=== PATIENT | male | born 1945 | race Caucasian/White ===

== ENCOUNTER 2016-12-31 04:21 | Emergency (ER) | payer MEDICARE, BC ==
[2016-12-31 06:09] LABS: Hematocrit 30 % (42-52); Hemoglobin 9.5 g/dl (14.0-18.0); Mean Corpuscular HGB Conc 32 g/dl (31-36); Mean Corpuscular Hemoglobin 28 pg (27-31); Mean Corpuscular Volume 89 fL (80-94); Mean Platelet Volume 9 um3 (7.4-10.4); Red Blood Count 3.37 10^6/ul (4.0-5.4); Red Cell Distribution Width 19 % (10.5-15); White Blood Count 4.1 10^3/ul (3.5-10.8)
[2016-12-31 06:27] LABS: Albumin 3.3 g/dL (3.2-5.2); BUN/Creatinine Ratio 10.4 (8-20); Calcium 8.7 mg/dL (8.6-10.3); EGFR African American 73.7 (>60); EGFR Non-African American 57.3 (>60); Globulin 2.9 g/dL (2-4); Potassium 3.8 mmol/L (3.5-5.0); Total Bilirubin 0.3 mg/dL (0.2-1.0); Total Protein 6.2 g/dL (6.4-8.9)
[2016-12-31 06:31] VITALS: BP 98/59
[2016-12-31] MEDS ORDERED: Acetaminophen TAB* 325 MG PO ONE (06:44)
--- NOTE | 2016-12-31 06:44 | ED ---
Sussy Maldonado Matthew, scribed for Ishmael Valverde on 12/31/16 at 0434 . Head Injury - HPI Summary HPI Summary: A 71 y/o male presents to the ED for a head injury since 03:45 this morning. The patient states that he fell out of bed and hit his head against his Bipap machine on the floor. Associated symptoms include headache. The patient denies LOC, neck pain, weakness, and numbness. The patient is on Coumadin. PMHx includes CHF and anemia. He has a pacemaker. - History Of Current Complaint Stated Complaint: HEAD INJURY Time Seen by Provider: 12/31/16 04:25 Hx Obtained From: Patient Onset/Duration: Started Hours Ago, Atraumatic, Still Present Severity Currently: Moderate Severity Initially: Moderate Pain Intensity: 7 Pain Scale Used: 0-10 Numeric Associated Signs And Symptoms: Headache Anticoagulant Therapy: Coumadin - Allergies/Home Medications Allergies/Adverse Reactions: Allergies Allergy/AdvReac Type Severity Reaction Status Date / Time Dofetilide [From Tikosyn] Allergy Unknown Verified 12/31/16 04:34 Reaction Details Erythromycin Allergy GI Upset Verified 12/31/16 04:29 Ramipril [From Altace] Allergy Coughing Verified 12/31/16 04:29 Home Medications: Home Medications Allopurinol [Zyloprim 300 MG TAB] 400 mg PO DAILY 12/31/16 [History Confirmed ] Amiodarone TAB* [Cordarone Tab*] 200 mg PO DAILY 12/31/16 [History Confirmed ] Beclomethasone 80 MCG MDI(NF) [Qvar 80 MCG MDI(NF)] 2 puff INH BID 12/31/16 [ History Confirmed 12/31/16] Beclomethasone Dipropionate (N [Qnasl] 80 mcg NASAL DAILY 12/31/16 [History Confirmed 12/31/16] BuPROPion XL* [Bupropion XL*] 300 mg PO DAILY 12/31/16 [History Confirmed ] Diclofenac 1% GEL (NF) [Voltaren 1% GEL (NF)] 1 applic TOPICAL BID 12/31/16 [ History Confirmed 12/31/16] Levalbuterol HFA INHALER* [Xopenex Hfa Inhaler*] 2 puff INH QID PRN 12/31/16 [ History Confirmed 12/31/16] LevoCETirizine TAB (NF) [Xyzal TAB (NF)] 5 mg PO DAILY 12/31/16 [History Confirmed 12/31/16] Triazolam TAB* [Halcion TAB*] 0.5 mg PO BEDTIME 12/31/16 [History Confirmed ] PMH/Surg Hx/FS Hx/Imm Hx Endocrine/Hematology History: Denies: Hx Diabetes, Hx Systemic Lupus Erythematosus Cardiovascular History: Reports: Hx Auto Implanted Cardiovert Defib, Hx Congestive Heart Failure, Hx Hypertension, Hx Pacemaker/ICD - 2008 Denies: Hx Peripheral Vascular Disease Respiratory History: Reports: Hx Sleep Apnea History: Denies: Hx Dialysis, Hx Renal Disease Musculoskeletal History: Reports: Hx Rheumatoid Arthritis - ON ARTHRITIS MEDICATION SINCE 2011 Denies: Hx Arthritis, Hx Osteoporosis Sensory History: Reports: Hx Contacts or Glasses, Hx Hearing Aid - hearing aides are home, Hx Hearing Problem Denies: Other Sensory Impairments Opthamlomology History: Reports: Hx Contacts or Glasses Denies: Other Sensory Impairments Neurological History: Reports: Hx Headaches Denies: Hx Seizures, Hx Transient Ischemic Attacks (TIA) Psychiatric History: Reports: Hx Depression - Cancer History Hx Chemotherapy: No - Surgical History Surgery Procedure, Year, and Place: cardiac ablation x2-RPH. cardiac cath- 2005. pacemaker and AICD placement. gastric bypass-2005. shoulder--2006 - Immunization History Date of Tetanus Vaccine: Unk Date of Influenza Vaccine: Fall 2014 Infectious Disease History: Reports: Hx Tuberculosis - pt states "latent" - Family History Known Family History: Positive: Cardiac Disease, Diabetes - Social History Alcohol Use: None Substance Use Type: Reports: None Hx Tobacco Use: No Smoking Status (MU): Never Smoked Tobacco Review of Systems Constitutional: Negative Eyes: Negative ENT: Negative Cardiovascular: Negative Respiratory: Negative Gastrointestinal: Negative Genitourinary: Negative Positive: Myalgia - Head injury Skin: Negative Positive: Headache Psychological: Normal All Other Systems Reviewed And Are Negative: Yes Physical Exam Triage Information Reviewed: Yes Vital Signs Reviewed: Yes Appearance: Positive: Well-Appearing, No Pain Distress Skin: Positive: Warm, Skin Color Reflects Adequate Perfusion, Dry Head/Face: Positive: Normal Head/Face Inspection Eyes: Positive: EOMI, SOTO ENT: Positive: Normal ENT inspection Neck: Positive: Supple, Nontender Respiratory/Lung Sounds: Positive: Clear to Auscultation, Breath Sounds Present Cardiovascular: Positive: RRR, Pulses are Symmetrical in both Upper and Lower Extremities Abdomen Description: Positive: Nontender, Soft Bowel Sounds: Positive: Present Musculoskeletal: Positive: Normal, Strength/ROM Intact Neurological: Positive: Normal, Sensory/Motor Intact, Alert, Oriented to Person Place, Time Psychiatric: Positive: Affect/Mood Appropriate Diagnostics - Laboratory Result Diagrams: 12/31/16 06:00 12/31/16 06:00 Lab Statement: Any lab studies that have been ordered have been reviewed, and results considered in the medical decision making process. - CT Brain CT CT Interpretation: No Acute Changes - Age-appropriate involutional changes. Mild chronic microvascular changes in the cerebral white matter. No hemorrhage. No mass No visible acute infarct Musocal thickening in the sphenoid sinus Osseous structures are intact CT Interpretation Completed By: Radiologist Head Injury Course/Dx Assessment/Plan: A 71 y/o male presents to the ED for a head injury since 03:45 this morning. The patient states that he fell out of bed and hit his head against his Bipap machine on the floor. Associated symptoms include headache. The patient denies LOC, neck pain, weakness, and numbness. The patient is on Coumadin. PMHx includes CHF and anemia. He has a pacemaker. Brain CT was negative for hemorrhage. Labs were reviewed. The patient will be discharged home with follow-up from his PCP. - Diagnoses Provider Diagnoses: Fall, Head injury Discharge - Discharge Plan Condition: Stable Disposition: HOME Patient Education Materials: Head Injury (ED) Referrals: [facility] [Outside] - 3 Days Additional Instructions: Please follow-up with your primary care physician. The documentation as recorded by the Sussy ryan Matthew accurately reflects the service I personally performed and the decisions made by , Ishmael Valverde.
--- NOTE | 2016-12-31 08:24 | RAD ---
INDICATION: Intracranial injury COMPARISON: August 22, 2015 TECHNIQUE: Noncontrast axial source images were acquired from the skull base to the vertex. FINDINGS: Ventricles/sulci: There is mild cortical atrophy with compensatory dilatation of the CSF spaces. Brain parenchyma: There is mild periventricular and subcortical white matter change compatible with chronic ischemia. Intracranial hemorrhage:None. Extra-axial spaces: There are no abnormal extra axial fluid collections or evidence of extra-axial mass. Calvarium: There is no calvarial fracture or other calvarial abnormality. Scalp: There is no evidence of scalp or extracalvarial soft tissue abnormality. Paranasal sinuses/mastoid: The paranasal sinuses and mastoid air cells are clear. Other: None. IMPRESSION: Mild involutional changes and mild chronic microvascular ischemic change. No acute findings.
== END 2016-12-31 06:52 | disposition home or self-care (01) ==
LOC: ED 04:21
DX: S09.90XA Unspecified injury of head, initial encounter (principal); R51 Headache; W19.XXXA Unspecified fall, initial encounter; Y93.9 Activity, unspecified; Y92.9 Unspecified place or not applicable
CPT/HCPCS: 36415; 70450; 80053; 85025; 85610; 85730; 99284; A9270-GY

== ENCOUNTER 2017-02-10 10:58 | Inpatient (IN) | payer MEDICARE, BC ==
[2017-02-10 12:30] LABS: Comments Flag Yes; Hematocrit 37 % (42-52); Hemoglobin 11.9 g/dl (14.0-18.0); Mean Corpuscular HGB Conc 33 g/dl (31-36); Mean Corpuscular Hemoglobin 32 pg (27-31); Mean Corpuscular Volume 97 fL (80-94); Mean Platelet Volume 9 um3 (7.4-10.4); Red Blood Count 3.78 10^6/ul (4.0-5.4); Red Cell Distribution Width 25 % (10.5-15); White Blood Count 4.7 10^3/ul (3.5-10.8)
[2017-02-10 12:31] LABS: Add Diff/Slide Review? Slide Review Added
[2017-02-10 12:41] LABS: ALT 12 U/L (7-52); AST 25 U/L (13-39); Albumin 3.6 g/dL (3.2-5.2); Alkaline Phosphatase 102 U/L (34-104); Anion Gap 5 mmol/L (2-11); Blood Urea Nitrogen 10 mg/dL (6-24); C Reactive Protein 3.56 mg/L (< 5.00); CO2 Carbon Dioxide 30 mmol/L (22-32); Calcium 8.9 mg/dL (8.6-10.3); Chloride 102 mmol/L (101-111); Creatine Kinase 64 U/L (10-223); EGFR African American 84.5 (>60); EGFR Non-African American 65.7 (>60); Globulin 2.9 g/dL (2-4); Glucose 99 mg/dL (70-100); Lipase 29 U/L (11.0-82.0); Magnesium 1.9 mg/dL (1.9-2.7); Potassium 3.7 mmol/L (3.5-5.0); Sodium 137 mmol/L (133-145); Total Protein 6.5 g/dL (6.4-8.9)
[2017-02-10 12:46] LABS: B Type Natriuretic Peptide 136 pg/mL
[2017-02-10 12:59] LABS: Ammonia 38 mol/L (16-53)
--- NOTE | 2017-02-10 13:07 | RAD ---
Indication: Headache, confusion. CT of the brain was performed without IV contrast. Comparison is made with previous exam dated December 31, 2016. Ventricular structures are midline. No midline shift is noted. The extra-axial spaces are unremarkable. There is no evidence of intracranial mass or hemorrhage. Periventricular lucency consistent with chronic ischemic White matter change is noted. There is opacification of the sphenoid sinus which appears to be chronic. Mastoid air cells are otherwise unremarkable. IMPRESSION: No intracranial mass or hemorrhage is noted. Chronic ischemic White matter change. Chronic sinusitis sphenoid sinus.
--- NOTE | 2017-02-10 13:17 | RAD ---
Indication: Confusion. Single frontal view of the chest performed at 1245 hours was reviewed. Comparison is made with previous exam dated February 18, 2016. Pacemaker leads are in place. Heart is at the upper limits of normal in size. Lung sierra are clear. No pleural fluid, pneumonia or pneumothorax is noted. No changes noted since previous exam February 18, 2016. IMPRESSION: NO ACTIVE CARDIOPULMONARY DISEASE IS NOTED.
[2017-02-10 13:35] LABS: Acetaminophen < 15 mcg/mL; Alcohol < 10 mg/dL (<10); Salicylate < 2.50 mg/dL (<30)
[2017-02-10 13:49] LABS: Urine Bilirubin Negative (Negative); Urine Glucose Negative (Negative); Urine Nitrite Negative (Negative)
[2017-02-10 15:09] LABS: TSH (Thyroid Stimulating Horm) 1.31 mcIU/mL (0.34-5.60)
[2017-02-10] MEDS ORDERED: HYDROcodone/ACETAMIN 5-325 MG* 1 TAB PO ONE (15:11)
[2017-02-10] MEDS ORDERED: Acetaminophen TAB* 325 MG PO PRN (15:40)
[2017-02-10] MEDS ORDERED: Ondansetron INJ* 2 MG/ML VIAL IV PRN (15:40)
[2017-02-10] MEDS ORDERED: Levalbuterol HFA INHALER* 1 PUFF MDI INH PRN (15:41)
[2017-02-10] MEDS ORDERED: HYDROcodone/ACETAMIN 5-325 MG* 1 TAB PO PRN (15:50)
[2017-02-10] MEDS ORDERED: LORazepam INJ* 2 MG/ML 1 ML VIAL IV PUSH PRN (19:18)
--- NOTE | 2017-02-10 19:50 | ED ---
Eddie Maldonado Billy, scribed for Rafael Ferguson MD on 02/10/17 at 1223 . Psychiatric Complaint - HPI Summary HPI Summary: Patient is a 71 year-old male coming to [facility] for evaluation of auditory hallucinations and nightmares for the last 3-4 months. He states that he has nightmares about little stupid things, and he comes to the ED today because he has continued to fell nightmarish since waking up this morning. The voices do not tell him to hurt himself or others; he reports hearing music playing and voices that are just talking to themselves. Patient has had sleep disturbance , and his states that he has been restless for the last several days. He had mild chest pressure this morning, which he believes was secondary to his feelings of anxiety. He also has chronic headaches, and he complains of a frontal headache, severity 5/10, at this time. He had similar episodes of voices and nightmares two years ago which resolved until 3-4 months ago. - History Of Current Complaint Chief Complaint: EDMentalHealth Time Seen by Provider: 02/10/17 12:08 Accompanied By: Hx Obtained From: Patient, Family/Finish Inspector Onset/Duration: Gradual Onset, Lasting Weeks, Still Present Timing: Constant Severity Initially: Moderate Severity Currently: Moderate Aggravating Factor(s): Nothing Alleviating Factor(s): Nothing Associated Signs And Symptoms: Positive: Hallucinating, Sleep Disturbance Related History: Positive For: Prior Psychiatric Issues Has Suicidal: Denies: Thoughts, With A Plan Has Homicidal: Denies: Thoughts, With A Plan - Allergies/Home Medications Allergies/Adverse Reactions: Allergies Allergy/AdvReac Type Severity Reaction Status Date / Time Dofetilide [From Tikosyn] Allergy Unknown Verified 02/10/17 11:04 Reaction Details Erythromycin Allergy GI Upset Verified 02/10/17 11:04 Ramipril [From Altace] Allergy Coughing Verified 02/10/17 11:04 PMH/Surg Hx/FS Hx/Imm Hx Endocrine/Hematology History: Denies: Hx Diabetes, Hx Systemic Lupus Erythematosus Cardiovascular History: Reports: Hx Auto Implanted Cardiovert Defib, Hx Congestive Heart Failure, Hx Hypertension, Hx Pacemaker/ICD - 2009 Denies: Hx Peripheral Vascular Disease Respiratory History: Reports: Hx Sleep Apnea History: Denies: Hx Dialysis, Hx Renal Disease Musculoskeletal History: Reports: Hx Rheumatoid Arthritis - ON ARTHRITIS MEDICATION SINCE 2011 Denies: Hx Arthritis, Hx Osteoporosis Sensory History: Reports: Hx Contacts or Glasses, Hx Hearing Aid - hearing aides are home, Hx Hearing Problem Denies: Other Sensory Impairments Opthamlomology History: Reports: Hx Contacts or Glasses Denies: Other Sensory Impairments Neurological History: Reports: Hx Headaches Denies: Hx Seizures, Hx Transient Ischemic Attacks (TIA) Psychiatric History: Reports: Hx Depression - Cancer History Hx Chemotherapy: No - Surgical History Surgery Procedure, Year, and Place: cardiac ablation x2-RPH. cardiac cath- 2005. pacemaker and AICD placement. gastric bypass-2005. 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 "latent" Denies: Traveled Outside the [place] in Last 30 Days - Family History Known Family History: Positive: Cardiac Disease, Diabetes - Social History Alcohol Use: None Substance Use Type: Reports: None Hx Tobacco Use: No Smoking Status (MU): Never Smoked Tobacco Review of Systems Negative: Fever, Chills Positive: Chest Pain - pressure Negative: Shortness Of Breath Negative: Abdominal Pain, Vomiting, Nausea Negative: Myalgia Positive: Headache Positive: Anxious, Other - see HPI All Other Systems Reviewed And Are Negative: Yes Physical Exam Triage Information Reviewed: Yes Vital Signs On Initial Exam: Initial Vitals Temp Pulse Resp BP Pulse Ox 97.1 F 60 16 122/79 100 02/10/17 11:04 02/10/17 11:04 02/10/17 11:04 02/10/17 11:04 02/10/17 11:04 Vital Signs Reviewed: Yes Appearance: Positive: Well-Appearing, No Pain Distress Skin: Positive: Warm, Skin Color Reflects Adequate Perfusion, Dry Eyes: Positive: EOMI, SOTO ENT: Positive: Normal ENT inspection Neck: Positive: Supple, Nontender Respiratory/Lung Sounds: Positive: Clear to Auscultation, Breath Sounds Present Cardiovascular: Positive: RRR Abdomen Description: Positive: Nontender, Soft Bowel Sounds: Positive: Present Musculoskeletal: Positive: Normal, Strength/ROM Intact Neurological: Positive: Normal, Sensory/Motor Intact, Alert, Oriented to Person Place, Time Psychiatric: Positive: Affect/Mood Appropriate - [place] Coma Scale Coma Scale Total: 15 Diagnostics - Vital Signs Vital Signs Temp Pulse Resp BP Pulse Ox 02/10/17 12:00 60 14 105/70 97 02/10/17 11:34 59 113/66 98 02/10/17 11:09 97.1 F 60 16 122/79 98 02/10/17 11:04 97.1 F 60 16 122/79 100 - Laboratory Lab Results: Lab Results 02/10/17 02/10/17 02/10/17 Range/Units 12:05 12:05 12:05 WBC 4.7 (3.5-10.8) 10^3/ul RBC 3.78 L (4.0-5.4) 10^6/ul Hgb 11.9 L (14.0-18.0) g/dl Hct 37 L (42-52) % MCV 97 H (80-94) fL MCH 32 H (27-31) pg MCHC 33 (31-36) g/dl RDW 25 H (10.5-15) % Plt Count 141 L (150-450) 10^3/ul MPV 9 (7.4-10.4) um3 Neut % (Auto) 59.8 (38-83) % Lymph % (Auto) 22.6 L (25-47) % [place] % (Auto) 13.7 H (1-9) % Eos % (Auto) 3.4 (0-6) % Baso % (Auto) 0.5 (0-2) % Absolute Neuts (auto) 2.8 (1.5-7.7) 10^3/ul Absolute Lymphs (auto) 1.1 (1.0-4.8) 10^3/ul Absolute Monos (auto) 0.6 (0-0.8) 10^3/ul Absolute Eos (auto) 0.2 (0-0.6) 10^3/ul Absolute Basos (auto) 0 (0-0.2) 10^3/ul Absolute Nucleated RBC 0 10^3/ul Nucleated RBC % 0.1 INR (Anticoag Therapy) 3.35 H (0.89-1.11) APTT 71.5 H (26.0-36.3) seconds Carbon Monoxide Screen (<3.5) % Sodium 137 (133-145) mmol/L Potassium 3.7 (3.5-5.0) mmol/L Chloride 102 (101-111) mmol/L Carbon Dioxide 30 (22-32) mmol/L Anion Gap 5 (2-11) mmol/L BUN 10 (6-24) mg/dL Creatinine 1.11 (0.67-1.17) mg/dL Est GFR ( Amer) 84.5 (>60) Est GFR (Non-Af Amer) 65.7 (>60) BUN/Creatinine Ratio 9.0 (8-20) Glucose 99 (70-100) mg/dL Lactic Acid (0.5-2.0) mmol/L Calcium 8.9 (8.6-10.3) mg/dL Magnesium 1.9 (1.9-2.7) mg/dL Total Bilirubin 0.40 (0.2-1.0) mg/dL AST 25 (13-39) U/L ALT 12 (7-52) U/L Alkaline Phosphatase 102 (34-104) U/L Ammonia (16-53) mol/L Total Creatine Kinase 64 (10-223) U/L CK-MB (CK-2) 1.4 (0.6-6.3) ng/mL Troponin I 0.00 (<0.04) ng/mL C-Reactive Protein 3.56 (< 5.00) mg/L B-Natriuretic Peptide ( - 100) pg/mL Total Protein 6.5 (6.4-8.9) g/dL Albumin 3.6 (3.2-5.2) g/dL Globulin 2.9 (2-4) g/dL Albumin/Globulin Ratio 1.2 (1-3) Lipase 29 (11.0-82.0) U/L TSH 1.31 (0.34-5.60) mcIU/mL Urine Color Urine Appearance Urine pH (5-9) Ur Specific [place] (1.010-1.030) Urine Protein (Negative) Urine Ketones (Negative) Urine Blood (Negative) Urine Nitrate (Negative) Urine Bilirubin (Negative) Urine Urobilinogen (Negative) Ur Leukocyte Esterase (Negative) Urine Glucose (Negative) Salicylates < 2.50 (<30) mg/dL Acetaminophen < 15 mcg/mL Serum Alcohol < 10 (<10) mg/dL 02/10/17 02/10/17 02/10/17 Range/Units 12:05 12:05 12:50 WBC (3.5-10.8) 10^3/ul RBC (4.0-5.4) 10^6/ul Hgb (14.0-18.0) g/dl Hct (42-52) % MCV (80-94) fL MCH (27-31) pg MCHC (31-36) g/dl RDW (10.5-15) % Plt Count (150-450) 10^3/ul MPV (7.4-10.4) um3 Neut % (Auto) (38-83) % Lymph % (Auto) (25-47) % [place] % (Auto) (1-9) % Eos % (Auto) (0-6) % Baso % (Auto) (0-2) % Absolute Neuts (auto) (1.5-7.7) 10^3/ul Absolute Lymphs (auto) (1.0-4.8) 10^3/ul Absolute Monos (auto) (0-0.8) 10^3/ul Absolute Eos (auto) (0-0.6) 10^3/ul Absolute Basos (auto) (0-0.2) 10^3/ul Absolute Nucleated RBC 10^3/ul Nucleated RBC % INR (Anticoag Therapy) (0.89-1.11) APTT (26.0-36.3) seconds Carbon Monoxide Screen <3.5 (<3.5) % Sodium (133-145) mmol/L Potassium (3.5-5.0) mmol/L Chloride (101-111) mmol/L Carbon Dioxide (22-32) mmol/L Anion Gap (2-11) mmol/L BUN (6-24) mg/dL Creatinine (0.67-1.17) mg/dL Est GFR ( Amer) (>60) Est GFR (Non-Af Amer) (>60) BUN/Creatinine Ratio (8-20) Glucose (70-100) mg/dL Lactic Acid 1.0 (0.5-2.0) mmol/L Calcium (8.6-10.3) mg/dL Magnesium (1.9-2.7) mg/dL Total Bilirubin (0.2-1.0) mg/dL AST (13-39) U/L ALT (7-52) U/L Alkaline Phosphatase (34-104) U/L Ammonia 38 (16-53) mol/L Total Creatine Kinase (10-223) U/L CK-MB (CK-2) (0.6-6.3) ng/mL Troponin I (<0.04) ng/mL C-Reactive Protein (< 5.00) mg/L B-Natriuretic Peptide 136 H ( - 100) pg/mL Total Protein (6.4-8.9) g/dL Albumin (3.2-5.2) g/dL Globulin (2-4) g/dL Albumin/Globulin Ratio (1-3) Lipase (11.0-82.0) U/L TSH (0.34-5.60) mcIU/mL Urine Color Urine Appearance Urine pH (5-9) Ur Specific [place] (1.010-1.030) Urine Protein (Negative) Urine Ketones (Negative) Urine Blood (Negative) Urine Nitrate (Negative) Urine Bilirubin (Negative) Urine Urobilinogen (Negative) Ur Leukocyte Esterase (Negative) Urine Glucose (Negative) Salicylates (<30) mg/dL Acetaminophen mcg/mL Serum Alcohol (<10) mg/dL 02/10/17 Range/Units 13:30 WBC (3.5-10.8) 10^3/ul RBC (4.0-5.4) 10^6/ul Hgb (14.0-18.0) g/dl Hct (42-52) % MCV (80-94) fL MCH (27-31) pg MCHC (31-36) g/dl RDW (10.5-15) % Plt Count (150-450) 10^3/ul MPV (7.4-10.4) um3 Neut % (Auto) (38-83) % Lymph % (Auto) (25-47) % [place] % (Auto) (1-9) % Eos % (Auto) (0-6) % Baso % (Auto) (0-2) % Absolute Neuts (auto) (1.5-7.7) 10^3/ul Absolute Lymphs (auto) (1.0-4.8) 10^3/ul Absolute Monos (auto) (0-0.8) 10^3/ul Absolute Eos (auto) (0-0.6) 10^3/ul Absolute Basos (auto) (0-0.2) 10^3/ul Absolute Nucleated RBC 10^3/ul Nucleated RBC % INR (Anticoag Therapy) (0.89-1.11) APTT (26.0-36.3) seconds Carbon Monoxide Screen (<3.5) % Sodium (133-145) mmol/L Potassium (3.5-5.0) mmol/L Chloride (101-111) mmol/L Carbon Dioxide (22-32) mmol/L Anion Gap (2-11) mmol/L BUN (6-24) mg/dL Creatinine (0.67-1.17) mg/dL Est GFR ( Amer) (>60) Est GFR (Non-Af Amer) (>60) BUN/Creatinine Ratio (8-20) Glucose (70-100) mg/dL Lactic Acid (0.5-2.0) mmol/L Calcium (8.6-10.3) mg/dL Magnesium (1.9-2.7) mg/dL Total Bilirubin (0.2-1.0) mg/dL AST (13-39) U/L ALT (7-52) U/L Alkaline Phosphatase (34-104) U/L Ammonia (16-53) mol/L Total Creatine Kinase (10-223) U/L CK-MB (CK-2) (0.6-6.3) ng/mL Troponin I (<0.04) ng/mL C-Reactive Protein (< 5.00) mg/L B-Natriuretic Peptide ( - 100) pg/mL Total Protein (6.4-8.9) g/dL Albumin (3.2-5.2) g/dL Globulin (2-4) g/dL Albumin/Globulin Ratio (1-3) Lipase (11.0-82.0) U/L TSH (0.34-5.60) mcIU/mL Urine Color Straw Urine Appearance Clear Urine pH 5.0 (5-9) Ur Specific [place] 1.005 L (1.010-1.030) Urine Protein Negative (Negative) Urine Ketones Negative (Negative) Urine Blood Negative (Negative) Urine Nitrate Negative (Negative) Urine Bilirubin Negative (Negative) Urine Urobilinogen Negative (Negative) Ur Leukocyte Esterase Negative (Negative) Urine Glucose Negative (Negative) Salicylates (<30) mg/dL Acetaminophen mcg/mL Serum Alcohol (<10) mg/dL Result Diagrams: 02/10/17 12:05 02/10/17 12:05 Lab Statement: Any lab studies that have been ordered have been reviewed, and results considered in the medical decision making process. - Radiology CXR Xray Interpretation: No Acute Changes Radiology Interpretation Completed By: Radiologist - CT Brain CT Interpretation: No Acute Changes CT Interpretation Completed By: Radiologist - EKG 1125 EKG Interpretation: paced rhythm at 60 bpm Re-Evaluation - Re-Evaluation First Eval Re-Evaluation Time: 14:43 Comment: Labs and imaging reviewed with the patient and family. Course/Dx - Course Course Of Treatment: NO CRITICAL CARE TIME Assessment/Plan: DISCUSSED PATIENT WITH BOTH MEDICINE AND PSYCHIATRY. ADMIT HOSPITALIST WITH PSYCHIATRY CONSULT STABLE. - Differential Dx/Clinical Impression Provider Diagnosis: Altered mental state - Physician Notifications Discussed Care Of Patient With: Dr. Arndt (hospitalist) @ [phone]. Dr. Arndt ( hospitalist) @ [id number]: accepts admission. Discharge - Discharge Plan Condition: Stable Disposition: ADMITTED TO [facility] documentation as recorded by the Eddie ryan Billy accurately reflects the service I personally performed and the decisions made by me, Rafael Ferguson MD.
[2017-02-10] MEDS ORDERED: LORazepam TAB(*) 1 MG PO SCH (21:00)
[2017-02-10] MEDS ORDERED: Triazolam TAB* 0.25 MG PO SCH (21:00)
[2017-02-10] MEDS ORDERED: Mometasone 220 MCG MDI INH SCH (21:00)
[2017-02-10] MEDS: Nadolol TAB* 40 MG PO SCH (21:20)
[2017-02-10] MEDS: Potassium Chlor TAB* 20 MEQ TAB.ER PO SCH (21:22)
[2017-02-10] MEDS: BECLOMETHASONE DIPROPIONATE BOTH NARES SCH (21:25)
--- NOTE | 2017-02-10 23:10 | HP ---
AMENDED REPORT NOW INCLUDES COSIGNER HISTORY AND PHYSICAL: DATE OF ADMISSION: 02/10/17 PRIMARY CARE PROVIDER: Arcadio Aquino MD ATTENDING PHYSICIAN WHILE IN THE HOSPITAL: Juancho Arndt MD* (report dictated by Ernesto Valdez NP) CHIEF COMPLAINT: Auditory and visual hallucinations, worsening over the last 48 hours. HISTORY OF PRESENT ILLNESS: Mr. Unger is a 71-year-old male patient who was here about a year and a half ago or two years ago with similar complaints and was felt to have polypharmacy causing hallucinations; however, he has noticed over the last 3 months, he has been having auditory hallucinations, hearing music and sounds and unfortunately, over the last 2 days, he has noticed that he has had more visual hallucinations, seeing people in the room and hearing things as well. He says that he is not suicidal. He says that they are not telling him to hurt himself or others, but he is having a significant increase in the hallucinations that are making him very anxious. His was concerned as he was not getting any better. She remembered what happened 2 years ago and how he needed to be admitted previously, so she brought him in to the hospital. He says he has not had any changes to the medications. He is seeing a psychiatrist in [place] and his medications have been stable for sometime. He says that he has not had any change in his narcotics. He does state that he has been taking these for chronic headaches, particularly his [place], but the says that he has been on his baseline amount and he has not taken any more or less than what he normally does. He denies having any chills or fevers. He does state today he had 1 episode of chest pain this morning, lasted approximately 10 minutes, described as a pressure. He says that this occurred when he was seeing people. He denied having any vomiting or diarrhea. No dysuria. No frequency and again, no fevers or chills. He does carry a history of AFib, asthma, GERD, depression, arthritis, left bundle- branch block, CAD, cardiomyopathy, [place], [place], and a history of rheumatoid arthritis. There was concern because of these hallucinations and the chest discomfort, particularly the hallucinations. The patient was evaluated in the ER and we were asked to evaluate for admission. PAST MEDICAL HISTORY: Significant for: 1. Atrial fibrillation. 2. Asthma. 3. GERD. 4. Depression. 5. Arthritis. 6. Left bundle-branch block. 7. CAD. 8. Cardiomyopathy. 9. MOSES. 10. [place]. 11. Rheumatoid arthritis. PAST SURGICAL HISTORY: 1. He has had an ablation x2. 2. Cataract extraction. 3. AICD. 4. Gastric bypass. 5. Right shoulder surgery. HOME MEDICATIONS: According to his list include: 1. Warfarin 2.5 mg p.o. Saturday, Saturday, , and Saturday. 2. Warfarin 1.25 mg Saturday, Saturday, and Saturday. 3. Halcion 0.5 mg at bedtime. 4. Spironolactone 25 mg daily. 5. Potassium chloride 20 mEq p.o. b.i.d. 6. Protonix 40 mg daily. 7. Nadolol 20 mg p.o. b.i.d. 8. Levocetirizine 5 mg daily. 9. Xopenex 2 puffs inhaled q.i.d. as needed. 10. Ativan 2 mg at bedtime. 11. [place] 1 tablet every 6 hours as needed. 12. Ultravate 0.05% topically daily p.r.n. to affected area. 13. Lasix 40 mg daily. 14. Voltaren gel 1 application topically b.i.d. 15. Cymbalta 60 mg daily. 16. Wellbutrin 300 mg daily. 17. QVAR 2 puffs inhaled b.i.d. 18. Amiodarone 200 mg daily. 19. Allopurinol 400 mg daily. 20. Beclomethasone 80 mcg nasally daily. ALLERGIES TO MEDICATIONS: Include TIKOSYN, ERYTHROMYCIN, REMERON, and RAMIPRIL. FAMILY HISTORY: His mother had a history of rheumatoid arthritis. Father had a history of CHF and diabetes. SOCIAL HISTORY: He does not smoke. He does not drink. Surrogate decision maker is his . REVIEW OF SYSTEMS: There is no documented fever. He denied having any significant weight change. There was no double vision. He denies having any ear discharge. No rhinorrhea. No sore throat. No thyroid enlargement. There was 1 episode of chest discomfort earlier today in the setting of hallucinations described as a pressure with no association with shortness of breath and nonexertional or any association with diaphoresis or nausea. He denied having any shortness of breath. No orthopnea. No nocturnal dyspnea. There is no abdominal pain. No nausea. No vomiting. No dysuria. No frequency. No loss of consciousness. No pruritus. No skin ulcerations. Review of 14 systems completed, all others negative. PHYSICAL EXAMINATION GENERAL: At this time, Mr. Unger is a 71-year-old male patient coming in to the ER, appears to be well nourished and well developed. He does not appear to be in any acute distress. VITAL SIGNS: Blood pressure 116/60 with a pulse of 60, respirations 16, O2 sat 96%, and temperature 97.1. HEENT: Head is atraumatic and normocephalic. Eyes: EOMs are intact. Sclerae are anicteric and not pale. Throat: Oral mucosa appears to be moist. No oropharyngeal erythema. NECK: Supple. LUNGS: Clear to auscultation bilaterally. No wheezes, rales, or rhonchi. HEART: Sounds S1, S2. Regular rate and rhythm. No murmurs, rubs, or gallops. ABDOMEN: Soft. It was flat and nontender. Bowel sounds present. EXTREMITIES: Pulses were 2+ throughout. He is able to move all 4 extremities with 5/5 strength. NEUROLOGIC: The patient is awake, he is alert, and he is oriented x3. No gross focal deficits. SKIN: Grossly intact. DIAGNOSTIC STUDIES/LAB DATA: Today revealed a WBC of 4.7, RBC of 3.78, hemoglobin 11.9, hematocrit of 37, and platelet count of 141. The INR was 3.35 and PTT of 71.5. Carbon monoxide less than 3.5. Sodium 137, potassium 3.7, chloride of 102, bicarb 30, BUN 10, creatinine 1.10, glucose 99, lactic 1.0, calcium 8.9, and magnesium 1.9. Total bili 0.4, AST 25, ALT 12, and alk phos 102. Ammonia 38. CK 64 and CK-MB 1.4. Troponin 0. Albumin of 3.6. Lipase 29. TSH 1.31. Urine was obtained, it was negative. Toxicology thus far is negative. Brain CT showed no intracranial mass or hemorrhage noted. Chronic ischemic white matter change. Chronic sinusitis noted. Chest x-ray showed no active cardiopulmonary disease. EKG shows a paced rhythm with a rate of 60, no ST elevations or T-wave inversions were noted. Old medical records were reviewed. ASSESSMENT AND PLAN: Mr. Unger is a 71-year-old male patient coming into the ER today with complaints of hallucinations, worsening over the last 24 to 38 hours with no obvious cause. He will be admitted under observation status for: 1. Hallucinations, both auditory and visual: At this point, I will place a psychiatric consult. He does not appear to be overtly anxious at this point. I am going to try to avoid adding on any new medications to his regimen and Psychiatry evaluate the patient and we will continue to follow. 2. Chest pain: Again, this could be anxiety related; however, he does have cardiac disease. I think minimally we should go ahead and trend his troponins, place him on telemetry overnight. If these are negative, consider a stress test in the outpatient setting at some point, but we will continue to follow him. If they go up, obviously we will get a Cardiology consult. 3. Atrial fibrillation: His INR is 3.35. We will hold his Coumadin for the time being until his INR trends between 2 and 3 and I will restart his Coumadin when appropriate and continue with his nadolol. 4. Cardiomyopathy and coronary artery disease: Again, continue his beta marie. He is on spironolactone. We will continue this. He is also on amiodarone, which is also for the atrial fibrillation and we will continue Lasix for the time being. 5. Anxiety: Continue with supportive care and his current medical regimen. 6. Depression: Continue with current medications. 7. Asthma: Continue his inhalers as prescribed. 8. Gastroesophageal reflux disease: Continue PPI therapy. 9. Obstructive sleep apnea: I did order his CPAP. 10. Rheumatoid arthritis: Continue with supportive care and current medical regimen. 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 11. DVT prophylaxis: His INR is therapeutic. We will follow. 12. Fluids, electrolytes, and nutrition: He can have a heart healthy diet. 13. Code status: Full code. TIME SPENT: Time spent on the admission was 60 minutes; greater than half the time was spent [id number] with the patient obtaining my history and physical, the other half time is spent going over the plan of care with the patient and implementing plan of care. I discussed the plan of care with my attending, Dr. Arndt. He is in agreement. ERNESTO VALDEZ NP CC: Dr. Aquino; Dr. Heck* [id number]/CPS #: [id number] [facility]
[2017-02-11 05:57] LABS: Hematocrit 37 % (42-52); Hemoglobin 11.9 g/dl (14.0-18.0); Mean Corpuscular HGB Conc 33 g/dl (31-36); Mean Corpuscular Hemoglobin 32 pg (27-31); Mean Corpuscular Volume 97 fL (80-94); Mean Platelet Volume 9 um3 (7.4-10.4); Red Blood Count 3.78 10^6/ul (4.0-5.4); White Blood Count 4.8 10^3/ul (3.5-10.8)
[2017-02-11 06:00] LABS: Add Diff/Slide Review? Slide Review Added; Comments Flag Yes; Red Cell Distribution Width 25 % (10.5-15)
[2017-02-11 06:11] LABS: BUN/Creatinine Ratio 11.8 (8-20); Calcium 9.1 mg/dL (8.6-10.3); EGFR Non-African American 60.6 (>60); Potassium 3.9 mmol/L (3.5-5.0)
[2017-02-11] MEDS: BECLOMETHASONE DIPROPIONATE BOTH NARES SCH (08:45)
[2017-02-11] MEDS ORDERED: BuPROPion XL* 300 MG TAB.XL PO SCH (09:00)
[2017-02-11] MEDS ORDERED: Furosemide TAB* 40 MG PO SCH (09:00)
[2017-02-11] MEDS ORDERED: Allopurinol TAB* 100 MG PO SCH (09:00)
[2017-02-11] MEDS ORDERED: Allopurinol TAB* 300 MG PO SCH (09:00)
[2017-02-11] MEDS ORDERED: DULoxetine DR CAP* 60 MG CAP.DR PO SCH (09:00)
[2017-02-11] MEDS ORDERED: Amiodarone TAB* 200 MG PO SCH (09:00)
[2017-02-11] MEDS ORDERED: Cetirizine* 10 MG TAB PO SCH (09:00)
[2017-02-11] MEDS ORDERED: Omeprazole CAP* 20 MG PO SCH (09:00)
[2017-02-11] MEDS ORDERED: Spironolactone TAB* 25 MG PO SCH (09:00)
[2017-02-11] MEDS: Nadolol TAB* 40 MG PO SCH (09:31)
[2017-02-11] MEDS: Potassium Chlor TAB* 20 MEQ TAB.ER PO SCH (09:32)
[2017-02-11 12:32] VITALS: BP 101/60
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
--- NOTE | 2017-02-12 15:01 | DS ---
DISCHARGE SUMMARY: DATE OF ADMISSION: 02/10/17 DATE OF DISCHARGE: 02/11/17 PRIMARY CARE PROVIDER: Dr. Aquino PRINCIPAL DIAGNOSIS: Visual and auditory hallucinations. SECONDARY DIAGNOSES: 1. Atrial fibrillation. 2. Asthma. 3. Gastroesophageal reflux disease. 4. Depression. 5. Coronary artery disease. 6. Obstructive sleep apnea. 7. Rheumatoid arthritis. DISCHARGE MEDICATIONS: 1. Coumadin 2.5 mg p.o. Saturday, Saturday, , Saturday and 1.25 mg p.o. all other days of the week. 2. Spironolactone 25 mg p.o. daily. 3. Potassium chloride 20 mEq p.o. b.i.d. 4. Protonix 40 mg p.o. daily. 5. Nadolol 20 mg p.o. b.i.d. 6. Xyzal 5 mg p.o. daily. 7. Xopenex 2 puffs inhaled q.i.d. p.r.n. shortness of breath. 8. Ativan 2 mg p.o. q.h.s. 9. [place] 10/325 one tab p.o. q.6 hours p.r.n. pain, I discussed tapering slowly with the patient and his . 10. Halobetasol 0.05% topically daily p.r.n. rash. 11. Lasix 40 mg p.o. daily. 12. Diclofenac gel apply topically twice daily. 13. Duloxetine DR 60 mg p.o. daily. 14. QVAR 2 puffs inhaled twice daily, q. nasal 80 mcg nasally daily. 15. Amiodarone 200 mg p.o. daily. 16. Allopurinol 400 mg p.o. daily. Discontinued Medications: 1. Halcion. 2. Wellbutrin. HOSPITAL COURSE: Mr. Unger is a 71-year-old male, who approximately 2 years ago had an episode with severe agitation, delirium, and hallucinations and per his , he has not been his usual self since then. The patient presented to the emergency room on 02/10/17 with complaints of visual and auditory hallucinations. These are not threatening in any nature. The plan was to admit the patient for a psychiatry evaluation and monitoring. Dr. Heck saw the patient on the afternoon of 02/11/17 and recommended discontinuing his Halcion and Wellbutrin. The patient already established with psychiatrist and a counselor and will continue to follow up with these individuals. It was felt the patient's visual and auditory hallucinations are not a risk for suicide as they are non-threatening. The patient was adamant about going home today and was felt to be stable for this. The patient has been maintained on his usual home medication regimen, though at the recommendation of Dr. Heck, Halcion and Wellbutrin have been discontinued on discharge. The patient's INR was however noted to be supra-therapeutic on the day of admission; however, on the day of discharge, it is back down to therapeutic range. He will be maintained on his usual dose of Coumadin and will need to follow up for his usually scheduled INR check. FOLLOWUP CONCERNS: The patient is being discharged to home today, 02/11/17. ACTIVITY LEVEL: As tolerated. DIET: Regular. CONDITION ON DISCHARGE: Stable. The patient is to follow up with Dr. Aquino in the next 4 to 7 days. TIME SPENT: 35 minutes was spent discharging this patient. CC: Dr. Aquino* [id number]/CPS #: [id number] [facility]
== END 2017-02-11 15:35 | disposition home or self-care (01) | DRG 880 ==
LOC: ED 10:58 → MED 14:53 → MEDTELE 16:38
PROVIDERS: ADMIT Hospitalist; ATTEND Hospitalist
DX: R44.0 Auditory hallucinations (principal); I42.9 Cardiomyopathy, unspecified; I48.91 Unspecified atrial fibrillation; R44.1 Visual hallucinations; T43.295A Adverse effect of other antidepressants, initial encounter; T42.4X5A Adverse effect of benzodiazepines, initial encounter; J45.909 Unspecified asthma, uncomplicated; K21.9 Gastro-esophageal reflux disease without esophagitis; F32.9 Major depressive disorder, single episode, unspecified; I25.10 Atherosclerotic heart disease of native coronary artery without angina pectoris; G47.33 Obstructive sleep apnea (adult) (pediatric); M06.9 Rheumatoid arthritis, unspecified; I44.7 Left bundle-branch block, unspecified; X58.XXXA Exposure to other specified factors, initial encounter; I25.2 Old myocardial infarction; Z95.810 Presence of automatic (implantable) cardiac defibrillator; Z98.84 Bariatric surgery status; Z79.899 Other long term (current) drug therapy; Z79.01 Long term (current) use of anticoagulants; Z88.1 Allergy status to other antibiotic agents; Z88.8 Allergy status to other drugs, medicaments and biological substances; Z83.3 Family history of diabetes mellitus; Z82.61 Family history of arthritis; Z82.49 Family history of ischemic heart disease and other diseases of the circulatory system; Y92.009 Unspecified place in unspecified non-institutional (private) residence as the place of occurrence of the external cause
CPT/HCPCS: 36415; 70450; 71010; 80048; 80053; 80320; 80329; 81003; 82140; 82375; 82550; 82553; 83605; 83690; 83735; 83880; 84443; 84484; 85025; 85610; 85730; 86140; 93005; A9270-GY; G0480; J2060

== ENCOUNTER 2017-06-16 18:03 | Emergency (ER) | payer MEDICARE, BC ==
[2017-06-16] MEDS ORDERED: NS 0.9% 1000 ML* 1,000 ML IV ONE (20:03)
[2017-06-16 21:13] LABS: Hematocrit 36 % (42-52); Hemoglobin 12.1 g/dl (14.0-18.0); Mean Corpuscular HGB Conc 34 g/dl (31-36); Mean Corpuscular Hemoglobin 37 pg (27-31); Mean Platelet Volume 9 um3 (7.4-10.4); Red Blood Count 3.29 10^6/ul (4.0-5.4); Red Cell Distribution Width 15 % (10.5-15); White Blood Count 5.4 10^3/ul (3.5-10.8)
[2017-06-16 21:14] LABS: Comments Flag Yes; Mean Corpuscular Volume 109 fL (80-94)
[2017-06-16 21:29] LABS: Albumin 3.3 g/dL (3.2-5.2); BUN/Creatinine Ratio 11.5 (8-20); Calcium 9.1 mg/dL (8.6-10.3); EGFR African American 90.8 (>60); EGFR Non-African American 70.6 (>60); Globulin 3.1 g/dL (2-4); Potassium 4.2 mmol/L (3.5-5.0); Total Bilirubin 0.6 mg/dL (0.2-1.0); Total Protein 6.4 g/dL (6.4-8.9)
[2017-06-16] MEDS ORDERED: Iodixanol* (CONTRAST) 320 MG/ML 100 ML SDV IV ONE (21:35)
--- NOTE | 2017-06-16 21:59 | RAD ---
CLINICAL HISTORY: Diverticulitis, lower abdominal pain COMPARISON: June 07, 2003 TECHNIQUE: Multiple contiguous axial CT scans were obtained of the abdomen and pelvis after the administration of intravenous contrast. Coronal and sagittal multiplanar reformations are submitted for review. Oral contrast was not administered. Delayed images were obtained through the abdomen and pelvis. FINDINGS: LUNG BASES: The lung bases are clear. LIVER: The liver is normal in shape, size, contour, and attenuation. BILE DUCTS: There is no intrahepatic or extrahepatic biliary dilatation. GALLBLADDER: The gallbladder is normal, without pericholecystic inflammatory change. PANCREAS: The pancreas is normal, without mass or ductal dilatation. SPLEEN: Normal in size and appearance. UPPER GI TRACT: Evaluation of the gastrointestinal tract is limited by incomplete gastric distention. There is a 1.3 cm diverticulum of the second stage of the duodenum. There is postsurgical change to the upper GI tract. SMALL BOWEL AND MESENTERY: The small bowel is normal in contour, course, and caliber. There is no obstruction or dilatation. COLON: There are multiple diverticula of the descending and sigmoid colon. There is no appreciable pericolonic inflammatory change. There is a tubular, vermiform, hollow viscus that is blind ending, and originates from the cecum, consistent with a normal appendix. There is no periappendiceal inflammatory change. This is best seen on axial images 52 through 66. ADRENALS: Normal bilaterally. KIDNEYS: The kidneys are normal in shape, size, contour, and axis. There is no hydronephrosis or nephrolithiasis. BLADDER: The bladder is smooth in contour. PELVIC ORGANS: The prostate gland is normal. The seminal vesicles are symmetric. AORTA: The aorta is normal. IVC: Unremarkable LYMPH NODES: There is no lymphadenopathy by size criteria. ABDOMINAL WALL: There is no evidence for abdominal wall hernia. BONES AND SOFT TISSUES: Mild degenerative changes are noted OTHER: None IMPRESSION: COLONIC DIVERTICULOSIS, WITHOUT PERICOLONIC INFLAMMATORY CHANGE TO SUGGEST DIVERTICULITIS. POSTSURGICAL CHANGE TO THE UPPER GI TRACT. DUODENAL DIVERTICULUM.
[2017-06-17] LABS: Urine Bacteria Absent (Absent); Urine Bilirubin Negative (Negative); Urine Glucose Negative (Negative); Urine Nitrite Negative (Negative)
[2017-06-17 00:29] VITALS: BP 122/79
--- NOTE | 2017-06-17 04:50 | ED ---
Migdalia Maldonado Rebecca, scribed for Ishmael Valverde on 06/16/17 at 2004 . Abdominal Pain/Male - HPI Summary HPI Summary: Pt is a 72 y/o M who presents to ED c/o LLQ abdominal pain. Sx began yesterday and are currently moderate, ranked 5/10. Sx aggravated and alleviated by nothing. Denies nay other symptoms including N/V/D, fever, blood in stool, hematuria, CP and SOB. Pt reports recent illness of shingles on the L flank which was treated with Abx for 1 week. - History of Current Complaint Chief Complaint: EDAbdPain Stated Complaint: LT SIDE PAIN Time Seen by Provider: 06/16/17 19:59 Hx Obtained From: Patient Onset/Duration: Lasting Days - Started yesterday, Still Present Severity Currently: Moderate Pain Intensity: 5 Pain Scale Used: 0-10 Numeric Location: Discrete At: LLQ Aggravating Factor(s): Nothing Alleviating Factor(s): Nothing Associated Signs And Symptoms: Positive: Negative - Allergies/Home Medications Allergies/Adverse Reactions: Allergies Allergy/AdvReac Type Severity Reaction Status Date / Time Dofetilide [From Tikosyn] Allergy Unknown Verified 06/16/17 18:07 Reaction Details Erythromycin Allergy GI Upset Verified 06/16/17 18:07 Ramipril [From Altace] Allergy Coughing Verified 06/16/17 18:07 PMH/Surg Hx/FS Hx/Imm Hx Endocrine/Hematology History: Denies: Hx Anticoagulant Therapy, Hx Blood Disorders, Hx Diabetes, Hx Systemic Lupus Erythematosus Cardiovascular History: Reports: Hx Auto Implanted Cardiovert Defib, Hx Congestive Heart Failure, Hx Hypertension, Hx Pacemaker/ICD - 2009 Denies: Hx Peripheral Vascular Disease Respiratory History: Reports: Hx Asthma, Hx Sleep Apnea History: Denies: Hx Dialysis, Hx Renal Disease Musculoskeletal History: Reports: Hx Rheumatoid Arthritis - ON ARTHRITIS MEDICATION SINCE 2011, Hx Gout Denies: Hx Arthritis, Hx Osteoporosis Sensory History: Reports: Hx Contacts or Glasses, Hx Hearing Aid - hearing aides are home, Hx Hearing Problem Denies: Other Sensory Impairments Opthamlomology History: Reports: Hx Contacts or Glasses Denies: Other Sensory Impairments Neurological History: Reports: Hx Headaches Denies: Hx Seizures, Hx Transient Ischemic Attacks (TIA) Psychiatric History: Reports: Hx Anxiety, Hx Depression - Cancer History Hx Chemotherapy: No - Surgical History Surgery Procedure, Year, and Place: cardiac ablation x2-[facility]. cardiac cath- 2005. pacemaker and AICD placement. gastric bypass-2005. shoulder--2005 - Immunization History Date of Tetanus Vaccine: Unk Date of Influenza Vaccine: Fall 2014 Infectious Disease History: Reports: Hx Tuberculosis - pt states "latent" Denies: Traveled Outside the [place] in Last 30 Days - Family History Known Family History: Positive: Cardiac Disease, Diabetes - Social History Alcohol Use: None Hx Substance Use: No Substance Use Type: Reports: None Hx Tobacco Use: No Smoking Status (MU): Never Smoked Tobacco Review of Systems Negative: Fever Negative: Chest Pain Negative: Shortness Of Breath Positive: Abdominal Pain - LLQ. Negative: Vomiting, Diarrhea, Nausea Negative: hematuria All Other Systems Reviewed And Are Negative: Yes Physical Exam - Summary Physical Exam Summary: Appearance: Well appearing, no pain distress Skin: warm, dry, rash over the L flank Head/face: normal Eyes: EOMI, SOTO ENT: normal Neck: supple, nontender Respiratory: CTA, breath sounds present Cardiovascular: RRR, pulses symmetrical Abdomen: LLQ tenderness, soft Bowel: present Musculoskeletal: normal, strength/ROM intact Neuro: normal, sensory motor intact, A&Ox3 Triage Information Reviewed: Yes Vital Signs On Initial Exam: Initial Vitals Temp Pulse Resp BP Pulse Ox 96.9 F 58 20 119/80 99 06/16/17 18:07 06/16/17 18:07 06/16/17 18:07 06/16/17 18:07 06/16/17 18:07 Vital Signs Reviewed: Yes Diagnostics - Vital Signs Vital Signs Temp Pulse Resp BP Pulse Ox 06/16/17 18:07 96.9 F 58 20 119/80 99 - Laboratory Result Diagrams: 06/16/17 21:00 06/16/17 21:00 Lab Statement: Any lab studies that have been ordered have been reviewed, and results considered in the medical decision making process. - CT Abd/Pel CT CT Interpretation: No Acute Changes - COLONIC DIVERTICULOSIS, WITHOUT PERICOLONIC INFLAMMATORY CHANGE TO SUGGEST DIVERTICULITIS. POSTSURGICAL CHANGE TO THE UPPER GI TRACT. DUODENAL DIVERTICULUM. ED physician reviewed this radiology report and agrees. CT Interpretation Completed By: Radiologist Re-Evaluation - Re-Evaluation First Eval Re-Evaluation Time: 00:16 Change: Improved Comment: Discussed D/C plan with the pt. Abdominal Pain Fem Course/Dx - Course Assessment/Plan: Pt is a 72 y/o M who presents to ED c/o LLQ abdominal pain. Sx began yesterday and are currently moderate, ranked 5/10. Sx aggravated and alleviated by nothing. Denies nay other symptoms including N/V/D, fever, blood in stool, hematuria, CP and SOB. Pt reports recent illness of shingles on the L flank which was treated with Abx for [address] Abd/Pel reveals "COLONIC DIVERTICULOSIS, WITHOUT PERICOLONIC INFLAMMATORY CHANGE TO SUGGEST DIVERTICULITIS. POSTSURGICAL CHANGE TO THE UPPER GI TRACT. DUODENAL DIVERTICULUM." Pt will be D/C to home with Dx of flank pain and Hx of shingles and a follow up with his PCP. He understands and agrees. - Diagnoses Provider Diagnoses: Flank pain, History of shingles Discharge - Discharge Plan Condition: Stable Disposition: HOME Patient Education Materials: Flank Pain (ED) Referrals: [facility] [Outside] - 3 Days The documentation as recorded by the Migdalia ryan Rebecca accurately reflects the service I personally performed and the decisions made by me, Ishmael Valverde.
== END 2017-06-17 00:28 | disposition home or self-care (01) ==
LOC: ED 18:03
DX: R10.32 Left lower quadrant pain (principal); Z86.19 Personal history of other infectious and parasitic diseases
CPT/HCPCS: 36415; 74177; 80053; 81003; 81015; 83690; 84484; 85025; 85610; 85730; 96360; 99284; Q9967

== ENCOUNTER 2018-10-18 11:00 | Inpatient (IN) | payer MEDICARE, BC ==
--- NOTE | 2018-10-18 11:49 | ED ---
Complex/Multi-Sys Presentation - HPI Summary HPI Summary: A 73 y/o M presents to ED with c/o diarrhea onset yesterday evening. Per , patient had several bought of diarrhea throughout the night. She thinks he is mildly confused. Associated sx: nausea, dry heaving. He denies pain at bedside. Pt has had a recent head cold and sore throat. - History Of Current Complaint Chief Complaint: EDGeneral Time Seen by Provider: 10/18/18 11:41 Hx Obtained From: Patient, Family/Benzene Washer - Onset/Duration: Lasting Hours, Still Present Timing: Constant Severity Currently: Moderate Severity Initially: Moderate Associated Signs And Symptoms: Positive: Confusion, Nausea, Other - pos: dry heaves - Allergies/Home Medications Allergies/Adverse Reactions: Allergies Allergy/AdvReac Type Severity Reaction Status Date / Time dofetilide Allergy Unknown Verified 09/03/18 12:29 Reaction Details erythromycin base Allergy GI Upset Verified 09/03/18 12:29 ramipril Allergy Coughing Verified 09/03/18 12:29 Home Medications: Home Medications Gabapentin CAP(*) [Neurontin 300 CAP(*)] 300 mg PO BID 10/18/18 [History Confirmed 10/18/18] PMH/Surg Hx/FS Hx/Imm Hx Previously Healthy: No Endocrine/Hematology History: Reports: Hx Anticoagulant Therapy Denies: Hx Blood Disorders, Hx Diabetes, Hx Systemic Lupus Erythematosus Cardiovascular History: Reports: Hx Auto Implanted Cardiovert Defib, Hx Congestive Heart Failure, Hx Hypertension, Hx Pacemaker/ICD - 2008 Denies: Hx Peripheral Vascular Disease Respiratory History: Reports: Hx Asthma, Hx Sleep Apnea History: Denies: Hx Dialysis, Hx Renal Disease Musculoskeletal History: Reports: Hx Rheumatoid Arthritis - ON ARTHRITIS MEDICATION SINCE 2011, Hx Gout, Other Musculoskeletal History - Psoriatic arthritis Denies: Hx Arthritis, Hx Osteoporosis Sensory History: Reports: Hx Contacts or Glasses, Hx Hearing Aid - hearing aides are home, Hx Hearing Problem Denies: Other Sensory Impairments Opthamlomology History: Reports: Hx Contacts or Glasses Denies: Other Sensory Impairments Neurological History: Reports: Hx Headaches Denies: Hx Seizures, Hx Transient Ischemic Attacks (TIA) Psychiatric History: Reports: Hx Anxiety, Hx Depression - Cancer History Hx Chemotherapy: No - Surgical History Surgery Procedure, Year, and Place: cardiac ablation x2-[facility]. cardiac cath- 2005. pacemaker and AICD placement. gastric bypass-2005. 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" Denies: Hx of Known/Suspected MRSA, Traveled Outside the [place] in Last 30 Days - Family History Known Family History: Positive: Cardiac Disease, Diabetes - Social History Occupation: Retired Lives: With Family Alcohol Use: None Hx Substance Use: No Substance Use Type: Reports: None Hx Tobacco Use: No Smoking Status (MU): Never Smoked Tobacco Review of Systems Positive: Diarrhea, Nausea, Other - pos: dry heaves Psychological: Other - pos: confused All Other Systems Reviewed And Are Negative: Yes Physical Exam - Summary Physical Exam Summary: Appearance: The patient is well-nourished in no acute distress and in no acute pain. Skin: The skin is warm and dry and skin color reflects adequate perfusion. HEENT: The head is normocephalic and atraumatic. The pupils are equal and reactive. The conjunctivae are clear and without drainage. Nares are patent and without drainage. Mouth reveals dry mucous membranes and the throat is without erythema and exudate. The external ears are intact. The ear canals are patent and without drainage. The tympanic membranes are intact. Neck: the neck is supple with full range of motion and non-tender. There are no carotid bruits. There is no neck vein distension. Respiratory: Chest is non-tender. Lungs are clear to auscultation and breath sounds are symmetrical and equal. Cardiovascular: Heart is tachycardic. There is no murmur or rub auscultated. There is no peripheral edema and pulses are symmetrical and equal. Abdomen: The abdomen is soft and non-tender. There are normal bowel sounds heard in all four quadrants and there is no organomegaly palpated. Musculoskeletal: There is no back tenderness noted. Extremities are non-tender with full range of motion. There is good capillary refill. There is no peripheral edema or calf tenderness elicited. Neurological: Patient is alert and oriented to person, place and time. The patient has symmetrical motor strength in all four extremities. Cranial nerves are grossly intact. Deep tendon reflexes are symmetrical and equal in all four extremities. Psychiatric: The patient has an appropriate affect and does not exhibit any anxiety or depression. Triage Information Reviewed: Yes Vital Signs On Initial Exam: Initial Vitals Temp Pulse Resp BP Pulse Ox 99.0 F 108 16 96/71 96 10/18/18 11:11 10/18/18 11:11 10/18/18 11:11 10/18/18 11:11 10/18/18 11:11 Vital Signs Reviewed: Yes Diagnostics - Vital Signs Vital Signs Temp Pulse Resp BP Pulse Ox 10/18/18 11:11 99.0 F 108 16 96/71 96 - Laboratory Result Diagrams: 10/18/18 11:58 10/18/18 11:58 Lab Statement: Any lab studies that have been ordered have been reviewed, and results considered in the medical decision making process. - Radiology CXR Radiology Interpretation Completed By: Radiologist Summary of Radiographic Findings: IMPRESSION: #. Low lung volumes with subsegmental atelectasis. ED provider has reviewed this report. - EKG 1153 Cardiac Rate: Tachycardia - 108 bpm Summary of EKG Findings: Paced. Quadrigeminy. Complex Multi-Symp Course/Dx Course Of Treatment: Mr. Unger was sent into the emergency department because of confusion. He's been having diarrhea since last evening and does admit to nausea but no vomiting. He received some IV hydration here in the department while labs were obtained. We had a little trouble getting his urine. On arrival he was confused and it's unclear what his baseline is. The hospitalists were asked to evaluate him for admission and I'm unclear that he needs antibiotics at this point I do not think so. - Diagnoses Provider Diagnoses: Weakness - Physician Notifications Discussed Care Of Patient With: Sulma Cowan - hospitalist Time Discussed With Above Provider: 15:22 Instructed by Provider To: Admit As Inpatient Discharge - Sign-Out/Discharge Documenting (check all that apply): Patient Departure - ADMIT - Discharge Plan Condition: Stable Disposition: ADMITTED TO [facility] - Billing Disposition and Condition Condition: STABLE Disposition: Admitted to [facility] - Attestation Statements Document Initiated by Scribe: Yes Documenting Scribe: Dk King Provider For Whom Scribe is Documenting (Include Credential): Dr. Fredis Pino MD Scribe Attestation: I, Dk King, scribed for Dr. Fredis Pino MD on 10/18/18 at 1805. Scribe Documentation Reviewed: Yes Provider Attestation: The documentation as recorded by the scribe, Dk King accurately reflects the service I personally performed and the decisions made by me, Dr. Fredis Pino MD Status of Scribe Document: Viewed
[2018-10-18] MEDS ORDERED: Metoprolol Tartrate IV* 1 MG/ML 5 ML VIAL IV ONE (11:55)
[2018-10-18 12:13] LABS: ABS Basophils 0 10^3/ul (0-0.2); ABS Eosinophils 0.1 10^3/ul (0-0.6); ABS Lymphocytes 0.6 10^3/ul (1.0-4.8); ABS Monocytes 0.9 10^3/ul (0-0.8); ABS Nucleated RBC 0 10^3/ul; Eosinophil % 1.3 %; Hematocrit 42 % (42-52); Hemoglobin 13.7 g/dl (14.0-18.0); Lymphocyte % 8.8 %; Mean Corpuscular HGB Conc 33 g/dl (31-36); Mean Corpuscular Hemoglobin 36 pg (27-31); Mean Corpuscular Volume 111 fL (80-94); Mean Platelet Volume 9.7 fL (7.4-10.4); Nucleated Red Blood Cells % 0; Platelet Count 168 10^3/ul (150-450); Red Blood Count 3.76 10^6/ul (4.00-5.40); Red Cell Distribution Width 16 % (10.5-15); White Blood Count 6.6 10^3/ul (3.5-10.8)
[2018-10-18 12:18] LABS: INR 1.15 (0.77-1.02)
[2018-10-18 12:29] LABS: Albumin 3.9 g/dL (3.2-5.2); Albumin/Globulin Ratio 1.2 (1-3); BUN/Creatinine Ratio 12.3 (8-20); C Reactive Protein 72.07 mg/L (<8.01); Calcium 9.3 mg/dL (8.6-10.3); EGFR Non-African American 47.6 (>60); Globulin 3.3 g/dL (2-4); Magnesium 2.1 mg/dL (1.9-2.7); Potassium 3.8 mmol/L (3.5-5.0); Total Bilirubin 0.6 mg/dL (0.2-1.0); Total Protein 7.2 g/dL (6.4-8.9)
[2018-10-18 12:50] LABS: TSH (Thyroid Stimulating Horm) 1.23 mcIU/mL (0.34-5.60)
[2018-10-18] MEDS ORDERED: NS 0.9% 1000 ML* 1,000 ML IV ONE (13:28)
[2018-10-18 15:24] LABS: Urine Appearance Cloudy; Urine Bilirubin Negative (Negative); Urine Blood Negative (Negative); Urine Color Yellow; Urine Glucose Negative (Negative); Urine Ketones Negative (Negative); Urine Nitrite Negative (Negative); Urine Protein Negative (Negative); Urine Specific Gravity 1.024 (1.010-1.030); Urine Urobilinogen Negative (Negative)
[2018-10-18] MEDS ORDERED: Cetirizine* 10 MG TAB PO PRN (16:24)
[2018-10-18] MEDS ORDERED: Levalbuterol 1.25MG/0.5ML NEB INH PRN (16:36)
[2018-10-18] MEDS ORDERED: Lactated Ringers 1000 ML Bag* 1,000 ML IV SCH ×2 (17:00)
[2018-10-18] MEDS: Cholecalciferol TAB* 1000 UNITS PO SCH (20:19)
[2018-10-18] MEDS: Potassium Chlor TAB* 20 MEQ TAB.ER PO SCH (20:19)
[2018-10-18] MEDS ORDERED: Gabapentin CAP(*) 300 MG PO SCH (21:00)
[2018-10-18] MEDS ORDERED: QUEtiapine TAB* 100 MG PO SCH (21:00)
[2018-10-18] MEDS: OLANzapine TAB* 10 MG PO SCH (21:22)
[2018-10-18] MEDS: Topiramate TAB(*) 100 MG PO SCH (21:22)
--- NOTE | 2018-10-18 21:25 | HP ---
CC: Dr. Arcadio Aquino; Dr. Sulma Cowan* ADMISSION HISTORY AND PHYSICAL: DATE OF ADMISSION: 10/18/18 PRIMARY CARE PROVIDER: Dr. Arcadio Aquino. MY ATTENDING WHILE IN THE HOSPITAL: Dr. Sulma Cowan* (dictated by TOSHIA Meza). CHIEF COMPLAINT: Diarrhea x16 hours. HISTORY OF PRESENT ILLNESS: Mr. Unger is a 73-year-old male with a past medical history significant for coronary artery disease with ischemic cardiomyopathy, most recent known EF of 60% to 65% with biventricular pacemaker ; paroxysmal atrial fibrillation; left bundle branch block; psoriatic arthritis ; polymyalgia rheumatica, who presents to the emergency department after being in his normal state of health up until yesterday evening, on 10/17/18 at approximately 6 p.m., when he began having sudden profuse diarrhea, having greater than a dozen bowel movements overnight. The patient had no blood in his diarrhea. It was mainly brown liquid. The patient denies abdominal pain with this. However, as the patient progressed with his diarrhea, he became progressively more confused. The patient has a history of being confused in the setting of acute illness when previously admitted to this institution. The patient had no recent changes in his medications, except for the addition of gabapentin. The patient has not eaten any spoiled food recently. The patient, however, was recently at a [employer] gathering with his sister who had a diarrheal illness, which, at that point, had lasted for approximately 5 days. The patient had an episode of indigestion and had been having dry heaves for the last day, in association with his diarrhea. The patient has never had anything like this before. The patient has not had any recent antibiotic therapy. The patient and his recently had a cold which consisted of a sore throat and cough that has mostly resolved with no symptomatic treatment. The patient, during the examination, is generally able to answer questions, but sometimes gives inappropriate responses and does not know the year, the president, the month or the day of the month. The patient does, however, know where he is. Much of the history is obtained from the patient's . The patient's most recent Remicade infusion was on 10/15/18. The patient, in the emergency department, had tachycardia with heart rates up to 113. The patient also had low blood pressures with the lowest being 90/71; however, these have begun to increase after fluid infusion by the time the patient was examined. Due to concern for diarrheal illness with dehydration, we were asked to evaluate the patient for admission. PAST MEDICAL HISTORY: Coronary artery disease; history of ischemic cardiomyopathy, status post biventricular pacemaker with recovery of ejection fraction; left bundle branch block; paroxysmal atrial fibrillation; asthma; psoriatic arthritis; possible polymyalgia rheumatica; GERD; obstructive sleep apnea; chronic macrocytic anemia; depression; chronic pain; gout. PAST SURGICAL HISTORY: AFib ablation x2, ICD placement, gastric bypass, cataract extraction, and right shoulder surgery. MEDICATIONS: 1. Allopurinol 400 mg p.o. daily. 2. Eliquis 5 mg p.o. daily. 3. Flovent 2 puffs daily x2. 4. Folic acid 1 mg p.o. daily. 5. Furosemide 40 mg p.o. daily. 6. Halobetasol 0.05% as needed. 7. Hydrocodone/acetaminophen 5/325 q.6 hours as needed. 8. Hydroxychloroquine 200 mg p.o. b.i.d. 9. Xopenex 45 mcg 2 puffs every 4 to 6 hours as needed. 10. Xyzal 5 mg p.o. daily as needed. 11. Nadolol 20 mg b.i.d. with meals. 12. Olanzapine 20 mg p.o. at bedtime. 13. Pantoprazole 40 mg p.o. daily. 14. Potassium chloride 20 mEq p.o. daily. 15. Prednisone 10 mg p.o. daily. 16. Qnasl 80 mcg 2 puffs to each nostril daily. 17. Quetiapine 150 mg at bedtime. 18. Remicade infusion every 6 weeks. 19. Spironolactone 25 mg p.o. daily. 20. Sertraline 150 mg p.o. daily. 21. Topiramate 150 mg p.o. at bedtime. 22. Gabapentin 300 mg p.o. b.i.d. 23. Calcium citrate and vitamin D 1000 mcg p.o. daily. 24. Multivitamin 1 tab p.o. daily. 25. Magnesium chloride 64 mg p.o. daily. 26. Vitamin D3 2000 units b.i.d. ALLERGIES: DOFETILIDE, ERYTHROMYCIN BASE, RAMIPRIL. FAMILY HISTORY: The patient's father of complications of heart disease and renal disease. The patient's mother had renal disease and arthritis. The patient has 5 siblings all of whom have heart disease. SOCIAL HISTORY: The patient never smoked, has not drank in over 50 years. The patient denies ever using illicit drugs. The patient used to work for the [employer]. He is . The patient's surrogate decision maker will be his , Ramonita Unger. REVIEW OF SYSTEMS: A 14-point review of systems was reviewed and is negative, except as above in the HPI. PHYSICAL EXAMINATION GENERAL: The patient is a 73-year-old male, who appears stated age, is obese and sitting on the bed, in no acute distress. VITAL SIGNS: At the time of evaluation, temperature 99.0, pulse rate 120, respiratory rate 24, oxygen saturation 96% on room air, blood pressure 120/60. HEENT: Head: Normocephalic, atraumatic. Sclerae anicteric. No conjunctival injection. Nasal mucosa moist. Oral mucosa moist. No pharyngeal erythema, discharge or exudate. NECK: Supple, nontender. No lymphadenopathy. No carotid bruits auscultated. No JVD. RESPIRATORY: Clear to auscultation bilaterally. No wheezes, rales or rhonchi. Good air exchange bilaterally. CARDIAC: Tachycardic. No clicks, murmurs, gallops or rubs. Pulses are 2+ in the bilateral dorsalis pedis, posterior tibialis, and radial areas. ABDOMEN: Soft, nontender, nondistended. Bowel sounds present and hyperactive in all 4 quadrants. No hepatosplenomegaly. No abdominal bruits auscultated. No hepatojugular reflux. GENITOURINARY: No suprapubic or CVA tenderness. NEUROLOGIC: Cranial nerves II through XII intact. Alert and oriented to person and place, but not to time. No focal deficits. PSYCHIATRIC: Pleasant and cooperative. SKIN: Clean, dry, and intact. No rash. No bilateral lower extremity edema noted. DIAGNOSTIC STUDIES/LAB DATA: White blood cell count of 6.6, hemoglobin 13.7, hematocrit 42, MCV 111, RDW 16, platelet count 168. INR 1.15. Sodium 137, potassium 3.8, chloride 104, carbon dioxide 24, anion gap 9, BUN 18, creatinine 1.46, glucose 139, lactic acid 1.1, calcium 9.3, magnesium 2.1. Bilirubin 0.6, AST 27, ALT 15, alkaline phosphatase 105. Troponin I of 0.00. CRP 72.07. Total protein 7.2, albumin 3.9, globulin 3.3. Procalcitonin 0.2. TSH 1.23. Urine is benign. Studies: Chest x-ray shows low lung volumes with subsegmental atelectasis. Electrocardiogram shows tachycardia, atrial paced rhythm with PVCs. No obvious ST segment abnormalities. Difficult to interpret due to paced rhythm. Left axis deviation. ASSESSMENT AND PLAN/IMPRESSION: Mr. Unger is a 73-year-old male with past medical history significant for coronary artery disease, history of congestive heart failure, paroxysmal atrial fibrillation, psoriatic arthritis and polymyalgia rheumatica, on chronic immunosuppression, who presents to the emergency department with 16 hours of profuse diarrhea with tachycardia and hypotension, likely representing dehydration as well as altered mental status, likely toxic metabolic encephalopathy from his acute illness. The patient will be admitted to the hospital for rehydration and supportive care. The etiology of the patient's diarrhea is likely viral gastroenteritis and the patient will be not treated with antibiotics at this time. 1. Diarrhea: The patient's diarrhea occurred after exposure to a close relative who had had a recent diarrheal illness. This points strongly towards a viral gastroenteritis. The patient will be given fluids. The patient has not had any recent exposure to antibiotics, but will have a C. diff test. If negative, the patient will be able to be treated with antidiarrheal agents to help keep up with his GI losses. The patient currently has no significant electrolyte abnormalities; however, these will be monitored and replaced as needed. The patient has a normal urinalysis, low procalcitonin and an elevated CRP. This points towards to a viral infection. The patient does meet SIRS criteria, but it is unlikely he has a viral infection. The patient will be given a bolus of fluid due to hypotension and then lactated Ringer at 75 mL an hour. The patient has an elevated creatinine, likely related to his dehydration. The patient will also have a flu test, though the patient has minimal upper and lower respiratory symptoms. The patient will have an abdominal x-ray, which is pending at this time to assess for any sort of bowel dilatation that would point towards inflammation or colitis. 2. Altered mental status: This likely represents toxic metabolic encephalopathy in the setting of acute infection. The patient has a known history of this and previously, when admitted, with very similar presentation, resolved with improvement in his infection. The patient has no acute neurologic deficits. No further workup for cerebrovascular accident is indicated. 3. Hypotension: The patient will have his antihypertensives and furosemide held while in the hospital. His fluid status will be monitored closely. 4. Congestive heart failure: The patient has a preserved ejection fraction. At this point we will still, however, use fluids judiciously and monitor closely for fluid overload with daily weights. We will resume the patient's nadolol, spironolactone, and furosemide when able, depending on the patient's blood pressure. 5. Polymyalgia rheumatica: Due to concerns for worsening of hypotension, we will continue the patient's prednisone. The patient is still on Remicade as well, predisposing him to infections. 6. Chronic pain: Continue the patient's gabapentin and topiramate. 7. Depression: Continue sertraline, quetiapine, and olanzapine. 8. Psoriatic arthritis: Remicade and prednisone as above. Hold hydroxychloroquine in the setting of acute infection. 9. Gout: Continue allopurinol. 10. Paroxysmal atrial fibrillation: The patient is currently in a paced rhythm. Continue Eliquis for anticoagulation. 11. DVT prophylaxis: Eliquis as above. 12. FEN: The patient will have a full liquid diet and advance as tolerated and fluids as above. 13. Code status: The patient would like to be a full code. The patient's surrogate decision maker is his , as above. 14. Disposition: The patient is admitted to observation. TIME SPENT: Approximately 60 minutes were spent on the admission of this patient, 30 of which was spent [id number] with the patient obtaining history and physical and discussing treatment plan. This plan was discussed with my attending, Dr. Sulma Cowan, and she is in agreement. TOSHIA MEZA [id number]/CPS #: [id number] MTDD
[2018-10-18 21:59] LABS: ABS Basophils 0 10^3/ul (0-0.2); ABS Eosinophils 0 10^3/ul (0-0.6); ABS Lymphocytes 0.8 10^3/ul (1.0-4.8); ABS Nucleated RBC 0 10^3/ul; Eosinophil % 0.3 %; Hematocrit 39 % (42-52); Hemoglobin 12.8 g/dl (14.0-18.0); Lymphocyte % 8.6 %; Mean Corpuscular HGB Conc 33 g/dl (31-36); Mean Corpuscular Hemoglobin 37 pg (27-31); Mean Corpuscular Volume 110 fL (80-94); Mean Platelet Volume 9.6 fL (7.4-10.4); Nucleated Red Blood Cells % 0; Platelet Count 131 10^3/ul (150-450); Red Blood Count 3.51 10^6/ul (4.00-5.40); Red Cell Distribution Width 16 % (10.5-15); White Blood Count 8.8 10^3/ul (3.5-10.8)
[2018-10-18] MEDS ORDERED: Calcium Gluconate INJ* 1 GM in NS 0.9% 100 ML* 100 ML IV ONE (22:02)
[2018-10-18] MEDS ORDERED: Magnesium Sulfate 2 GM IV* 2 GM/50 ML BAG IVPB ONE (22:04)
[2018-10-18 22:11] LABS: Albumin 3.5 g/dL (3.2-5.2); Albumin/Globulin Ratio 1.1 (1-3); BUN/Creatinine Ratio 13.8 (8-20); Calcium 8.8 mg/dL (8.6-10.3); EGFR Non-African American 50.8 (>60); Globulin 3.1 g/dL (2-4); Magnesium 1.8 mg/dL (1.9-2.7); Phosphorus 2.7 mg/dL (2.5-5.0); Potassium 3.3 mmol/L (3.5-5.0); Total Bilirubin 0.6 mg/dL (0.2-1.0); Total Protein 6.6 g/dL (6.4-8.9)
[2018-10-18] MEDS ORDERED: Succinylcholine* 20 MG/ML 10 ML VIAL ONE (22:29)
[2018-10-18] MEDS ORDERED: Morphine VIAL* 4 MG/ML VIAL (1 ml vial) IV ONE ×2 (22:30)
[2018-10-18] MEDS ORDERED: Iodixanol* (CONTRAST) 320 MG/ML 100 ML SDV IV ONE (22:47)
[2018-10-18] MEDS ORDERED: NS 0.9% w/ 40 Meq KCL 1000 ML* 1,000 ML IV SCH ×2 (23:00→23:51)
[2018-10-18] MEDS ORDERED: Ketorolac INJ* 30 MG/ML 1 ML VIAL IV ONE (23:00)
[2018-10-18] MEDS ORDERED: Morphine VIAL* 4 MG/ML VIAL (1 ml vial) ONE (23:16)
[2018-10-19] MEDS ORDERED: Metoprolol Tartrate IV* 1 MG/ML 5 ML VIAL ONE (00:10)
[2018-10-19] MEDS ORDERED: NS 0.9% 1000 ML* 1,000 ML IV ONE ×2 (01:25→03:31)
--- NOTE | 2018-10-19 02:51 | PN ---
Progress Note - Progress Note Date of Service: 10/19/18 - [facility] note Note: Pt seen and examined at bedside. Pt was admitted 10/18/18 for evaluation of diarrhea and fever. Pt had similar hospitalization recently when he presented with AMS, fever, diarrhea. Her was presumptively treated for Pt was transferred to ICU for concern with AMS, hypotension. Pt received 1L IV fluids, was placed on BiPAP. BP was 80 systolic, another litre of IVF was ordered. BiPAP was removed as he didnot have evidence of resp acidosis. BP improved after that. Pt opened eyes, didnot follow commands however tried to sit up and was answering simple questions. He didnot seem to have any focal neurological findings. His temp remained elevated with tmax of 105 and cooling blankets were placed. He also received Tylenol per rectal. Pt denied SOB, chest pain, abd pain, headache. He had rectal tube placed with watery stool. UO has been acceptable. O/E: Pt doesnot obey commands, withdraws to pain, answered simple questions with Y/N HEENT: PERRLA, No JVD Lungs: Clear to auscultation b/l CVS: S1, S2+, regular Abd: Obese, absent bowel sounds, no rebound Ext: Varicose veins+, no edema Neuro: Pt opened eyes after BiPAP mask was removed, tried to sit up, looked confused, thought he was in [facility] Active Medications Generic Name Dose Route Start Last Admin Trade Name Freq PRN Reason Stop Dose Admin Acetaminophen 650 mg 10/18/18 16:20 Tylenol Tab* PO Q6H PRN FEVER/PAIN Hydrocodone Bitart/Acetaminophen 1 tab 10/18/18 16:24 Innis 10/325 (Nf) PO Q6H PRN PAIN Allopurinol 300 mg 10/19/18 09:00 Zyloprim Tab* PO DAILY DERRICK Allopurinol 100 mg 10/19/18 09:00 Zyloprim Tab* PO DAILY DERRICK Apixaban 5 mg 10/19/18 09:00 Eliquis* PO DAILY DERRICK Ceftriaxone Sodium 1,000 mg 10/19/18 03:00 Rocephin Vial(*) IM Q24H DERRICK Cetirizine HCl 10 mg 10/18/18 16:24 Zyrtec* PO DAILY PRN Allergy Symptoms Cholecalciferol 2,000 units 10/18/18 21:00 10/18/18 20:19 Vitamin D Tab* PO 2,000 units BID DERRICK Administration Folic Acid 1 mg 10/19/18 09:00 Folvite Tab* PO DAILY DERRICK Hydrocortisone Sodium Succinate 50 mg 10/19/18 02:00 Solu-Cortef* IV Q8H DERRICK Lactated Ringer's 1,000 mls @ 1,000 mls/hr 10/18/18 17:00 10/18/18 18:12 Lactated Ringers 1000 Ml Bag* IV 1,000 mls/hr .BOLUS DERRICK Administration Potassium Chloride/Sodium Chloride 1,000 mls @ 125 mls/hr 10/18/18 23:51 Ns 0.9% W/ 40 Meq Kcl 1000 Ml* IV PER RATE DERRICK Metronidazole/Sodium Chloride 500 mg in 100 mls @ 100 mls/hr 10/19/18 02:00 Flagyl 500 Mg Ivpb* IVPB Q8H DERRICK Lactobacillus Rhamnosus 1 tab 10/19/18 09:00 Lactobacillus Acidophilus* PO DAILY DERRICK Levalbuterol HCl 1.25 mg 10/18/18 16:36 Xopenex 1.25 Mg/0.5 Ml Neb.Joy* INH Q6H PRN SOB/WHEEZING Loperamide HCl 2 mg 10/18/18 18:47 Imodium Cap* PO .SEE DIRECTIONS PRN DIARRHEA Multivitamins/Minerals 1 tab 10/19/18 09:00 Theragran/Minerals Tab* PO DAILY COUNTS INCLUDE 234 BEDS AT THE [facility] Olanzapine 20 mg 10/18/18 21:00 10/18/18 21:22 Zyprexa Tab* PO 20 mg BEDTIME DERRICK Administration Omeprazole 20 mg 10/19/18 07:30 Prilosec Cap* PO DAILY@0730 COUNTS INCLUDE 234 BEDS AT THE [facility] Ondansetron HCl 4 mg 10/18/18 16:20 Zofran Inj* IV Q6H PRN NAUSEA Potassium Chloride 20 meq 10/18/18 21:00 10/18/18 20:19 Klor Con Er Tab* PO 20 meq BID DERRICK Administration Prednisone 10 mg 10/19/18 09:00 Deltasone Tab* PO DAILY DERRICK Topiramate 100 mg 10/18/18 21:00 10/18/18 21:22 Topamax(*) PO 100 mg BEDTIME DERRICK Administration Topiramate 50 mg 10/19/18 09:00 Topamax(*) PO QAM DERRICK Vital Signs Temp Pulse Resp BP Pulse Ox 103.5 F 126 26 79/60 98 10/19/18 01:00 10/19/18 01:07 10/19/18 01:55 10/19/18 01:03 10/19/18 01:07 A/P: 73 y o m with h/o CAD, Psoriatric arthritis, Polymyalgia on prednisone, Biventricular failure s/p AICD, paroxysmal A.fib, with recent hospitalization for fever, AMS that eventually resolved. Pt presents with diarrhea after recent sick contact and was transferred to ICU for hypotension and worsening mental status 1. Diarrhea- Likely viral gastroenteritis- loose stools, no blood, c.diff negative, rest of stool studies are pending. Will cover with Flagyl and Rocephin emperically. CT abdomen pending. PPI ordered 2. Hypotension: Likely sec to dehydration from diarrhea. Received 2L IVF, BP improved. Will monitor resp status and bolus as needed 3. Fever: Pt with high grade fever-infectious versus inflammatory(Polymyalgia, Psoriasis versus drug induced, pt is on SSRI however doesnot have any other signs of serotonin syndrome at this time. Will need LP if continues to have fever and AMS continues. His mental status improved after BiPAP was removed and BP improved. 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 Flagyl was also ordered for possible GE. He is on immunosupressivve meds and might not present signs of sepsis. Full septic w/u sent. 4. AMS: Pt has h/o AMS on presentation through prior admissions. ? Metabolic versus polypharmacy. Aspiration precautions. DVT px: Pt on Eliquis GI px: PPI Total time 45 min
[2018-10-19] MEDS ORDERED: cefTRIAXone VIAL(*) 1,000 MG VIAL IM SCH (03:00)
[2018-10-19] MEDS: metroNIDAZOLE IV 500 MG/100ML* 500 MG/100 ML BAG IVPB SCH ×3 (03:08→16:54)
[2018-10-19] MEDS: Hydrocortisone INJ* 100 MG VIAL IV SCH ×3 (03:12→16:54)
[2018-10-19 03:32] LABS: Folate > 20.00 ng/mL (>3.99)
[2018-10-19] MEDS: cefTRIAXone* 1 GM in NS 0.9% 50 ML BAG IVPB SCH (04:14)
[2018-10-19] MEDS: Thiamine IV* 100 MG in NS 0.9% 50 ML* 50 ML IV SCH (04:36)
[2018-10-19 05:59] LABS: Hematocrit 32 % (42-52); Hemoglobin 10.5 g/dl (14.0-18.0); Mean Corpuscular HGB Conc 33 g/dl (31-36); Mean Corpuscular Hemoglobin 37 pg (27-31); Mean Corpuscular Volume 111 fL (80-94); Red Blood Count 2.87 10^6/ul (4.00-5.40); Red Cell Distribution Width 16 % (10.5-15); White Blood Count 9.3 10^3/ul (3.5-10.8)
[2018-10-19 06:00] LABS: Albumin 2.7 g/dL (3.2-5.2); Albumin/Globulin Ratio 1.2 (1-3); BUN/Creatinine Ratio 14.3 (8-20); Calcium 7.2 mg/dL (8.6-10.3); EGFR Non-African American 56.4 (>60); Globulin 2.3 g/dL (2-4); Magnesium 1.9 mg/dL (1.9-2.7); Potassium 4.8 mmol/L (3.5-5.0); Total Bilirubin 0.4 mg/dL (0.2-1.0)
[2018-10-19 06:37] LABS: Immature Granulocytes 15 % (0-9); Lymphocytes % 6 %; Monocytes % 3 %; Neutrophil % 76 %
[2018-10-19 06:40] LABS: Mean Platelet Volume 9.7 fL (7.4-10.4); Platelet Count 96 10^3/ul (150-450)
[2018-10-19 06:41] LABS: ABS Neutrophils 8.5 10^3/ul (1.5-7.7)
[2018-10-19] MEDS: Allopurinol TAB* 100 MG PO SCH (07:45)
[2018-10-19] MEDS: Lactobacillus Acidophilus* 1 TAB PO SCH (07:46)
[2018-10-19] MEDS: Hydrocodone/Acetamin 10/325 1 TAB PO PRN ×2 (07:46→23:07)
[2018-10-19] MEDS: predniSONE TAB* 10 MG PO SCH (07:46)
[2018-10-19] MEDS: Acetaminophen TAB* 325 MG PO PRN (07:50)
[2018-10-19] MEDS: Cholecalciferol TAB* 1000 UNITS PO SCH ×2 (07:50→20:42)
[2018-10-19] MEDS: Folic Acid TAB* 1 MG PO SCH (07:51)
[2018-10-19] MEDS: Potassium Chlor TAB* 20 MEQ TAB.ER PO SCH ×2 (07:51→20:42)
[2018-10-19] MEDS: Omeprazole CAP (NF) 20 MG CAP.DR PO SCH (07:51)
[2018-10-19] MEDS: Multivitamins/Minerals TAB PO SCH (07:51)
--- NOTE | 2018-10-19 08:54 | PN ---
Hospitalist Progress Note Date of Service: 10/18/18 this news writer was first called 10/18 due to worsening mental status and respiratory effort and tachycardic. he is min responsive ( later he responded if talking to his r ear instead ) resp rr was ni the 30s depsite of stable sat and vital and f/s. pt was admitted for diarrehas with no fever and no wbc/ lactic acid and procalcitonin. intiial head ct neg along with cta neg of clots. stat abg 7.43///20 which is more consistant of the result of hyperventilating. he responded to morphine 2 mg times one reg his resp but sbp went down to 90 ---> unable to give lopressor iv for his tachycardiac but this news writer at that time thought he was tachycardiac due to concurrent temp and iv toradol was given to see whether this could reduce his heart rate . he was transferred to icu afterwards and was found to spike temp to 102.4.. his repeat cbc/lactic wnl. prolcalcitonin ordered but still pending due to the fact he is a very hard stick. his ammonia level came back 64. pt was gaming cultured. repeat ua requsted but pending . pt had munoz placed to moniter his urine outpt besides rectal tube. pt's mental status later improved. spoke with python java developer overnight Dr Stokes is greatly appreciated who late came in. called n/a left a message. ? hx of dementia was here back in jul for similar change of mental status dx was toxic metabolic encephalopathy back in jul 2018. his creatinine has been improving but his bicarb has been drifting down from 24 to 17-18 throughout the night. pt had no abd bs ct of abd did not reveal any obstruciton with normal lft and no abd pain upon pressure pt was given iv 1 gram calcium gluconate and 2 gram of mag and later kcl was added to his ivf vital 111/81 22 hr 120s tmx 102.4 general in mild to mod distress heart s1 s2 rrr tachy lung decreased b/s at base with labor breathing at time abd + obese abd non tender when examed min bs on the lower abd neuro intially min responded to verbal commands but later would wake up with verbal stimuli when speaking to his r ear but does not follow command ---> later will wake up with his eyes open for 1 second at times ekg ns tachy a/p 1 altered mental status etiology unclear but he was found to have temp to 102.4 with a similar episode back in jul 2018/ acute toxic metabolic encephalopathy head ct neg ammonia is 64 despite of massive diarrehas - tele with carmen as per protocol - neuro status seemed to improve on its own > frequent neuro check while still working him up for other possible causes 2 diarrehas no fever no wbc and lactic wnl ---> ct of abd did not reveal acute etiology and obstruction but this was not done with iv contrast - rectal tube ---> consider gi eval - pt was gaming cx and rocephin and flagyl as per pul 3 demand ishcemia with trop went from 0.07 to 0.11 - hx of bi ventral aicd hx ---> iv calcium gluconate/ mag given along with kcl added to ivf - tele montiering - one dose of lopressor originally ordered but was not given due to drop of sbp to 90s total critical care time overngight from 10/18-10/19 about 70 min
[2018-10-19] MEDS ORDERED: Sertraline* 50 MG TAB PO SCH (09:00)
[2018-10-19] MEDS: Topiramate TAB(*) 25 MG PO SCH (09:19)
[2018-10-19] MEDS: Apixaban* 5 MG TAB PO SCH (09:19)
[2018-10-19] MEDS: Allopurinol TAB* 300 MG PO SCH (09:20)
[2018-10-19] MEDS ORDERED: Lactated Ringers 1000 ML Bag* 1,000 ML IV SCH (11:00)
--- NOTE | 2018-10-19 11:14 | PN ---
Date of Service: 10/19/18 Critical Care Services: 73M with cad, ischemic chf s/p biv pacer, ef now improved, afib, asthma, psoriatic arthritis on remicade, polymyalgia rheumatica, gerd, caroline, depression, gout presented with profuse diarrhea and fever of 105. 08/19: mental status improved with fever dissipation Vital Signs: Temp Pulse Resp BP SpO2 FiO2 98.1 F 72 15 86/55 100 35 10/19/18 10:48 10/19/18 10:45 10/19/18 10:45 10/19/18 10:45 10/19/18 10:45 10/19 01:12 Physical Exam: Gen - chronically ill heent - ncat, eomi, perrl neck - no jvd cv - s1/s2, no murmur pulm - cta, no wheeze abd - soft, nt ext - no cce neuro - lethargic but arrousable Fluid Balance (Past 24 Hours): I= O= Net Intake & Output 10/17/18 10/18/18 10/19/18 10/20/18 06:59 06:59 06:59 06:59 Intake Total 5613 Output Total 618 105 Balance 4995 -105 Weight 139.8 kg Intake: IV Fluids 4820 NS (0.9%) 3869 IVPB 443 ABX - CEFTRIAXONE 55 ABX - FLAGYL 100 Calcium Gluconate 120 Magnesium 57 Thiamine 54 Oral 350 Output: Urine 0 Jung 618 105 Other: Estimated Void Small # Bowel Movements 1 Estimated Stool Amount Medium # Voids 1 Labs: Laboratory Results - last 24 hr 10/18/18 10/18/18 10/18/18 11:58 11:58 11:58 WBC 6.6 RBC 3.76 L Hgb 13.7 L Hct 42 MCV 111 H MCH 36 H MCHC 33 RDW 16 H Plt Count 168 MPV 9.7 Neut % (Auto) 75.6 Lymph % (Auto) 8.8 Kern % (Auto) 14.1 Eos % (Auto) 1.3 Baso % (Auto) 0.2 Absolute Neuts (auto) 5.0 Absolute Lymphs (auto) 0.6 L Absolute Monos (auto) 0.9 H Absolute Eos (auto) 0.1 Absolute Basos (auto) 0 Absolute Nucleated RBC 0 Immature Gran % Neutrophils % Band Neutrophils % Lymphocytes % Monocytes % Nucleated RBC % 0 Abs Neuts (Manual) Abs Lymphs (Manual) Abs Monocytes (Manual) Toxic Granulation Normal RBC Morphology Basophilic Stippling Macrocytosis INR (Anticoag Therapy) 1.15 H ABG pH ABG pCO2 ABG pO2 ABG HCO3 ABG O2 Saturation ABG Base Excess Sodium 137 Potassium 3.8 Chloride 104 Carbon Dioxide 24 Anion Gap 9 BUN 18 Creatinine 1.46 H Est GFR ( Amer) 57.6 Est GFR (Non-Af Amer) 47.6 BUN/Creatinine Ratio 12.3 Glucose 139 H POC Glucose (mg/dL) Lactic Acid Calcium 9.3 Ionized Calcium Phosphorus Magnesium 2.1 Total Bilirubin 0.60 AST 27 ALT 15 Alkaline Phosphatase 105 H Ammonia Troponin I 0.00 C-Reactive Protein 72.07 H B-Natriuretic Peptide Total Protein 7.2 Albumin 3.9 Globulin 3.3 Albumin/Globulin Ratio 1.2 Vitamin B12 Folate Procalcitonin TSH 1.23 Urine Color Urine Appearance Urine pH Ur Specific [place] Urine Protein Urine Ketones Urine Blood Urine Nitrate Urine Bilirubin Urine Urobilinogen Ur Leukocyte Esterase Urine Glucose Influenza A (Rapid) Influenza B (Rapid) 10/18/18 10/18/18 10/18/18 11:58 11:58 15:12 WBC RBC Hgb Hct MCV MCH MCHC RDW Plt Count MPV Neut % (Auto) Lymph % (Auto) Kern % (Auto) Eos % (Auto) Baso % (Auto) Absolute Neuts (auto) Absolute Lymphs (auto) Absolute Monos (auto) Absolute Eos (auto) Absolute Basos (auto) Absolute Nucleated RBC Immature Gran % Neutrophils % Band Neutrophils % Lymphocytes % Monocytes % Nucleated RBC % Abs Neuts (Manual) Abs Lymphs (Manual) Abs Monocytes (Manual) Toxic Granulation Normal RBC Morphology Basophilic Stippling Macrocytosis INR (Anticoag Therapy) ABG pH ABG pCO2 ABG pO2 ABG HCO3 ABG O2 Saturation ABG Base Excess Sodium Potassium Chloride Carbon Dioxide Anion Gap BUN Creatinine Est GFR ( Amer) Est GFR (Non-Af Amer) BUN/Creatinine Ratio Glucose POC Glucose (mg/dL) Lactic Acid 1.1 Calcium Ionized Calcium Phosphorus Magnesium Total Bilirubin AST ALT Alkaline Phosphatase Ammonia Troponin I C-Reactive Protein B-Natriuretic Peptide Total Protein Albumin Globulin Albumin/Globulin Ratio Vitamin B12 Folate Procalcitonin 0.2 TSH Urine Color Yellow Urine Appearance Cloudy Urine pH 5.0 Ur Specific [place] 1.024 Urine Protein Negative Urine Ketones Negative Urine Blood Negative Urine Nitrate Negative Urine Bilirubin Negative Urine Urobilinogen Negative Ur Leukocyte Esterase Negative Urine Glucose Negative Influenza A (Rapid) Influenza B (Rapid) 10/18/18 10/18/18 10/18/18 20:42 21:32 21:45 WBC 8.8 RBC 3.51 L Hgb 12.8 L Hct 39 L MCV 110 H MCH 37 H MCHC 33 RDW 16 H Plt Count 131 L MPV 9.6 Neut % (Auto) 79.6 Lymph % (Auto) 8.6 Kern % (Auto) 11.2 Eos % (Auto) 0.3 Baso % (Auto) 0.3 Absolute Neuts (auto) 7.0 Absolute Lymphs (auto) 0.8 L Absolute Monos (auto) 1.0 H Absolute Eos (auto) 0 Absolute Basos (auto) 0 Absolute Nucleated RBC 0 Immature Gran % Neutrophils % Band Neutrophils % Lymphocytes % Monocytes % Nucleated RBC % 0 Abs Neuts (Manual) Abs Lymphs (Manual) Abs Monocytes (Manual) Toxic Granulation Normal RBC Morphology Basophilic Stippling Macrocytosis INR (Anticoag Therapy) ABG pH ABG pCO2 ABG pO2 ABG HCO3 ABG O2 Saturation ABG Base Excess Sodium Potassium Chloride Carbon Dioxide Anion Gap BUN Creatinine Est GFR ( Amer) Est GFR (Non-Af Amer) BUN/Creatinine Ratio Glucose POC Glucose (mg/dL) 199 H Lactic Acid Calcium Ionized Calcium Phosphorus Magnesium Total Bilirubin AST ALT Alkaline Phosphatase Ammonia Troponin I C-Reactive Protein B-Natriuretic Peptide Total Protein Albumin Globulin Albumin/Globulin Ratio Vitamin B12 Folate Procalcitonin TSH Urine Color Urine Appearance Urine pH Ur Specific [place] Urine Protein Urine Ketones Urine Blood Urine Nitrate Urine Bilirubin Urine Urobilinogen Ur Leukocyte Esterase Urine Glucose Influenza A (Rapid) Negative Influenza B (Rapid) Negative 10/18/18 10/18/18 10/18/18 21:45 21:45 21:45 WBC RBC Hgb Hct MCV MCH MCHC RDW Plt Count MPV Neut % (Auto) Lymph % (Auto) Kern % (Auto) Eos % (Auto) Baso % (Auto) Absolute Neuts (auto) Absolute Lymphs (auto) Absolute Monos (auto) Absolute Eos (auto) Absolute Basos (auto) Absolute Nucleated RBC Immature Gran % Neutrophils % Band Neutrophils % Lymphocytes % Monocytes % Nucleated RBC % Abs Neuts (Manual) Abs Lymphs (Manual) Abs Monocytes (Manual) Toxic Granulation Normal RBC Morphology Basophilic Stippling Macrocytosis INR (Anticoag Therapy) ABG pH ABG pCO2 ABG pO2 ABG HCO3 ABG O2 Saturation ABG Base Excess Sodium 136 Potassium 3.3 L Chloride 107 Carbon Dioxide 18 L Anion Gap 11 BUN 19 Creatinine 1.38 H Est GFR ( Amer) 61.5 Est GFR (Non-Af Amer) 50.8 BUN/Creatinine Ratio 13.8 Glucose 193 H POC Glucose (mg/dL) Lactic Acid Calcium 8.8 Ionized Calcium 1.10 L Phosphorus 2.7 Magnesium 1.8 L Total Bilirubin 0.60 AST 29 ALT 15 Alkaline Phosphatase 93 Ammonia Troponin I 0.04 H* C-Reactive Protein B-Natriuretic Peptide 306 H Total Protein 6.6 Albumin 3.5 Globulin 3.1 Albumin/Globulin Ratio 1.1 Vitamin B12 Folate Procalcitonin TSH Urine Color Urine Appearance Urine pH Ur Specific [place] Urine Protein Urine Ketones Urine Blood Urine Nitrate Urine Bilirubin Urine Urobilinogen Ur Leukocyte Esterase Urine Glucose Influenza A (Rapid) Influenza B (Rapid) 10/18/18 10/18/18 10/19/18 21:45 21:50 00:06 WBC RBC Hgb Hct MCV MCH MCHC RDW Plt Count MPV Neut % (Auto) Lymph % (Auto) Kern % (Auto) Eos % (Auto) Baso % (Auto) Absolute Neuts (auto) Absolute Lymphs (auto) Absolute Monos (auto) Absolute Eos (auto) Absolute Basos (auto) Absolute Nucleated RBC Immature Gran % Neutrophils % Band Neutrophils % Lymphocytes % Monocytes % Nucleated RBC % Abs Neuts (Manual) Abs Lymphs (Manual) Abs Monocytes (Manual) Toxic Granulation Normal RBC Morphology Basophilic Stippling Macrocytosis INR (Anticoag Therapy) ABG pH 7.43 ABG pCO2 25 L ABG pO2 77 L ABG HCO3 20.2 ABG O2 Saturation 96.6 ABG Base Excess -6.0 L Sodium Potassium Chloride Carbon Dioxide Anion Gap BUN Creatinine Est GFR ( Amer) Est GFR (Non-Af Amer) BUN/Creatinine Ratio Glucose POC Glucose (mg/dL) Lactic Acid 1.4 Calcium Ionized Calcium Phosphorus Magnesium Total Bilirubin AST ALT Alkaline Phosphatase Ammonia 64 H Troponin I C-Reactive Protein B-Natriuretic Peptide Total Protein Albumin Globulin Albumin/Globulin Ratio Vitamin B12 Folate Procalcitonin TSH Urine Color Urine Appearance Urine pH Ur Specific [place] Urine Protein Urine Ketones Urine Blood Urine Nitrate Urine Bilirubin Urine Urobilinogen Ur Leukocyte Esterase Urine Glucose Influenza A (Rapid) Influenza B (Rapid) 10/19/18 10/19/18 10/19/18 02:02 04:53 04:53 WBC 9.3 RBC 2.87 L Hgb 10.5 L Hct 32 L MCV 111 H MCH 37 H MCHC 33 RDW 16 H Plt Count 96 L MPV 9.7 Neut % (Auto) Not Reportable Lymph % (Auto) Not Reportable Kern % (Auto) Not Reportable Eos % (Auto) Not Reportable Baso % (Auto) Not Reportable Absolute Neuts (auto) Not Reportable Absolute Lymphs (auto) Not Reportable Absolute Monos (auto) Not Reportable Absolute Eos (auto) Not Reportable Absolute Basos (auto) Not Reportable Absolute Nucleated RBC Not Reportable Immature Gran % 15 H Neutrophils % 76 Band Neutrophils % 15 H Lymphocytes % 6 Monocytes % 3 Nucleated RBC % Not Reportable Abs Neuts (Manual) 8.5 H Abs Lymphs (Manual) 0.6 L Abs Monocytes (Manual) 0.2 Toxic Granulation 1+ Normal RBC Morphology Not Reportable Basophilic Stippling 1+ Macrocytosis 1+ INR (Anticoag Therapy) ABG pH ABG pCO2 ABG pO2 ABG HCO3 ABG O2 Saturation ABG Base Excess Sodium 140 Potassium 4.8 D Chloride 117 H Carbon Dioxide 17 L Anion Gap 6 BUN 18 Creatinine 1.26 H Est GFR ( Amer) 68.3 Est GFR (Non-Af Amer) 56.4 BUN/Creatinine Ratio 14.3 Glucose 125 H POC Glucose (mg/dL) Lactic Acid Calcium 7.2 L Ionized Calcium Phosphorus Magnesium 1.9 Total Bilirubin 0.40 AST 25 ALT 11 Alkaline Phosphatase 69 Ammonia Troponin I 0.07 H* 0.11 H* C-Reactive Protein B-Natriuretic Peptide Total Protein 5.0 L Albumin 2.7 L Globulin 2.3 Albumin/Globulin Ratio 1.2 Vitamin B12 929 H Folate > 20.00 Procalcitonin TSH Urine Color Urine Appearance Urine pH Ur Specific [place] Urine Protein Urine Ketones Urine Blood Urine Nitrate Urine Bilirubin Urine Urobilinogen Ur Leukocyte Esterase Urine Glucose Influenza A (Rapid) Influenza B (Rapid) 10/19/18 10:36 WBC RBC Hgb Hct MCV MCH MCHC RDW Plt Count MPV Neut % (Auto) Lymph % (Auto) Kern % (Auto) Eos % (Auto) Baso % (Auto) Absolute Neuts (auto) Absolute Lymphs (auto) Absolute Monos (auto) Absolute Eos (auto) Absolute Basos (auto) Absolute Nucleated RBC Immature Gran % Neutrophils % Band Neutrophils % Lymphocytes % Monocytes % Nucleated RBC % Abs Neuts (Manual) Abs Lymphs (Manual) Abs Monocytes (Manual) Toxic Granulation Normal RBC Morphology Basophilic Stippling Macrocytosis INR (Anticoag Therapy) ABG pH ABG pCO2 ABG pO2 ABG HCO3 ABG O2 Saturation ABG Base Excess Sodium Potassium Chloride Carbon Dioxide Anion Gap BUN Creatinine Est GFR ( Amer) Est GFR (Non-Af Amer) BUN/Creatinine Ratio Glucose POC Glucose (mg/dL) Lactic Acid Calcium Ionized Calcium Phosphorus Magnesium Total Bilirubin AST ALT Alkaline Phosphatase Ammonia Troponin I C-Reactive Protein B-Natriuretic Peptide Total Protein Albumin Globulin Albumin/Globulin Ratio Vitamin B12 Folate Procalcitonin TSH Urine Color Urine Appearance Urine pH Ur Specific [place] Urine Protein Urine Ketones Urine Blood Urine Nitrate Urine Bilirubin Urine Urobilinogen Ur Leukocyte Esterase Urine Glucose Influenza A (Rapid) Negative Influenza B (Rapid) Negative Studies: CXR 10/18 IMPRESSION: #. Low lung volumes with subsegmental atelectasis. Brain CT 10/18 IMPRESSION: 1. No acute intracranial pathology. 2. Moderate mucosal thickening of the right sphenoid sinus. 3. Other chronic findings, as above. CTA Chest 10/18 IMPRESSION: 1. No CTA evidence of pulmonary embolism. 2. 0.3 cm nodule in the right upper lobe. For low risk patients, no routine follow-up is needed. For high risk patients, optional CT at 12 months is recommended. 3. Other chronic findings, as above. Abd/Pel CT 10/19 IMPRESSION: 1. Mild bibasilar fibro-atelectatic change and question of minimal infiltrates. 2. Status post gastric bypass. 3. Jung catheter the bladder and rectal balloon in position. 4. Colonic diverticulosis without diverticulitis. 5. Otherwise negative CT abdomen/pelvis. CXR 10/19 IMPRESSION: Chest x-ray findings are most consistent with cardiogenic pulmonary edema similar in appearance to the previous chest x-ray Impression: 73M with cad, ischemic chf s/p biv pacer, ef now improved, afib, asthma, psoriatic arthritis on remicade, polymyalgia rheumatica, gerd, caroline, depression, gout presented with profuse diarrhea and fever of 105. Plan: Neuro - AMS - 2/2 fever - improving CV - hypotension, afib, chf - 2/2 volume depletion - hold anti-hypertensives for now - c/w eliquis for ac pulm - copd - nebs prn ID - likely viral gastroenteritis - started on ceftriaxone/flagyl by admitting team - c diff neg - flu neg - blood cultures neg to date - supportive care gi - advance diet as tolerated renal - iv hydration heme - monitor cbc endo - on stress dose staroids rheum - psoriatic arthritis - remicade q6w lines - piv ppx - gi/dvt full code Critical Care Time: 45 mins
[2018-10-19] MEDS: Topiramate TAB(*) 100 MG PO SCH (20:42)
[2018-10-19] MEDS: OLANzapine TAB* 10 MG PO SCH (20:42)
[2018-10-19] MEDS: Loperamide CAP* 2 MG PO PRN ×2 (20:42→23:08)
[2018-10-19] MEDS ORDERED: Magnesium Sulfate 1 GM IV* 1 GM/100 ML BAG IV ONE (23:35)
[2018-10-20] MEDS: Hydrocortisone INJ* 100 MG VIAL IV SCH ×3 (01:59→21:28)
[2018-10-20] MEDS: metroNIDAZOLE IV 500 MG/100ML* 500 MG/100 ML BAG IVPB SCH ×3 (02:00→17:24)
[2018-10-20] MEDS: cefTRIAXone* 1 GM in NS 0.9% 50 ML BAG IVPB SCH (04:51)
[2018-10-20] MEDS: Thiamine IV* 100 MG in NS 0.9% 50 ML* 50 ML IV SCH ×2 (04:57→09:15)
[2018-10-20 07:14] LABS: ABS Basophils 0 10^3/ul (0-0.2); ABS Eosinophils 0 10^3/ul (0-0.6); ABS Lymphocytes 0.9 10^3/ul (1.0-4.8); ABS Monocytes 0.5 10^3/ul (0-0.8); ABS Neutrophils 8.1 10^3/ul (1.5-7.7); ABS Nucleated RBC 0 10^3/ul; Eosinophil % 0 %; Hematocrit 32 % (42-52); Hemoglobin 10.8 g/dl (14.0-18.0); Lymphocyte % 9.3 %; Mean Corpuscular HGB Conc 33 g/dl (31-36); Mean Corpuscular Hemoglobin 37 pg (27-31); Mean Corpuscular Volume 111 fL (80-94); Mean Platelet Volume 9.4 fL (7.4-10.4); Nucleated Red Blood Cells % 0; Platelet Count 102 10^3/ul (150-450); Red Blood Count 2.92 10^6/ul (4.00-5.40); Red Cell Distribution Width 16 % (10.5-15); White Blood Count 9.4 10^3/ul (3.5-10.8)
[2018-10-20 07:25] LABS: BUN/Creatinine Ratio 20.2 (8-20); Calcium 8.6 mg/dL (8.6-10.3); EGFR Non-African American 70.4 (>60); Magnesium 2.4 mg/dL (1.9-2.7); Potassium 3.5 mmol/L (3.5-5.0)
[2018-10-20] MEDS: Allopurinol TAB* 100 MG PO SCH (08:05)
[2018-10-20] MEDS: Allopurinol TAB* 300 MG PO SCH (08:05)
[2018-10-20] MEDS: Folic Acid TAB* 1 MG PO SCH (08:05)
[2018-10-20] MEDS: Potassium Chlor TAB* 20 MEQ TAB.ER PO SCH ×2 (08:05→21:28)
[2018-10-20] MEDS: predniSONE TAB* 10 MG PO SCH (08:05)
[2018-10-20] MEDS: Topiramate TAB(*) 25 MG PO SCH (08:06)
[2018-10-20] MEDS: Lactobacillus Acidophilus* 1 TAB PO SCH (08:06)
[2018-10-20] MEDS: Cholecalciferol TAB* 1000 UNITS PO SCH ×2 (08:06→21:28)
[2018-10-20] MEDS: Omeprazole CAP (NF) 20 MG CAP.DR PO SCH (08:06)
[2018-10-20] MEDS: Apixaban* 5 MG TAB PO SCH ×2 (08:06→21:28)
[2018-10-20] MEDS: Multivitamins/Minerals TAB PO SCH (08:07)
--- NOTE | 2018-10-20 12:08 | PN ---
Subjective Date of Service: 10/20/18 Interval History: No pain, no complaints Rectal tube in place so he cannot comment on stool frequency Objective Active Medications: Acetaminophen (Tylenol Tab*) 650 mg PO Q6H PRN PRN Reason: FEVER/PAIN Last Admin: 10/19/18 07:50 Dose: 650 mg Hydrocodone Bitart/Acetaminophen ([place] 10/325 (Nf)) 1 tab PO Q6H PRN PRN Reason: PAIN Last Admin: 10/19/18 23:07 Dose: 1 tab Allopurinol (Zyloprim Tab*) 300 mg PO DAILY [facility] Last Admin: 10/20/18 08:05 Dose: 300 mg Allopurinol (Zyloprim Tab*) 100 mg PO DAILY [facility] Last Admin: 10/20/18 08:05 Dose: 100 mg Apixaban (Eliquis*) 5 mg PO DAILY [facility] Last Admin: 10/20/18 08:06 Dose: 5 mg Cetirizine HCl (Zyrtec*) 10 mg PO DAILY PRN PRN Reason: Allergy Symptoms Cholecalciferol (Vitamin D Tab*) 2,000 units PO BID [facility] Last Admin: 10/20/18 08:06 Dose: 2,000 units Folic Acid (Folvite Tab*) 1 mg PO DAILY [facility] Last Admin: 10/20/18 08:05 Dose: 1 mg Hydrocortisone Sodium Succinate (Solu-Cortef*) 50 mg IV Q8H [facility] Last Admin: 10/20/18 08:07 Dose: 50 mg Metronidazole/Sodium Chloride (Flagyl 500 Mg Ivpb*) 500 mg in 100 mls @ 100 mls /hr IVPB Q8H [facility] Last Admin: 10/20/18 10:29 Dose: 100 mls/hr Ceftriaxone Sodium 1 gm/ (Sodium Chloride) 50 mls @ 200 mls/hr IVPB Q24H [facility] Last Admin: 10/20/18 04:51 Dose: 200 mls/hr Thiamine HCl 100 mg/ Sodium (Chloride) 51 mls @ 102 mls/hr IV 0900 [facility] Last Admin: 10/20/18 09:15 Dose: 102 mls/hr Lactobacillus Rhamnosus (Lactobacillus Acidophilus*) 1 tab PO DAILY [facility] Last Admin: 10/20/18 08:06 Dose: 1 tab Levalbuterol HCl (Xopenex 1.25 Mg/0.5 Ml Neb.Joy*) 1.25 mg INH Q6H PRN PRN Reason: SOB/WHEEZING Loperamide HCl (Imodium Cap*) 2 mg PO .SEE DIRECTIONS PRN PRN Reason: DIARRHEA Last Admin: 10/19/18 23:08 Dose: 2 mg Multivitamins/Minerals (Theragran/Minerals Tab*) 1 tab PO DAILY [facility] Last Admin: 10/20/18 08:07 Dose: 1 tab Olanzapine (Zyprexa Tab*) 20 mg PO BEDTIME [facility] Last Admin: 10/19/18 20:42 Dose: 20 mg Omeprazole (Prilosec Cap*) 20 mg PO DAILY@0730 [facility] Last Admin: 10/20/18 08:06 Dose: 20 mg Ondansetron HCl (Zofran Inj*) 4 mg IV Q6H PRN PRN Reason: NAUSEA Potassium Chloride (Klor Con Er Tab*) 20 meq PO BID [facility] Last Admin: 10/20/18 08:05 Dose: 20 meq Prednisone (Deltasone Tab*) 10 mg PO DAILY [facility] Last Admin: 10/20/18 08:05 Dose: 10 mg Topiramate (Topamax(*)) 100 mg PO BEDTIME [facility] Last Admin: 10/19/18 20:42 Dose: 100 mg Topiramate (Topamax(*)) 50 mg PO QAM [facility] Last Admin: 10/20/18 08:06 Dose: 50 mg Vital Signs - 8 hr 10/20/18 10/20/18 07:26 08:00 Temperature 97.8 F Pulse Rate 73 79 Respiratory 16 18 Rate Blood Pressure 127/70 (mmHg) O2 Sat by Pulse 98 96 Oximetry Oxygen Devices in Use Now: Nasal Cannula Appearance: obese, lying flat in bed, NAD Eyes: No Scleral Icterus, PERRLA Ears/Nose/Mouth/Throat: NL Teeth, Lips, Gums, Clear Oropharnyx Neck: NL Appearance and Movements; NL JVP, Trachea Midline Respiratory: Symmetrical Chest Expansion and Respiratory Effort, Clear to Auscultation Cardiovascular: RRR Abdominal: NL Sounds; No Tenderness; No Distention, No Hepatosplenomegaly Lymphatic: No Cervical Adenopathy Extremities: No Edema Skin: No Rash or Ulcers Neurological: - - AOx2 to self and location but thinks its 2000 Result Diagrams: 10/20/18 06:26 10/20/18 06:26 Microbiology and Other Data: Microbiology 10/19/18 01:52 Shiga Toxin I & II - Final Stool Negative Shiga Toxin 1 & 2 Stool Gross Appearance - Final C. difficile DNA Amplification - Final 027 Presumptive NEGATIVE Toxigenic C.diff NEGATIVE 10/18/18 12:56 Stool Gross Appearance - Final Stool Shiga Toxin I & II - Final C. difficile DNA Amplification - Final 027 Presumptive NEGATIVE Toxigenic C.diff NEGATIVE Cryptosporidium/Giardia - Final Neg Cryptosporidium/Giardia 10/19/18 00:06 Aerobic Blood Culture - Preliminary Blood Venous No Growth Day 1 Anaerobic Blood Culture - Preliminary No Growth Day 1 10/18/18 23:34 Aerobic Blood Culture - Preliminary Blood Venous No Growth Day 1 Anaerobic Blood Culture - Preliminary No Growth Day 1 10/18/18 17:12 Aerobic Blood Culture - Preliminary Blood Venous No Growth Day 1 Anaerobic Blood Culture - Preliminary No Growth Day 1 10/19/18 10:18 Influenza Types A,B Antigen - Final Nasal Specimen received for Influenza A/B Molecular testing 10/18/18 23:30 Nasal Screen MRSA (PCR) - Final Nasal Mrsa Not Detected 10/18/18 20:00 Influenza Types A,B Antigen - Final Nasopharyngeal Specimen received for Influenza A/B Molecular testing Assess/Plan/Problems-Billing Assessment: 73M h/o CAD, ICM w/PPM, afib, psoriatic arthritis on remicade, PMR, MOSES, gout p/ w profuse diarrhea, fevers, hypotension - Patient Problems (1) Toxic encephalopathy Comment: confused on presentation thought in setting of hypotension, fever Improved but only AOx 2 currently monitor no additional fevers, no plan for LP at this point (2) Hypotension Comment: hypovolemic in setting of diarrhea resolved (3) COPD (chronic obstructive pulmonary disease) Comment: not in exacerbation not on inhalers but on stress dose steroids (4) Gastroenteritis Comment: rectal tube in place associated with fever but no WBC suspected viral at this point cultures remain negative started on empiric abx which I will continue for another day Had abx associated diarrhea in July after being treated at [facility] for pneumonia (5) TERESA (acute kidney injury) Comment: pre renal resolved (6) Psoriatic arthritis Comment: c/w remicade taper stress dose steroids - decrease from TID to BID on 10/20 (7) DVT prophylaxis Comment: eliquis (also for afib)
[2018-10-20] MEDS ORDERED: Perflutren Lipid Microsphere* 3 ML VIAL ONE (13:08)
[2018-10-20] MEDS: Hydrocodone/Acetamin 10/325 1 TAB PO PRN (15:26)
[2018-10-20] MEDS: Ondansetron INJ* 2 MG/ML VIAL IV PRN (15:26)
--- NOTE | 2018-10-20 16:57 | ECHO ---
Patient: PASQUALE BRUNER [facility] Rec#: [id number] : 1945 Date: 10/20/2018 Age: 73y Height: 178 cm / 70.1 in Weight: 131.5 kg / 289.8 lbs Sex: M BSA: 2.5 Room#: [facility] Admit Date#: 10/18/2018 Type: Inpatient Referring: MORGAN CONDE Reading: Dae Domingo MD Director Of Preclinical Research: Winnie Ballesteros RN RDCS CC: Arcadio Aquino MD Transthoracic Echocardiogram Indication: Hypotension, elevated troponin BP: 118/67 HR: 70 Rhythm: Paced Findings History: CAD, A. fib, ICD/pacemaker, cardiomyopathy, LBBB, asthma, MOSES, gastric bypass, obesity, anemia Left Ventricle: The left ventricular chamber size is normal. Mild concentric left ventricular hypertrophy is observed. Global left ventricular wall motion and contractility are within normal limits. There is normal left ventricular systolic function. The estimated ejection fraction is 55-60%. The assessment of diastolic function is non-diagnostic. Left Atrium: The left atrium is mild to moderately dilated. Right Ventricle: The right ventricular cavity size is normal. The right ventricular global systolic function is normal. A pacemaker wire is visualized in the right ventricle. Right Atrium: The right atrium is mildly dilated. A pacemaker wire is visualized in the right atrium. Aortic Valve: The aortic valve structure is not well visualized. The aortic valve leaflets are mildly thickened. There is no evidence of aortic regurgitation. There is no evidence of aortic stenosis. Mitral Valve: The mitral valve leaflets are mildly thickened. There is trace to mild mitral regurgitation. Tricuspid Valve: The tricuspid valve leaflets are normal. There is trace to mild tricuspid regurgitation. Unable to estimate the right ventricular systolic pressure. Pulmonic Valve: The pulmonic valve structure is not well visualized. There is no evidence of pulmonic regurgitation. There is no pulmonic stenosis. Pericardium: There is no significant pericardial effusion. A pericardial fat pad is visualized. Aorta: There is mild dilatation of the ascending aorta. The aortic arch is not well visualized. There is no dilation of the aortic root. Pulmonary Artery: The main pulmonary artery is not well visualized. Venous: The venous system is not well visualized. The inferior vena cava is not visualized. Contrast: Definity was used to optimize study. A total of 3 ml of diluted Definity was given IV. Conclusions There is normal left ventricular systolic function. The estimated ejection fraction is 55-60%. Global left ventricular wall motion and contractility are within normal limits. The left ventricular chamber size is normal. Mild concentric left ventricular hypertrophy is observed. The left atrium is mild to moderately dilated. The right atrium is mildly dilated. Functionally benign heart valves. There is mild dilatation of the ascending aorta. Since the prior echocardiogram completed 08/07/18, there is no significant change. Measurements Name Value Normal Range RVIDd (AP) 2D 3.4 cm (0.9 - 2.6) RAd ISD 4CH 5.6 cm (3.4 - 4.9) RA (A4C)W 4.2 cm (2.9 - 4.6) IVSd (2D) 1.3 cm (0.6 - 1) LVPWd (2D) 1.3 cm (0.6 - 1) LVIDd (2D) 5.3 cm (3.6 - 5.4) LVIDs (2D) 3.6 cm - LV FS (2D) 32 % (25 - 45) Aortic Annulus 2.4 cm (1.4 - 2.6) Ao root diameter (2D) 3.4 cm (2.1 - 3.5) Ascending Ao 3.9 cm (2.1 - 3.4) LA dimension (AP) 2D 4.5 cm (2.3 - 3.8) LAd ISD 4CH 5.2 cm (2.9 - 5.3) LA ISD 4CH W 4.1 cm (2.5 - 4.5) Name Value Normal Range MV E-wave Vmax 1.1 m/sec - MV deceleration time 331 msec - MV A-wave Vmax 0.46 m/sec - MV E:A ratio 2.4 ratio - LV lateral e' Vmax 0.09 m/sec - LV E:e' lateral ratio 12.2 ratio - Name Value Normal Range AV Vmax 1.3 m/sec - AV VTI 24.3 cm - AV peak gradient 7 mmHg - AV mean gradient 3 mmHg - LVOT Vmax 0.84 m/sec - LVOT VTI 17.2 cm - LVOT peak gradient 3 mmHg - LVOT mean gradient 2 mmHg - Name Value Normal Range PV Vmax 1.1 m/sec -
[2018-10-20] MEDS: OLANzapine TAB* 10 MG PO SCH (21:28)
[2018-10-20] MEDS: Topiramate TAB(*) 100 MG PO SCH (21:28)
[2018-10-21] MEDS: metroNIDAZOLE IV 500 MG/100ML* 500 MG/100 ML BAG IVPB SCH ×3 (01:01→17:42)
[2018-10-21] MEDS: cefTRIAXone* 1 GM in NS 0.9% 50 ML BAG IVPB SCH (03:13)
[2018-10-21] MEDS: Acetaminophen TAB* 325 MG PO PRN ×2 (05:01→20:12)
[2018-10-21 07:03] LABS: ABS Basophils 0 10^3/ul (0-0.2); ABS Eosinophils 0 10^3/ul (0-0.6); ABS Lymphocytes 1.1 10^3/ul (1.0-4.8); ABS Monocytes 0.4 10^3/ul (0-0.8); ABS Neutrophils 6.1 10^3/ul (1.5-7.7); ABS Nucleated RBC 0 10^3/ul; Eosinophil % 0 %; Hematocrit 31 % (42-52); Hemoglobin 10.4 g/dl (14.0-18.0); Lymphocyte % 14.9 %; Mean Corpuscular HGB Conc 33 g/dl (31-36); Mean Corpuscular Hemoglobin 37 pg (27-31); Mean Corpuscular Volume 111 fL (80-94); Mean Platelet Volume 9.8 fL (7.4-10.4); Nucleated Red Blood Cells % 0.2; Platelet Count 102 10^3/ul (150-450); Red Blood Count 2.81 10^6/ul (4.00-5.40); Red Cell Distribution Width 16 % (10.5-15); White Blood Count 7.7 10^3/ul (3.5-10.8)
[2018-10-21 07:08] LABS: BUN/Creatinine Ratio 19.4 (8-20); Calcium 8.4 mg/dL (8.6-10.3); EGFR Non-African American 75.4 (>60); Potassium 3.3 mmol/L (3.5-5.0)
[2018-10-21] MEDS: Apixaban* 5 MG TAB PO SCH ×2 (08:07→20:12)
[2018-10-21] MEDS: Cholecalciferol TAB* 1000 UNITS PO SCH ×2 (08:07→20:12)
[2018-10-21] MEDS: Topiramate TAB(*) 25 MG PO SCH (08:08)
[2018-10-21] MEDS: Allopurinol TAB* 100 MG PO SCH (08:08)
[2018-10-21] MEDS: Allopurinol TAB* 300 MG PO SCH (08:08)
[2018-10-21] MEDS: predniSONE TAB* 10 MG PO SCH (08:09)
[2018-10-21] MEDS: Folic Acid TAB* 1 MG PO SCH (08:09)
[2018-10-21] MEDS: Potassium Chlor TAB* 20 MEQ TAB.ER PO SCH ×2 (08:09→20:13)
[2018-10-21] MEDS: Lactobacillus Acidophilus* 1 TAB PO SCH (08:09)
[2018-10-21] MEDS: Multivitamins/Minerals TAB PO SCH (08:09)
[2018-10-21] MEDS: Omeprazole CAP (NF) 20 MG CAP.DR PO SCH (08:09)
[2018-10-21] MEDS: Hydrocortisone INJ* 100 MG VIAL IV SCH ×2 (08:10→20:11)
[2018-10-21] MEDS: Thiamine IV* 100 MG in NS 0.9% 50 ML* 50 ML IV SCH (09:42)
[2018-10-21] MEDS ORDERED: Potassium Chlor TAB* 20 MEQ TAB.ER PO ONE (14:36)
--- NOTE | 2018-10-21 14:37 | PN ---
Subjective Date of Service: 10/21/18 Interval History: Pt is feeling ok but continues to have liquid stool into the flexiseal. He denies any abdominal pain. No nausea. He is not eating much, he is drinking water. His states he has been hallucinating objects outside the window. It is not too uncommon for him to hallucinate when he is ill. His mental status otherwise is at baseline. Objective Active Medications: Acetaminophen (Tylenol Tab*) 650 mg PO Q6H PRN PRN Reason: FEVER/PAIN Last Admin: 10/21/18 05:01 Dose: 650 mg Hydrocodone Bitart/Acetaminophen ([place] 10/325 (Nf)) 1 tab PO Q6H PRN PRN Reason: PAIN Last Admin: 10/20/18 15:26 Dose: 1 tab Allopurinol (Zyloprim Tab*) 300 mg PO DAILY [facility] Last Admin: 10/21/18 08:08 Dose: 300 mg Allopurinol (Zyloprim Tab*) 100 mg PO DAILY [facility] Last Admin: 10/21/18 08:08 Dose: 100 mg Apixaban (Eliquis*) 5 mg PO BID [facility] Last Admin: 10/21/18 08:07 Dose: 5 mg Cetirizine HCl (Zyrtec*) 10 mg PO DAILY PRN PRN Reason: Allergy Symptoms Cholecalciferol (Vitamin D Tab*) 2,000 units PO BID [facility] Last Admin: 10/21/18 08:07 Dose: 2,000 units Folic Acid (Folvite Tab*) 1 mg PO DAILY [facility] Last Admin: 10/21/18 08:09 Dose: 1 mg Hydrocortisone Sodium Succinate (Solu-Cortef*) 50 mg IV Q12HR [facility] Last Admin: 10/21/18 08:10 Dose: 50 mg Metronidazole/Sodium Chloride (Flagyl 500 Mg Ivpb*) 500 mg in 100 mls @ 100 mls /hr IVPB Q8H [facility] Last Admin: 10/21/18 10:31 Dose: 100 mls/hr Ceftriaxone Sodium 1 gm/ (Sodium Chloride) 50 mls @ 200 mls/hr IVPB Q24H [facility] Last Admin: 10/21/18 03:13 Dose: 200 mls/hr Thiamine HCl 100 mg/ Sodium (Chloride) 51 mls @ 102 mls/hr IV 0900 [facility] Last Admin: 01/01/19 09:42 Dose: 102 mls/hr Lactobacillus Rhamnosus (Lactobacillus Acidophilus*) 1 tab PO DAILY [facility] Last Admin: 10/21/18 08:09 Dose: 1 tab Levalbuterol HCl (Xopenex 1.25 Mg/0.5 Ml Neb.Joy*) 1.25 mg INH Q6H PRN PRN Reason: SOB/WHEEZING Loperamide HCl (Imodium Cap*) 2 mg PO .SEE DIRECTIONS PRN PRN Reason: DIARRHEA Last Admin: 10/19/18 23:08 Dose: 2 mg Multivitamins/Minerals (Theragran/Minerals Tab*) 1 tab PO DAILY [facility] Last Admin: 10/21/18 08:09 Dose: 1 tab Olanzapine (Zyprexa Tab*) 20 mg PO BEDTIME [facility] Last Admin: 10/20/18 21:28 Dose: 20 mg Omeprazole (Prilosec Cap*) 20 mg PO DAILY@0730 [facility] Last Admin: 10/21/18 08:09 Dose: 20 mg Ondansetron HCl (Zofran Inj*) 4 mg IV Q6H PRN PRN Reason: NAUSEA Last Admin: 10/20/18 15:26 Dose: 4 mg Potassium Chloride (Klor Con Er Tab*) 20 meq PO BID [facility] Last Admin: 10/21/18 08:09 Dose: 20 meq Prednisone (Deltasone Tab*) 10 mg PO DAILY [facility] Last Admin: 10/21/18 08:09 Dose: 10 mg Topiramate (Topamax(*)) 100 mg PO BEDTIME [facility] Last Admin: 10/20/18 21:28 Dose: 100 mg Topiramate (Topamax(*)) 50 mg PO QAM [facility] Last Admin: 10/21/18 08:08 Dose: 50 mg Vital Signs - 8 hr 10/21/18 10/21/18 10/21/18 07:33 08:00 11:18 Temperature 98.0 F 97.6 F Pulse Rate 66 73 Respiratory 20 20 20 Rate Blood Pressure 116/67 118/67 (mmHg) O2 Sat by Pulse 99 98 Oximetry Oxygen Devices in Use Now: Nasal Cannula Appearance: Elderly morbidly obese male lying in bed, NAD Eyes: No Scleral Icterus Ears/Nose/Mouth/Throat: Mucous Membranes Moist Respiratory: Symmetrical Chest Expansion and Respiratory Effort, Clear to Auscultation - anteriorly Cardiovascular: NL Sounds; No Murmurs; No JVD, RRR, - - trace-1+ LE edema Abdominal: - - BS hyperactive, soft, NT, ND Extremities: No Clubbing, Cyanosis Skin: No Nodules or Sclerosis Neurological: Alert and Oriented x 3 Result Diagrams: 10/21/18 06:16 10/21/18 06:16 Microbiology and Other Data: Microbiology 10/19/18 01:52 Shiga Toxin I & II - Final Stool Negative Shiga Toxin 1 & 2 Stool Gross Appearance - Final C. difficile DNA Amplification - Final 027 Presumptive NEGATIVE Toxigenic C.diff NEGATIVE 10/18/18 12:56 Stool Gross Appearance - Final Stool Shiga Toxin I & II - Final C. difficile DNA Amplification - Final 027 Presumptive NEGATIVE Toxigenic C.diff NEGATIVE Cryptosporidium/Giardia - Final Neg Cryptosporidium/Giardia 10/19/18 00:06 Aerobic Blood Culture - Preliminary Blood Venous No Growth Day 1 Anaerobic Blood Culture - Preliminary No Growth Day 1 10/18/18 23:34 Aerobic Blood Culture - Preliminary Blood Venous No Growth Day 1 Anaerobic Blood Culture - Preliminary No Growth Day 1 10/18/18 17:12 Aerobic Blood Culture - Preliminary Blood Venous No Growth Day 1 Anaerobic Blood Culture - Preliminary No Growth Day 1 10/19/18 10:18 Influenza Types A,B Antigen - Final Nasal Specimen received for Influenza A/B Molecular testing 10/18/18 23:30 Nasal Screen MRSA (PCR) - Final Nasal Mrsa Not Detected 10/18/18 20:00 Influenza Types A,B Antigen - Final Nasopharyngeal Specimen received for Influenza A/B Molecular testing Assess/Plan/Problems-Billing Mr Unger is a 73yo M who has a h/o CAD, ischemic cardiomyopathy s/p PPM, afib , psoriatic arthritis on remicade, PMR, MOSES and gout who presented to the ER with c/o profuse diarrhea and fevers and was admitted for sepsis secondary to viral gastroenteritis. - Patient Problems (1) Gastroenteritis Current Visit: Yes Status: Acute Code(s): K52.9 - NONINFECTIVE GASTROENTERITIS AND COLITIS, UNSPECIFIED SNOMED Code(s): 47203014 Comment: Pt was septic on admission and now resolved. He continues with profuse liquid stool. Fever has now resolved. No elevated WBC count. Cultures negative. Stop Abx as there has been no improvement with them and they only put him at risk for antibiotic associated diarrhea. Continue rectal tube drainage. This likely is viral gastroenteritis-his family member that had similar symptoms reportedly had symptoms for 5-6 days. (2) Toxic encephalopathy Current Visit: Yes Status: Acute Code(s): G92 - TOXIC ENCEPHALOPATHY SNOMED Code(s): 68834723 Comment: Likely encephalopathic secondary to sepsis and fevers. Now back to baseline mental status. (3) Hypotension Current Visit: Yes Status: Acute Comment: Secondary to hypovolemia from profuse diarrhea. No resolved. He was also started on stress dose steroids. Continue just usual home dose of prednisone 10mg daily tomorrow AM. (4) COPD (chronic obstructive pulmonary disease) Current Visit: Yes Status: Acute Code(s): J44.9 - CHRONIC OBSTRUCTIVE PULMONARY DISEASE, UNSPECIFIED SNOMED Code(s): 81878748 Comment: No evidence of exacerbation. (5) Ischemic cardiomyopathy Current Visit: Yes Status: Acute Code(s): I25.5 - ISCHEMIC CARDIOMYOPATHY SNOMED Code(s): 449379969 Comment: Lasix, nadolol and spironolactone are all on hold. Likely resume in next 24-48hr. (6) Paroxysmal a-fib Current Visit: Yes Status: Acute Code(s): I48.0 - PAROXYSMAL ATRIAL FIBRILLATION SNOMED Code(s): 159371859 Comment: Pt currently in NSR. Continue eliquis. Nadolol on hold. (7) DVT prophylaxis Current Visit: Yes Status: Acute Code(s): PRU7748 - SNOMED Code(s): 337427961 Comment: Nicki (8) Full code status Current Visit: Yes Status: Acute Code(s): Z78.9 - OTHER SPECIFIED HEALTH STATUS SNOMED Code(s): 523413656
[2018-10-21] MEDS: Topiramate TAB(*) 100 MG PO SCH (20:12)
[2018-10-21] MEDS: OLANzapine TAB* 10 MG PO SCH (20:12)
[2018-10-21] MEDS: Melatonin 3 MG TAB PO PRN (22:53)
[2018-10-22] MEDS: metroNIDAZOLE IV 500 MG/100ML* 500 MG/100 ML BAG IVPB SCH ×4 (01:42→17:44)
[2018-10-22] MEDS: Acetaminophen TAB* 325 MG PO PRN (02:31)
[2018-10-22] MEDS: cefTRIAXone* 1 GM in NS 0.9% 50 ML BAG IVPB SCH (04:09)
[2018-10-22] MEDS: Folic Acid TAB* 1 MG PO SCH (08:09)
[2018-10-22] MEDS: Omeprazole CAP (NF) 20 MG CAP.DR PO SCH (08:09)
[2018-10-22] MEDS: Topiramate TAB(*) 25 MG PO SCH (08:10)
[2018-10-22] MEDS: Multivitamins/Minerals TAB PO SCH (08:10)
[2018-10-22] MEDS: Cholecalciferol TAB* 1000 UNITS PO SCH ×2 (08:10→20:46)
[2018-10-22] MEDS: Potassium Chlor TAB* 20 MEQ TAB.ER PO SCH ×2 (08:10→20:46)
[2018-10-22] MEDS: Apixaban* 5 MG TAB PO SCH ×2 (08:10→20:46)
[2018-10-22] MEDS: Lactobacillus Acidophilus* 1 TAB PO SCH (08:10)
[2018-10-22] MEDS: Allopurinol TAB* 100 MG PO SCH (08:10)
[2018-10-22] MEDS: predniSONE TAB* 10 MG PO SCH (08:10)
[2018-10-22] MEDS: Allopurinol TAB* 300 MG PO SCH (08:10)
--- NOTE | 2018-10-22 09:47 | PN ---
Subjective Date of Service: 10/22/18 Interval History: Pt is feeling ok. He states he has no pain. He does not remember pulling out his flexiseal this AM. I notice the flexiseal is still in the bed, he wants to know if it is still in place because he needs to go. Objective Active Medications: Acetaminophen (Tylenol Tab*) 650 mg PO Q6H PRN PRN Reason: FEVER/PAIN Last Admin: 10/22/18 02:31 Dose: 650 mg Hydrocodone Bitart/Acetaminophen ([place] 10/325 (Nf)) 1 tab PO Q6H PRN PRN Reason: PAIN Last Admin: 10/20/18 15:26 Dose: 1 tab Allopurinol (Zyloprim Tab*) 300 mg PO DAILY [facility] Last Admin: 10/22/18 08:10 Dose: 300 mg Allopurinol (Zyloprim Tab*) 100 mg PO DAILY [facility] Last Admin: 10/22/18 08:10 Dose: 100 mg Apixaban (Eliquis*) 5 mg PO BID [facility] Last Admin: 10/22/18 08:10 Dose: 5 mg Cetirizine HCl (Zyrtec*) 10 mg PO DAILY PRN PRN Reason: Allergy Symptoms Cholecalciferol (Vitamin D Tab*) 2,000 units PO BID [facility] Last Admin: 10/22/18 08:10 Dose: 2,000 units Folic Acid (Folvite Tab*) 1 mg PO DAILY [facility] Last Admin: 10/22/18 08:09 Dose: 1 mg Metronidazole/Sodium Chloride (Flagyl 500 Mg Ivpb*) 500 mg in 100 mls @ 100 mls /hr IVPB Q8H [facility] Last Admin: 10/22/18 02:59 Dose: 100 mls/hr Ceftriaxone Sodium 1 gm/ (Sodium Chloride) 50 mls @ 200 mls/hr IVPB Q24H [facility] Last Admin: 10/22/18 04:09 Dose: 200 mls/hr Thiamine HCl 100 mg/ Sodium (Chloride) 51 mls @ 102 mls/hr IV 0900 [facility] Last Admin: 10/21/18 09:42 Dose: 102 mls/hr Lactobacillus Rhamnosus (Lactobacillus Acidophilus*) 1 tab PO DAILY [facility] Last Admin: 10/22/18 08:10 Dose: 1 tab Levalbuterol HCl (Xopenex 1.25 Mg/0.5 Ml Neb.Joy*) 1.25 mg INH Q6H PRN PRN Reason: SOB/WHEEZING Loperamide HCl (Imodium Cap*) 2 mg PO .SEE DIRECTIONS PRN PRN Reason: DIARRHEA Last Admin: 10/19/18 23:08 Dose: 2 mg Melatonin (Melatonin) 3 mg PO BEDTIME PRN; Protocol PRN Reason: SLEEP Last Admin: 10/21/18 22:53 Dose: 3 mg Multivitamins/Minerals (Theragran/Minerals Tab*) 1 tab PO DAILY [facility] Last Admin: 10/22/18 08:10 Dose: 1 tab Olanzapine (Zyprexa Tab*) 20 mg PO BEDTIME [facility] Last Admin: 10/21/18 20:12 Dose: 20 mg Omeprazole (Prilosec Cap*) 20 mg PO DAILY@0730 [facility] Last Admin: 10/22/18 08:09 Dose: 20 mg Ondansetron HCl (Zofran Inj*) 4 mg IV Q6H PRN PRN Reason: NAUSEA Last Admin: 10/20/18 15:26 Dose: 4 mg Potassium Chloride (Klor Con Er Tab*) 20 meq PO BID [facility] Last Admin: 10/22/18 08:10 Dose: 20 meq Prednisone (Deltasone Tab*) 10 mg PO DAILY [facility] Last Admin: 10/22/18 08:10 Dose: 10 mg Topiramate (Topamax(*)) 100 mg PO BEDTIME [facility] Last Admin: 10/21/18 20:12 Dose: 100 mg Topiramate (Topamax(*)) 50 mg PO QAM [facility] Last Admin: 10/22/18 08:10 Dose: 50 mg Vital Signs - 8 hr 10/22/18 10/22/18 10/22/18 02:37 04:54 07:46 Temperature 98.2 F 97.6 F Pulse Rate 61 60 65 Respiratory 20 20 16 Rate Blood Pressure 138/88 106/43 (mmHg) O2 Sat by Pulse 95 95 96 Oximetry 10/22/18 08:09 Temperature Pulse Rate Respiratory Rate Blood Pressure 138/88 (mmHg) O2 Sat by Pulse Oximetry Oxygen Devices in Use Now: None Appearance: Elderly obese male lying in bed, NAD Eyes: No Scleral Icterus Ears/Nose/Mouth/Throat: Mucous Membranes Moist Respiratory: Symmetrical Chest Expansion and Respiratory Effort, Clear to Auscultation Cardiovascular: NL Sounds; No Murmurs; No JVD, RRR, No Edema Abdominal: - - BS hyperactive, soft, NT, ND Extremities: No Clubbing, Cyanosis Skin: No Nodules or Sclerosis Neurological: - - alert, oriented to being in the hospital due to diarrhea, matthias historian otherwise Result Diagrams: 10/21/18 06:16 10/21/18 06:16 Microbiology and Other Data: Microbiology 10/19/18 01:52 Shiga Toxin I & II - Final Stool Negative Shiga Toxin 1 & 2 Stool Gross Appearance - Final C. difficile DNA Amplification - Final 027 Presumptive NEGATIVE Toxigenic C.diff NEGATIVE 10/18/18 12:56 Stool Gross Appearance - Final Stool Shiga Toxin I & II - Final C. difficile DNA Amplification - Final 027 Presumptive NEGATIVE Toxigenic C.diff NEGATIVE Cryptosporidium/Giardia - Final Neg Cryptosporidium/Giardia 10/19/18 00:06 Aerobic Blood Culture - Preliminary Blood Venous No Growth Day 1 Anaerobic Blood Culture - Preliminary No Growth Day 1 10/18/18 23:34 Aerobic Blood Culture - Preliminary Blood Venous No Growth Day 1 Anaerobic Blood Culture - Preliminary No Growth Day 1 10/18/18 17:12 Aerobic Blood Culture - Preliminary Blood Venous No Growth Day 1 Anaerobic Blood Culture - Preliminary No Growth Day 1 10/19/18 10:18 Influenza Types A,B Antigen - Final Nasal Specimen received for Influenza A/B Molecular testing 10/18/18 23:30 Nasal Screen MRSA (PCR) - Final Nasal Mrsa Not Detected 10/18/18 20:00 Influenza Types A,B Antigen - Final Nasopharyngeal Specimen received for Influenza A/B Molecular testing Assess/Plan/Problems-Billing Mr Unger is a 73yo M who has a h/o CAD, ischemic cardiomyopathy s/p PPM, afib , psoriatic arthritis on remicade, PMR, MOSES and gout who presented to the ER with c/o profuse diarrhea and fevers and was admitted for sepsis secondary to viral gastroenteritis. - Patient Problems (1) Gastroenteritis Current Visit: Yes Status: Acute Code(s): K52.9 - NONINFECTIVE GASTROENTERITIS AND COLITIS, UNSPECIFIED SNOMED Code(s): 00244152 Comment: Pt was septic on admission and now resolved. He continues with profuse liquid stool though nursing notes there was only 100ml out overnight. Fever has now resolved. No elevated WBC count. Cultures negative. Rectal tube has been confirmed to be out. Will leave it out for now and if the stool volume increases will replace the tube. Hold off on imodium for now but if still with liquid stool tomorrow can consider trying. (2) Toxic encephalopathy Current Visit: Yes Status: Acute Code(s): G92 - TOXIC ENCEPHALOPATHY SNOMED Code(s): 56055096 Comment: Likely encephalopathic secondary to sepsis and fevers. This am he was reported to be confused again. At the time I saw him he was alert and oriented to place and situation. (3) Hypotension Current Visit: Yes Status: Acute Comment: Secondary to hypovolemia from profuse diarrhea. Now resolved. Continue usual home dose of prednisone 10mg daily. (4) COPD (chronic obstructive pulmonary disease) Current Visit: Yes Status: Acute Code(s): J44.9 - CHRONIC OBSTRUCTIVE PULMONARY DISEASE, UNSPECIFIED SNOMED Code(s): 98719464 Comment: No evidence of exacerbation. (5) Ischemic cardiomyopathy Current Visit: Yes Status: Acute Code(s): I25.5 - ISCHEMIC CARDIOMYOPATHY SNOMED Code(s): 532254024 Comment: Resume home medications. Monitor BP and fluid status with ongoing diarrhea. (6) Paroxysmal a-fib Current Visit: Yes Status: Acute Code(s): I48.0 - PAROXYSMAL ATRIAL FIBRILLATION SNOMED Code(s): 218916714 Comment: Pt currently in NSR. Continue eliquis. Resume nadolol. (7) DVT prophylaxis Current Visit: Yes Status: Acute Code(s): NJC6086 - SNOMED Code(s): 641716603 Comment: Nicki (8) Full code status Current Visit: Yes Status: Acute Code(s): Z78.9 - OTHER SPECIFIED HEALTH STATUS SNOMED Code(s): 900239658
[2018-10-22] MEDS: Thiamine IV* 100 MG in NS 0.9% 50 ML* 50 ML IV SCH (10:02)
[2018-10-22] MEDS: Nadolol TAB* 40 MG PO SCH (17:43)
[2018-10-22] MEDS ORDERED: Diltiazem IV* 5 MG/ML 5 ML VIAL (for loading dose/IV Push) (25 MG) IV SLOW PU ONE (18:40)
[2018-10-22] MEDS ORDERED: Diltiazem IV VIAL* 125 MG in NS 0.9% 100 ML* 100 ML IV SCH ×2 (19:30→21:00)
[2018-10-22] MEDS: Topiramate TAB(*) 100 MG PO SCH (20:46)
[2018-10-22] MEDS: OLANzapine TAB* 10 MG PO SCH (21:32)
[2018-10-22 22:29] LABS: BUN/Creatinine Ratio 14.9 (8-20); Blood Urea Nitrogen 13 mg/dL (6-24); CO2 Carbon Dioxide 20 mmol/L (22-32); Calcium 8.6 mg/dL (8.6-10.3); EGFR Non-African American 86.5 (>60); Glucose 106 mg/dL (70-100); Sodium 142 mmol/L (135-145)
[2018-10-22 22:46] LABS: Anion Gap 7 mmol/L (2-11); Chloride 115 mmol/L (101-111)
[2018-10-23] MEDS: metroNIDAZOLE IV 500 MG/100ML* 500 MG/100 ML BAG IVPB SCH ×2 (01:59→10:29)
[2018-10-23 08:53] LABS: BUN/Creatinine Ratio 15.4 (8-20); Calcium 8.4 mg/dL (8.6-10.3); EGFR Non-African American 98.1 (>60); Potassium 3.2 mmol/L (3.5-5.0)
[2018-10-23 09:06] LABS: Hematocrit 33 % (42-52); Hemoglobin 11.1 g/dl (14.0-18.0); Mean Corpuscular HGB Conc 34 g/dl (31-36); Mean Corpuscular Hemoglobin 37 pg (27-31); Mean Corpuscular Volume 109 fL (80-94); Mean Platelet Volume 10.1 fL (7.4-10.4); Platelet Count 112 10^3/ul (150-450); Red Blood Count 3.04 10^6/ul (4.00-5.40); Red Cell Distribution Width 16 % (10.5-15); White Blood Count 6.1 10^3/ul (3.5-10.8)
[2018-10-23] MEDS: Ondansetron INJ* 2 MG/ML VIAL IV PRN (09:19)
[2018-10-23] MEDS: Thiamine IV* 100 MG in NS 0.9% 50 ML* 50 ML IV SCH (09:32)
[2018-10-23] MEDS: Topiramate TAB(*) 25 MG PO SCH (10:21)
[2018-10-23] MEDS: Furosemide TAB* 40 MG PO SCH (10:21)
[2018-10-23] MEDS: Potassium Chlor TAB* 20 MEQ TAB.ER PO SCH ×2 (10:21→20:33)
[2018-10-23] MEDS: Omeprazole CAP (NF) 20 MG CAP.DR PO SCH (10:21)
[2018-10-23] MEDS: predniSONE TAB* 10 MG PO SCH (10:21)
[2018-10-23] MEDS: Multivitamins/Minerals TAB PO SCH (10:21)
[2018-10-23] MEDS: Lactobacillus Acidophilus* 1 TAB PO SCH (10:22)
[2018-10-23] MEDS: Apixaban* 5 MG TAB PO SCH ×2 (10:22→20:33)
[2018-10-23] MEDS: Folic Acid TAB* 1 MG PO SCH (10:22)
[2018-10-23] MEDS: Cholecalciferol TAB* 1000 UNITS PO SCH ×2 (10:22→20:31)
[2018-10-23] MEDS: Spironolactone TAB* 25 MG PO SCH (10:22)
[2018-10-23] MEDS: Allopurinol TAB* 100 MG PO SCH (10:22)
[2018-10-23] MEDS: Allopurinol TAB* 300 MG PO SCH (10:22)
[2018-10-23] MEDS: Nadolol TAB* 40 MG PO SCH ×2 (10:22→17:34)
[2018-10-23] MEDS ORDERED: Potassium Chlor TAB* 20 MEQ TAB.ER PO ONE (15:26)
[2018-10-23] MEDS ORDERED: Magnesium Sulfate 2 GM IV* 2 GM/50 ML BAG IVPB ONE (15:26)
--- NOTE | 2018-10-23 15:34 | PN ---
Subjective Date of Service: 10/23/18 Interval History: Last evening at about 1815 the patient went into rapid afib. He denied any pain with the rapid afib. The patient today states he is doing ok. He denies any pain. No SOB. He had only 1 BM today that was slightly thicker than what had been reported. Objective Active Medications: Acetaminophen (Tylenol Tab*) 650 mg PO Q6H PRN PRN Reason: FEVER/PAIN Last Admin: 10/22/18 02:31 Dose: 650 mg Hydrocodone Bitart/Acetaminophen ([place] 10/325 (Nf)) 1 tab PO Q6H PRN PRN Reason: PAIN Last Admin: 10/20/18 15:26 Dose: 1 tab Allopurinol (Zyloprim Tab*) 300 mg PO DAILY [facility] Last Admin: 10/23/18 10:22 Dose: 300 mg Allopurinol (Zyloprim Tab*) 100 mg PO DAILY [facility] Last Admin: 10/23/18 10:22 Dose: 100 mg Apixaban (Eliquis*) 5 mg PO BID [facility] Last Admin: 10/23/18 10:22 Dose: 5 mg Cetirizine HCl (Zyrtec*) 10 mg PO DAILY PRN PRN Reason: Allergy Symptoms Cholecalciferol (Vitamin D Tab*) 2,000 units PO BID [facility] Last Admin: 10/23/18 10:22 Dose: 2,000 units Diltiazem HCl (Cardizem Tab*) 30 mg PO Q6HR [facility] Folic Acid (Folvite Tab*) 1 mg PO DAILY [facility] Last Admin: 10/23/18 10:22 Dose: 1 mg Furosemide (Lasix Tab*) 40 mg PO DAILY [facility] Last Admin: 10/23/18 10:21 Dose: 40 mg Thiamine HCl 100 mg/ Sodium (Chloride) 51 mls @ 102 mls/hr IV 0900 [facility] Last Admin: 10/23/18 09:32 Dose: 102 mls/hr Lactobacillus Rhamnosus (Lactobacillus Acidophilus*) 1 tab PO DAILY [facility] Last Admin: 10/23/18 10:22 Dose: 1 tab Levalbuterol HCl (Xopenex 1.25 Mg/0.5 Ml Neb.Joy*) 1.25 mg INH Q6H PRN PRN Reason: SOB/WHEEZING Loperamide HCl (Imodium Cap*) 2 mg PO .SEE DIRECTIONS PRN PRN Reason: DIARRHEA Last Admin: 10/19/18 23:08 Dose: 2 mg Melatonin (Melatonin) 3 mg PO BEDTIME PRN; Protocol PRN Reason: SLEEP Last Admin: 10/21/18 22:53 Dose: 3 mg Multivitamins/Minerals (Theragran/Minerals Tab*) 1 tab PO DAILY [facility] Last Admin: 10/23/18 10:21 Dose: 1 tab Nadolol (Corgard Tab*) 20 mg PO BID WITH MEALS [facility] Last Admin: 10/23/18 10:22 Dose: 20 mg Olanzapine (Zyprexa Tab*) 20 mg PO BEDTIME [facility] Last Admin: 10/22/18 21:32 Dose: 20 mg Omeprazole (Prilosec Cap*) 20 mg PO DAILY@0730 [facility] Last Admin: 10/23/18 10:21 Dose: 20 mg Ondansetron HCl (Zofran Inj*) 4 mg IV Q6H PRN PRN Reason: NAUSEA Last Admin: 10/23/18 09:19 Dose: 4 mg Potassium Chloride (Klor Con Er Tab*) 20 meq PO BID [facility] Last Admin: 10/23/18 10:21 Dose: 20 meq Prednisone (Deltasone Tab*) 10 mg PO DAILY [facility] Last Admin: 10/23/18 10:21 Dose: 10 mg Spironolactone (Aldactone Tab*) 25 mg PO DAILY [facility] Last Admin: 10/23/18 10:22 Dose: 25 mg Topiramate (Topamax(*)) 100 mg PO BEDTIME [facility] Last Admin: 10/22/18 20:46 Dose: 100 mg Topiramate (Topamax(*)) 50 mg PO QAM [facility] Last Admin: 10/23/18 10:21 Dose: 50 mg Vital Signs - 8 hr 10/23/18 10/23/18 10/23/18 07:29 07:45 08:00 Temperature 97.8 F Pulse Rate 79 Respiratory 19 20 Rate Blood Pressure 142/78 107/79 (mmHg) O2 Sat by Pulse 95 Oximetry 10/23/18 10/23/18 09:29 12:03 Temperature 98.2 F 98.3 F Pulse Rate 80 80 Respiratory 21 20 Rate Blood Pressure 117/73 112/67 (mmHg) O2 Sat by Pulse 95 93 Oximetry Oxygen Devices in Use Now: None Appearance: Elderly male sitting up in bed, NAD Eyes: No Scleral Icterus Ears/Nose/Mouth/Throat: Mucous Membranes Moist Respiratory: Symmetrical Chest Expansion and Respiratory Effort, Clear to Auscultation Cardiovascular: NL Sounds; No Murmurs; No JVD, RRR, - - trace LE edema Abdominal: NL Sounds; No Tenderness; No Distention Extremities: No Clubbing, Cyanosis Skin: No Nodules or Sclerosis Neurological: - - slightly confused Result Diagrams: 10/23/18 08:47 10/23/18 08:26 Microbiology and Other Data: Microbiology 10/19/18 01:52 Shiga Toxin I & II - Final Stool Negative Shiga Toxin 1 & 2 Stool Gross Appearance - Final C. difficile DNA Amplification - Final 027 Presumptive NEGATIVE Toxigenic C.diff NEGATIVE 10/18/18 12:56 Stool Gross Appearance - Final Stool Shiga Toxin I & II - Final C. difficile DNA Amplification - Final 027 Presumptive NEGATIVE Toxigenic C.diff NEGATIVE Cryptosporidium/Giardia - Final Neg Cryptosporidium/Giardia 10/19/18 00:06 Aerobic Blood Culture - Preliminary Blood Venous No Growth Day 1 Anaerobic Blood Culture - Preliminary No Growth Day 1 10/18/18 23:34 Aerobic Blood Culture - Preliminary Blood Venous No Growth Day 1 Anaerobic Blood Culture - Preliminary No Growth Day 1 10/18/18 17:12 Aerobic Blood Culture - Preliminary Blood Venous No Growth Day 1 Anaerobic Blood Culture - Preliminary No Growth Day 1 10/19/18 10:18 Influenza Types A,B Antigen - Final Nasal Specimen received for Influenza A/B Molecular testing 10/18/18 23:30 Nasal Screen MRSA (PCR) - Final Nasal Mrsa Not Detected 10/18/18 20:00 Influenza Types A,B Antigen - Final Nasopharyngeal Specimen received for Influenza A/B Molecular testing Assess/Plan/Problems-Billing Mr Unger is a 73yo M who has a h/o CAD, ischemic cardiomyopathy s/p PPM, afib , psoriatic arthritis on remicade, PMR, MOSES and gout who presented to the ER with c/o profuse diarrhea and fevers and was admitted for sepsis secondary to viral gastroenteritis. - Patient Problems (1) Paroxysmal a-fib Current Visit: Yes Status: Acute Code(s): I48.0 - PAROXYSMAL ATRIAL FIBRILLATION SNOMED Code(s): 238652926 Comment: Pt now in a paced rhythm much of the time. Continue nadolol and eliquis, starting oral diltiazem and discontinuing the diltiazem drip started last evening. (2) Gastroenteritis Current Visit: Yes Status: Acute Code(s): K52.9 - NONINFECTIVE GASTROENTERITIS AND COLITIS, UNSPECIFIED SNOMED Code(s): 10052172 Comment: Diarrhea appears to be slowing down and thickening up. Continue to monitor. No imodium as he is improving without it. (3) Toxic encephalopathy Current Visit: Yes Status: Acute Code(s): G92 - TOXIC ENCEPHALOPATHY SNOMED Code(s): 87867487 Comment: Likely encephalopathic on admission secondary to sepsis and fevers. Continue to monitor mental status. (4) Hypotension Current Visit: Yes Status: Acute Comment: Secondary to hypovolemia from profuse diarrhea. Now resolved. (5) COPD (chronic obstructive pulmonary disease) Current Visit: Yes Status: Acute Code(s): J44.9 - CHRONIC OBSTRUCTIVE PULMONARY DISEASE, UNSPECIFIED SNOMED Code(s): 97455952 Comment: No evidence of exacerbation. (6) Ischemic cardiomyopathy Current Visit: Yes Status: Acute Code(s): I25.5 - ISCHEMIC CARDIOMYOPATHY SNOMED Code(s): 342101329 Comment: Continue home medicaton regimen. (7) DVT prophylaxis Current Visit: Yes Status: Acute Code(s): NPW4856 - SNOMED Code(s): 776495554 Comment: Nicki (8) Full code status Current Visit: Yes Status: Acute Code(s): Z78.9 - OTHER SPECIFIED HEALTH STATUS SNOMED Code(s): 005734943
[2018-10-23] MEDS: Diltiazem TAB* 30 MG PO SCH ×3 (15:50→23:09)
[2018-10-23] MEDS: Loperamide CAP* 2 MG PO PRN (17:35)
[2018-10-23] MEDS: OLANzapine TAB* 10 MG PO SCH (20:31)
[2018-10-23] MEDS: Topiramate TAB(*) 100 MG PO SCH (20:33)
[2018-10-23] MEDS: Melatonin 3 MG TAB PO PRN (23:09)
[2018-10-24] MEDS: Diltiazem TAB* 30 MG PO SCH ×4 (05:41→23:49)
[2018-10-24 07:10] LABS: BUN/Creatinine Ratio 15.9 (8-20); Calcium 8.6 mg/dL (8.6-10.3); EGFR Non-African American 85.4 (>60); Magnesium 2.2 mg/dL (1.9-2.7); Potassium 3.4 mmol/L (3.5-5.0)
[2018-10-24 07:12] LABS: Hematocrit 33 % (42-52); Mean Corpuscular HGB Conc 34 g/dl (31-36); Mean Corpuscular Hemoglobin 37 pg (27-31); Mean Corpuscular Volume 110 fL (80-94); Platelet Count 116 10^3/ul (150-450); Red Blood Count 2.97 10^6/ul (4.00-5.40); Red Cell Distribution Width 16 % (10.5-15); White Blood Count 7.4 10^3/ul (3.5-10.8)
[2018-10-24] MEDS: Omeprazole CAP (NF) 20 MG CAP.DR PO SCH (08:17)
[2018-10-24] MEDS: Spironolactone TAB* 25 MG PO SCH (08:18)
[2018-10-24] MEDS: Multivitamins/Minerals TAB PO SCH (08:18)
[2018-10-24] MEDS: Cholecalciferol TAB* 1000 UNITS PO SCH ×2 (08:18→20:17)
[2018-10-24] MEDS: Furosemide TAB* 40 MG PO SCH (08:18)
[2018-10-24] MEDS: Potassium Chlor TAB* 20 MEQ TAB.ER PO SCH ×2 (08:18→20:17)
[2018-10-24] MEDS: Folic Acid TAB* 1 MG PO SCH (08:18)
[2018-10-24] MEDS: Apixaban* 5 MG TAB PO SCH ×2 (08:18→20:16)
[2018-10-24] MEDS: Lactobacillus Acidophilus* 1 TAB PO SCH (08:18)
[2018-10-24] MEDS: Allopurinol TAB* 300 MG PO SCH (08:18)
[2018-10-24] MEDS: Allopurinol TAB* 100 MG PO SCH (08:18)
[2018-10-24] MEDS: Nadolol TAB* 40 MG PO SCH ×2 (08:18→16:51)
[2018-10-24] MEDS: Topiramate TAB(*) 25 MG PO SCH (08:18)
[2018-10-24] MEDS: predniSONE TAB* 10 MG PO SCH (08:18)
--- NOTE | 2018-10-24 08:45 | PN ---
Subjective Date of Service: 10/24/18 Interval History: A little confused this AM reports 1 BM overnight then less than 1 BM overnight Denies pain His only request is to "get home sooner" Objective Active Medications: Acetaminophen (Tylenol Tab*) 650 mg PO Q6H PRN PRN Reason: FEVER/PAIN Last Admin: 10/22/18 02:31 Dose: 650 mg Hydrocodone Bitart/Acetaminophen ([place] 10/325 (Nf)) 1 tab PO Q6H PRN PRN Reason: PAIN Last Admin: 10/20/18 15:26 Dose: 1 tab Allopurinol (Zyloprim Tab*) 300 mg PO DAILY [facility] Last Admin: 10/24/18 08:18 Dose: 300 mg Allopurinol (Zyloprim Tab*) 100 mg PO DAILY [facility] Last Admin: 10/24/18 08:18 Dose: 100 mg Apixaban (Eliquis*) 5 mg PO BID [facility] Last Admin: 10/24/18 08:18 Dose: 5 mg Cetirizine HCl (Zyrtec*) 10 mg PO DAILY PRN PRN Reason: Allergy Symptoms Cholecalciferol (Vitamin D Tab*) 2,000 units PO BID [facility] Last Admin: 10/24/18 08:18 Dose: 2,000 units Diltiazem HCl (Cardizem Tab*) 30 mg PO Q6HR [facility] Last Admin: 10/24/18 05:41 Dose: 30 mg Folic Acid (Folvite Tab*) 1 mg PO DAILY [facility] Last Admin: 10/24/18 08:18 Dose: 1 mg Furosemide (Lasix Tab*) 40 mg PO DAILY [facility] Last Admin: 10/24/18 08:18 Dose: 40 mg Thiamine HCl 100 mg/ Sodium (Chloride) 51 mls @ 102 mls/hr IV 0900 [facility] Last Admin: 10/23/18 09:32 Dose: 102 mls/hr Lactobacillus Rhamnosus (Lactobacillus Acidophilus*) 1 tab PO DAILY [facility] Last Admin: 10/24/18 08:18 Dose: 1 tab Levalbuterol HCl (Xopenex 1.25 Mg/0.5 Ml Neb.Joy*) 1.25 mg INH Q6H PRN PRN Reason: SOB/WHEEZING Loperamide HCl (Imodium Cap*) 2 mg PO .SEE DIRECTIONS PRN PRN Reason: DIARRHEA Last Admin: 10/23/18 17:35 Dose: 2 mg Melatonin (Melatonin) 3 mg PO BEDTIME PRN; Protocol PRN Reason: SLEEP Last Admin: 10/23/18 23:09 Dose: 3 mg Multivitamins/Minerals (Theragran/Minerals Tab*) 1 tab PO DAILY [facility] Last Admin: 10/24/18 08:18 Dose: 1 tab Nadolol (Corgard Tab*) 20 mg PO BID WITH MEALS [facility] Last Admin: 10/24/18 08:18 Dose: 20 mg Olanzapine (Zyprexa Tab*) 20 mg PO BEDTIME [facility] Last Admin: 10/23/18 20:31 Dose: 20 mg Omeprazole (Prilosec Cap*) 20 mg PO DAILY@0730 [facility] Last Admin: 10/24/18 08:17 Dose: 20 mg Ondansetron HCl (Zofran Inj*) 4 mg IV Q6H PRN PRN Reason: NAUSEA Last Admin: 10/23/18 09:19 Dose: 4 mg Potassium Chloride (Klor Con Er Tab*) 20 meq PO BID [facility] Last Admin: 10/24/18 08:18 Dose: 20 meq Prednisone (Deltasone Tab*) 10 mg PO DAILY [facility] Last Admin: 10/24/18 08:18 Dose: 10 mg Spironolactone (Aldactone Tab*) 25 mg PO DAILY [facility] Last Admin: 10/24/18 08:18 Dose: 25 mg Topiramate (Topamax(*)) 100 mg PO BEDTIME [facility] Last Admin: 10/23/18 20:33 Dose: 100 mg Topiramate (Topamax(*)) 50 mg PO QAM [facility] Last Admin: 10/24/18 08:18 Dose: 50 mg Vital Signs - 8 hr 10/24/18 10/24/18 03:24 08:04 Temperature 97.1 F 98.1 F Pulse Rate 59 62 Respiratory 24 18 Rate Blood Pressure 132/70 137/71 (mmHg) O2 Sat by Pulse 96 93 Oximetry Oxygen Devices in Use Now: None Appearance: lying fat, obese, NAD Eyes: No Scleral Icterus, PERRLA Neck: NL Appearance and Movements; NL JVP, Trachea Midline Respiratory: Symmetrical Chest Expansion and Respiratory Effort, Clear to Auscultation Cardiovascular: NL Sounds; No Murmurs; No JVD, RRR Abdominal: NL Sounds; No Tenderness; No Distention Extremities: - - trace LE edema Neurological: - - AOx 2 to self and location, reports its 1899 Result Diagrams: 10/24/18 06:36 10/24/18 06:36 Microbiology and Other Data: Microbiology 10/19/18 01:52 Shiga Toxin I & II - Final Stool Negative Shiga Toxin 1 & 2 Stool Gross Appearance - Final C. difficile DNA Amplification - Final 027 Presumptive NEGATIVE Toxigenic C.diff NEGATIVE 10/18/18 12:56 Stool Gross Appearance - Final Stool Shiga Toxin I & II - Final C. difficile DNA Amplification - Final 027 Presumptive NEGATIVE Toxigenic C.diff NEGATIVE Cryptosporidium/Giardia - Final Neg Cryptosporidium/Giardia 10/19/18 00:06 Aerobic Blood Culture - Preliminary Blood Venous No Growth Day 1 Anaerobic Blood Culture - Preliminary No Growth Day 1 10/18/18 23:34 Aerobic Blood Culture - Preliminary Blood Venous No Growth Day 1 Anaerobic Blood Culture - Preliminary No Growth Day 1 10/18/18 17:12 Aerobic Blood Culture - Preliminary Blood Venous No Growth Day 1 Anaerobic Blood Culture - Preliminary No Growth Day 1 10/19/18 10:18 Influenza Types A,B Antigen - Final Nasal Specimen received for Influenza A/B Molecular testing 10/18/18 23:30 Nasal Screen MRSA (PCR) - Final Nasal Mrsa Not Detected 10/18/18 20:00 Influenza Types A,B Antigen - Final Nasopharyngeal Specimen received for Influenza A/B Molecular testing Assess/Plan/Problems-Billing Mr Unger is a 73yo M who has a h/o afib, CAD, ischemic cardiomyopathy s/p PPM , afib, psoriatic arthritis on remicade, PMR, MOSES and gout who presented to the ER with c/o profuse diarrhea and fevers and was admitted for sepsis secondary to viral gastroenteritis. - Patient Problems (1) Toxic encephalopathy Comment: Likely encephalopathic on admission secondary to sepsis and fevers. reportedly confused when ill Windows open remove munoz mobilize (2) Hypotension Comment: Secondary to hypovolemia from profuse diarrhea. Now resolved. (3) COPD (chronic obstructive pulmonary disease) Comment: No evidence of exacerbation. (4) Gastroenteritis Comment: Diarrhea appears to be slowing down and thickening up. Continue to monitor. (5) TERESA (acute kidney injury) Comment: pre renal resolved (6) Psoriatic arthritis Comment: c/w remicade on home 10mg prednisone daily (7) Atrial fibrillation with RVR (8) DVT prophylaxis Comment: Nicki
[2018-10-24] MEDS: Thiamine IV* 100 MG in NS 0.9% 50 ML* 50 ML IV SCH (10:09)
[2018-10-24] MEDS: Acetaminophen TAB* 325 MG PO PRN (20:17)
[2018-10-24] MEDS: Topiramate TAB(*) 100 MG PO SCH (20:17)
[2018-10-24] MEDS: OLANzapine TAB* 10 MG PO SCH (20:18)
[2018-10-25] MEDS: Acetaminophen TAB* 325 MG PO PRN (03:49)
[2018-10-25] MEDS: Diltiazem TAB* 30 MG PO SCH ×4 (05:21→23:57)
[2018-10-25] MEDS: Multivitamins/Minerals TAB PO SCH (08:07)
[2018-10-25] MEDS: Omeprazole CAP (NF) 20 MG CAP.DR PO SCH (08:07)
[2018-10-25] MEDS: Allopurinol TAB* 300 MG PO SCH (08:07)
[2018-10-25] MEDS: Furosemide TAB* 40 MG PO SCH (08:07)
[2018-10-25] MEDS: Spironolactone TAB* 25 MG PO SCH (08:07)
[2018-10-25] MEDS: Potassium Chlor TAB* 20 MEQ TAB.ER PO SCH ×2 (08:07→20:23)
[2018-10-25] MEDS: Folic Acid TAB* 1 MG PO SCH (08:07)
[2018-10-25] MEDS: Allopurinol TAB* 100 MG PO SCH (08:07)
[2018-10-25] MEDS: Nadolol TAB* 40 MG PO SCH ×2 (08:07→17:05)
[2018-10-25] MEDS: predniSONE TAB* 10 MG PO SCH (08:07)
[2018-10-25] MEDS: Cholecalciferol TAB* 1000 UNITS PO SCH ×2 (08:07→20:23)
[2018-10-25] MEDS: Topiramate TAB(*) 25 MG PO SCH (08:08)
[2018-10-25] MEDS: Apixaban* 5 MG TAB PO SCH ×2 (08:08→20:23)
[2018-10-25] MEDS: Lactobacillus Acidophilus* 1 TAB PO SCH (08:08)
[2018-10-25] MEDS: Thiamine IV* 100 MG in NS 0.9% 50 ML* 50 ML IV SCH (09:38)
[2018-10-25] MEDS ORDERED: Potassium Chlor TAB* 20 MEQ TAB.ER PO ONE (09:45)
--- NOTE | 2018-10-25 18:11 | PN ---
Subjective Date of Service: 10/25/18 Interval History: diarrhea slowing but persistent still confused but anxious to leave thinks he wont need rehab Objective Active Medications: Acetaminophen (Tylenol Tab*) 650 mg PO Q6H PRN PRN Reason: FEVER/PAIN Last Admin: 10/25/18 03:49 Dose: 650 mg Allopurinol (Zyloprim Tab*) 300 mg PO DAILY [facility] Last Admin: 10/25/18 08:07 Dose: 300 mg Allopurinol (Zyloprim Tab*) 100 mg PO DAILY [facility] Last Admin: 10/25/18 08:07 Dose: 100 mg Apixaban (Eliquis*) 5 mg PO BID [facility] Last Admin: 10/25/18 08:08 Dose: 5 mg Cetirizine HCl (Zyrtec*) 10 mg PO DAILY PRN PRN Reason: Allergy Symptoms Last Admin: 10/25/18 08:07 Dose: 10 mg Cholecalciferol (Vitamin D Tab*) 2,000 units PO BID [facility] Last Admin: 10/25/18 08:07 Dose: 2,000 units Diltiazem HCl (Cardizem Tab*) 30 mg PO Q6HR [facility] Last Admin: 10/25/18 17:05 Dose: 30 mg Folic Acid (Folvite Tab*) 1 mg PO DAILY [facility] Last Admin: 10/25/18 08:07 Dose: 1 mg Furosemide (Lasix Tab*) 40 mg PO DAILY [facility] Last Admin: 10/25/18 08:07 Dose: 40 mg Thiamine HCl 100 mg/ Sodium (Chloride) 51 mls @ 102 mls/hr IV 0900 [facility] Last Admin: 10/25/18 09:38 Dose: 102 mls/hr Lactobacillus Rhamnosus (Lactobacillus Acidophilus*) 1 tab PO DAILY [facility] Last Admin: 10/25/18 08:08 Dose: 1 tab Levalbuterol HCl (Xopenex 1.25 Mg/0.5 Ml Neb.Joy*) 1.25 mg INH Q6H PRN PRN Reason: SOB/WHEEZING Melatonin (Melatonin) 3 mg PO BEDTIME PRN; Protocol PRN Reason: SLEEP Last Admin: 10/23/18 23:09 Dose: 3 mg Multivitamins/Minerals (Theragran/Minerals Tab*) 1 tab PO DAILY [facility] Last Admin: 10/25/18 08:07 Dose: 1 tab Nadolol (Corgard Tab*) 20 mg PO BID WITH MEALS [facility] Last Admin: 10/25/18 17:05 Dose: 20 mg Olanzapine (Zyprexa Tab*) 20 mg PO BEDTIME [facility] Last Admin: 10/24/18 20:18 Dose: 20 mg Omeprazole (Prilosec Cap*) 20 mg PO DAILY@0730 [facility] Last Admin: 10/25/18 08:07 Dose: 20 mg Ondansetron HCl (Zofran Inj*) 4 mg IV Q6H PRN PRN Reason: NAUSEA Last Admin: 10/23/18 09:19 Dose: 4 mg Potassium Chloride (Klor Con Er Tab*) 20 meq PO BID [facility] Last Admin: 10/25/18 08:07 Dose: 20 meq Prednisone (Deltasone Tab*) 10 mg PO DAILY [facility] Last Admin: 10/25/18 08:07 Dose: 10 mg Spironolactone (Aldactone Tab*) 25 mg PO DAILY [facility] Last Admin: 10/25/18 08:07 Dose: 25 mg Topiramate (Topamax(*)) 100 mg PO BEDTIME [facility] Last Admin: 10/24/18 20:17 Dose: 100 mg Topiramate (Topamax(*)) 50 mg PO QAM [facility] Last Admin: 10/25/18 08:08 Dose: 50 mg Vital Signs - 8 hr 10/25/18 10/25/18 11:25 15:37 Temperature 97.6 F 98.4 F Pulse Rate 69 66 Respiratory 20 18 Rate Blood Pressure 116/96 117/75 (mmHg) O2 Sat by Pulse 96 99 Oximetry Oxygen Devices in Use Now: None Appearance: NAD, lying flat Eyes: No Scleral Icterus Ears/Nose/Mouth/Throat: NL Teeth, Lips, Gums, Clear Oropharnyx Neck: NL Appearance and Movements; NL JVP, Trachea Midline Respiratory: Symmetrical Chest Expansion and Respiratory Effort, Clear to Auscultation Cardiovascular: NL Sounds; No Murmurs; No JVD, RRR Abdominal: NL Sounds; No Tenderness; No Distention, No Hepatosplenomegaly Skin: No Rash or Ulcers Neurological: - - AOx2 to self and hospital but thinks its 1900. Knows the current president Result Diagrams: 10/24/18 06:36 10/24/18 06:36 Microbiology and Other Data: Microbiology 10/19/18 01:52 Shiga Toxin I & II - Final Stool Negative Shiga Toxin 1 & 2 Stool Gross Appearance - Final C. difficile DNA Amplification - Final 027 Presumptive NEGATIVE Toxigenic C.diff NEGATIVE 10/18/18 12:56 Stool Gross Appearance - Final Stool Shiga Toxin I & II - Final C. difficile DNA Amplification - Final 027 Presumptive NEGATIVE Toxigenic C.diff NEGATIVE Cryptosporidium/Giardia - Final Neg Cryptosporidium/Giardia 10/19/18 00:06 Aerobic Blood Culture - Preliminary Blood Venous No Growth Day 1 Anaerobic Blood Culture - Preliminary No Growth Day 1 10/18/18 23:34 Aerobic Blood Culture - Preliminary Blood Venous No Growth Day 1 Anaerobic Blood Culture - Preliminary No Growth Day 1 10/18/18 17:12 Aerobic Blood Culture - Preliminary Blood Venous No Growth Day 1 Anaerobic Blood Culture - Preliminary No Growth Day 1 10/19/18 10:18 Influenza Types A,B Antigen - Final Nasal Specimen received for Influenza A/B Molecular testing 10/18/18 23:30 Nasal Screen MRSA (PCR) - Final Nasal Mrsa Not Detected 10/18/18 20:00 Influenza Types A,B Antigen - Final Nasopharyngeal Specimen received for Influenza A/B Molecular testing Assess/Plan/Problems-Billing Mr Unger is a 73yo M who has a h/o afib, CAD, ischemic cardiomyopathy s/p PPM , afib, psoriatic arthritis on remicade, PMR, MOSES and gout who presented to the ER with c/o profuse diarrhea and fevers and was admitted for sepsis secondary to viral gastroenteritis. - Patient Problems (1) Toxic encephalopathy Comment: Likely encephalopathic on admission secondary to sepsis and fevers. reportedly confused when ill Windows open munoz is out mobilize (2) Hypotension Comment: Secondary to hypovolemia from profuse diarrhea. Now resolved. (3) COPD (chronic obstructive pulmonary disease) Comment: No evidence of exacerbation. (4) Gastroenteritis Comment: Diarrhea appears to be slowing down and thickening up. Continue to monitor. (5) TERESA (acute kidney injury) Comment: pre renal resolved (6) Psoriatic arthritis Comment: c/w remicade on home 10mg prednisone daily (7) Atrial fibrillation with RVR Comment: dilt eliquis (8) DVT prophylaxis Comment: Eliquis Status and Disposition: d/c planning
[2018-10-25] MEDS: OLANzapine TAB* 10 MG PO SCH (20:23)
[2018-10-25] MEDS: Topiramate TAB(*) 100 MG PO SCH (20:23)
[2018-10-26] MEDS: Acetaminophen TAB* 325 MG PO PRN ×2 (00:54→22:14)
[2018-10-26] MEDS: Diltiazem TAB* 30 MG PO SCH ×3 (05:21→17:14)
[2018-10-26] MEDS: Apixaban* 5 MG TAB PO SCH ×2 (09:14→22:14)
[2018-10-26] MEDS: Topiramate TAB(*) 25 MG PO SCH (09:14)
[2018-10-26] MEDS: Lactobacillus Acidophilus* 1 TAB PO SCH (09:14)
[2018-10-26] MEDS: Multivitamins/Minerals TAB PO SCH (09:14)
[2018-10-26] MEDS: Allopurinol TAB* 300 MG PO SCH (09:14)
[2018-10-26] MEDS: Thiamine IV* 100 MG in NS 0.9% 50 ML* 50 ML IV SCH (09:14)
[2018-10-26] MEDS: Folic Acid TAB* 1 MG PO SCH (09:14)
[2018-10-26] MEDS: Cholecalciferol TAB* 1000 UNITS PO SCH ×2 (09:14→22:14)
[2018-10-26] MEDS: Omeprazole CAP (NF) 20 MG CAP.DR PO SCH (09:14)
[2018-10-26] MEDS: Furosemide TAB* 40 MG PO SCH (09:15)
[2018-10-26] MEDS: Potassium Chlor TAB* 20 MEQ TAB.ER PO SCH ×2 (09:15→22:14)
[2018-10-26] MEDS: Allopurinol TAB* 100 MG PO SCH (09:15)
[2018-10-26] MEDS: Nadolol TAB* 40 MG PO SCH ×2 (09:15→17:14)
[2018-10-26] MEDS: Spironolactone TAB* 25 MG PO SCH (09:15)
[2018-10-26] MEDS: predniSONE TAB* 10 MG PO SCH (09:15)
[2018-10-26] MEDS: Loperamide CAP* 2 MG PO PRN ×2 (10:52→11:52)
--- NOTE | 2018-10-26 18:20 | PN ---
Subjective Date of Service: 10/26/18 Interval History: diarrhea continues starting immodium back walking to bathroom with some help but infrequently able to make it in time anxious to return home Objective Active Medications: Acetaminophen (Tylenol Tab*) 650 mg PO Q6H PRN PRN Reason: FEVER/PAIN Last Admin: 10/26/18 00:54 Dose: 650 mg Allopurinol (Zyloprim Tab*) 300 mg PO DAILY [facility] Last Admin: 10/26/18 09:14 Dose: 300 mg Allopurinol (Zyloprim Tab*) 100 mg PO DAILY [facility] Last Admin: 10/26/18 09:15 Dose: 100 mg Apixaban (Eliquis*) 5 mg PO BID [facility] Last Admin: 10/26/18 09:14 Dose: 5 mg Cetirizine HCl (Zyrtec*) 10 mg PO DAILY PRN PRN Reason: Allergy Symptoms Last Admin: 10/25/18 08:07 Dose: 10 mg Cholecalciferol (Vitamin D Tab*) 2,000 units PO BID [facility] Last Admin: 10/26/18 09:14 Dose: 2,000 units Diltiazem HCl (Cardizem Tab*) 30 mg PO Q6HR [facility] Last Admin: 10/26/18 17:14 Dose: 30 mg Folic Acid (Folvite Tab*) 1 mg PO DAILY [facility] Last Admin: 10/26/18 09:14 Dose: 1 mg Furosemide (Lasix Tab*) 40 mg PO DAILY [facility] Last Admin: 10/26/18 09:15 Dose: 40 mg Thiamine HCl 100 mg/ Sodium (Chloride) 51 mls @ 102 mls/hr IV 0900 [facility] Last Admin: 10/26/18 09:14 Dose: 102 mls/hr Lactobacillus Rhamnosus (Lactobacillus Acidophilus*) 1 tab PO DAILY [facility] Last Admin: 10/26/18 09:14 Dose: 1 tab Levalbuterol HCl (Xopenex 1.25 Mg/0.5 Ml Neb.Joy*) 1.25 mg INH Q6H PRN PRN Reason: SOB/WHEEZING Loperamide HCl (Imodium Cap*) 2 mg PO .SEE DIRECTIONS PRN PRN Reason: DIARRHEA Last Admin: 10/26/18 11:52 Dose: 2 mg Melatonin (Melatonin) 3 mg PO BEDTIME PRN; Protocol PRN Reason: SLEEP Last Admin: 10/23/18 23:09 Dose: 3 mg Multivitamins/Minerals (Theragran/Minerals Tab*) 1 tab PO DAILY [facility] Last Admin: 10/26/18 09:14 Dose: 1 tab Nadolol (Corgard Tab*) 20 mg PO BID WITH MEALS [facility] Last Admin: 10/26/18 17:14 Dose: 20 mg Olanzapine (Zyprexa Tab*) 20 mg PO BEDTIME [facility] Last Admin: 10/25/18 20:23 Dose: 20 mg Omeprazole (Prilosec Cap*) 20 mg PO DAILY@0730 [facility] Last Admin: 10/26/18 09:14 Dose: 20 mg Ondansetron HCl (Zofran Inj*) 4 mg IV Q6H PRN PRN Reason: NAUSEA Last Admin: 10/23/18 09:19 Dose: 4 mg Potassium Chloride (Klor Con Er Tab*) 20 meq PO BID [facility] Last Admin: 10/26/18 09:15 Dose: 20 meq Prednisone (Deltasone Tab*) 10 mg PO DAILY [facility] Last Admin: 10/26/18 09:15 Dose: 10 mg Spironolactone (Aldactone Tab*) 25 mg PO DAILY [facility] Last Admin: 10/26/18 09:15 Dose: 25 mg Topiramate (Topamax(*)) 100 mg PO BEDTIME [facility] Last Admin: 10/25/18 20:23 Dose: 100 mg Topiramate (Topamax(*)) 50 mg PO QAM [facility] Last Admin: 10/26/18 09:14 Dose: 50 mg Vital Signs - 8 hr 10/26/18 10/26/18 10/26/18 10:52 11:52 11:59 Temperature 96.9 F Pulse Rate 65 Respiratory 18 20 16 Rate Blood Pressure 125/70 (mmHg) O2 Sat by Pulse 100 Oximetry 10/26/18 10/26/18 10/26/18 13:13 14:30 15:04 Temperature 97.5 F Pulse Rate 60 Respiratory 18 18 18 Rate Blood Pressure 108/72 (mmHg) O2 Sat by Pulse 99 Oximetry Oxygen Devices in Use Now: None Appearance: NAD Eyes: No Scleral Icterus, PERRLA Ears/Nose/Mouth/Throat: NL Teeth, Lips, Gums, Clear Oropharnyx Neck: NL Appearance and Movements; NL JVP, Trachea Midline Respiratory: Symmetrical Chest Expansion and Respiratory Effort, Clear to Auscultation Cardiovascular: NL Sounds; No Murmurs; No JVD, RRR Abdominal: NL Sounds; No Tenderness; No Distention Neurological: Alert and Oriented x 3 Result Diagrams: 10/24/18 06:36 10/24/18 06:36 Microbiology and Other Data: Microbiology 10/19/18 01:52 Shiga Toxin I & II - Final Stool Negative Shiga Toxin 1 & 2 Stool Gross Appearance - Final C. difficile DNA Amplification - Final 027 Presumptive NEGATIVE Toxigenic C.diff NEGATIVE 10/18/18 12:56 Stool Gross Appearance - Final Stool Shiga Toxin I & II - Final C. difficile DNA Amplification - Final 027 Presumptive NEGATIVE Toxigenic C.diff NEGATIVE Cryptosporidium/Giardia - Final Neg Cryptosporidium/Giardia 10/19/18 00:06 Aerobic Blood Culture - Preliminary Blood Venous No Growth Day 1 Anaerobic Blood Culture - Preliminary No Growth Day 1 10/18/18 23:34 Aerobic Blood Culture - Preliminary Blood Venous No Growth Day 1 Anaerobic Blood Culture - Preliminary No Growth Day 1 10/18/18 17:12 Aerobic Blood Culture - Preliminary Blood Venous No Growth Day 1 Anaerobic Blood Culture - Preliminary No Growth Day 1 10/19/18 10:18 Influenza Types A,B Antigen - Final Nasal Specimen received for Influenza A/B Molecular testing 10/18/18 23:30 Nasal Screen MRSA (PCR) - Final Nasal Mrsa Not Detected 10/18/18 20:00 Influenza Types A,B Antigen - Final Nasopharyngeal Specimen received for Influenza A/B Molecular testing Assess/Plan/Problems-Billing Mr Unger is a 73yo M who has a h/o afib, CAD, ischemic cardiomyopathy s/p PPM , afib, psoriatic arthritis on remicade, PMR, MOSES and gout who presented to the ER with c/o profuse diarrhea and fevers and was admitted for sepsis secondary to viral gastroenteritis. - Patient Problems (1) Toxic encephalopathy Comment: Likely encephalopathic on admission secondary to sepsis and fevers. Back to or near baseline today Windows open munoz is out mobilize (2) Hypotension Comment: Secondary to hypovolemia from profuse diarrhea. Now resolved. (3) COPD (chronic obstructive pulmonary disease) Comment: No evidence of exacerbation. (4) Gastroenteritis Comment: Diarrhea continues add immodium back (5) TERESA (acute kidney injury) Comment: pre renal resolved (6) Psoriatic arthritis Comment: c/w remicade on home 10mg prednisone daily (7) Atrial fibrillation with RVR Comment: calista alarcon (8) DVT prophylaxis Comment: Nicki Status and Disposition: plan dc home tomorrow if stable
[2018-10-26] MEDS: OLANzapine TAB* 10 MG PO SCH (22:14)
[2018-10-26] MEDS: Topiramate TAB(*) 100 MG PO SCH (22:14)
[2018-10-26] MEDS: Melatonin 3 MG TAB PO PRN (22:14)
[2018-10-27] MEDS: Diltiazem TAB* 30 MG PO SCH ×3 (00:09→12:47)
[2018-10-27 07:15] LABS: ABS Basophils 0 10^3/ul (0-0.2); ABS Eosinophils 0.2 10^3/ul (0-0.6); ABS Lymphocytes 1.6 10^3/ul (1.0-4.8); ABS Monocytes 0.6 10^3/ul (0-0.8); ABS Neutrophils 2.8 10^3/ul (1.5-7.7); ABS Nucleated RBC 0 10^3/ul; Eosinophil % 3.3 %; Hematocrit 35 % (42-52); Hemoglobin 11.8 g/dl (14.0-18.0); Lymphocyte % 30.3 %; Mean Corpuscular HGB Conc 34 g/dl (31-36); Mean Corpuscular Hemoglobin 37 pg (27-31); Mean Corpuscular Volume 110 fL (80-94); Mean Platelet Volume 10.4 fL (7.4-10.4); Nucleated Red Blood Cells % 0.1; Platelet Count 179 10^3/ul (150-450); Red Blood Count 3.19 10^6/ul (4.00-5.40); Red Cell Distribution Width 16 % (10.5-15); White Blood Count 5.2 10^3/ul (3.5-10.8)
[2018-10-27 07:23] LABS: BUN/Creatinine Ratio 16.5 (8-20); Calcium 8.6 mg/dL (8.6-10.3); EGFR Non-African American 88.9 (>60)
[2018-10-27] MEDS: Thiamine IV* 100 MG in NS 0.9% 50 ML* 50 ML IV SCH (08:47)
[2018-10-27] MEDS: Spironolactone TAB* 25 MG PO SCH (08:51)
[2018-10-27] MEDS: Multivitamins/Minerals TAB PO SCH (08:51)
[2018-10-27] MEDS: Nadolol TAB* 40 MG PO SCH (08:51)
[2018-10-27] MEDS: Furosemide TAB* 40 MG PO SCH (08:52)
[2018-10-27] MEDS: Omeprazole CAP (NF) 20 MG CAP.DR PO SCH (08:53)
[2018-10-27] MEDS: Cholecalciferol TAB* 1000 UNITS PO SCH (08:53)
[2018-10-27] MEDS: Topiramate TAB(*) 25 MG PO SCH (08:53)
[2018-10-27] MEDS: Lactobacillus Acidophilus* 1 TAB PO SCH (08:53)
[2018-10-27] MEDS: predniSONE TAB* 10 MG PO SCH (08:54)
[2018-10-27] MEDS: Allopurinol TAB* 100 MG PO SCH (08:54)
[2018-10-27] MEDS: Allopurinol TAB* 300 MG PO SCH (08:54)
[2018-10-27] MEDS: Potassium Chlor TAB* 20 MEQ TAB.ER PO SCH (08:55)
[2018-10-27] MEDS: Folic Acid TAB* 1 MG PO SCH (08:55)
[2018-10-27] MEDS: Apixaban* 5 MG TAB PO SCH (08:55)
[2018-10-27 12:06] VITALS: BP 108/68
[2018-10-27] MEDS: Loperamide CAP* 2 MG PO PRN (13:04)
--- NOTE | 2018-10-27 21:59 | DS ---
CC: Dr. Aquino * DISCHARGE SUMMARY: DATE OF ADMISSION: 10/18/18 DATE OF DISCHARGE: 10/27/18 PRIMARY CARE PROVIDER: Dr. Aquino. PRINCIPAL DIAGNOSIS: Septic shock secondary to gastroenteritis with associated hypotension, high fever and marked hypovolemia. SECONDARY DIAGNOSES: 1. Atrial fibrillation. 2. Coronary artery disease. 3. Ischemic cardiomyopathy. 4. Psoriatic arthritis. 5. Polymyalgia rheumatica. 6. Gastroesophageal reflux disease. 7. Obstructive sleep apnea. 8. Depression. 9. Chronic pain. 10. Gout. DISCHARGE MEDICATIONS: 1. Tylenol 650 mg p.o. q.4 hours p.r.n. pain. 2. Allopurinol 400 mg p.o. daily. 3. Eliquis 5 mg p.o. b.i.d. 4. Qnasl 80 mcg each nostril daily. 5. Calcium citrate plus D3 one tab p.o. daily. 6. Vitamin D3 2000 units p.o. daily. 7. Diltiazem CD 120 mg p.o. daily (new). 8. Flovent 2 puffs inhaled b.i.d. 9. Folic acid 1 mg p.o. daily. 10. Lasix 40 mg p.o. daily. 11. Gabapentin 300 mg p.o. b.i.d. 12. Ultravate 0.05% topical daily p.r.n. rash. 13. [place] 10/325 one tab p.o. q.6 hours p.r.n. pain. 14. Infliximab 100 mg IV q.6 weeks. 15. Lactobacillus 1 tablet p.o. daily. 16. Xopenex 2 puffs inhaled four times daily p.r.n. shortness of breath. 17. Xyzal 5 mg p.o. daily p.r.n. allergies. 18. Imodium 2 mg p.o. after each loose stool up to 8 tablets daily. 19. Magnesium chloride EC 64 mg p.o. daily. 20. Multivitamin 1 tab p.o. daily. 21. Nadolol 20 mg p.o. b.i.d. 22. Olanzapine 20 mg p.o. q.h.s. 23. Protonix 40 mg p.o. daily. 24. Potassium chloride 20 mEq p.o. b.i.d. 25. Prednisone 10 mg p.o. daily. 26. Seroquel 150 mg at bedtime. 27. Sertraline 150 mg p.o. daily. 28. Spironolactone 25 mg p.o. daily. 29. Flomax 0.4 mg p.o. q.h.s. 30. Topamax 50 mg p.o. q.a.m., 100 mg p.o. q.h.s. HOSPITAL COURSE: Mr. Unger is a 73-year-old male, who was admitted on after he developed profuse watery diarrhea. The patient was ruled out for C. diff. It was felt that his diarrhea was likely secondary to gastroenteritis as there was a family member who the patient had recently been around that also developed profuse diarrhea. By 10/19/18, the patient was noted to be markedly febrile with a fever up to 105.1. He was also profoundly hypotensive and felt to be in septic shock secondary to the gastroenteritis. The patient never required vasopressors. It was felt that the hypotension was likely secondary to profound hypovolemia from the profuse diarrhea. The patient received several liters of fluid. Ultimately , the sepsis resolved. He was treated briefly with ceftriaxone and Flagyl, which did not make any difference in his diarrhea. After several days of continued profuse diarrhea, the decision was made to initiate Imodium therapy. With this, the patient has had some improvement in his amount of diarrhea; however, he continued to have several loose stools per day. The patient is also incontinent of these and seems very indifferent to the fact that he is having bowel movements while lying in bed. The patient at this point has not felt to have any infectious cause to his diarrhea. It is recommended that he be evaluated by Gastroenterology for the source of his diarrhea. His states that chronically he has loose stools. It is recommended that the patient continue with Imodium p.r.n. A bedside commode is being ordered for the patient. I spoke with the patient's about scheduled toileting to try to prevent incontinent episodes at home. The patient carries a history of paroxysmal atrial fibrillation. On the evening of 10/22/18, the patient went into rapid atrial fibrillation. IV diltiazem push with subsequent drip was initiated. With this, the patient converted back to sinus rhythm. The patient has since been started on diltiazem 30 mg p.o. q.6 hours. For ease of administration, the patient will switch over to diltiazem CD 120 mg at 1800 daily. The patient will need monitoring of his heart rate and blood pressure with these additions, though in the hospital they have both been under good control. In terms of the patient's chronic medical conditions, he will be resumed on all his usual home medications. The patient was quite confused on admission and he was felt to be encephalopathic secondary to infection, then subsequently septic shock. The patient's mental status is now back to baseline. He adamantly refuses going to subacute rehab despite Physical Therapy stating that he would benefit from skilled PT. At this point, the patient's feels that she can try to manage at home. Visiting nurses, home health aide and home PT have all been ordered. PHYSICAL EXAMINATION: On the day of discharge, the patient is awake, he is alert and oriented, sitting in a chair in his room, in no acute distress. His cardiac exam reveals a normal S1, S2 with a regular rate and rhythm. His lungs are clear. His abdomen is soft. His bowel sounds are hyperactive. FOLLOWUP CONCERNS: The patient is being discharged home today, 10/27/18. ACTIVITY LEVEL: As tolerated. DIET: Low-fat, heart-healthy. CONDITION ON DISCHARGE: Stable. TIME SPENT: Thirty five minutes was spent discharging this patient. [id number]/CPS #: [id number] GIO
== END 2018-10-27 15:17 | disposition home health service (06) | DRG 871 ==
LOC: ED 11:00 → MED 16:20 → ICU 22:24 → OBSVTOIN 23:41 → MED 10-19 18:00 → MEDTELE 10-22 19:00
PROVIDERS: ADMIT Hospitalist; ATTEND Hospitalist
PROC: 5A09357 Assistance with Respiratory Ventilation, Less than 24 Consecutive Hours, Continuous Positive Airway Pressure (ICD-10-PCS; principal; 2018-10-19)
DX: A41.9 Sepsis, unspecified organism (principal); G92 Toxic encephalopathy; R65.21 Severe sepsis with septic shock; Z68.41 Body mass index [BMI] 40.0-44.9, adult; I24.8 Other forms of acute ischemic heart disease; N17.9 Acute kidney failure, unspecified; J44.9 Chronic obstructive pulmonary disease, unspecified; K52.9 Noninfective gastroenteritis and colitis, unspecified; F41.9 Anxiety disorder, unspecified; F32.9 Major depressive disorder, single episode, unspecified; H91.90 Unspecified hearing loss, unspecified ear; M10.9 Gout, unspecified; E66.9 Obesity, unspecified; M35.3 Polymyalgia rheumatica; L40.50 Arthropathic psoriasis, unspecified; I50.9 Heart failure, unspecified; I25.10 Atherosclerotic heart disease of native coronary artery without angina pectoris; I44.7 Left bundle-branch block, unspecified; K21.9 Gastro-esophageal reflux disease without esophagitis; I25.5 Ischemic cardiomyopathy; I48.0 Paroxysmal atrial fibrillation; G47.33 Obstructive sleep apnea (adult) (pediatric); G89.29 Other chronic pain; Z88.1 Allergy status to other antibiotic agents; Z88.8 Allergy status to other drugs, medicaments and biological substances; Z86.11 Personal history of tuberculosis; Z98.84 Bariatric surgery status; Z95.810 Presence of automatic (implantable) cardiac defibrillator; Z97.4 Presence of external hearing-aid; Z82.49 Family history of ischemic heart disease and other diseases of the circulatory system; Z83.3 Family history of diabetes mellitus; Z98.49 Cataract extraction status, unspecified eye; Z83.79 Family history of other diseases of the digestive system; Z82.61 Family history of arthritis; Z79.01 Long term (current) use of anticoagulants
CPT/HCPCS: 36415; 36600; 70450; 71045; 71275; 74176; 80048; 80053; 81003; 82140; 82330; 82607; 82746; 82803; 83605; 83735; 83880; 84100; 84145; 84443; 84484; 85025; 85027; 85060; 85610; 86140; 87040; 87045; 87046; 87077; 87328; 87329; 87493; 87641; 87899; 93005; 93306; 94660; 99284; A9270-GY; C8929; G8978-GP-CK; G8979-GP-CI; J0330; J0610; J0696; J1720; J1885; J2270; J2405; J3411; J3475; J3490; J7512; Q9967

== ENCOUNTER 2019-02-12 19:23 | Emergency (ER) | payer MEDICARE, BC ==
--- NOTE | 2019-02-12 21:20 | ED ---
Complex/Multi-Sys Presentation - HPI Summary HPI Summary: Pt is a 73 y/o male who presents to the ED c/o arthralgia. Pt states that he has diffuse joint pain, mainly in his feet, knees, elbows, and hands. Pain is rated a 7/10 in severity. Pt has been taking Hydrocodone without relief. He also c/o headache. also notes a subjective fever and confusion this morning. She believes that the confusion may be due to recent diarrhea. Pt denies any recent fall. As per , he is on 5 mg Prednisone QD, gets intermittent steroid injections, and gets Remicade infusions. Pt is on Eliquis. He has a hx of psoriatic arthritis, gout, CHF, AFib. - History Of Current Complaint Chief Complaint: EDHeadache Time Seen by Provider: 02/12/19 21:14 Hx Obtained From: Patient, Family/Button Breaker Operator - Onset/Duration: Gradual Onset, Lasting Hours - Today, Still Present Timing: Constant Severity Currently: Moderate - 7/10 Location: Pain At: - feet, knees, elbows, hands Aggravating Factor(s): Nothing Alleviating Factor(s): Nothing Associated Signs And Symptoms: Positive: Confusion, Headache, Diarrhea, Fever, Other - arthralgia Related History: Similar Episode/Diagnosed As: - hx gout, arthritis - Allergies/Home Medications Allergies/Adverse Reactions: Allergies Allergy/AdvReac Type Severity Reaction Status Date / Time dofetilide Allergy Unknown Verified 02/03/19 12:59 Reaction Details erythromycin base Allergy GI Upset Verified 02/03/19 12:59 ramipril Allergy Coughing Verified 02/03/19 12:59 PMH/Surg Hx/FS Hx/Imm Hx Endocrine/Hematology History: Reports: Hx Anticoagulant Therapy Denies: Hx Blood Disorders, Hx Diabetes, Hx Systemic Lupus Erythematosus Cardiovascular History: Reports: Hx Auto Implanted Cardiovert Defib, Hx Congestive Heart Failure, Hx Hypertension, Hx Pacemaker/ICD Denies: Hx Peripheral Vascular Disease Respiratory History: Reports: Hx Asthma, Hx Sleep Apnea History: Denies: Hx Dialysis, Hx Renal Disease Musculoskeletal History: Reports: Hx Rheumatoid Arthritis - ON ARTHRITIS MEDICATION SINCE 2011, Hx Gout, Other Musculoskeletal History - Psoriatic arthritis Denies: Hx Arthritis, Hx Osteoporosis Sensory History: Reports: Hx Contacts or Glasses, Hx Hearing Aid - hearing aides are home, Hx Hearing Problem Denies: Other Sensory Impairments Opthamlomology History: Reports: Hx Contacts or Glasses Denies: Other Sensory Impairments Neurological History: Reports: Hx Headaches Denies: Hx Seizures, Hx Transient Ischemic Attacks (TIA) Psychiatric History: Reports: Hx Anxiety, Hx Depression - Cancer History Hx Chemotherapy: No - Surgical History Surgery Procedure, Year, and Place: cardiac ablation x2-[facility]. cardiac cath- 2005. pacemaker and AICD placement. gastric bypass-2005. 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" Denies: Hx of Known/Suspected MRSA, Traveled Outside the [place] in Last 30 Days - Family History Known Family History: Positive: Cardiac Disease, Diabetes - Social History Alcohol Use: None Hx Substance Use: No Substance Use Type: Reports: None Hx Tobacco Use: No Smoking Status (MU): Never Smoked Tobacco Review of Systems Positive: Fever - subjective Positive: Diarrhea Positive: Arthralgia Neurological: Other - confusion Positive: Headache All Other Systems Reviewed And Are Negative: Yes Physical Exam - Summary Physical Exam Summary: Appearance: well appearing, no pain distress, limited by KLAMATH and poor historian Skin: warm, dry, reflects adequate perfusion, left shoulder scar Head/face: normal Eyes: EOMI, SOTO ENT: mucous membranes moist Neck: supple, non-tender Respiratory: CTA, breath sounds present, mildly tachypneic Cardiovascular: regular rate with occasional irregularities of rhythm, pulses symmetrical Abdomen: non-tender, soft Bowel Sounds: present Musculoskeletal: normal, strength/ROM intact, no joint erythema or swelling, ambulates slowly but without imbalance or ataxia Neuro: normal, sensory motor intact, A&Ox3 Triage Information Reviewed: Yes Vital Signs On Initial Exam: Initial Vitals Temp Pulse Resp BP Pulse Ox 98.5 F 91 18 115/88 97 02/12/19 19:31 02/12/19 19:31 02/12/19 19:31 02/12/19 19:31 02/12/19 19:31 Vital Signs Reviewed: Yes Diagnostics - Vital Signs Vital Signs Temp Pulse Resp BP Pulse Ox 02/12/19 19:31 98.5 F 91 18 115/88 97 - Laboratory Result Diagrams: 02/12/19 21:49 02/12/19 21:49 Lab Statement: Any lab studies that have been ordered have been reviewed, and results considered in the medical decision making process. Re-Evaluation - Re-Evaluation First Eval Re-Evaluation Time: 22:41 Change: Improved Comment: Pt feels much better. Complex Multi-Symp Course/Dx Course Of Treatment: Nurse's notes reviewed. Patient with chronic psoriatic arthritis who had increased activity today and had exacerbation of his discomfort in all joints. He was hydrated here as creatinine is slightly elevated and his pain was treated. He was feeling much better and is discharged in good condition at his baseline. - Diagnoses Differential Diagnoses/HQI/PQRI: Metabolic Abnormality, Other - Inflammatory arthritis Provider Diagnoses: Psoriatic arthritis, Mild dehydration Discharge - Sign-Out/Discharge Documenting (check all that apply): Patient Departure - Discharge Patient Received Moderate/Deep Sedation with Procedure: No - Discharge Plan Condition: Improved Disposition: HOME Patient Education Materials: Dehydration (ED), Arthritis (ED) Referrals: Arcadio Aquino MD [Primary Care Provider] - Additional Instructions: Stay well-hydrated. Avoid salt in the diet. Call your doctor first thing in the morning to schedule follow-up of your arthritis pain. Return if worse, fever, new symptoms or other concerns. - Billing Disposition and Condition Condition: IMPROVED Disposition: Home - Attestation Statements Document Initiated by Samibe: Yes Documenting Scribe: Monica Whelan Provider For Whom Rhiannon is Documenting (Include Credential): Ld Gonsalves MD Scribe Attestation: Monica Maldonado, scribed for Ld Gonsalves MD on 02/13/19 at 0235. Scribe Documentation Reviewed: Yes Provider Attestation: The documentation as recorded by the Monica ryan accurately reflects the service I personally performed and the decisions made by me, Ld Gonsalves MD Status of Scriberic Document: Viewed
[2019-02-12] MEDS ORDERED: Ketorolac INJ* 30 MG/ML 1 ML VIAL IV PUSH ONE (21:25)
[2019-02-12] MEDS ORDERED: NS 0.9% 1000 ML** 1,000 ML IV ONE (21:25)
[2019-02-12] MEDS ORDERED: Morphine 4 MG/ML VIAL (1 ml) 4 MG/ML VIAL IV ONE (21:25)
[2019-02-12 22:06] LABS: ABS Basophils 0 10^3/ul (0-0.2); ABS Eosinophils 0.2 10^3/ul (0-0.6); ABS Lymphocytes 1.7 10^3/ul (1.0-4.8); ABS Monocytes 1.5 10^3/ul (0-0.8); ABS Neutrophils 7.4 10^3/ul (1.5-7.7); ABS Nucleated RBC 0 10^3/ul; Eosinophil % 2.1 %; Hematocrit 38 % (36-46); Hemoglobin 12.7 g/dL (14.0-18.0); Mean Corpuscular HGB Conc 33 g/dL (31-36); Mean Corpuscular Hemoglobin 36 pg (27-31); Mean Corpuscular Volume 108 fL (80-94); Mean Platelet Volume 9.6 fL (7.4-10.4); Nucleated Red Blood Cells % 0.2; Platelet Count 157 10^3/uL (150-450); Red Blood Count 3.51 10^6 /uL (4.18-5.48); Red Cell Distribution Width 16 % (10.5-15); White Blood Count 10.9 10^3/uL (3.5-10.8)
[2019-02-12 22:16] LABS: BUN/Creatinine Ratio 15.8 (8-20); Calcium 8.8 mg/dL (8.6-10.3); EGFR African American 72.2 (>60); EGFR Non-African American 59.7 (>60); Potassium 3.9 mmol/L (3.5-5.0)
[2019-02-12] MEDS ORDERED: NS 0.9% 500 ML* 500 ML IV ONE (22:27)
[2019-02-12 23:26] VITALS: BP 111/74
== END 2019-02-12 23:25 | disposition home or self-care (01) ==
LOC: ED 19:23
DX: E86.0 Dehydration (principal); L40.50 Arthropathic psoriasis, unspecified; Z88.8 Allergy status to other drugs, medicaments and biological substances; Z88.3 Allergy status to other anti-infective agents; I11.0 Hypertensive heart disease with heart failure; I50.9 Heart failure, unspecified; I48.91 Unspecified atrial fibrillation; J45.909 Unspecified asthma, uncomplicated; M06.9 Rheumatoid arthritis, unspecified; F41.9 Anxiety disorder, unspecified; M10.9 Gout, unspecified; F32.9 Major depressive disorder, single episode, unspecified; Z79.01 Long term (current) use of anticoagulants; Z95.810 Presence of automatic (implantable) cardiac defibrillator
CPT/HCPCS: 36415; 80048; 83880; 85025; 96361; 96374; 96375; 99282; J1885; J2270

== ENCOUNTER 2019-06-24 16:09 | Emergency (ER) | payer MEDICARE, BC ==
[2019-06-24] MEDS ORDERED: HYDROcodone/ACETAMIN 5-325 MG* 1 TAB PO ONE (16:36)
--- NOTE | 2019-06-24 16:37 | ED ---
Adult Trauma - HPI Summary HPI Summary: The patient is a 74 y/o M presenting to [facility] accompanied by friend with a chief complaint of mechanical fall in the parking lot immediately [employer]. He reports that he and his friend came for an outpatient appointment, and they were walking to the car when he stubbed his toe and fell. He states that he hit his head but denies LOC. He currently takes Eliquis. He additionally c/o right shoulder pain and new low back pain. He denies any SOB. The dull pain is currently rated 7/10 in severity. PMHx: atrial fibrillation, pacemaker, CHF, HTN , asthma arthritis. Nonsmoker, no EtOH, no substance use. Medications reviewed. Allergies noted. - History of Current Complaint Chief Complaint: EDFall Stated Complaint: FALL PER NURSE Time Seen by Provider: 06/24/19 16:23 Hx Obtained From: Patient Mechanism of Injury: Fall - mechanical trip Loss of Consciousness: no loss of consciousness Onset/Duration: Started Minutes Ago, Still Present Onset of Pain: Immediate Onset Severity: Moderate Current Severity: Moderate Pain Intensity: 7 Pain Scale Used: 0-10 Numeric Location: Head, Back - low, Extremities - right shoulder Character: Aching Aggravating Factor(s): Nothing Alleviating Factor(s): Nothing Associated Signs & Symptoms: Positive: Other: - right shoulder pain, low back pain. Negative: SOB, Loss of Consciousness - Additional Pertinent History Primary Care Physician: [id number] - Allergy/Home Medications Allergies/Adverse Reactions: Allergies Allergy/AdvReac Type Severity Reaction Status Date / Time dofetilide Allergy Unknown Verified 06/24/19 16:38 Reaction Details erythromycin base Allergy GI Upset Verified 06/24/19 16:38 ramipril Allergy Coughing Verified 06/24/19 16:38 Home Medications: Home Medications HYDROcodone/ACETAMIN 5-325 MG* [Vida 5-325 TAB*] 1 tab PO Q6H PRN 06/24/19 [ History Confirmed 06/24/19] PMH/Surg Hx/FS Hx/Imm Hx Endocrine/Hematology History: Reports: Hx Anticoagulant Therapy Denies: Hx Blood Disorders, Hx Diabetes, Hx Systemic Lupus Erythematosus Cardiovascular History: Reports: Hx Auto Implanted Cardiovert Defib, Hx Congestive Heart Failure, Hx Hypertension, Hx Pacemaker/ICD Denies: Hx Peripheral Vascular Disease Respiratory History: Reports: Hx Asthma, Hx Sleep Apnea History: Denies: Hx Dialysis, Hx Renal Disease Musculoskeletal History: Reports: Hx Rheumatoid Arthritis - ON ARTHRITIS MEDICATION SINCE 2011, Hx Gout, Other Musculoskeletal History - Psoriatic arthritis Denies: Hx Arthritis, Hx Osteoporosis Sensory History: Reports: Hx Contacts or Glasses, Hx Hearing Aid - hearing aides are home, Hx Hearing Problem Denies: Other Sensory Impairments Opthamlomology History: Reports: Hx Contacts or Glasses Denies: Other Sensory Impairments Neurological History: Reports: Hx Headaches Denies: Hx Seizures, Hx Transient Ischemic Attacks (TIA) Psychiatric History: Reports: Hx Anxiety, Hx Depression - Cancer History Hx Chemotherapy: No - Surgical History Surgery Procedure, Year, and Place: cardiac ablation x2-[facility]. cardiac cath- 2005. pacemaker and AICD placement. gastric bypass-2005. 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" Denies: Hx of Known/Suspected MRSA, Traveled Outside the [place] in Last 30 Days - Family History Known Family History: Positive: Cardiac Disease, Diabetes - Social History Alcohol Use: None Hx Substance Use: No Substance Use Type: Reports: None Hx Tobacco Use: No Smoking Status (MU): Never Smoked Tobacco Review of Systems Negative: Shortness Of Breath Positive: Other - low back pain, right shoulder pain Neurological: Other - head injury secondary to fall, no LOC All Other Systems Reviewed And Are Negative: Yes Physical Exam - Summary Physical Exam Summary: Constitutional: Well-developed, Well-nourished, Alert, Cooperative Skin: No abrasion on back; Warm, Dry HENT: Normocephalic; No Racoons eyes; No clifton's sign; No abrasion; No contusion; No hemotympanum; No maxilla facial tenderness or instability; Dentition are smooth; No dental trauma; No trismus Eyes: EOM normal, PERRL Neck: Trachea is midline. No stridor; No JVD; No step off; No posterior cervical spine tenderness Cardio: Rhythm regular, rate normal Heart sounds normal; Intact distal pulses; The pedal pulses are 2+ and symmetric. Radial pulses are 2+ and symmetric. Pulmonary/Chest wall: Effort normal; Breath sounds normal; Equal chest rise; No flail segment; No rib tenderness; No sternal tenderness Abd: Soft, Appearance normal. No distension; No tenderness; No palpable pulsatile mass; No Cullens sign; No Grigsby-Turners sign Musculoskeletal: Tenderness right above the coccyx, Full ROM and no tenderness at all hips, ankles, shoulders, elbows and knees; No joint swelling; No vertebral body tenderness; No paraspinal tenderness; No step off or deformity of the spine; Pelvis is stable to lateral compression and rock Neuro: Alert, Oriented x3, Strength 5/5 all extremities. GCS: 15. Psych: Mood and affect Normal Triage Information Reviewed: Yes Vital Signs On Initial Exam: Initial Vitals Temp Pulse Resp BP Pulse Ox 96.9 F 64 23 118/73 98 06/24/19 16:10 06/24/19 16:10 06/24/19 16:10 06/24/19 16:10 06/24/19 16:10 Vital Signs Reviewed: Yes - Seema Coma Scale Best Eye Response: 4 - Spontaneous Best Motor Response: 6 - Obeys Commands Best Verbal Response: 5 - Oriented Coma Scale Total: 15 Diagnostics - Vital Signs Vital Signs Temp Pulse Resp BP Pulse Ox 06/24/19 16:10 96.9 F 64 23 118/73 98 - Laboratory Lab Statement: Any lab studies that have been ordered have been reviewed, and results considered in the medical decision making process. - CT Brain CT CT Interpretation Completed By: Radiologist Summary of CT Findings: Impression: No acute intracranial pathology. Diffuse involutional change with chronic small vessel ischemic changes. ED physician has reviewed this radiology report. Lumbar Spine CT CT Interpretation Completed By: Radiologist Summary of CT Findings: Lumbar Spine CT Impression: Degenerative disc disease and osteoarthritis as described above. No acute osseous injury to the lumbar spine. ED physician has reviewed this radiology report. Cervical Spine CT CT Interpretation Completed By: Radiologist Summary of CT Findings: Impression: Degenerative disc disease and osteoarthritis. No acute osseous injury of the cervical spine. ED physician has reviewed this radiology report. Re-Evaluation - Re-Evaluation First Eval Re-Evaluation Time: 17:55 Comment: We discussed all results and discharge home. Adult Trauma Course/Dx - Course Course Of Treatment: Patient is here after mechanical fall in the parking. Patient did hit his head and is on a blood thinner. Patient negative CT head and cervical spine. Patient had lower lumbar tenderness with a CT scan was performed which showed no abnormality. - Diagnoses Provider Diagnoses: Fall Discharge ED - Sign-Out/Discharge Documenting (check all that apply): Patient Departure - Patient will be discharged home. Patient Received Moderate/Deep Sedation with Procedure: No - Discharge Plan Condition: Stable Disposition: HOME Patient Education Materials: Fall Prevention (ED) Referrals: Arcadio Aquino MD [Primary Care Provider] - 2 Days Additional Instructions: Follow up with your primary care provider in 2-3 days. Return to the emergency department for any new or worsening symptoms including change in mental status, visual changes, or weakness. - Billing Disposition and Condition Condition: STABLE Disposition: Home - Attestation Statements Document Initiated by Samibe: Yes Documenting Scribe: Annette Fernandes Provider For Whom Rhiannon is Documenting (Include Credential): Dr. Yonas Miller MD Scribe Attestation: Annette Maldonado scribed for Dr. Yonas Miller MD on 06/24/19 at 1956. Scribe Documentation Reviewed: Yes Provider Attestation: The documentation as recorded by the Annette ryan accurately reflects the service I personally performed and the decisions made by me, Dr. Yonas Miller MD Status of Scribe Document: Viewed
[2019-06-24 18:25] VITALS: BP 113/83
== END 2019-06-24 18:19 | disposition home or self-care (01) ==
LOC: ED 16:09
DX: S09.90XA Unspecified injury of head, initial encounter (principal); M54.5 Low back pain; L40.50 Arthropathic psoriasis, unspecified; W18.30XA Fall on same level, unspecified, initial encounter; Y92.481 Parking lot as the place of occurrence of the external cause; M51.36 Other intervertebral disc degeneration, lumbar region; M47.896 Other spondylosis, lumbar region; M50.30 Other cervical disc degeneration, unspecified cervical region; I48.91 Unspecified atrial fibrillation; I11.0 Hypertensive heart disease with heart failure; I50.9 Heart failure, unspecified; J45.909 Unspecified asthma, uncomplicated; F41.9 Anxiety disorder, unspecified; F32.9 Major depressive disorder, single episode, unspecified; Z95.810 Presence of automatic (implantable) cardiac defibrillator; Z95.5 Presence of coronary angioplasty implant and graft; Z98.84 Bariatric surgery status; Z79.01 Long term (current) use of anticoagulants; Z79.899 Other long term (current) drug therapy; Z88.1 Allergy status to other antibiotic agents; Z88.8 Allergy status to other drugs, medicaments and biological substances
CPT/HCPCS: 70450; 72125; 72131; 99283

== ENCOUNTER 2019-10-10 06:04 | Emergency (ER) | payer MEDICARE, BC ==
--- OUTSIDE RECORDS SUMMARY | 2019-10-10 06:12 | XMS REPORT | Continuity of Care Document ---
:1945 External Reference #:[id number] Author Name MARGARET Gamez (transmitted by agent of provider [place] Bryan) Address [address] [place] [address] Problems Active Problems Provider Date Gout Rajiv Kan M.D. Onset: 04/04/2016 ESR raised Rajiv Kan M.D. Onset: 04/04/2016 C-reactive protein abnormal Rajiv Kan M.D. Onset: 04/04/2016 Psoriasis Rajiv Kan M.D. Onset: 04/04/2016 Inflammatory polyarthropathy Rajiv Kan M.D. Onset: 04/04/2016 Taking medication Rajiv aKn M.D. Onset: 04/04/2016 Shoulder joint pain Rajiv Kan M.D. Onset: 04/04/2016 Polyneuropathy Florence Herrera M.D. Onset: 09/10/2017 Altered mental status Katrin Chao DO Onset: 08/06/2018 Fever Katrin Chao DO Onset: 08/06/2018 Psoriasis with arthropathy Katrin Chao DO Onset: 08/06/2018 Pneumonia TOSHIA Gomez Onset: 08/07/2018 Retention of urine TOSHIA Gomez Onset: 08/07/2018 Chronic ischemic heart disease TOSHIA Gomez Onset: 08/07/2018 Toxic encephalopathy TOSHIA Gomez Onset: 08/08/2018 Paroxysmal atrial fibrillation TOSHIA Gomez Onset: 08/08/2018 Thrombocytopenic disorder TOSHIA Gomez Onset: 08/09/2018 Anemia TOSHIA Gomez Onset: 08/09/2018 Left bundle branch block TOSHIA Gomez Onset: 08/09/2018 Leukopenia TOSHIA Gomez Onset: 08/09/2018 Social History Type Date Description Comments Sex Unknown Tobacco Use Start: Unknown Never Smoked Cigarettes Smoking Status Reviewed: 09/08/19 Never Smoked Cigarettes ETOH Use Denies alcohol use Tobacco Use Start: Unknown Patient has never smoked Recreational Drug Use Denies Drug Use Exercise Type/Frequency Exercises rarely Allergies, Adverse Reactions, Alerts Active Allergies Reaction Severity Comments Date Altace cough 11/28/2015 Erythromycin nausea 11/28/2015 Medications Active Medications SIG Qnty Indications Ordering Date Provider Edu apply 1 gram 100gm M25.549 Ángelarmin Gerardok, 09/08/2019 1% Gel to hands twice POULTRY TRIMMER a day Hydroxychloroquine Sulfate Take 2 Daily 60tabs L40.50 Vini Stewart, 03/18 200mg Ongoing M.D. Tablets Z79.899 Zoloft 1 1/2 by mouth every Vini Stewart, 12/30/2018 100mg Tablets day M.D. Shingrix 0.5 milliliters 2units Vini Stewart, 07/21/2018 50mcg intramuscular times 1, M.D. Suspension Rec followed by 0.5ml intramuscular 2-6 months after dose #1 Remicade every 6 weeks L40.50 Vini Stewart, 04/03/2018 100mg M.D. Solution Rec Z79.899 Folic Acid Take One Tablet 90tabs Vini Stewart, 12/18/2017 1mg Tablets Daily. M.D. Allopurinol take one tablet by 90tabs M10.9 Rio Sharp, 10/01/2016 100mg Tablets mouth every day *in POULTRY TRIMMER addition to 300mg* Allopurinol take one tablet by 90tabs M10.9 Vini Stewart, 04/04/2016 300mg Tablets mouth every day M.D. Edu apply 2 grams twice 5tubes M06.4 Rajiv Kan, 11/28/2015 1% Gel daily to feet or M.D. shoulders as needed for pain 5 tubes Vitamins Multiple 1 PO qd 30tabs Qutamayda S. 10/01/2006 Tablets Frances Johnst HFA 1 unit, inhl, twice Unknown 17mcg/Act a day Aerosol Albuterol Sulfate 1-2 puffs every 4 Unknown Powder hours as needed sob Olanzapine take 1 tablet at Unknown 20mg Tablets bedtime Levocetirizine 1 by mouth every day Unknown Dihydrochloride 5mg Tablets Nitrostat one sl q5min up to 3 Unknown 0.4mg Tablets Sub doses as needed Eliquis 1 by mouth twice a Unknown 5mg Tablets day Quetiapine Fumarate 2 tabs daily Unknown 100mg Tablets Topiramate take one tab in Unknown 100mg Tablets morning, 2 tabs at night Vitamin B12 daily Unknown 1000mcg Tablets Sub Levalbuterol Tartrate inhale 2 puffs by Unknown mouth every 4 hours 45mcg/Act Aerosol as needed Solonpas Unknown 4%Lidocaine Qnasl 2 inhalations in Unknown 80mcg/Act Aerosol each nostril once daily Ultravate Unknown 0.05% Cream Furosemide 1 by mouth every Unknown 40mg Tablets other day Hydrocodone-Acetaminophe 1 tab every 4 hours Unknown n as needed 5-325mg Tablets Acetaminophen ER 1 tab by mouth every Unknown 650mg 6 hours as needed Tablets ER Slow-Mag 1 by mouth every day Unknown 71.5-119mg Tablets DR Calcium Citrate +D 2 tabs by mouth Unknown every day [id number]-Pipr Tablets Potassium Chloride ER 1 by mouth every day Unknown 20Meq Capsules ER Spironolactone 1 by mouth every day Unknown 25mg Tablets Pantoprazole Sodium 1 by mouth every day Unknown 40mg Tablets DR Nadolol 1 by mouth bid Unknown 20mg Tablets History Medications Prednisone take 4 tablets 180tabs L40.50 Rio Sharp, 04/24/2019 - 1mg by mouth for 3 POULTRY TRIMMER 09/08/2019 Tablets weeks, then reduce to 1 tab/day every 3 weeks Prednisone 2 tabs by mouth L40.50 Zsofielza Sharp, 03/24/2019 - 2.5mg daily for 1 POULTRY TRIMMER 04/24/2019 Tablets month, then call for further instructions. Immunizations CPT Code Status Date Vaccine Lot # [id number] Given 08/27/2017 Influenza Virus Vaccine, Quadrivalent, Split, Preservative Free [id number] Given 08/13/2016 Pneumococcal Conjugate Vaccine 13 Valent For Intramuscular Use [id number] Given 04/08/2013 Pneumonia Vaccine Vital Signs Date Vital Result Comment 09/08/2019 1:03pm Height 70 inches 5'10" Weight 283.00 lb Heart Rate 70 /min BP Systolic Sitting 101 mmHg BP Diastolic Sitting 67 mmHg Respiratory Rate 18 /min Body Temperature 96.7 F O2 % BldC Oximetry 95 % BMI (Body Mass Index) 40.6 kg/m2 05/26/2019 12:51pm Height 70 inches 5'10" Weight 295.25 lb Heart Rate 70 /min BP Systolic 92 mmHg BP Diastolic 64 mmHg BP Systolic Sitting 92 mmHg BP Diastolic Sitting 70 mmHg Body Temperature 98.2 F O2 % BldC Oximetry 95 % BMI (Body Mass Index) 42.4 kg/m2 Results Test Acquired Date Facility Test Result H/L Range Note Comp Metabolic 08/05/2019 [facility] Sodium 137 mmol/L Normal 135-[address] [place] [address] [phone] Potassium 3.9 mmol/L Normal 3.5-5.0 Chloride 108 mmol/L Normal 101-111 Co2 Carbon Dioxide 23 mmol/L Normal 22-32 Anion Gap 6 mmol/L Normal 2-11 Glucose 116 mg/dL High 70-100 Blood Urea Nitrogen 13 mg/dL Normal 6-24 Creatinine 1.15 mg/dL Normal 0.67-1.17 BUN/Creatinine Ratio 11.3 Normal 8-20 Calcium 9.2 mg/dL Normal 8.6-10.3 Total Protein 6.9 g/dL Normal 6.4-8.9 Albumin 3.8 g/dL Normal 3.2-5.2 Globulin 3.1 g/dL Normal 2-4 Albumin/Globulin Ratio 1.2 Normal 1-3 Total Bilirubin 0.60 mg/dL Normal 0.2-1.0 Alkaline Phosphatase 177 U/L High 34-104 Alt 14 U/L Normal 7-52 Ast 27 U/L Normal 13-39 Egfr Non- 62.5 >60 Egfr 75.6 >60 1 Laboratory test 08/05/2019 [facility] C Reactive 4.06 mg/L Normal <8.[address] [place] [address] [phone] CBC Auto Diff 08/05/2019 [facility] White Blood 3.8 Normal 3.5 -10.[address] Count 10^3/[place] [address] [phone] Red Blood Count 3.46 10^6/uL Low 4.18-5.48 Hemoglobin 12.5 g/dL Low 14.0-18.0 Hematocrit 37 % Low 42-52 Mean Corpuscular Volume 108 fL High 80-94 2 Mean Corpuscular Hemoglobin 36 pg High 27-31 Mean Corpuscular HGB Conc 34 g/dL Normal 31-36 Red Cell Distribution Width 16 % High 10-15 Platelet Count 134 10^3/uL Low 150-450 Mean Platelet Volume 10.7 fL High 7.4-10.4 Abs Neutrophils 1.9 10^3/uL Normal 1.5-7.7 Abs Lymphocytes 1.1 10^3/uL Normal 1.0-4.8 Abs Monocytes 0.5 10^3/uL Normal 0-0.8 Abs Eosinophils 0.3 10^3/uL Normal 0-0.6 Abs Basophils 0.0 10^3/uL Normal 0-0.2 Abs Nucleated RBC 0.0 10^3/uL Granulocyte % 49.6 % Lymphocyte % 28.1 % Monocyte % 13.2 % Eosinophil % 8.6 % Basophil % 0.5 % Nucleated Red Blood Cells % 0.2 Laboratory test 08/05/2019 [facility] Erythrocyte Sed 52 mm/Hr High 0-[address] [place] [address] [phone] Comp Metabolic 06/24/2019 [facility] Sodium 137 Normal 135- 145 [address] mmol/[place] [address] [phone] Potassium 4.0 mmol/L Normal 3.5-5.0 Chloride 110 mmol/L Normal 101-111 Co2 Carbon Dioxide 22 mmol/L Normal 22-32 Anion Gap 5 mmol/L Normal 2-11 Glucose 111 mg/dL High 70-100 Blood Urea Nitrogen 13 mg/dL Normal 6-24 Creatinine 1.12 mg/dL Normal 0.67-1.17 BUN/Creatinine Ratio 11.6 Normal 8-20 Calcium 8.8 mg/dL Normal 8.6-10.3 Total Protein 6.4 g/dL Normal 6.4-8.9 Albumin 3.7 g/dL Normal 3.2-5.2 Globulin 2.7 g/dL Normal 2-4 Albumin/Globulin Ratio 1.4 Normal 1-3 Total Bilirubin 0.60 mg/dL Normal 0.2-1.0 Alkaline Phosphatase 153 U/L High 34-104 Alt 15 U/L Normal 7-52 Ast 29 U/L Normal 13-39 Egfr Non- 64.4 >60 Egfr 78.0 >60 4 Laboratory test 06/24/2019 [facility] C Reactive 2.23 mg/L Normal <8.[address] [place] [address] [phone] CBC Auto Diff 06/24/2019 [facility] White Blood 4.7 Normal 3.5 -10.[address] Count 10^3/[place] [address] [phone] Red Blood Count 3.30 10^6/uL Low 4.18-5.48 Hemoglobin 11.9 g/dL Low 14.0-18.0 Hematocrit 36 % Low 42-52 Mean Corpuscular Volume 108 fL High 80-94 5 Mean Corpuscular Hemoglobin 36 pg High 27-31 Mean Corpuscular HGB Conc 34 g/dL Normal 31-36 Red Cell Distribution Width 16 % High 10-15 Platelet Count 137 10^3/uL Low 150-450 Mean Platelet Volume 9.6 fL Normal 7.4-10.4 Abs Neutrophils 2.7 10^3/uL Normal 1.5-7.7 Abs Lymphocytes 1.1 10^3/uL Normal 1.0-4.8 Abs Monocytes 0.5 10^3/uL Normal 0-0.8 Abs Eosinophils 0.3 10^3/uL Normal 0-0.6 Abs Basophils 0.0 10^3/uL Normal 0-0.2 Abs Nucleated RBC 0.0 10^3/uL Granulocyte % 57.7 % Lymphocyte % 24.3 % Monocyte % 11.6 % Eosinophil % 5.6 % Basophil % 0.8 % Nucleated Red Blood Cells % 0.3 Laboratory test 06/24/2019 [facility] Erythrocyte Sed 47 mm/Hr High 0-19 [address] [place] [address] [phone] Comp Metabolic 05/05/2019 [facility] Sodium 139 Normal 135- [address] mmol/[place] [address] [phone] Potassium 3.7 mmol/L Normal 3.5-5.0 Chloride 109 mmol/L Normal 101-111 Co2 Carbon Dioxide 23 mmol/L Normal 22-32 Anion Gap 7 mmol/L Normal 2-11 Glucose 114 mg/dL High 70-100 Blood Urea Nitrogen 15 mg/dL Normal 6-24 Creatinine 1.14 mg/dL Normal 0.67-1.17 BUN/Creatinine Ratio 13.2 Normal 8-20 Calcium 9.0 mg/dL Normal 8.6-10.3 Total Protein 7.0 g/dL Normal 6.4-8.9 Albumin 3.8 g/dL Normal 3.2-5.2 Globulin 3.2 g/dL Normal 2-4 Albumin/Globulin Ratio 1.2 Normal 1-3 Total Bilirubin 0.50 mg/dL Normal 0.2-1.0 Alkaline Phosphatase 130 U/L High 34-104 Alt 15 U/L Normal 7-52 Ast 25 U/L Normal 13-39 Egfr Non- 63.3 >60 Egfr 76.6 >60 7 Laboratory test 05/05/2019 [facility] Uric Acid 5.2 mg/dL Normal 4.4-7.[address] [place] [address] [phone] C Reactive Protein 4.01 mg/L Normal <8.01 CBC Auto 05/05/2019 [facility] White Blood 5.3 10^3/uL Normal 3.5-10.[address] [place] [address] [phone] Red Blood Count 3.50 10^6/uL Low 4.18-5.48 Hemoglobin 12.6 g/dL Low 14.0-18.0 Hematocrit 38 % Low 42-52 Mean Corpuscular Volume 108 fL High 80-94 8 Mean Corpuscular Hemoglobin 36 pg High 27-31 Mean Corpuscular HGB Conc 33 g/dL Normal 31-36 Red Cell Distribution Width 16 % High 10-15 Platelet Count 157 10^3/uL Normal 150-450 Mean Platelet Volume 9.6 fL Normal 7.4-10.4 Abs Neutrophils 2.8 10^3/uL Normal 1.5-7.7 Abs Lymphocytes 1.5 10^3/uL Normal 1.0-4.8 Abs Monocytes 0.7 10^3/uL Normal 0-0.8 Abs Eosinophils 0.2 10^3/uL Normal 0-0.6 Abs Basophils 0.0 10^3/uL Normal 0-0.2 Abs Nucleated RBC 0.0 10^3/uL Granulocyte % 53.2 % Lymphocyte % 29.1 % Monocyte % 12.7 % Eosinophil % 4.5 % Basophil % 0.5 % Nucleated Red Blood Cells % 0.1 Laboratory test 05/05/2019 [facility] Erythrocyte Sed 46 mm/Hr High 0-19 [address] [place] [address] [phone] Hemoglobin A1c (Glyco HGB) 6.0 % High 4.0-5.6 10 Comp Metabolic 03/20/2019 [facility] Sodium 137 mmol/L Normal 135-[address] [place] [address] [phone] Potassium 3.4 mmol/L Low 3.5-5.0 Chloride 107 mmol/L Normal 101-111 Co2 Carbon Dioxide 22 mmol/L Normal 22-32 Anion Gap 8 mmol/L Normal 2-11 Glucose 97 mg/dL Normal 70-100 Blood Urea Nitrogen 19 mg/dL Normal 6-24 Creatinine 1.28 mg/dL High 0.67-1.17 BUN/Creatinine Ratio 14.8 Normal 8-20 Calcium 8.9 mg/dL Normal 8.6-10.3 Total Protein 7.1 g/dL Normal 6.4-8.9 Albumin 3.8 g/dL Normal 3.2-5.2 Globulin 3.3 g/dL Normal 2-4 Albumin/Globulin Ratio 1.2 Normal 1-3 Total Bilirubin 0.50 mg/dL Normal 0.2-1.0 Alkaline Phosphatase 108 U/L High 34-104 Alt 14 U/L Normal 7-52 Ast 20 U/L Normal 13-39 Egfr Non- 55.4 >60 Egfr 67.0 >60 11 Laboratory test 03/20/2019 [facility] C Reactive 3.44 mg/L Normal <8.[address] [place] [address] [phone] CBC Auto Diff 03/20/2019 [facility] White Blood 6.9 Normal 3.5 -10.[address] Count 10^3/[place] [address] [phone] Red Blood Count 3.55 10^6/uL Low 4.18-5.48 Hemoglobin 12.9 g/dL Low 14.0-18.0 Hematocrit 39 % Low 42-52 Mean Corpuscular Volume 108 fL High 80-94 12 Mean Corpuscular Hemoglobin 36 pg High 27-31 Mean Corpuscular HGB Conc 34 g/dL Normal 31-36 Red Cell Distribution Width 16 % High 10.5-15 Platelet Count 165 10^3/uL Normal 150-450 Mean Platelet Volume 9.7 fL Normal 7.4-10.4 Abs Neutrophils 3.9 10^3/uL Normal 1.5-7.7 Abs Lymphocytes 2.0 10^3/uL Normal 1.0-4.8 Abs Monocytes 0.7 10^3/uL Normal 0-0.8 Abs Eosinophils 0.3 10^3/uL Normal 0-0.6 Abs Basophils 0.0 10^3/uL Normal 0-0.2 Abs Nucleated RBC 0.0 10^3/uL Granulocyte % 56.7 % Lymphocyte % 28.8 % Monocyte % 9.7 % Eosinophil % 4.2 % Basophil % 0.6 % Nucleated Red Blood Cells % 0.1 Laboratory test 03/20/2019 [facility] Erythrocyte Sed 45 mm/Hr High 0-[address] [place] [address] [phone] 1 Because ethnic data is not always readily available, this report includes an eGFR for both -Americans and non- Americans. The National Kidney Disease Education Program (NKDEP) does not endorse the use of the MDRD equation for patients that are not between the ages of 18 and 70, are , have extremes of body size, muscle mass, or nutritional status, or are non- or non-. According to the National Kidney Foundation, irrespective of diagnosis, the stage of the disease is based on the level of kidney function: Stage Description GFR(mL/min/1.73 m(2)) 1 Kidney damage with normal or decreased GFR 90 2 Kidney damage with mild decrease in GFR 60-89 3 Moderate decrease in GFR 30-59 4 Severe decrease in GFR 15-29 5 Kidney failure <15 (or dialysis) 2 Consistent with Previous Results Reported on 06/24/19 3 Comment: copy to Dr Kayla Rendon to Dr. Aquino for concern of worsening anemia. Pt is on Eliquis 4 Because ethnic data is not always readily available, this report includes an eGFR for both -Americans and non- Americans. The National Kidney Disease Education Program (NKDEP) does not endorse the use of the MDRD equation for patients that are not between the ages of 18 and 70, are , have extremes of body size, muscle mass, or nutritional status, or are non- or non-. According to the National Kidney Foundation, irrespective of diagnosis, the stage of the disease is based on the level of kidney function: Stage Description GFR(mL/min/1.73 m(2)) 1 Kidney damage with normal or decreased GFR 90 2 Kidney damage with mild decrease in GFR 60-89 3 Moderate decrease in GFR 30-59 4 Severe decrease in GFR 15-29 5 Kidney failure <15 (or dialysis) 5 Consistent with Previous Results Reported on 05/05/19. 6 Comment: copy to Dr Garza 7 Because ethnic data is not always readily available, this report includes an eGFR for both -Americans and non- Americans. The National Kidney Disease Education Program (NKDEP) does not endorse the use of the MDRD equation for patients that are not between the ages of 18 and 70, are , have extremes of body size, muscle mass, or nutritional status, or are non- or non-. According to the National Kidney Foundation, irrespective of diagnosis, the stage of the disease is based on the level of kidney function: Stage Description GFR(mL/min/1.73 m(2)) 1 Kidney damage with normal or decreased GFR 90 2 Kidney damage with mild decrease in GFR 60-89 3 Moderate decrease in GFR 30-59 4 Severe decrease in GFR 15-29 5 Kidney failure <15 (or dialysis) 8 Consistent with Previous Results Reported on 03/20/2019 9 Comment: copy to kayla 10 Therapeutic target for the treatment of diabetes mellitus patients is <7% HBA1C, and in selective patients <6.0%. Please refer to [place] [employer] diabetic care guidelines for further information. 11 Because ethnic data is not always readily available, this report includes an eGFR for both -Americans and non- Americans. The National Kidney Disease Education Program (NKDEP) does not endorse the use of the MDRD equation for patients that are not between the ages of 18 and 70, are , have extremes of body size, muscle mass, or nutritional status, or are non- or non-. According to the National Kidney Foundation, irrespective of diagnosis, the stage of the disease is based on the level of kidney function: Stage Description GFR(mL/min/1.73 m(2)) 1 Kidney damage with normal or decreased GFR 90 2 Kidney damage with mild decrease in GFR 60-89 3 Moderate decrease in GFR 30-59 4 Severe decrease in GFR 15-29 5 Kidney failure <15 (or dialysis) 12 Consistent with Previous Results Reported on 02/12/19 Procedures Description No Information Available Medical Devices Description No Information Available Encounters Type Date Location Provider Dx Diagnosis Office Visit 05/26/2019 Rheumatology Rio Sharp, L40.50 Arthropathic 1:00p [facility] psoriasis, unspecified M10.9 Gout, unspecified I95.2 Hypotension due to drugs E83.51 Hypocalcemia Z79.899 Other skilled nursing (current) drug therapy Office Visit 03/24/2019 Rheumatology Rio L40.50 Arthropathic 2:00p [facility] MARGARET Sharp psoriasis, unspecified M10.9 Gout, unspecified M25.579 Pain in unspecified ankle and joints of unspecified foot Z79.899 Other skilled nursing (current) drug therapy 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.52 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 Assessments Date Code Description Provider 09/08/2019 L40.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, unspecified Ángelofia Aron, [facility] 09/08/2019 M35.3 Polymyalgia rheumatica Rio Sharp, [facility] 09/08/2019 M10.9 Gout, unspecified Zsofia Aron, [facility] 09/08/2019 M25.519 Pain in unspecified shoulder Rio Sharp, [facility] 09/08/2019 Z79.899 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 Rio Sharp [facility] 09/08/2019 I95.2 Hypotension due to drugs Ángelofielza Sharp, [facility] 09/08/2019 D64.9 Anemia, unspecified Ángelofia Aron, [employer] 09/08/2019 M25.549 Pain in joints of unspecified hand Rio Sharp, [employer] 05/26/2019 L40.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, unspecified Ángelofia Aron, [employer] 05/26/2019 M10.9 Gout, unspecified Ángelofia Aron, [employer] 05/26/2019 I95.2 Hypotension due to drugs Rio Sharp, [employer] 05/26/2019 E83.51 Hypocalcemia Ángelofielza Sharp, [employer] 05/26/2019 Z79.899 Other skilled nursing (current) drug therapy Ángelofia Aron, POULTRY TRIMMER 03/24/2019 L40.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, unspecified Ángelofia Aron, P[employer]MER 03/24/2019 M10.9 Gout, unspecified Ángelofia Aron, POUL[employer] TRIMMER 03/24/2019 M25.579 Pain in unspecified ankle and joints of Rio Sharp, POULTRY TRIMMER unspecified foot 03/24/2019 Z79.899 Other skilled nursing (current) drug therapy Rio Gerardok, POUL[employer] TRIMMER 03/24/2019 Z79.52 retirement (current) use of systemic steroids MARGARET Gamez Plan of Treatment Future Appointment(s):11/10/2019 1:00 pm - MARGARET Gamez at [facility]09/08/2019 - TracyPINA GonzalezPL40.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, unspecifiedComments:For now we will continue on Remicade.I will talk to Dr Stewart if he recommends to change the Remicade to XeljanzFollow up:2 month or earlier if cxsomxC22.3 Polymyalgia rheumaticaComments:Will continue off DegdrthgzcJ17.9 Gout, njhhullawejI73.519 Pain in unspecified shoulderNew Therapy :Physical VzpywgzY46.899 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 Aquino if running lower than 110 pxdaegnyL07.9 Anemia, unspecifiedComments: PgegcnU58.549 Pain in joints of unspecified handNew Medication:Voltaren 1 % - apply 1 gram to hands twice a day Functional Status Description No Information Available Mental Status Description No Information Available Referrals Refer to Reason for Referral Status Appt Date Arcadoi Aquino MD Closed [address] [place], [place] [id number] [phone] Karina Rojo DPM Sent [address] [facility] [address] [phone]
--- OUTSIDE RECORDS SUMMARY | 2019-10-10 06:12 | XMS REPORT | Summary of Care ---
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 Mccall OD Primary Rn Icu/Animal Nutrition Consultant Reason for Visit Reason Comments Hypertension f/u BP: 124/68 CHF f/u chronic issue with edema bilateral legs has improved Diarrhea increased chronic issue for mnths; stool firms and then becomes loose for while and firms back up Joint Pain f/u chronic even with remicade treatment; Encounter Details Date Type Department Care Team Description 09/30/2019 Office Visit [facility] Arcadio Aquino MD Chronic intractable headache, unspecified headache type (Primary Dx); Medicine [address] Essential hypertension; [address] [place] [address] Chronic atrial fibrillation; [place] [address] MOSES (obstructive sleep apnea); [phone] Bilateral foot pain Allergies Active Allergy Reactions Severity Noted Date Comments Ramipril Respiratory Reaction 12/12/2007 COUGH Erythromycin GI Reaction 12/12/2007 nausea Lyrica Swelling 02/24/2018 Mirtazapine Other 12/01/2014 ineffective Dofetilide Cardiac Reaction 12/05/2015 Ventricular tachycardia documented as of this encounter (statuses as of 10/04/2019) Medications Medication Sig Dispensed Refills Start End Status Date Date daily vitamin PO TABS Take 1 Tab by 0 Active mouth EVERY MORNING. Cyanocobalamin (B-12) Place 1 Tab 30 Tab 11 07/04/20 Active 1000 MCG Sublingual SL under tongue 11 TabIndications: Status DAILY. following surgery for weight loss Levocetirizine Take 5 mg by 0 Active Dihydrochloride 5 MG mouth DAILY. Oral Tab levalbuterol HFA Take 2 Puffs by 0 Active (XOPENEX HFA) 45 inhalation MCG/ACT Inhalation EVERY FOUR Aerosol HOURS NEEDED. allopurinol (ZYLOPRIM) Take 100 mg by 0 10/05/20 Active 100 MG Oral Tab mouth DAILY. 16 Beclomethasone [place] 1 [place] 0 Active Dipropionate (QNASL) in nose DAILY. 80 MCG/ACT Nasal Aero Indications: SolnIndications: each each nostril nostril halobetasol Apply to 50 g 5 07/18/20 Active (ULTRAVATE) 0.05 % affected area 17 Apply externally daily as needed CreamIndications: Other psoriasis olanzapine 20 MG Oral Take by mouth 30 Tab 0 08/19/20 Active Tab EVERY BEDTIME. 17 Magnesium Cl-Calcium Take by mouth. 0 Active Carbonate (SLOW-MAG) 71.5-119 MG Oral Tab EC infliximab (REMICADE) by Intravenous 0 Active 100 MG Intravenous route Recon Soln DIRECTED. Every 6 weeks Cholecalciferol Take 2,000 0 Active (VITAMIN D3) 1000 Units by mouth units Oral Tab TWICE DAILY. Calcium Take by mouth 0 Active Citrate-Vitamin D3 DAILY. 1000-400 Oral Liquid hydroxychloroquine Take 400 mg by 0 Active (PLAQUENIL) 200 MG mouth DAILY. Oral Tab potassium chloride Take 2 Tabs by 180 Tab 3 11/03/19 Active (K-DUR) 20 MEQ Oral mouth DAILY. 19 Tab CR duloxetine (CYMBALTA) Take 30 mg by 0 Active 30 MG Oral CAPSULE mouth DAILY. ENTERIC COATED PARTICLES Beclomethasone Take 2 Puffs by 0 Active Dipropionate inhalation INHALATION MDI 80 TWICE DAILY. mcg/act, QVAR, (QVAR) 80 MCG/ACT Inhalation Aero Soln spironolactone TAKE ONE TABLET 90 Tab 3 12/23/19 Active (ALDACTONE) 25 MG Oral BY MOUTH EVERY 19 Tab DAY quetiapine (SEROQUEL) Take 200 mg by 0 Active 200 MG Oral Tab mouth DAILY. Loperamide HCl Take 2 Tabs by 50 Tab 3 02/03/20 Active (IMODIUM A-D) 2 MG mouth NEEDED 19 Oral Tab (loose BM). furosemide (LASIX) 40 Take 1 Tab by 90 Tab 0 02/05/20 Active MG Oral Tab mouth DAILY 19 NEEDED (Weight gain, leg swelling, or shortness of breath.). nystatin (MYCOSTATIN) Apply to 30 g 0 03/12/20 Active [id number] UNIT/GM Apply affected areas 19 externally Cream daily as needed sertraline (ZOLOFT) 50 TAKE ONE TABLET 1 06/13/20 Active MG Oral Tab BY MOUTH EVERY 19 DAY ELIQUIS 5 MG Oral TAKE ONE TABLET 180 Tab 3 09/04/20 Active TabIndications: BY MOUTH TWICE 19 Paroxysmal atrial A DAY fibrillation (HCC) Topiramate 50 MG Oral TAKE 1 TABLET 270 Tab 3 09/09/20 Active Tab BY MOUTH IN THE 19 MORNING AND 2 TABLETS AT BEDTIME HYDROcodone-acetaminop Take 1 Tab by 100 Tab 0 09/11/20 Active hen (NORCO) 5-325 MG mouth EVERY 19 Oral Tab FOUR HOURS NEEDED (for pain). Max Daily Amount: 5 Tabs. pantoprazole Take 40 mg by 0 Active (PROTONIX) 40 MG Oral mouth DAILY. Tab EC nadolol (CORGARD) 20 Take 1 Tab by 135 Tab 3 09/30/20 Active MG Oral Tab mouth 19 DIRECTED. 1/2 in AM, 1 in PM allopurinol (ZYLOPRIM) 1 Tab DAILY. 0 04/04/20 Discontinued 300 MG Oral Tab 16 019 nadolol (CORGARD) 20 Take 1 Tab by 60 Tab 11 08/07/20 Discontinued MG Oral Tab mouth TWICE 19 019 (Dose DAILY. 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 Ventricular fibrillation 04/01/2018 Overview: Multiple episodes per device interrogation Chronic left shoulder pain 01/20/2018 Idiopathic peripheral neuropathy 11/27/2017 Acute pain of left shoulder 09/10/2017 Abnormal C-reactive protein 09/10/2017 ESR raised 09/10/2017 Gout 09/10/2017 Chronic atrial fibrillation 05/24/2017 Shingles 04/20/2017 Pseudophakia of both eyes 02/05/2017 Hypoxia 07/26/2015 Spondylosis of cervical region without myelopathy or radiculopathy 07/04/2015 Headache 01/26/2015 Seronegative rheumatoid arthritis 12/02/2014 GCA (giant cell arteritis) 10/11/2014 Paroxysmal SVT (supraventricular tachycardia) 07/05/2014 CLAS - participant in clinical trial- [id number] 12/08/2013 Overview: CLAS is a lead assessment trial conducted by [employer] to determine the prevalence of visible wires outside lead insulation (externalized conductors). Patients will have yearly fluro of ICD leads and ICD device checks every 6 months for the duration of the trial. Please report device or research related questions to the Clinical Research department ext [phone] Obrien. Inflammatory arthritis 04/30/2012 Overview: Seronegative with history of psoriasis Family history of rheumatoid arthritis 04/30/2012 Family history of psoriatic arthritis 04/30/2012 Psoriasis 04/30/2012 Status following surgery for weight loss 05/31/2011 [place] (myocardial infarction) 03/14/2011 Chronic systolic heart failure 03/03/2010 GERD (gastroesophageal reflux disease) 03/03/2010 Obstructive uropathy 06/29/2009 Paroxysmal ventricular tachycardia 09/30/2008 Overview: Multiple episodes per device interrogation Congestive heart failure 04/12/2008 Overview: ECHO 6..08 FINAL IMPRESSION: Mild, eccentric LVH with severly reduced global systolic function with estimated EF 30-35%. Wall motion abnormalities, as identified in the text. Normal right ventricular size with mildly depressed systolic function. Mild pulmonary hypertension Compared to the previous echo report of 09/02/2007,LV systolic function has deteriorated. MOSES (obstructive sleep apnea) 12/22/2007 Overview: Not wearing CPAP, can't sleep with it on Insomnia 12/22/2007 Asthma 12/12/2007 Depression 12/12/2007 Hypercholesterolemia 12/12/2007 Essential hypertension 12/12/2007 Left Bundle Branch Block 12/12/2007 senior living current use of anticoagulant therapy 10/29/2007 Overview: Managed by: [facility] Referring Provider: Ben Indication: afib Target Range: 2.0-3.0 Duration: Indefinite Additional factors influencing anticoagulation: CHADS2 score of 2 for hypertension and congestive heart failure [id number] score of 3 for age > 65, hypertension, congestive heart failure Allopurinol increases warfarin effect Duloxetine increases warfarin level Spironolactone decreases warfarin effect Updated referral 01/2013, 01/2014, 02/2015, 03/2016, 06/18/17 Anticoagulation Orders 01/30/13, 01/26/14, 02/21/15, 04/05/16, 07/02/17 Positive TB test Overview: Completed 9 months treatment documented as of this encounter (statuses as of 10/04/2019) Resolved Problems Problem Noted Date Resolved Date Sepsis 07/07/2019 07/31/2019 Atrial fibrillation, unspecified type 03/28/2016 07/20/2019 Paroxysmal atrial fibrillation 09/05/2015 07/20/2019 AICD discharge 09/02/2015 07/31/2019 Lower extremity pain 07/26/2015 07/31/2019 AICD discharge 01/15/2015 07/05/2015 Mechanical complication due to automatic implantable cardiac 07/04/201203/12 defibrillator Morbid obesity due to excess calories 06/20/2012 03/12/2017 BMI 39.0-39.9,adult 03/27/2011 07/05/2014 Overview: This patient's BMI has been calculated and is above average, and BMI management plan is completed. General patient education discussion including: obesity-related excess mortality, weight loss link to reduction of risk factors for cardiac and other diseases, importance of long-term maintenance treatment in weight loss, he has already had bariatric surgery Obesity, morbid (more than 100 lbs over ideal weight or BMI > 03/14/201104/2012 40) Encounter for therapeutic drug monitoring 05/16/2010 12/12/2010 Mobitz (type) II atrioventricular block 10/18/2008 07/20/2019 Hypotension, unspecified 05/21/2008 05/27/2012 Other primary cardiomyopathies 04/12/2008 05/27/2012 Overview: 6.26.08 DEFIBRILLATOR GENERATOR IMPLANTED: Promote RF, model 3207, serial number [id number]. ATRIAL LEAD: Model 1888, serial number [id number]. RIGHT VENTRICULAR LEAD: Model 7121, serial number [id number]. LEFT VENTRICULAR LEAD: Model 1158T, serial number [id number] Atrial fibrillation 12/12/2007 07/20/2019 Obesity 12/12/2007 03/14/2011 Psoriasis 12/12/2007 09/30/2012 Rheumatoid arthritis(714.0) 12/02/2014 documented as of this encounter (statuses as of 10/04/2019) Immunizations Name Administration Dates Next Due Influenza (IM) Preservative Free 08/10/2013, 07/12/2011, 08/01/2010 Influenza Vaccine 65 Yrs + 07/01/2019 Influenza Vaccine High Dose 07/08/2018, 08/27/2017, 08/01/2016, 07/11/2015, 08/14/2014 Influenza Vaccine Whole 08/04/2009, 08/23/2008, 07/30/2006 Influenza Virus Vaccine Pres Free 6-35 07/28/2012 Months PNEUMOCOCCAL POLYSACCHARIDE VACCINE 04/08/2013 Pneumococcal Conjugate(13 Valent) 08/13/2016 ZOSTER (SHINGRIX) VACCINE 07/10/2019 documented as of this encounter Social History Tobacco Use Types Packs/Day Years Used Date Never Smoker Smokeless Tobacco: Never Used Alcohol Use Drinks/Week oz/Week Comments No 0 Standard drinks or equivalent 0.0 Sex Assigned at Date Recorded Not on file Job Start Date Occupation Industry Not on file Not on file Not on file Travel History Travel Start Travel End No recent travel history available. documented as of this encounter Last Filed Vital Signs Vital Sign Reading Time Taken Comments Blood Pressure 124/68 09/30/2019 11:52 AM EST Pulse 64 09/30/2019 11:52 AM EST Temperature - - Respiratory Rate - - Oxygen Saturation - - Inhaled Oxygen Concentration - - Weight 125.6 kg (277 lb) 09/30/2019 11:52 AM EST Height 170.2 cm (5' 7") 09/30/2019 11:52 AM EST Body Mass Index 43.38 09/30/2019 11:52 AM EST documented in this encounter Patient Instructions Patient InstructionsArcadio Aquino MD - 09/30/2019 11:20 AM ESTContinue same medicines , except reduce AM dose of nadolol to 1/2 tab a day, and continue the full tab in the evening. Hope this helps with feeling of near passing out and fatigue. Use CPAP nightly, which will help headaches. follow up in 6 weeks 12: 26 PM EST documented in this encounter Progress Notes Arcadio Aquino MD - 09/30/2019 11:20 AM EST PATIENT: Fredis Unger : 1945 DATE OF SERVICE: 09/30/2019 CHIEF COMPLAINT: Chief Complaint Patient presents with Hypertension f/u BP: 124/68 CHF f/u chronic issue with edema bilateral legs has improved Diarrhea increased chronic issue for mnths; stool firms and then becomes loose for while and firms back up Joint Pain f/u chronic even with remicade treatment; Subjective HISTORY OF PRESENT ILLNESS: Fredis Unger is a 74-y.o. male. HPI Swelling in legs has improved. Less pain in his feet. Stools with varying degrees of firmness. Urged him to take fiber every day. Headaches have been worse but he has not been wearing CPAP. Urged him to do so. Several days ago his emailed mentioning low blood pressure. I told her to reduce nadolol to 1/2 tablet in the morning and full tablet at night, but she says she did not read the email. Urged her to double check this. Now on Remicade, but still having chronic pain, very difficult to treat without using opioid. On anticoagulation therapy and therefore cannot take NSAIDs. Concerned about using tramadol because of serotonin syndrome potential. Past Medical History: Diagnosis Date Hypertension 12/12/2007 AICD discharge 09/02/2015 Asthma 12/12/2007 Atrial fibrillation (HCC) 12/12/2007 Atrial fibrillation, unspecified type (HCC) 03/28/2016 BMI 40.0-44.9, adult ([facility]) 07/05/2014 Cardiac dysrhythmia Cardiomyopathy CHF (congestive heart failure) (HCC) Colon polyps tubular adenomata, 2008, due in 2011 Depressive Disorder 12/12/2007 Erectile dysfunction GERD (gastroesophageal reflux disease) Headache disorder Hearing problem Heart disease, unspecified Hypercholesterolemia 12/12/2007 Hypertension Idiopathic peripheral neuropathy 11/27/2017 Insomnia Left Bundle Branch Block 12/12/2007 Lower extremity pain 07/26/2015 Mobitz (type) II atrioventricular block 10/18/2008 Obesity, morbid (more than 100 lbs over ideal weight or BMI > 40) ([facility] ) 03/14/2011 [place] (myocardial infarction) 03/14/2011 MOSES (obstructive sleep apnea) Paroxysmal atrial fibrillation ([facility]) 09/05/2015 Paroxysmal SVT (supraventricular tachycardia) ([facility]) 07/05/2014 Positive TB test Psoriasis 12/12/2007 Rheumatoid arthritis(714.0) Sepsis ([facility]) 07/07/2019 Shingles 04/2017 TB lung, latent Unspecified hyperplasia of prostate without urinary obstruction and other lower urinary tractsymptoms (LUTS) Urinary frequency Family History Problem Relation Age of Onset Arthritis Mother rheumatoid Heart Father CONGESTIVE HEART FAILURE, [place] Diabetes Father Heart Sister Heart Sister Heart Brother Heart Brother Heart Other GRANDFATHER - [place] AGE - 49 Diabetes Sister one Heart Sister Anesth Problems No family history Cancer No family history Clotting Disorder No family history Heart Disease No family history Kidney Disease No family history Thyroid Disease No family history Hypertension No family history Current Outpatient Medications Medication Sig allopurinol (ZYLOPRIM) 100 MG Oral Tab Take 100 mg by mouth DAILY. Beclomethasone Dipropionate (QNASL) 80 MCG/ACT Nasal Aero Soln [place] 1 [place] in nose DAILY. Indications: each nostril Beclomethasone Dipropionate INHALATION MDI 80 mcg/act, QVAR, (QVAR) 80 MCG/ACT Inhalation Aero Soln Take 2 Puffs by inhalation TWICE DAILY. Calcium Citrate-Vitamin D3 1000-400 Oral Liquid Take by mouth DAILY. Cholecalciferol (VITAMIN D3) 1000 units Oral Tab Take 2,000 Units by mouth TWICE DAILY. Cyanocobalamin (B-12) 1000 MCG Sublingual SL Tab Place 1 Tab under tongue DAILY. daily vitamin PO TABS Take 1 Tab by mouth EVERY MORNING. duloxetine (CYMBALTA) 30 MG Oral CAPSULE ENTERIC COATED PARTICLES Take 30 mg by mouth DAILY. ELIQUIS 5 MG Oral Tab TAKE ONE TABLET BY MOUTH TWICE A DAY furosemide (LASIX) 40 MG Oral Tab Take 1 Tab by mouth DAILY NEEDED ( Weight gain, leg swelling, or shortness of breath.). halobetasol (ULTRAVATE) 0.05 % Apply externally Cream Apply to affected area daily as needed HYDROcodone-acetaminophen (NORCO) 5-325 MG Oral Tab Take 1 Tab by mouth EVERY FOUR HOURS NEEDED (for pain). Max Daily Amount: 5 Tabs. hydroxychloroquine (PLAQUENIL) 200 MG Oral Tab Take 400 mg by mouth DAILY. infliximab (REMICADE) 100 MG Intravenous Recon Soln by Intravenous route DIRECTED. Every 6weeks levalbuterol HFA (XOPENEX HFA) 45 MCG/ACT Inhalation Aerosol Take 2 Puffs by inhalation EVERYFOUR HOURS NEEDED. Levocetirizine Dihydrochloride 5 MG Oral Tab Take 5 mg by mouth DAILY. Loperamide HCl (IMODIUM A-D) 2 MG Oral Tab Take 2 Tabs by mouth NEEDED (loose BM). Magnesium Cl-Calcium Carbonate (SLOW-MAG) 71.5-119 MG Oral Tab EC Take by mouth. nadolol (CORGARD) 20 MG Oral Tab Take 1 Tab by mouth DIRECTED. 1/2 in AM, 1 in PM nystatin (MYCOSTATIN) 110667 UNIT/GM Apply externally Cream Apply to affected areas daily as needed olanzapine 20 MG Oral Tab Take by mouth EVERY BEDTIME. pantoprazole (PROTONIX) 40 MG Oral Tab EC Take 40 mg by mouth DAILY. potassium chloride (K-DUR) 20 MEQ Oral Tab CR Take 2 Tabs by mouth DAILY. quetiapine (SEROQUEL) 200 MG Oral Tab Take 200 mg by mouth DAILY. sertraline (ZOLOFT) 50 MG Oral Tab TAKE ONE TABLET BY MOUTH EVERY DAY spironolactone (ALDACTONE) 25 MG Oral Tab TAKE ONE TABLET BY MOUTH EVERY DAY Topiramate 50 MG Oral Tab TAKE 1 TABLET BY MOUTH IN THE MORNING AND 2 TABLETS AT BEDTIME No current facility-administered medications for this visit. Allergies Allergen Reactions Altace [Ramipril] Respiratory Reaction COUGH Erythromycin GI Reaction nausea Lyrica Swelling Mirtazapine Other ineffective Tikosyn [Dofetilide] Cardiac Reaction Ventricular tachycardia Social History Socioeconomic History Marital status: Spouse name: Not on file Number of children: Not on file Years of education: Not on file Highest education level: Not on file Occupational History Not on file Social Needs Financial resource strain: Not on file Food insecurity Worry: Not on file Inability: Not on file Transportation needs Medical: Not on file Non-medical: Not on file Tobacco Use Smoking status: Never Smoker Smokeless tobacco: Never Used Substance and Sexual Activity Alcohol use: No Alcohol/week: 0.0 standard drinks Drug use: No Sexual activity: Yes Partners: Female Lifestyle Physical activity Days per week: Not on file Minutes per session: Not on file Stress: Not on file Relationships Social connections Talks on phone: Not on file Gets together: Not on file Attends roman catholic service: Not on file Active member of club or organization: Not on file Attends meetings of clubs or organizations: Not on file Relationship status: Not on file Intimate partner violence Fear of current or ex partner: Not on file Emotionally abused: Not on file Physically abused: Not on file Forced sexual activity: Not on file Other Topics Concern Not on file Social History Narrative Patient is retired from [employer]. REVIEW OF SYSTEMS: Review of Systems Constitutional: Positive for malaise/fatigue. Negative for weight loss. Respiratory: Positive for shortness of breath. Cardiovascular: Negative for chest pain and palpitations. Genitourinary: Negative for frequency. Musculoskeletal: Positive for joint pain and myalgias. Neurological: Positive for headaches. Negative for dizziness. Psychiatric/Behavioral: Positive for depression. The patient is nervous/anxious and has insomnia. Objective PHYSICAL EXAM: VITALS: BP 124/68 (BP Location: Left arm, Patient Position: Sitting) | Pulse 64 | Ht 5' 7" (1.702m) | Wt 277 lb (125.6 kg) | BMI 43.38 kg/m Body mass index is 43.38 kg/m. Physical Exam Alert, oriented, in no acute distress. Vitals as above. HEENT: unremarkable. Neck: No palpable lymphadenopathy in the submandibular, submental, anterior cervical, posterior cervical, or occipital chains, nor in the supraclavicular spaces. No JVD, thyromegaly. LUNGS: clear. HEART: Regular rate and rhythm. EXTREMITIES: no cyanosis, clubbing, or edema. ASSESSMENT / IMPRESSION: ICD-9-CM ICD-10-CM 1. Chronic intractable headache, unspecified headache typemay be due to not wearing CPAP. Urged him to do so 784.0 R51 2. Essential hypertensionwith low blood pressures. Reduce a.m. nadolol dose to half tablet 401.9 I10 3. Chronic atrial fibrillationcontinue anticoagulation therapy. Also has pacemaker and often rhythm is paced 427.31 I48.20 4. MOSES (obstructive sleep apnea)wear CPAP mask 327.23 G47.33 5. Bilateral foot painbetter 729.5 M79.671 M79.672 Patient Instructions Continue same medicines , except reduce AM dose of nadolol to 1/2 tab a day, and continue the full tab in the evening. Hope this helps with feeling of near passing out and fatigue. Use CPAP nightly, which will help headaches. follow up in 6 weeks Author: Arcadio Aquino MD 10/04/2019 19:50 documented in this encounter Plan of Treatment Date Type Specialty Care Team Description 10/22/2019 Office Visit Audiology Williams Ponce, AuD [address] [place] [id number] [phone] 11/05/2019 [facility] 11/16/2019 Office Visit Internal Medicine Arcadio Aquino MD [address] [place] [address] 02/09/2020 Orders Only Cardiology 02/15/2020 Office Visit Cardiology Roman Daigle MD [address] [place] [address] 03/10/2020 Office Visit [facility] Health Maintenance Due Date Last Done Comments MEDICARE ANNUAL WELLNESS 05/17/2017 05/17/2016 (Postponed), VISIT 03/31/2015 (Previously completed), 05/27/2012 LIPID DISORDER SCREENING 01/08/2019 01/08/2018, 05/17/2016, 08/10/2015, Additional history exists ZOSTER IMMUNIZATION SERIES 09/04/2019 07/10/2019 (2 of 2) DEPRESSION SCREENING 05/04/2020 05/04/2019, 05/04/2019 FALL RISK ASSESSMENT 07/07/2020 07/07/2019, 07/07/2019 Colonoscopy 05/18/2024 05/18/2019, 05/18/2019, 03/20/2016, Additional history exists HEPATITIS C SCREENING Completed 04/29/2012 PNEUMOCOCCAL 65+YRS Completed 08/13/2016, 04/08/2013 INFLUENZA VACCINE Completed 07/01/2019, 07/08/2018, 08/27/2017, Additional history exists HEPATITIS A IMMUNIZATION Aged Out No longer eligible SERIES based on patient's age to complete this topic HPV IMMUNIZATION SERIES Aged Out No longer eligible based on patient's age to complete this topic MENINGOCOCCAL VACCINE IMM Aged Out No longer eligible based on patient's age to complete this topic documented as of this encounter Goals Goal Patient Goal Associated Recent Patient-Stated? Author Type Problems Progress Blood Pressure Blood Pressure 124/68 No Miles, < 140/90 (09/30/2019 MD Arcadio 11:52 AM EST) Note: This is an individualized treatment (blood pressure) goal for Fredis Unger: Displayed above (on the left) is your goal for blood pressure control. Your most recent blood pressure is also shown above, on the right. You should try to achieve blood pressures that are lower than your goal listed above (on the left). Weight increase vs. 18 mo min CHF 0 (09/30/2019 11:52 AM EST) Arcadio Lawson MD (lbs) < 5 Note: This is an individualized treatment (congestive heart failure, CHF) goal for Fredis Unger: Displayed above (on the right) is how many pounds you are in excess of your lowest weight over the past 18 months. Note that lower numbers are better. Excessive weight gain often indicates fluid reten tion and worsening heart failure. You should contact your doctor immediately if the above number is too high (above your goal, the number on the left). Depression screen (PHQ-9) Depression 13 (05/04/2019 11:44 AM Arcadio Lawson MD total score < 5 EDT) Note: This is an individualized treatment (depression) goal for Fredis Unger: Displayed above is your goal for a depression screening (PHQ-9) score that would indicate good control of your depression. Keep a regular sleep schedule Lifestyle Arcadio Lawson MD Note: This is an individualized lifestyle goal for Fredis Unger: Please maintain a regular sleep schedule. This may help with some symptoms of depression. Consume a [id number] diet Lifestyle No Arcadio Aquino MD Note: This is an individualized lifestyle goal for Fredis Unger: Please do not add additional salt to your food. Additional salt may lead to fluid retention and worsen your congestive heart failure. Take all prescribed medications as directed Self-management Arcadio Lawson MD Note: This is an individualized self-management goal for Fredis Unger: Please take all prescribed medications as directed. 1. Do not skip doses. If you cannot afford your medications, talk with your doctor. 2. Use a pill reminder system such as a pill box if needed. Your pharmacist can help you with this. 3. Contact your Pharmacy 5 days before your medication runs out. If you cannot take your medications for any reasons, talk with your doctor. 4. Please bring all of your medication bottles and inhalers (or a list of all your medications/inhalers) with you to every visit. Potential barriers to meeting all of your care plan goals will continue to be addressed on an ongoing basis. Check your weight daily Self-management Arcadio Lawson MD Note: This is an individualized self-management goal for Fredis Sheba Unger: Please check your weight daily. Refer to the accompanying CHF treatment goal and call your doctor immediately for further instructions on how to respond to unexpected weight gain. 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 03/20/2011 7121/65 / Implanted: Qty: 1 on 04/15/2008 at [facility] [id number] / [id number] Quickflex Lead - [id number] Left: [facility] 03/20/2011 [id number] / Implanted: Qty: 1 on 04/15/2008 at [facility] [id number] / Lead, Quick Flex 1258t/86 - [id number] Chest [facility] 08/20/2013 1258/86 / Implanted: Qty: 1 on 10/16/2010 at [facility] [id number] / Unify [id number] - [id number] Left: [facility] 06/20/2013 [id number] / Implanted: Qty: 1 on 07/03/2012 at [facility] [id number] / Optisense Lead - [id number] Left: [facility] 02/17/2015 / Implanted: Qty: 1 on 07/03/2012 at [facility] [id number] / Lens, Envista 14.5 Acrylic - [id number] Right: BAUSCH & LOMB [id number] / Implanted: Qty: 1 on 06/22/2015 by Lydia Perez MD at [facility] [id number] / Lens, Envista 14.5 Acrylic - [id number] Left: Eye BAUSCH & LOMB [id number] / Implanted: Qty: 1 on 01/04/2016 by Lydia Perez MD at [facility] [id number] / Unify Assura [id number] - [id number] Left: [facility] [id number] / Implanted: Qty: 1 on 12/19/2018 by Lv Obrien MD at [facility] [id number] / documented as of this encounter Results Not on filedocumented in this encounter Visit Diagnoses Diagnosis Chronic intractable headache, unspecified headache type Essential hypertension Unspecified essential hypertension Chronic atrial fibrillation Atrial fibrillation MOSES (obstructive sleep apnea) Obstructive sleep apnea (adult) (pediatric) Bilateral foot pain Pain in limb documented in this encounter Insurance Payer Benefit Plan / Subscriber ID Effective Dates Phone Address Type Group MEDICARE MEDICARE PART A & xxxxxxxxxxx Effective for all Medicare B dates 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
--- NOTE | 2019-10-10 06:42 | ED ---
Head Injury - HPI Summary HPI Summary: 74 year old male presents to the ED with a chief complaint of head pain secondary to falling out of bed while sleeping at around 0400 this morning. Patient hit his left baptism on his dresser when he fell. He reports a headache. Besides hitting his head, patient sustained minor abrasions around his body. Patient denies syncope, fever, or dizziness. He takes blood thinners. - History Of Current Complaint Chief Complaint: EDHeadInjury Stated Complaint: FALL PER PT Time Seen by Provider: 10/10/19 06:24 Hx Obtained From: Patient Mechanism Of Injury: Fall From Height Of: - 3 feet, his bed. Onset/Duration: Started Hours Ago Onset of Pain: Immediate, Post Accident Pain Intensity: 0 Location of Head Injury: Temporal Location: Diffuse Associated Signs And Symptoms: Headache - Allergies/Home Medications Allergies/Adverse Reactions: Allergies Allergy/AdvReac Type Severity Reaction Status Date / Time dofetilide Allergy Unknown Verified 10/10/19 06:06 Reaction Details erythromycin base Allergy GI Upset Verified 10/10/19 06:06 ramipril Allergy Coughing Verified 10/10/19 06:06 PMH/Surg Hx/FS Hx/Imm Hx Endocrine/Hematology History: Reports: Hx Anticoagulant Therapy Denies: Hx Blood Disorders, Hx Diabetes, Hx Systemic Lupus Erythematosus Cardiovascular History: Reports: Hx Auto Implanted Cardiovert Defib, Hx Congestive Heart Failure, Hx Hypertension, Hx Pacemaker/ICD Denies: Hx Peripheral Vascular Disease Respiratory History: Reports: Hx Asthma, Hx Sleep Apnea History: Denies: Hx Dialysis, Hx Renal Disease Musculoskeletal History: Reports: Hx Rheumatoid Arthritis - ON ARTHRITIS MEDICATION SINCE 2011, Hx Gout, Other Musculoskeletal History - Psoriatic arthritis Denies: Hx Arthritis, Hx Osteoporosis Sensory History: Reports: Hx Contacts or Glasses, Hx Hearing Aid - hearing aides are home, Hx Hearing Problem Denies: Other Sensory Impairments Opthamlomology History: Reports: Hx Contacts or Glasses Denies: Other Sensory Impairments Neurological History: Reports: Hx Headaches Denies: Hx Seizures, Hx Transient Ischemic Attacks (TIA) Psychiatric History: Reports: Hx Anxiety, Hx Depression - Cancer History Hx Chemotherapy: No - Surgical History Surgery Procedure, Year, and Place: cardiac ablation x2-RPH. cardiac cath- 2005. pacemaker and AICD placement. gastric bypass-2005. 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 "latent" Denies: Hx of Known/Suspected MRSA, Traveled Outside the [place] in Last 30 Days - Family History Known Family History: Positive: Cardiac Disease, Diabetes - Social History Alcohol Use: None Hx Substance Use: No Substance Use Type: Reports: None Hx Tobacco Use: No Smoking Status (MU): Never Smoked Tobacco Have You Smoked in the Last Year: No Review of Systems - ROS Summary Review of Systems Summary: Home Medications Medication Instructions Recorded Confirmed Type Halobetasol Propionate [Ultravate] 0.05 % TOPICAL DAILY PRN 11/06/15 08/05/19 History Potassium Chlor TAB* [Potassium 20 meq PO BID 11/06/15 08/05/19 History Chlor TAB 20 MEQ*] Spironolactone TAB* [Aldactone TAB 25 mg PO DAILY 11/06/15 08/05/19 History 25 MG*] Nadolol TAB* [Corgard TAB*] 20 mg PO BID WITH MEALS 12/01/15 08/05/19 History Beclomethasone Dipropionate [Qnasl] 80 mcg NASAL DAILY 12/31/16 08/05/19 History Levalbuterol HFA INHALER* [Xopenex 2 puff INH QID PRN 12/31/16 08/05/19 History Hfa Inhaler*] LevoCETirizine TAB (NF) [Xyzal TAB 5 mg PO DAILY PRN 12/31/16 08/05/19 History (NF)] Allopurinol TAB* [Zyloprim 100 MG 100 mg PO DAILY 08/06/18 08/05/19 History TAB*] Allopurinol TAB* [Zyloprim 300 MG 300 mg PO DAILY 08/06/18 08/05/19 History TAB*] Apixaban* [Eliquis*] 5 mg PO BID 08/06/18 08/05/19 History Calcium Citrate/Vitamin D3 1 tab PO DAILY 08/06/18 08/05/19 History [Calcium Citrate - Vit D3 Tab] Cholecalciferol (Vitamin D3) 2,000 unit PO BID 08/06/18 08/05/19 History [Vitamin D3] Fluticasone HFA 110 mcg(NF) 2 puff INH BID 08/06/18 08/05/19 History [Flovent HFA 110 mcg(NF)] Folic Acid TAB* [Folvite TAB*] 1 mg PO DAILY 08/06/18 08/05/19 History Magnesium Chloride EC TAB* [Slow 64 mg PO DAILY 08/06/18 08/05/19 History Mag EC TAB*] Multivitamins/Minerals TAB* 1 tab PO DAILY 08/06/18 08/05/19 History [Theragran/minerals TAB*] OLANzapine TAB* [Zyprexa 10 MG 20 mg PO BEDTIME 08/06/18 08/05/19 History TAB*] Sertraline* [Zoloft*] 100 mg PO DAILY 08/06/18 08/05/19 History Topiramate TAB(*) [Topamax 100 mg 200 mg PO BEDTIME 08/06/18 08/05/19 History tab] Topiramate TAB(*) [Topamax 25 MG 100 mg PO QAM 08/06/18 08/05/19 History tab] inFLIXimab* [Remicade*] 100 mg IV .EVERY 6 WEEKS 08/06/18 08/05/19 History Acetaminophen TAB* [Tylenol TAB*] 650 mg PO Q4H PRN tab 08/09/18 08/05/19 Rx Tamsulosin CAP* [Flomax CAP*] 0.4 mg PO BEDTIME #30 cap 08/09/18 08/05/19 Rx Diltiazem CD CAP* [Cardizem CD 120 mg PO DAILY #30 cap.cd 10/27/18 08/05/19 Rx CAP*] Loperamide CAP* [Imodium CAP*] 2 mg PO Q2H PRN #120 cap 10/27/18 08/05/19 Rx Lactobacillus Acidophilus [Freeze 1 cap PO TID 02/03/19 08/05/19 History Dried Acidophilus] Quetiapine Fumarate [Seroquel 200 200 mg PO BEDTIME 02/03/19 08/05/19 History MG] HYDROcodone/ACETAMIN 5-325 MG* 1 tab PO Q6H PRN 06/24/19 08/05/19 History [Snyder 5-325 TAB*] Negative: Fever Neurological: Negative - negative-dizziness Positive: Headache. Negative: Syncope Physical Exam - Summary Physical Exam Summary: General: Well-developed, Well-nourished male. No acute distress. HEENT: Normocephalic, Atraumatic. Eyes: Conjuctiva normal, PERRL. Ears: TMs within normal limits. Nares: (-) discharge, (-) erythema. Oropharynx: Clear, mucous membranes moist, (-) exudates. Neck: Soft, FROM, (-) lymphadenopathy, (-) thyromegaly, (-) JVD. Cardiovascular: Normal sinus rhythm, (-) murmur. Lungs: Clear to auscultation bilaterally (-) wheezes, (-) rales, (-) rhonchi. Abdomen: Soft, non-tender, non-distended, (-) organomegaly, normal bowel sounds. Back: (-) CVA tenderness Extremities: No edema. Skin: Warm, dry, (-) rash. Superficial abrasions on left baptism and left forearm. Mild swelling on left baptism. Neuro: Alert and oriented x3, no focal deficits. Psychiatric: Mood normal, affect normal. Triage Information Reviewed: Yes Vital Signs On Initial Exam: Initial Vitals Temp Pulse Resp BP Pulse Ox 97.6 F 72 15 135/100 100 10/10/19 06:05 10/10/19 06:05 10/10/19 06:05 10/10/19 06:05 10/10/19 06:05 Vital Signs Reviewed: Yes Procedures - Sedation Patient Received Moderate/Deep Sedation with Procedure: No Diagnostics - Vital Signs Vital Signs Temp Pulse Resp BP Pulse Ox 10/10/19 06:29 72 151/90 99 10/10/19 06:05 97.6 F 72 15 135/100 100 - Laboratory Lab Statement: Any lab studies that have been ordered have been reviewed, and results considered in the medical decision making process. Head Injury Course/Dx - Diagnoses Provider Diagnoses: Head injury Discharge ED - Sign-Out/Discharge Documenting (check all that apply): Sign-Out Patient Signing out patient TO: Yonas Miller - This patient is a signout to Dr. Miller from Dr. López at change of shifts at 0700 on 10/10/19. - Discharge Plan Condition: Stable Referrals: Arcadio Aquino MD [Primary Care Provider] - - Attestation Statements Document Initiated by Scribe: Yes Documenting Scribe: Yobani Tiwari Provider For Whom Scribe is Documenting (Include Credential): Calli López MD. Scribe Attestation: Yobani Maldonado, scribed for Calli López MD. on 10/10/19 at 0706. Status of Scribe Document: Ready
[2019-10-10] MEDS ORDERED: Acetaminophen TAB* 325 MG PO ONE (07:15)
--- NOTE | 2019-10-10 07:15 | ED ---
Progress - Progress Note Progress Note: This pt is a sign out from Dr. López to Dr. Miller at shift change on at [address] - Results/Orders Results/Orders: Brain CT, as read by radiologist IMPRESSION: 1. No acute intracranial hemorrhage. No intracranial mass. Since the prior CT study of 06/24/2019, no significant new findings. 2. Opacification of the right sphenoid sinus. This is new since the prior CT exam and may represent acute sinusitis. Dr. Miller has reviewed this report. Re-Evaluation - Re-Evaluation First Eval Re-Evaluation Time: 07:12 Comment: Pt notes he has a headache. Will give him Tylenol. Brain CT is pending. Course/Dx - Course Course Of Treatment: Patient was signed out to myself by Dr. López. Patient had a mechanical fall and hit his head. Patient is on anticoagulation. Patient had a CT scan of his brain which was negative for any acute abnormality. Patient had no other injuries. - Diagnoses Provider Diagnoses: Head injury, Fall Discharge ED - Sign-Out/Discharge Documenting (check all that apply): Patient Departure - Discharge home, Receiving Sign-Out Receiving patient FROM: Calli López - Discharge Plan Condition: Stable Disposition: HOME Patient Education Materials: Fall Prevention for Older Adults (ED), Head Injury (ED) Referrals: Arcadio Aquino MD [Primary Care Provider] - Additional Instructions: PLEASE RETURN TO EMERGENCY DEPARTMENT FOR SLURRED SPEECH, CHANGE IN MENTAL STATUS, REPEATED VOMITING, ONE SIDED WEAKNESS OR NUMBNESS. Please follow up with your primary care physician. Please make all follow-ups in 1-3 days unless I advise you otherwise. - Billing Disposition and Condition Condition: STABLE Disposition: Home - Attestation Statements Document Initiated by Rhiannon: Yes Documenting Scribe: Lydia Petty Provider For Whom Rhiannon is Documenting (Include Credential): Yonas Miller MD Scribe Attestation: Lydia Maldonado, jesusibed for Yonas Miller MD on 10/10/19 at 0851. Scribe Documentation Reviewed: Yes Provider Attestation: The documentation as recorded by the Lydia ryan accurately reflects the service I personally performed and the decisions made by , Yonas Miller MD Status of Scribe Document: Viewed
[2019-10-10 07:33] LABS: Albumin 3.4 g/dL (3.2-5.2); Albumin/Globulin Ratio 1.1 (1-3); EGFR African American 57.4 (>60); EGFR Non-African American 47.5 (>60); Globulin 3.2 g/dL (2-4); Potassium 4.1 mmol/L (3.5-5.0); Total Bilirubin 0.6 mg/dL (0.2-1.0); Total Protein 6.6 g/dL (6.4-8.9)
[2019-10-10 07:38] LABS: INR 1.49 (0.82-1.09)
[2019-10-10 07:39] LABS: ABS Eosinophils 0.3 10^3/ul (0-0.6); ABS Lymphocytes 1.3 10^3/ul (1.0-4.8); ABS Monocytes 0.7 10^3/ul (0-0.8); ABS Neutrophils 3.3 10^3/ul (1.5-7.7); Eosinophil % 5.2 %; Hematocrit 34 % (42-52); Hemoglobin 11.7 g/dL (14.0-18.0); Lymphocyte % 23.4 %; Mean Corpuscular HGB Conc 35 g/dL (31-36); Mean Corpuscular Hemoglobin 38 pg (27-31); Mean Corpuscular Volume 109 fL (80-94); Mean Platelet Volume 9.9 fL (7.4-10.4); Nucleated Red Blood Cells % 0.1; Platelet Count 136 10^3/uL (150-450); Red Blood Count 3.08 10^6 /uL (4.18-5.48); Red Cell Distribution Width 16 % (10-15); White Blood Count 5.6 10^3/uL (3.5-10.8)
[2019-10-10 08:35] VITALS: BP 103/77
== END 2019-10-10 08:30 | disposition home or self-care (01) ==
LOC: ED 06:04
DX: S09.90XA Unspecified injury of head, initial encounter (principal); W19.XXXA Unspecified fall, initial encounter; Y92.9 Unspecified place or not applicable; R51 Headache; Z79.01 Long term (current) use of anticoagulants; Z95.810 Presence of automatic (implantable) cardiac defibrillator
CPT/HCPCS: 36415; 70450; 80053; 85025; 85610; 99283; A9270-GY

== ENCOUNTER 2019-12-11 23:07 | Emergency (ER) | payer MEDICARE, BC ==
--- NOTE | 2019-12-11 23:11 | ED ---
HPI Chest Pain - HPI Summary HPI Summary: This patient is a 74 year old male presenting to [facility] with a chief complaint of chest pain. The patient states he was in bed trying to sleep an hour ago when he felt sudden onset chest pain to the mid sternum for 10-15 minutes, before the pain began to resolve. He states the pain at its worst was a 9/10 in severity. He states he has a Hx of AFIB, no Hx of VA. - History of Current Complaint Hx Obtained From: Patient Onset/Duration: Started Hours Ago Chest Pain Location: Mid Sternal - Additional Pertinent History Primary Care Physician: [id number] - Allergy/Home Medications Allergies/Adverse Reactions: Allergies Allergy/AdvReac Type Severity Reaction Status Date / Time dofetilide Allergy Unknown Verified 11/18/19 13:56 Reaction Details erythromycin base Allergy GI Upset Verified 11/18/19 13:56 ramipril Allergy Coughing Verified 11/18/19 13:56 Home Medications: Home Medications Halobetasol Propionate [Ultravate] 0.05 % TOPICAL DAILY PRN 11/06/15 [History Confirmed 11/18/19] Potassium Chlor TAB* [Potassium Chlor TAB 20 MEQ*] 20 meq PO BID 11/06/15 [ History Confirmed 12/11/19] Spironolactone TAB* [Aldactone TAB 25 MG*] 25 mg PO DAILY 11/06/15 [History Confirmed 12/11/19] Beclomethasone Dipropionate [Qnasl] 80 mcg NASAL DAILY 12/31/16 [History Confirmed 12/11/19] Levalbuterol HFA INHALER* [Xopenex Hfa Inhaler*] 2 puff INH QID PRN 12/31/16 [ History Confirmed 11/18/19] Allopurinol TAB* [Zyloprim 100 MG TAB*] 100 mg PO DAILY 08/06/18 [History Confirmed 12/11/19] Apixaban* [Eliquis*] 5 mg PO BID 08/06/18 [History Confirmed 12/11/19] Calcium Citrate/Vitamin D3 [Calcium Citrate - Vit D3 Tab] 1 tab PO DAILY [History Confirmed 12/11/19] Cholecalciferol (Vitamin D3) [Vitamin D3] 2,000 unit PO BID 08/06/18 [History Confirmed 12/11/19] Fluticasone HFA 110 mcg(NF) [Flovent HFA 110 mcg(NF)] 2 puff INH BID 08/06/18 [ History Confirmed 11/18/19] Folic Acid TAB* [Folvite TAB*] 1 mg PO DAILY 08/06/18 [History Confirmed ] Magnesium Chloride EC TAB* [Slow Mag EC TAB*] 64 mg PO DAILY 08/06/18 [History Confirmed 12/11/19] Multivitamins/Minerals TAB* [Theragran/minerals TAB*] 1 tab PO DAILY 08/06/18 [ History Confirmed 11/18/19] OLANzapine TAB* [Zyprexa 10 MG TAB*] 20 mg PO BEDTIME 08/06/18 [History Confirmed 11/18/19] Topiramate TAB(*) [Topamax 100 mg tab] 100 mg PO BEDTIME 08/06/18 [History Confirmed 12/11/19] Topiramate TAB(*) [Topamax 25 MG tab] 50 mg PO QAM 08/06/18 [History Confirmed 12/11/19] Acetaminophen TAB* [Tylenol TAB*] 650 mg PO Q4H PRN tab 08/09/18 [Rx Confirmed 12/12/19] Tamsulosin CAP* [Flomax CAP*] 0.4 mg PO BEDTIME #30 cap 08/09/18 [Rx Confirmed 11/18/19] Loperamide CAP* [Imodium CAP*] 2 mg PO Q2H PRN #120 cap 10/27/18 [Rx Confirmed 12/12/19] Lactobacillus Acidophilus [Freeze Dried Acidophilus] 1 cap PO TID 02/03/19 [ History Confirmed 11/18/19] Quetiapine Fumarate [Seroquel 200 MG] 200 mg PO BEDTIME 02/03/19 [History Confirmed 11/18/19] Nadolol [Corgard] 10 mg PO BID 11/04/19 [History Confirmed 12/11/19] Beclomethasone 80 MCG MDI(NF) [Qvar 80 MCG MDI(NF)] 2 puff INH BID 12/11/19 [ History Confirmed 12/11/19] Beclomethasone Dipropionate [Qnasl] 12/11/19 [History] DULoxetine DR CAP* [Cymbalta CAP*] 30 mg PO DAILY 12/11/19 [History Confirmed ] Furosemide TAB* [Lasix TAB*] 1 tab PO DAILY 12/11/19 [History Confirmed 12/12/19 ] Hydrocodone/Acetaminophen [Hydrocodone-Acetamin 5-325 mg] 12/11/19 [History] Hydroxychloroquine Sulfate 200 mg PO 12/11/19 [History] LevoCETirizine TAB (NF) [Xyzal TAB (NF)] 5 mg PO DAILY 12/11/19 [History Confirmed 12/11/19] OLANZapine [Olanzapine] 12/11/19 [History] Pantoprazole TAB * [Protonix TAB*] 40 mg PO DAILY 12/11/19 [History Confirmed ] Quetiapine Fumarate 200 mg PO DAILY 12/11/19 [History Confirmed 12/11/19] Rifaximin(NF) [Xifaxan(NF)] 12/11/19 [History] Sertraline HCl [Zoloft] 50 mg PO 12/11/19 [History] PMH/Surg Hx/FS Hx/Imm Hx Endocrine/Hematology History: Reports: Hx Anticoagulant Therapy Denies: Hx Blood Disorders, Hx Diabetes, Hx Systemic Lupus Erythematosus Cardiovascular History: Reports: Hx Auto Implanted Cardiovert Defib, Hx Congestive Heart Failure, Hx Hypertension, Hx Pacemaker/ICD Denies: Hx Peripheral Vascular Disease Respiratory History: Reports: Hx Asthma, Hx Sleep Apnea History: Denies: Hx Dialysis, Hx Renal Disease Musculoskeletal History: Reports: Hx Rheumatoid Arthritis - ON ARTHRITIS MEDICATION SINCE 2011, Hx Gout, Other Musculoskeletal History - Psoriatic arthritis Denies: Hx Arthritis, Hx Osteoporosis Sensory History: Reports: Hx Contacts or Glasses, Hx Hearing Aid - hearing aides are home, Hx Hearing Problem Denies: Other Sensory Impairments Opthamlomology History: Reports: Hx Contacts or Glasses Denies: Other Sensory Impairments Neurological History: Reports: Hx Headaches Denies: Hx Seizures, Hx Transient Ischemic Attacks (TIA) Psychiatric History: Reports: Hx Anxiety, Hx Depression - Cancer History Hx Chemotherapy: No - Surgical History Surgery Procedure, Year, and Place: cardiac ablation x2-RPH. cardiac cath- 2005. pacemaker and AICD placement. gastric bypass-2005. 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" Denies: Hx of Known/Suspected MRSA - Family History Known Family History: Positive: Cardiac Disease, Diabetes - Social History Alcohol Use: None Hx Substance Use: No Substance Use Type: Reports: None Hx Tobacco Use: No Smoking Status (MU): Never Smoked Tobacco Have You Smoked in the Last Year: No Review of Systems Negative: Fever Positive: Chest Pain All Other Systems Reviewed And Are Negative: Yes Physical Exam - Summary Physical Exam Summary: Appearance: Well-appearing, Well-nourished, lying in bed comfortably Skin: Warm, dry, no obvious rash Eyes: sclera anicteric, no conjunctival pallor ENT: mucous membranes moist, pharynx appears normal Neck: Supple, nontender Respiratory: Clear to auscultation, no signs of respiratory distress Cardiovascular: Normal S1, S2. No murmurs. Normal distal pulses in tibial and radial bilaterally. Abdomen: Soft, nontender, normal active bowel sounds present Musculoskeletal: Normal, Strength/ROM Intact Neurological: A&Ox3, awake and alert, mentation is normal, speech is fluent and appropriate Psychiatric: affect is normal, does not appear anxious or depressed Triage Information Reviewed: Yes Vital Signs Reviewed: Yes Procedures - Sedation Patient Received Moderate/Deep Sedation with Procedure: No Diagnostics - Laboratory Result Diagrams: 12/12/19 00:00 12/12/19 00:00 Lab Statement: Any lab studies that have been ordered have been reviewed, and results considered in the medical decision making process. - Radiology CXR Radiology Interpretation Completed By: ED Physician Summary of Radiographic Findings: No acute process. Pending official radiologist report. - EKG 2311 Cardiac Rate: Tachycardia - 120 BPM Summary of EKG Findings: A-V dual paced complexes w/ some inhibition....other complexes also detected. No further analysis detected due to paced rhythm. ED Physician has reviewed and interpreted this EKG. Chest Pain Course/Dx - Course Course Of Treatment: This patient is a 74 year old male presenting to [facility] with a chief complaint of chest pain. The patient is feeling better, pain down to a 4 without specific treatment. EKG is difficult to interpret as it is paced , but there are no overt ST changes. Troponin is neg x 2. HEART score is 3-4. Pt is felt to be at low risk of MACE and at this point can be safely discharged to followup with his PCP. Plan was discussed with the patient and he understands and agrees. - Diagnoses Provider Diagnoses: Chest pain Discharge ED - Sign-Out/Discharge Documenting (check all that apply): Patient Departure - Discharge - Discharge Plan Condition: Good Disposition: HOME Patient Education Materials: Chest Pain (ED) Referrals: Arcadio Aquino MD [Primary Care Provider] - 3 Days Additional Instructions: We did not find any sign on the tests tonight of an acute heart problem causing your pain. I think it is ok to go home at this point, but contact your regular doctor for a followup check this week. - Billing Disposition and Condition Condition: GOOD Disposition: Home - Attestation Statements Document Initiated by Rhiannon: Yes Documenting Scribe: Todd Begum Provider For Whom Rhiannon is Documenting (Include Credential): Fredis Ortiz MD Scribe Attestation: I, Todd Begum, scribed for Fredis Ortiz MD on 12/12/19 at 2030. Scribe Documentation Reviewed: Yes Provider Attestation: The documentation as recorded by the Todd ryan accurately reflects the service I personally performed and the decisions made by me, Fredis Ortiz MD Status of Scribe Document: Viewed
--- OUTSIDE RECORDS SUMMARY | 2019-12-11 23:17 | XMS REPORT | Continuity of Care Document ---
:1945 External Reference #:[id number] Author Name Vini Stewart M.D. (transmitted by agent of provider [place] Bryan) Address [address] [place] [address] Problems Active Problems Provider Date Gout Rajiv Kan M.D. Onset: 04/04/2016 ESR raised Rajiv Kan M.D. Onset: 04/04/2016 C-reactive protein abnormal Rajiv Kan M.D. Onset: 04/04/2016 Psoriasis Rajiv Kan M.D. Onset: 04/04/2016 Inflammatory polyarthropathy Rajiv Kan M.D. Onset: 04/04/2016 Taking medication Rajiv Kan M.D. Onset: 04/04/2016 Shoulder joint pain Rajiv [...] Unknown Never Smoked Cigarettes Smoking Status Reviewed: 10/27/19 Never Smoked Cigarettes ETOH Use Denies alcohol use Tobacco Use Start: Unknown Patient has never smoked Recreational Drug Use Denies Drug Use Exercise Type/Frequency Exercises rarely Allergies, Adverse Reactions, Alerts Active Allergies Reaction Severity Comments Date Altace cough 11/28/2015 Erythromycin nausea 11/28/2015 Medications Active Medications SIG Qnty Indications Ordering Date Provider Prednisone 1 by mouth 90tabs L40.50 Vini Stewart, 10/27/2019 5mg Tablets every day M.D. Voltaren apply 1 gram 100gm M25.549 Rio Gerardok, 09/08/2019 1% Gel to hands twice [employer] a day Hydroxychloroquine Sulfate Take 2 Daily [...] 10/01/2016 100mg Tablets mouth every day *in [employer] addition to 300mg* Allopurinol take one tablet by 90tabs M10.9 Vini Stewart, 04/04/2016 300mg Tablets mouth every day M.D. Voltaren apply 2 grams twice 5tubes M06.4 Rajiv Kan, 11/28/2015 1% Gel daily to feet or M.D. shoulders as needed for pain 5 tubes Vitamins Multiple 1 PO qd 30tabs Qutaybeh S. 10/01/2006 Tablets Frances Johns Olanzapine take 1 tablet at Unknown 20mg [...] 100mg Tablets morning, 2 tabs at night Levalbuterol Tartrate inhale 2 puffs by Unknown mouth every 4 hours 45mcg/Act Aerosol as needed Solonpas Unknown 4%Lidocaine Loperamide HCL 1 cap by mouth every Unknown 2mg Tablets 6 hours after each stool as needed Duloxetine HCL 1 by mouth every day Unknown 30mg Caps DR Mehreen Samaniego Redihaler 2 puff twice a day Unknown 80mcg/Act Aerosol Vitamin D3 Complete 1,000units - 2 pills Unknown Tablets in the Am & 2 pills in the PM Albuterol Sulfate 1-2 puffs every 4 Unknown Powder hours as needed sob Atrovent HFA 1 unit, inhl, twice Unknown 17mcg/Act a day Aerosol Qnasl 2 inhalations in Unknown 80mcg/Act Aerosol [...] 2 tabs by mouth Unknown every day [id number] Tablets Potassium Chloride ER 1 by mouth every day Unknown 20Meq Capsules ER Spironolactone 1 by mouth every day Unknown 25mg Tablets Pantoprazole Sodium 1 by mouth every day Unknown 40mg Tablets DR Nadolol 1/2 by mouth bid Unknown 20mg Tablets Immunizations CPT Code Status Date Vaccine Lot # [id number] Given 08/27/2017 Influenza Virus Vaccine, Quadrivalent, Split, Preservative Free 57314 Given 08/13/2016 Pneumococcal Conjugate Vaccine 13 Valent For Intramuscular Use [id number] Given 04/08/2013 Pneumonia Vaccine Vital Signs Date Vital Result Comment 10/27/2019 12:56pm Height 70 inches 5'10" Weight 277.50 lb Heart Rate 66 /min BP Systolic 122 mmHg BP Diastolic 72 mmHg Pain Level 5 O2 % BldC Oximetry 98 % BMI (Body Mass Index) 39.8 kg/m2 09/08/2019 1:03pm Height 70 inches 5'10" Weight 283.00 lb Heart Rate 70 /min BP Systolic Sitting 101 mmHg BP Diastolic Sitting 67 mmHg Respiratory Rate 18 /min Body Temperature 96.7 F O2 % BldC Oximetry 95 % BMI (Body Mass Index) 40.6 kg/m2 Results Test Acquired Date Facility Test Result H/L Range Note Laboratory test [place] [facility] [place] Esr Sedimentation <pending> finding Rate CRP C-Reactive Protein <pending> CBC W/Auto Diff 10/27/2019 [facility] [place] White Blood Count <pending> RBC Red Blood Count <pending> Hemoglobin <pending> Hematocrit <pending> MCV (Corpuscular Volume) <pending> MCH (Corpuscular Hemoglobin) <pending> MCHC (Corpuscular Hemog Conc) <pending> RDW <pending> Platelet Count <pending> MPV <pending> Neutrophils <pending> Bands <pending> Lymphocytes <pending> Monocytes <pending> Eosinophils <pending> Basophils <pending> Absolute Basophil <pending> Absolute Eosinophil <pending> Absolute Lymphocyte <pending> Absolute Monocytes <pending> Absolute Neutrophils <pending> CMP Panel 10[place]27/2019 [facility] [place] Albumin <pending> Alt - SGPT <pending> Calcium <pending> Carbon Dioxide <pending> Chloride <pending> Creatinine <pending> Glucose Serum <pending> Alkaline Phosphatase <pending> Potassium <pending> Total Protein <pending> Sodium <pending> Ast - Sgot <pending> BUN - Urea Nitrogen <pending> Laboratory test 09/23/2019 [facility] Potassium TNP mmol/L 3.5-5.0 [address] [place] [address] [phone] Ast Redraw TNP U/L 13-39 2 Comp Metabolic 09/23/2019 [facility] Sodium 138 mmol/L Normal 135-[address] [place] [address] [phone] Chloride 108 mmol/L Normal 101-111 Co2 Carbon Dioxide 22 mmol/L Normal 22-32 Glucose 107 mg/dL High 70-100 Blood Urea Nitrogen 22 mg/dL Normal 6-24 Creatinine 1.45 mg/dL High 0.67-1.17 BUN/Creatinine Ratio 15.2 Normal 8-20 Calcium 9.0 mg/dL Normal 8.6-10.3 Total Protein 7.0 g/dL Normal 6.4-8.9 Albumin 3.6 g/dL Normal 3.2-5.2 Globulin 3.4 g/dL Normal 2-4 Albumin/Globulin Ratio 1.1 Normal 1-3 Total Bilirubin 0.60 mg/dL Normal 0.2-1.0 Alkaline Phosphatase 189 U/L High 34-104 Alt 14 U/L Normal 7-52 Egfr Non- 47.8 >60 Egfr 57.9 >60 3 Potassium TNP mmol/L 3.5-5.0 4 Anion Gap 8 mmol/L Normal 2-11 Ast TNP U/L 13-39 5 Laboratory test 09/23/2019 [facility] C Reactive 2.41 mg/L Normal <8.[address] [place] [address] [phone] CBC Auto Diff 09/23/2019 [facility] White Blood 5.7 Normal 3.5 -10.[address] Count 10^3/[place] [address] [phone] Red Blood Count 3.50 10^6/uL Low 4.18-5.48 Hemoglobin 12.8 g/dL Low 14.0-18.0 Hematocrit 38 % Low 42-52 Mean Corpuscular Volume 109 fL High 80-94 6 Mean Corpuscular Hemoglobin 37 pg High 27-31 Mean Corpuscular HGB Conc 33 g/dL Normal 31-36 Red Cell Distribution Width 16 % High 10-15 Platelet Count 144 10^3/uL Low 150-450 Mean Platelet Volume 10.6 fL High 7.4-10.4 Abs Neutrophils 3.3 10^3/uL Normal 1.5-7.7 Abs Lymphocytes 1.5 10^3/uL Normal 1.0-4.8 Abs Monocytes 0.6 10^3/uL Normal 0-0.8 Abs Eosinophils 0.4 10^3/uL Normal 0-0.6 Abs Basophils 0.0 10^3/uL Normal 0-0.2 Abs Nucleated RBC 0.0 10^3/uL Granulocyte % 57.3 % Lymphocyte % 25.5 % Monocyte % 10.1 % Eosinophil % 6.7 % Basophil % 0.4 % Nucleated Red Blood Cells % 0.1 Laboratory test 09/23/2019 [facility] Erythrocyte Sed 39 mm/Hr High 0-[address] [place] [address] [phone] Laboratory test 08/05/2019 [facility] Erythrocyte Sed 52 mm/Hr High 0-[address] [place] [address] [phone] CBC Auto Diff 08/05/2019 [facility] White Blood 3.8 Normal 3.5 -10.[address] Count 10^3/[place] [address] [phone] Red Blood Count 3.46 10^6/uL Low 4.18-5.48 Hemoglobin 12.5 g/dL Low 14.0-18.0 Hematocrit 37 % Low 42-52 Mean Corpuscular Volume 108 fL High 80-94 7 Mean Corpuscular Hemoglobin 36 pg High 27-31 [...] Blood Cells % 0.2 Laboratory test 08/05/2019 [facility] C Reactive 4.06 mg/L Normal <8.[address] [place] [address] [phone] Comp Metabolic 08/05/2019 [facility] Sodium 137 Normal 135- [address] mmol/[place] [address] [phone] Potassium 3.9 mmol/L Normal 3.5-5.0 Chloride 108 [...] Egfr Non- 62.5 >60 Egfr 75.6 >60 8 Comp Metabolic 06/24/2019 [facility] Sodium 137 mmol/L Normal 135-145 [address] [place] [address] [phone] Potassium 4.0 mmol/L Normal 3.5-5.0 Chloride 110 [...] Egfr Non- 64.4 >60 Egfr 78.0 >60 10 Laboratory test 06/24/2019 [facility] C Reactive 2.23 mg/L Normal <8.[address] [place] [address] [phone] CBC Auto Diff 06/24/2019 [facility] White Blood 4.7 Normal 3.5 -10.[address] Count 10^3/[place] [address] [phone] Red Blood Count 3.30 10^6/uL Low 4.18-5.48 Hemoglobin 11.9 g/dL Low 14.0-18.0 Hematocrit 36 % Low 42-52 Mean Corpuscular Volume 108 fL High 80-94 11 Mean Corpuscular Hemoglobin 36 pg High 27-31 [...] Nucleated Red Blood Cells % 0.3 Laboratory 06/24/2019 [facility] Erythrocyte Sed 47 mm/Hr High 0-19 12 test finding [address] [place] [address] [phone] Comp Metabolic 05/05/2019 [facility] Sodium 139 Normal 135- [address] mmol/[place] [address] [phone] Potassium 3.7 mmol/L Normal 3.5-5.0 Chloride 109 [...] Egfr Non- 63.3 >60 Egfr 76.6 >60 13 Laboratory test 05/05/2019 [facility] Uric Acid 5.2 mg/dL Normal 4.4-7.[address] [place] [address] [phone] C Reactive Protein 4.01 mg/L Normal <8.01 CBC Auto 05/05/2019 [facility] White Blood 5.3 10^3/uL Normal 3.5-10.[address] [place] [address] [phone] Red Blood Count 3.50 10^6/uL Low 4.18-5.48 Hemoglobin 12.6 g/dL Low 14.0-18.0 Hematocrit 38 % Low 42-52 Mean Corpuscular Volume 108 fL High 80-94 14 Mean Corpuscular Hemoglobin 36 pg High 27-31 [...] Blood Cells % 0.1 Laboratory test 05/05/2019 [facility] Erythrocyte Sed 46 mm/Hr High 0-19 [address] [place] [address] [phone] Hemoglobin A1c (Glyco HGB) 6.0 % High 4.0-5.6 16 1 Specimen Hemolyzed. Result may not be valid. Unable to report test result due to hemolysis. 2 Unable to report test result due to hemolysis. 3 Because ethnic data is not always readily [...] 15-29 5 Kidney failure <15 (or dialysis) 4 Specimen Hemolyzed. Result may not be valid. Unable to report test result due to hemolysis. 5 Unable to report test result due to hemolysis. 6 Consistent with Previous Results Reported on 08/05/19 7 Consistent with Previous Results Reported on 06/24/19 8 Because ethnic data is not always readily [...] 15-29 5 Kidney failure <15 (or dialysis) 9 Comment: copy to Dr Kayla Rendon to Dr. Aquino for concern of worsening anemia. Pt is on Eliquis 10 Because ethnic data is not always readily [...] 15-29 5 Kidney failure <15 (or dialysis) 11 Consistent with Previous Results Reported on 05/05/19. 12 Comment: copy to Dr Garza 13 Because ethnic data is not always readily [...] 15-29 5 Kidney failure <15 (or dialysis) 14 Consistent with Previous Results Reported on 03/20/2019 15 Comment: copy to kayla 16 Therapeutic target for the treatment of diabetes mellitus patients is <7% HBA1C, and in selective patients <6.0%. Please refer to [place] [employer] diabetic care guidelines for further information. Procedures Description No Information Available Medical Devices Description No Information Available Encounters Type Date Location Provider Dx Diagnosis Office Visit 09/08/2019 Rheumatology Ángelofielza Sharp, L40.50 Arthropathic 1:00p [facility] psoriasis, unspecified M35.3 Polymyalgia rheumatica M10.9 Gout, unspecified M25.519 Pain in unspecified shoulder Z79.899 Other shelter (current) drug therapy I95.2 Hypotension due to drugs D64.9 Anemia, unspecified M25.549 Pain in joints of unspecified hand Office Visit 05/26/2019 Rheumatology Ángelofielza L40.50 Arthropathic 1:00p [facility] [address] MARGARET Sharp psoriasis, unspecified M10.9 Gout, unspecified I95.2 Hypotension due to drugs E83.51 Hypocalcemia Z79.899 Other shelter (current) drug therapy Assessments Date Code Description Provider 10/27/2019 L40.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, unspecified Vini Stewart M.D. 10/27/2019 M35.3 Polymyalgia rheumatica Vini Stewart M.D. 10/27/2019 M10.9 Gout, unspecified Vini Stewart M.D. 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 Zsofia Aron, [employer] 09/08/2019 I95.2 Hypotension due to drugs Zsofia Aron, [employer] 09/08/2019 D64.9 Anemia, unspecified Ángelofia Aron, [facility] 09/08/2019 M25.549 Pain in joints of unspecified hand Zsofielza Sharp, [facility] 05/26/2019 L40.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, unspecified Zsofia Aron, [employer] 05/26/2019 M10.9 Gout, unspecified Zsofia Aron, [facility] 05/26/2019 I95.2 Hypotension due to drugs Zsofia Aron, [facility] 05/26/2019 E83.51 Hypocalcemia Ángelofia Aron, [facility] 05/26/2019 Z79.899 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 at [facility] [address]10/27/2019 - Vini Stewart M.D.L40.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, unspecifiedNew Medication:Prednisone 5 mg - 1 by mouth every dayComments:As you noted some mild improvement with low dose Prednisone we will resume this at 5 mg Prednisone daily as you have some PMR symptoms despite not very high inflammatory zfrkuouZ41.3 Polymyalgia mnyiqkyjsuR40.9 Gout, [id number] Other intermediate teacher (current) drug therapyFollow up:Follow up in 2 or 3 months or sooner if needed Functional Status Description No Information Available Mental Status Description No Information Available Referrals Refer to Dr Reason for Referral Status Appt Date Arcadio Aquino MD Closed [address] [place] [address] [phone]
--- OUTSIDE RECORDS SUMMARY | 2019-12-11 23:17 | XMS REPORT | Summary of Care ---
:1945 Author Organization [facility] Address [address] [place] [address] Care Team Providers Name Role Phone Arcadio Aquino Primary Care Provider Priyanka Hooper Research Software Applications Specialist Dusty Mccall OD Primary Molding Plasterer/Automotive Services Manager Reason for Referral MRI/CAT/PET Scan (Routine) Status Reason Specialty Diagnoses / Referred By Referred To Procedures Contact Contact Authorized Diagnoses Syncope and collapse Orthostatic dizziness Arcadio Aquino MD Procedures VL NECK CAROTID BILATERAL [address] [place] [address] Diagnostic Testing (Routine) Status Reason Specialty Diagnoses / Referred By Referred To Procedures Contact Contact Pending Review Diagnoses Atherosclerosis of aorta (HCC) Orthostatic dizziness Chronic diastolic congestive heart failure (HCC) Arcadio Aquino MD Procedures ECHOCARDIOGRAM TTE [address] [place] [address] Reason for Visit Reason Comments Hypertension f/u CHF f/u Arthritis f/u acting up more Diarrhea f/u chronic issue continues past couple days Headache f/u more frequent ; episodes that last 10-30 sec periodically passes out Medication Refill need imodium and ultravate refilled Encounter Details Date Type Department Care Team Description 11/16/2019 Office Visit [facility] Arcadio Aquino MD Diarrhea, unspecified type (Primary Dx); Medicine [address] [facility] Psoriasis ; [address] [place] [address] Prediabetes; [place] [address] Essential hypertension; [phone] Chronic intractable headache, unspecified headache type; (Fax) MOSES (obstructive sleep apnea); Inflammatory arthritis; Orthostatic dizziness; Chronic diastolic congestive heart failure (HCC); Atherosclerosis of aorta (HCC) ; Syncope and collapse ; Chronic atrial fibrillation; BMI 40.0-44.9, adult (HCC); Severe episode of recurrent major depressive disorder, without psychotic features (HCC) Allergies Active Allergy Reactions Severity Noted Date Comments Ramipril Respiratory Reaction 12/12/2007 COUGH Erythromycin GI Reaction 12/12/2007 nausea Lyrica Swelling 02/24/2018 Mirtazapine Other 12/01/2014 ineffective Dofetilide Cardiac Reaction 12/05/2015 Ventricular tachycardia documented as of this encounter (statuses as of 11/16/2019) Medications Medication Sig Dispensed Refills Start End [...] MG Oral Tab mouth DAILY. 16 Beclomethasone Greenfield 1 Greenfield 0 Active Dipropionate (QNASL) in nose DAILY. 80 MCG/ACT Nasal Aero Indications: SolnIndications: each each nostril nostril olanzapine 20 MG Oral Take by mouth 30 Tab 0 08/19/20 Active Tab EVERY BEDTIME. 17 Magnesium Cl-Calcium Take by mouth. 0 Active Carbonate (SLOW-MAG) 71.5-119 MG Oral Tab EC Cholecalciferol Take 2,000 0 Active (VITAMIN D3) [...] Active 200 MG Oral Tab mouth DAILY. furosemide (LASIX) 40 Take 1 Tab by 90 Tab 0 02/05/20 Active MG Oral Tab mouth DAILY 19 NEEDED (Weight gain, leg swelling, or shortness of breath.). nystatin (MYCOSTATIN) Apply to 30 g 0 03/12/20 Active 643455 UNIT/GM Apply affected areas 19 externally Cream [...] 09/09/20 Active Tab BY MOUTH IN THE MORNING AND 2 TABLETS AT BEDTIME HYDROcodone-acetaminop Take 1 Tab by 100 Tab 0 10/27/19 Active hen (NORCO) 5-325 MG mouth EVERY 20 Oral Tab FOUR HOURS NEEDED (for pain). Max Daily Amount: 5 Tabs. pantoprazole TAKE ONE TABLET 90 Tab 3 11/03/19 Active (PROTONIX) 40 MG Oral BY MOUTH EVERY 20 Tab EC DAY loperamide (IMODIUM) 2 Take 1 Cap by 50 Cap 3 11/16/19 Active MG Oral mouth NEEDED 20 CapIndications: for diarrhea Diarrhea, unspecified (loose BM). type halobetasol Apply to 50 g 5 11/16/19 Active (ULTRAVATE) 0.05 % affected area 20 Apply externally daily as needed CreamIndications: Other psoriasis nadolol (CORGARD) 20 Take 0.5 Tabs 0 11/16/19 Active MG Oral Tab by mouth TWICE 20 DAILY. 1/2 in AM, 1 in PM halobetasol Apply to 50 g 5 07/18/20 Discontinued (ULTRAVATE) 0.05 % affected area 17 020 (Reorder) Apply externally daily as needed CreamIndications: Other psoriasis infliximab (REMICADE) by Intravenous 0 Discontinued 100 MG Intravenous route 020 (Patient Recon Soln DIRECTED. Every stopped the 6 weeks medication) nadolol (CORGARD) 20 Take 1 Tab by 135 Tab 3 09/30/20 Discontinued MG Oral Tab mouth 19 020 (Dose DIRECTED. 2 Adjustment) in AM, 1 in PM loperamide (IMODIUM) 2 TAKE 2 CAPSULES 50 Cap 3 10/20/20 Discontinued MG Oral Cap BY MOUTH 020 (Reorder) NEEDED FOR LOOSE BM documented as of this encounter (statuses as of 11/16/2019) Active Problems Problem Noted Date Class 3 [...] 07/05/2014 CLAS - participant in clinical trial- [id number] 12/08/2013 Overview: CLAS is a lead assessment [...] following surgery for weight loss 05/31/2011 Old MA (myocardial infarction) 03/14/2011 Chronic systolic heart failure 03/03/2010 GERD (gastroesophageal reflux disease) 03/03/2010 Obstructive uropathy 06/29/2009 Paroxysmal ventricular tachycardia 09/30/2008 Overview: Multiple episodes per device interrogation Congestive heart failure 04/12/2008 Overview: ECHO 04.01.08 FINAL IMPRESSION: Mild, eccentric LVH with severly [...] hypertension 12/12/2007 Left Bundle Branch Block 12/12/2007 [facility] current use of anticoagulant therapy 10/29/2007 Overview: Managed by: [facility] Referring Provider: Ben Indication: afib Target Range: 2.0-3.0 Duration: Indefinite Additional factors influencing anticoagulation: CHADS2 score of 2 for hypertension and congestive heart failure [id number] score of 3 for age > 65, hypertension, congestive heart failure Allopurinol increases warfarin effect Duloxetine increases warfarin level Spironolactone decreases warfarin effect Updated referral 01/2013, 01/2014, 02/2015, 03/2016, 06/18/17 Anticoagulation Orders 01/30/13, 01/26/14, 02/21/15, 04/05/16, 07/02/17 Positive TB test Overview: Completed 9 months treatment documented as of this encounter (statuses as of 11/16/2019) Resolved Problems Problem Noted Date Resolved Date [...] IMPLANTED: Promote RF, model 3207, serial number [id number]. ATRIAL LEAD: Model 1888, serial number [id number]. RIGHT VENTRICULAR LEAD: Model 7121, serial number [id number]. LEFT VENTRICULAR LEAD: Model 1158T, serial number [id number] Atrial fibrillation 12/12/2007 07/20/2019 Obesity 12/12/2007 03/14/2011 Psoriasis 12/12/2007 09/30/2012 Rheumatoid arthritis(714.0) 12/02/2014 documented as of this encounter (statuses as of 11/16/2019) Immunizations Name Administration Dates Next Due Influenza [...] Sign Reading Time Taken Comments Blood Pressure 126/68 11/16/2019 2:11 PM EST Pulse 60 11/16/2019 2:11 PM EST Temperature - - Respiratory Rate - - Oxygen Saturation - - Inhaled Oxygen Concentration - - Weight 124.7 kg (275 lb) 11/16/2019 2:11 PM EST Height - - Body Mass Index 43.07 09/30/2019 11:52 AM EST documented in this encounter Patient Instructions Patient InstructionsArcadio Aquino MD - 11/16/2019 2:10 PM ESTContinue same medicines. Use loperamide as needed Lab today, as listed. I'll notify you of the results with a letter. Reduce nadolol further, to 1/2 tab twice a day Get carotid ultrasound and echocardiogram We'll decide what else to do after that follow up in 3 months documented in this encounter Progress Notes Arcadio Aquino MD - 11/16/2019 2:10 PM EST PATIENT: Fredis Unger : 1945 DATE OF SERVICE: 11/16/2019 CHIEF COMPLAINT: Chief Complaint Patient presents with Hypertension f/u CHF f/u Arthritis f/u acting up more Diarrhea f/u chronic issue continues past couple days Headache f/u more frequent ; episodes that last 10-30 sec periodically passes out Medication Refill need imodium and ultravate refilled Subjective HISTORY OF PRESENT ILLNESS: Fredis Unger is a 74-y.o. male. HPI Still with multiple complaints. Arthritis worse. Working with Dr. Stewart who is starting new medicines When getting up, feels like he will pass out. This is despite staying well- hydrated Went to in [place], drove out and back . We've cut back more on meds that lower BP, since it was low at times. Now BP's 110/70's. Had recent brief syncope. Legs started to shake after standing up, passed out briefly. Gets spaced out. Still with diarrhea and headache. Had prior colonoscopy that was negative but has not had stool studies. We will order these. Told him to use Imodium more often. He states that it does work. Told him his headache may not get better unless he uses CPAP which he still is not using despite being encouraged to proceed. Past Medical History: Diagnosis Date Hypertension 12/12/2007 AICD discharge 09/02/2015 Asthma 12/12/2007 Atrial fibrillation ([facility]) 12/12/2007 Atrial fibrillation, unspecified type ([facility]) 03/28/2016 BMI 40.0-44.9, adult ([facility]) 07/05/2014 Cardiac dysrhythmia Cardiomyopathy CHF (congestive heart failure) ([facility]) Colon polyps tubular adenomata, 2008, due in 2011 Depressive Disorder 12/12/2007 Erectile dysfunction GERD (gastroesophageal reflux disease) Headache disorder Hearing problem Heart disease, unspecified Hypercholesterolemia 12/12/2007 Hypertension Idiopathic peripheral neuropathy 11/27/2017 Insomnia Left Bundle Branch Block 12/12/2007 Lower extremity pain 07/26/2015 Mobitz (type) II atrioventricular block 10/18/2008 Obesity, morbid (more than 100 lbs over ideal weight or BMI > 40) ([facility] ) 03/14/2011 Old MA (myocardial infarction) 03/14/2011 MOSES (obstructive sleep apnea) Paroxysmal atrial fibrillation ([facility]) 09/05/2015 Paroxysmal SVT (supraventricular tachycardia) ([facility]) 07/05/2014 Positive TB test Psoriasis 12/12/2007 Rheumatoid arthritis(714.0) Sepsis ([facility]) 07/07/2019 Shingles 04/2017 TB lung, latent Unspecified hyperplasia of prostate without urinary obstruction and other lower urinary tractsymptoms (LUTS) Urinary frequency Family History Problem Relation Age of Onset Arthritis Mother rheumatoid Heart Father CONGESTIVE HEART FAILURE, [place] Diabetes Father Heart Sister Heart Sister Heart Brother Heart Brother Heart Other GRANDFATHER - MA AGE - 49 Diabetes Sister one Heart [...] Dipropionate (QNASL) 80 MCG/ACT Nasal Aero Soln Greenfield 1 Greenfield in nose DAILY. Indications: each nostril Beclomethasone [...] Tab Take 400 mg by mouth DAILY. levalbuterol HFA (XOPENEX HFA) 45 MCG/ACT Inhalation Aerosol Take 2 Puffs by inhalation EVERYFOUR HOURS NEEDED. Levocetirizine Dihydrochloride 5 MG Oral Tab Take 5 mg by mouth DAILY. loperamide (IMODIUM) 2 MG Oral Cap TAKE 2 CAPSULES BY MOUTH NEEDED FOR LOOSE BM Magnesium Cl-Calcium Carbonate (SLOW-MAG) 71.5-119 MG Oral Tab EC Take by mouth. nadolol (CORGARD) 20 MG Oral Tab Take 1 Tab by mouth DIRECTED. 1/2 in AM, 1 in PM nystatin (MYCOSTATIN) 719932 UNIT/GM Apply externally Cream Apply to affected areas daily as needed olanzapine 20 MG Oral Tab Take by mouth EVERY BEDTIME. pantoprazole (PROTONIX) 40 MG Oral Tab EC TAKE ONE TABLET BY MOUTH EVERY DAY potassium chloride (K-DUR) 20 MEQ Oral Tab [...] file Gets together: Not on file Attends worship service: Not on file Active member of [...] Social History Narrative Patient is retired from [employer]. REVIEW OF SYSTEMS: Review of Systems Constitutional: Positive for malaise/fatigue. Negative for weight loss. HENT: Negative for congestion. Eyes: Negative for blurred vision. Respiratory: Negative for shortness of breath. Cardiovascular: Negative for chest pain. Gastrointestinal: Positive for diarrhea. Negative for abdominal pain. Genitourinary: Negative for frequency. Musculoskeletal: Positive for back pain, joint pain and neck pain. Skin: Negative for rash. Neurological: Positive for headaches. Negative for seizures and loss of consciousness. Endo/Heme/Allergies: Negative for polydipsia. Psychiatric/Behavioral: Positive for depression. Negative for hallucinations, memory loss, substanceabuse and suicidal ideas. The patient is nervous/anxious and has insomnia. Objective PHYSICAL EXAM: VITALS: BP 126/68 (BP Location: Left arm, Patient Position: Sitting) | Pulse 60 | Wt 275 lb (124.7 kg) | BMI 43.07 kg/m Body mass index is 43.07 kg/m . Physical Exam Alert, oriented, in no acute distress. Vitals as above. HEENT: Normocephalic, atraumatic. SOTO, EOMI. Mouth and ears unremarkable. Neck: No palpable lymphadenopathy in the submandibular, submental, anterior cervical, posterior cervical, or occipital chains, nor in the supraclavicular spaces. No JVD, thyromegaly. LUNGS: clear. HEART: Regular rate and rhythm. ABDOMEN: positive bowel sounds, soft, nontender, no hepatosplenomegaly, masses or bruits. EXTREMITIES: no cyanosis, clubbing, with trace ankle edema. ASSESSMENT / IMPRESSION: ICD-9-CM ICD-10-CM 1. Diarrhea, unspecified type- check stool studies, use loperamide prn. 787.91 R19.7 loperamide (IMODIUM) 2 MG Oral Cap C. DIFFICILE (STOOL) GIARDIA AND CRYPTOSPORIDIUM LACTOFERRIN, STOOL STOOL CULTURE MAGNESIUM LEVEL CBC WITH DIFFERENTIAL COMPREHENSIVE METABOLIC PANEL THYROID STIMULATING HORMONE 2. Psoriasis- stable 696.1 L40.8 halobetasol (ULTRAVATE) 0.05 % Apply externally Cream 3. Prediabetes- - check A1c. The patient is asked to improve diet and exercise patterns to aid in medical management of this. 790.29 R73.03 GLYCOHEMOGLOBIN A1C 4. Essential hypertension- controlled 401.9 I10 LIPID PROFILE 5. Chronic intractable headache, unspecified headache type- continue prn analgesics. Urged CPAP useon a regular basis 784.0 R51 6. MOSES (obstructive sleep apnea) urged him to use his CPAP since untreated apnea can cause chronic intractable headaches 327.23 G47.33 7. Inflammatory arthritistreatment per Dr. Stewart 714.9 M19.90 URIC ACID 8. Orthostatic dizziness reduce nadolol further to 1/2 tablet twice a day 780.4 R42 ECHOCARDIOGRAM TTE VL NECK CAROTID BILATERAL 9. Chronic diastolic congestive heart failure (HCC)seemingly compensated today 428.32 I50.32 ECHOCARDIOGRAM TTE 428.0 10. Atherosclerosis of aorta (HCC)history of, check echocardiogram given low blood pressure 440.0 I70.0 ECHOCARDIOGRAM TTE 11. Syncope and collapsehistory of recent episode, rule out carotid disease 780.2 R55 VL NECK CAROTID BILATERAL 12. Chronic atrial fibrillationstable, continue chronic anticoagulation 427.31 I48.20 13. BMI 40.0-44.9, adult (HCC)- The patient is asked to improve diet and exercise patterns to aid inmedical management of this. V85.41 Z68.41 14. Severe episode of recurrent major depressive disorder, without psychotic features (HCC)continue with psychiatrist. He is due to visit soon. 296.33 F33.2 Patient Instructions Continue same medicines. Use loperamide as needed Lab today, as listed. I'll notify you of the results with a letter. Reduce nadolol further, to 1/2 tab twice a day Get carotid ultrasound and echocardiogram We'll decide what else to do after that follow up in 3 months CC: Dr. Daigle, Dr Stewart author: Arcadio Aquino MD 11/16/2019 14:25 documented in this encounter Plan of Treatment Date Type Specialty Care Team Description 11/24/2019 Ancillary Procedure Radiology 12/09/2019 Orders Only Cardiology 02/15/2020 Office Visit Internal Medicine Arcadio Aquino MD [facility] [place] [address] [phone] 02/15/2020 Office Visit Cardiology Roman Daigle MD [address] [place] [address] [phone] 03/10/2020 Office [facility] 07/12/2020 [facility] 11/08/2020 [facility] Name Type Priority Associated Diagnoses Date/Time URIC ACID Lab Routine Inflammatory arthritis 11/16/2019 3:38 PM EST MAGNESIUM LEVEL Lab Routine Diarrhea, unspecified 11/16/2019 3:38 PM type EST CBC WITH DIFFERENTIAL Lab Routine Diarrhea, unspecified 11/16/2019 3:38 PM type EST COMPREHENSIVE METABOLIC Lab Routine Diarrhea, unspecified 11/16/2019 3:38 PM PANEL type EST LIPID PROFILE Lab Routine Essential hypertension 11/16/2019 3:38 PM EST THYROID STIMULATING HORMONE Lab Routine Diarrhea, unspecified 11/16/2019 3 :38 PM type EST GLYCOHEMOGLOBIN A1C Lab Routine Prediabetes 11/16/2019 3:38 PM EST Name Type Priority Associated Diagnoses Order Schedule C. DIFFICILE (STOOL) Lab STAT Diarrhea, unspecified Ordered: type 11/16/2019 GIARDIA AND Lab Routine Diarrhea, unspecified Ordered: CRYPTOSPORIDIUM type 11/16/2019 LACTOFERRIN, STOOL Lab Routine Diarrhea, unspecified Ordered: type 11/16/2019 STOOL CULTURE Lab Routine Diarrhea, unspecified Ordered: type 11/16/2019 ECHOCARDIOGRAM TTE CV Lab Routine Atherosclerosis of aorta Expected: (HCC) 11/16/2019, Orthostatic dizziness Expires: Chronic diastolic 12/20/2020 congestive heart failure (HCC) VL NECK CAROTID BILATERAL Imaging Routine Syncope and collapse Expected: Orthostatic dizziness 11/16/2019, Expires: 01/14/2021 Health Maintenance Due Date Last Done Comments MEDICARE ANNUAL WELLNESS 05/17/2017 05/17/2016 (Postponed), VISIT 03/31/2015 (Previously completed), 05/27/2012 LIPID DISORDER SCREENING 01/08/2019 01/08/2018, 05/17/2016, 08/10/2015, Additional history exists ZOSTER IMMUNIZATION SERIES 09/04/2019 07/10/2019 (2 of 2) DIABETES SCREENING 12/30/2019 12/29/2018, 11/21/2018, 01/08/2018, Additional history exists DEPRESSION SCREENING 05/04/2020 05/04/2019, 05/04/2019 FALL RISK [...] Type Problems Progress Blood Pressure Blood Pressure 126/68 No Miles, < 140/90 (11/16/2019 MD Arcadio 2:11 PM EST) Note: This is an individualized treatment (blood pressure) goal for Fredis Unger: Displayed above (on the left) is your goal for blood pressure control. Your most recent blood pressure is also shown above, on the right. You should try to achieve blood pressures that are lower than your goal listed above (on the left). Weight increase vs. 18 mo min CHF 0 (11/16/2019 2:11 PM EST) Arcadio Lawson MD (lbs) < 5 [...] with some symptoms of depression. Consume a [id number] diet Lifestyle No Arcadio Aquino MD Note: [...] is an individualized self-management goal for Fredis Scruggs Unger: Please check your weight daily. Refer to the accompanying CHF treatment goal and call your doctor immediately for further instructions on how to respond to unexpected weight gain. documented as of this encounter Implants Implanted Type Area Carton Gluing Machine Operator Device Shelf Model / Serial Identifier Expiration / Lot Date Icd, Promote - [id number] Left: [facility]SA 03/20/2009 [id number] / Implanted: Qty: 1 on 04/15/2008 at [facility]/ PAC[employer]ETT [id number] / ER Lead Tendril # [id number] - [id number] Left: [facility] CL[facility]ISSA 01/18/2011 [id number] / Implanted: Qty: 1 on 04/15/2008 at [facility]/ [employer] [id number] / ER 7121/65 Riata Lead - [id number] Left: [facility] 03/20/2011 71/65 / Implanted: Qty: 1 on 04/15/2008 at [facility] [id number] / 1158t Quickflex Lead - [id number] Left: [facility] 03/20/2011 1158T / Implanted: Qty: 1 on 04/15/2008 at [facility] [id number] / Lead, Quick Flex 1258t/86 - [id number] Chest [facility] 08/20/2013 1258/86 / Implanted: Qty: 1 on 10/16/2010 at [facility] [id number] / Unify Sty-[id number] - [id number] Left: [facility] 06/20/2013 [id number] / Implanted: Qty: 1 on 07/03/2012 at [facility], [facility]. [id number] / Optisense Lead - [id number] Left: [facility] 02/17/2015 / Implanted: Qty: 1 on 07/03/2012 at [facility] [id number] / Lens, Envista 14.5 Acrylic - [id number] Right: BAUSCH & LOMB [id number] / Implanted: Qty: 1 on 06/22/2015 by Lydia Perez MD at [facility] Eye [id number] / Lens, Envista 14.5 Acrylic - [id number] Left: Eye BAUSCH & LOMB [id number] / Implanted: Qty: 1 on 01/04/2016 by Lydia Perez MD at [facility] [id number] / Unify Assura [id number] - [id number] Left: [facility] [id number] / Implanted: Qty: 1 on 12/19/2018 by Lv Obrien MD at [facility] [id number] / documented as of this encounter Results Not on filedocumented in this encounter Visit Diagnoses Diagnosis Psoriasis Other psoriasis Diarrhea, unspecified type Prediabetes Other abnormal glucose Essential hypertension Unspecified essential hypertension Chronic intractable headache, unspecified headache type MOSES (obstructive sleep apnea) Obstructive sleep apnea (adult) (pediatric) Inflammatory arthritis Unspecified inflammatory polyarthropathy Orthostatic dizziness Chronic diastolic congestive heart failure (HCC) Chronic diastolic heart failure Atherosclerosis of aorta (HCC) Atherosclerosis of aorta Syncope and collapse Syncope and collapse Chronic atrial fibrillation Atrial fibrillation BMI 40.0-44.9, adult (HCC) Body Mass Index 40.0-44.9, adult Severe episode of recurrent major depressive disorder, without psychotic features (HCC) documented in this encounter Insurance Payer Benefit Plan / Subscriber ID Effective Dates Phone Address Type Group MEDICARE MEDICARE PART A & xxxxxxxxxxx Effective for all Medicare B dates [facility] xxxxxxxxx 2016-Present [place] Guarantor Name Account Type Relation to Date of Phone Billing Patient Address Fredis Unger [place] Personal/Family 1945 [facility] [phone] [place], [place] (Work) [address] documented as of this encounter Advance Directives Type Date Recorded Patient Refurbish Technician Explanation Advance Directives 12/22/2018 10:37 AM"
--- OUTSIDE RECORDS SUMMARY | 2019-12-11 23:17 | XMS REPORT | Summary of Care ---
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 CHF f/u increased difficulty taking deep breath. Encounter Details Date Type Department Care Team Description 11/24/2019 Office Visit [facility] Arcadio Aquino MD Rib pain (Primary Dx); Medicine [address] Ventricular fibrillation (HCC) [address] [place] [address] [place] [address] [phone] Allergies Active Allergy Reactions Severity Noted Date Comments Ramipril Respiratory Reaction 12/12/2007 COUGH Erythromycin GI Reaction 12/12/2007 nausea Lyrica Swelling 02/24/2018 Mirtazapine Other 12/01/2014 ineffective Dofetilide Cardiac Reaction 12/05/2015 Ventricular tachycardia documented as of this encounter (statuses as of 11/29/2019) Medications Medication Sig Dispensed Refills Start End Status Date Date daily vitamin PO TABS Take 1 Tab by 0 Active mouth EVERY MORNING. Cyanocobalamin (B-12) Place 1 Tab 30 Tab 11 Active 1000 MCG Sublingual SL under tongue 1 TabIndications: Status DAILY. following surgery for weight loss Levocetirizine Take 5 mg by 0 Active Dihydrochloride 5 MG mouth DAILY. Oral Tab levalbuterol HFA Take 2 Puffs 0 Active (XOPENEX HFA) 45 by inhalation MCG/ACT Inhalation EVERY FOUR Aerosol HOURS NEEDED. allopurinol (ZYLOPRIM) Take 100 mg by 0 Active 100 MG Oral Tab mouth DAILY. 6 Beclomethasone Richards 1 Richards 0 Active Dipropionate (QNASL) in nose DAILY. 80 MCG/ACT Nasal Aero Indications: SolnIndications: each each nostril nostril olanzapine 20 MG Oral Take by mouth 30 Tab 0 Active Tab EVERY BEDTIME. 7 Magnesium Cl-Calcium Take by 0 Active Carbonate (SLOW-MAG) mouth. 71.5-119 MG Oral Tab EC Cholecalciferol Take 2,000 0 Active (VITAMIN D3) 1000 Units by mouth units Oral Tab TWICE DAILY. Calcium Take by mouth 0 Active Citrate-Vitamin D3 DAILY. 1000-400 Oral Liquid hydroxychloroquine Take 400 mg by 0 Active (PLAQUENIL) 200 MG mouth DAILY. Oral Tab potassium chloride Take 2 Tabs by 180 Tab 3 Active (K-DUR) 20 MEQ Oral mouth DAILY. 9 Tab CR duloxetine (CYMBALTA) Take 30 mg by 0 Active 30 MG Oral CAPSULE mouth DAILY. ENTERIC COATED PARTICLES Beclomethasone Take 2 Puffs 0 Active Dipropionate by inhalation INHALATION MDI 80 TWICE DAILY. mcg/act, QVAR, (QVAR) 80 MCG/ACT Inhalation Aero Soln spironolactone TAKE ONE 90 Tab 3 Active (ALDACTONE) 25 MG Oral TABLET BY 9 Tab MOUTH EVERY DAY quetiapine (SEROQUEL) Take 200 mg by 0 Active 200 MG Oral Tab mouth DAILY. nystatin (MYCOSTATIN) Apply to 30 g 0 Active 679813 UNIT/GM Apply affected areas 9 externally Cream daily as needed sertraline (ZOLOFT) 50 TAKE ONE 1 Active MG Oral Tab TABLET BY 9 MOUTH EVERY DAY ELIQUIS 5 MG Oral TAKE ONE 180 Tab 3 Active TabIndications: TABLET BY 9 Paroxysmal atrial MOUTH TWICE A fibrillation (HCC) DAY Topiramate 50 MG Oral TAKE 1 TABLET 270 Tab 3 Active Tab BY MOUTH IN 9 THE MORNING AND 2 TABLETS AT BEDTIME pantoprazole TAKE ONE 90 Tab 3 Active (PROTONIX) 40 MG Oral TABLET BY 0 Tab EC MOUTH EVERY DAY loperamide (IMODIUM) 2 Take 1 Cap by 50 Cap 3 Active MG Oral mouth 0 CapIndications: NEEDED for Diarrhea, unspecified diarrhea type (loose BM). halobetasol Apply to 50 g 5 Active (ULTRAVATE) 0.05 % affected area 0 Apply externally daily as CreamIndications: needed Other psoriasis nadolol (CORGARD) 20 Take 0.5 Tabs 0 Active MG Oral Tab by mouth TWICE 0 DAILY. 1/2 in AM, 1 in PM HYDROcodone-acetaminop Take 1 Tab by 100 Tab 0 Active hen (NORCO) 5-325 MG mouth EVERY 0 Oral Tab FOUR HOURS NEEDED (for pain). Max Daily Amount: 5 Tabs. furosemide (LASIX) 40 Take 1 Tab by 90 Tab 0 Discontinued MG Oral Tab mouth DAILY 9 020 (Patient NEEDED (Weight stopped the gain, leg medication) swelling, or shortness of breath.). documented as of this encounter (statuses as of 11/29/2019) Active Problems Problem Noted Date Class 3 [...] 07/05/2014 CLAS - participant in clinical trial- [id number] 12/08/2013 Overview: CLAS is a lead assessment trial conducted by [facility] to determine the prevalence of visible wires [...] following surgery for weight loss 05/31/2011 Old ID (myocardial infarction) 03/14/2011 Chronic systolic heart failure 03/03/2010 GERD (gastroesophageal reflux disease) 03/03/2010 Obstructive uropathy 06/29/2009 Paroxysmal ventricular tachycardia 09/30/2008 Overview: Multiple episodes per device interrogation Congestive heart failure 04/12/2008 Overview: ECHO 6.12.08 FINAL IMPRESSION: Mild, eccentric LVH with severly [...] hypertension 12/12/2007 Left Bundle Branch Block 12/12/2007 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 10/29/2007 Overview: Managed by: [facility] Referring Provider: Ben Indication: afib Target Range: 2.0-3.0 Duration: Indefinite Additional factors influencing anticoagulation: CHADS2 score of 2 for hypertension and congestive heart failure [id number] score of 3 for age > 65, hypertension, congestive heart failure Allopurinol increases warfarin effect Duloxetine increases warfarin level Spironolactone decreases warfarin effect Updated referral 01/2013, 01/2014, 02/2015, 03/2016, 06/18/17 Anticoagulation Orders 01/30/13, 01/26/14, 02/21/15, 04/05/16, 07/02/17 Positive TB test Overview: Completed 9 months treatment documented as of this encounter (statuses as of 11/29/2019) Resolved Problems Problem Noted Date Resolved Date [...] IMPLANTED: Promote RF, model 3207, serial number [id number]. ATRIAL LEAD: Model 1888, serial number [id number]. RIGHT VENTRICULAR LEAD: Model 7121, serial number [id number]. LEFT VENTRICULAR LEAD: Model 1158T, serial number [id number] Atrial fibrillation 12/12/2007 07/20/2019 Obesity 12/12/2007 03/14/2011 Psoriasis 12/12/2007 09/30/2012 Rheumatoid arthritis(714.0) 12/02/2014 documented as of this encounter (statuses as of 11/29/2019) Immunizations Name Administration Dates Next Due Influenza [...] Sign Reading Time Taken Comments Blood Pressure 120/68 11/24/2019 1:32 PM EST Pulse 64 11/24/2019 1:32 PM EST Temperature - - Respiratory Rate - - Oxygen Saturation 98% 11/24/2019 1:32 PM EST Inhaled Oxygen Concentration - - Weight 126.1 kg (278 lb) 11/24/2019 1:32 PM EST Height - - Body Mass Index 43.54 09/30/2019 11:52 AM EST documented in this encounter Patient Instructions Patient InstructionsArcadio Aquino MD - 11/24/2019 2:50 PM ESTContinue same medicines, but watch if fluid accumulation occurs. If this happens, take diuretic and let us know. Consider bed rail to reduce chance of falling out of bed . I'll inquire with gastroenterology about the stool tests. Use CPAP. Keep appointment in January. documented in this encounter Progress Notes Arcadio Aquino MD - 11/24/2019 2:50 PM EST PATIENT: Fredis Unger : 1945 DATE OF SERVICE: 11/24/2019 CHIEF COMPLAINT: Chief Complaint Patient presents with Hypertension F/u Side Pain Hx of cracked rib; pain started approx 2 weeks ago cat jumped on right side and causing to fall out of bed, constant pain worsens with movement. CHF f/u increased difficulty taking deep breath. Subjective HISTORY OF PRESENT ILLNESS: Fredis Unger is a 74-y.o. male. HPI Fell out of bed hurting left chest 2 weeks ago, still with pain, hurts to take a deep breath. No fevers chills or sweats. No hemoptysis. Past Medical History: Diagnosis Date Hypertension 12/12/2007 AICD discharge 09/02/2015 Asthma 12/12/2007 Atrial fibrillation ([facility]) 12/12/2007 Atrial fibrillation, unspecified type ([facility]) 03/28/2016 BMI 40.0-44.9, adult ([facility]) 07/05/2014 Cardiac dysrhythmia Cardiomyopathy CHF (congestive heart failure) ([facility]) Colon polyps tubular adenomata, 2008, due in 2011 Depressive Disorder 12/12/2007 Erectile dysfunction GERD (gastroesophageal reflux disease) Headache disorder Hearing problem Heart disease, unspecified Hypercholesterolemia 12/12/2007 Hypertension Idiopathic peripheral neuropathy 11/27/2017 Insomnia Left Bundle Branch Block 12/12/2007 Lower extremity pain 07/26/2015 Mobitz (type) II atrioventricular block 10/18/2008 Obesity, morbid (more than 100 lbs over ideal weight or BMI > 40) ([facility] ) 03/14/2011 Old ID (myocardial infarction) 03/14/2011 MOSES (obstructive sleep apnea) Paroxysmal atrial fibrillation ([facility]) 09/05/2015 Paroxysmal SVT (supraventricular tachycardia) ([facility]) 07/05/2014 Positive TB test Psoriasis 12/12/2007 Rheumatoid arthritis(714.0) Sepsis ([facility]) 07/07/2019 Shingles 04/2017 TB lung, latent Unspecified hyperplasia of prostate without urinary obstruction and other lower urinary tractsymptoms (LUTS) Urinary frequency Family History Problem Relation Age of Onset Arthritis Mother rheumatoid Heart Father CONGESTIVE HEART FAILURE, ID Diabetes Father Heart Sister Heart Sister Heart Brother Heart Brother Heart Other GRANDFATHER - ID AGE - 49 Diabetes Sister one Heart [...] Dipropionate (QNASL) 80 MCG/ACT Nasal Aero Soln Richards 1 Richards in nose DAILY. Indications: each nostril Beclomethasone [...] ONE TABLET BY MOUTH TWICE A DAY halobetasol (ULTRAVATE) 0.05 % Apply externally Cream [...] DAILY. loperamide (IMODIUM) 2 MG Oral Cap Take 1 Cap by mouth NEEDED for diarrhea (loose BM). Magnesium Cl-Calcium Carbonate (SLOW-MAG) 71.5-119 MG Oral Tab EC Take by mouth. nadolol (CORGARD) 20 MG Oral Tab Take 0.5 Tabs by mouth TWICE DAILY. 1/2 in AM, 1 in PM nystatin (MYCOSTATIN) 327580 UNIT/GM Apply externally Cream Apply to affected [...] file Gets together: Not on file Attends mormonism service: Not on file Active member of [...] Social History Narrative Patient is retired from [email or web address]. REVIEW OF SYSTEMS: Review of Systems Constitutional: Positive for malaise/fatigue. Negative for weight loss. HENT: Negative for congestion. Eyes: Negative for blurred vision. Respiratory: Positive for shortness of breath. Negative for cough, hemoptysis, sputum production andwheezing. Cardiovascular: Positive for chest pain and leg swelling. Negative for palpitations. Gastrointestinal: Negative for abdominal pain. Genitourinary: Positive for frequency. Musculoskeletal: Positive for falls. Skin: Negative for rash. Neurological: Positive for dizziness and loss of consciousness. Negative for tingling, tremors, sensory change, speech change, focal weakness, seizures, weakness and headaches. Endo/Heme/Allergies: Negative for polydipsia. Psychiatric/Behavioral: Positive for depression and memory loss. The patient is nervous/anxious and has insomnia. Objective PHYSICAL EXAM: VITALS: BP 120/68 (BP Location: Right arm, Patient Position: Sitting) | Pulse 64 | Wt 278 lb (126.1 kg) | SpO2 98% | BMI 43.54 kg/m Body mass index is 43.54 kg/m. Physical Exam Alert, oriented, in no acute distress. Vitals as above. HEENT: unremarkable. Neck: No palpable lymphadenopathy in the submandibular, submental, anterior cervical, posterior cervical, or occipital chains, nor in the supraclavicular spaces. No JVD, thyromegaly. LUNGS: clear. Tender lower left-sided anterior ribs to palpation. HEART: Regular rate and rhythm. EXTREMITIES: no cyanosis, clubbing, or edema. X-rays of the left-sided ribs showed no obvious fracture. Radiologist report pending ASSESSMENT / IMPRESSION: ICD-9-CM ICD-10-CM 1. Rib paintreatment is supportive. 786.50 R07.81 XR RIBS UNILAT WITH PA CHEST MIN 3 VIEWS LEFT 2. Ventricular fibrillation (HCC)stable 427.41 I49.01 3. History of dizziness with low blood pressurestop diuretic ( furosemide), restart it if fluid accumulation occurs. 4. Positive lactoferrin stool test. Will inquire with GI Patient Instructions Continue same medicines, but watch if fluid accumulation occurs. If this happens , take diuretic and let us know. Consider bed rail to reduce chance of falling out of bed . I'll inquire with gastroenterology about the stool tests. Use CPAP. Keep appointment in January. Author: Arcadio Aquino MD 11/29/2019 20:52 documented in this encounter Plan of Treatment Date Type Specialty Care Team Description 12/09/2019 Orders Only Cardiology 02/15/2020 Office Visit Internal Medicine Arcadio Aquino MD [facility] [place], [place] [id number] 02/15/2020 Office Visit Cardiology Roman Daigle MD [facility] [place] [address] [phone] 03/10/2020 [facility] 07/12/2020 [facility] 11/08/2020 [facility] Name Type Priority Associated Diagnoses Date/Time XR RIBS UNILAT WITH PA Imaging Routine Rib pain 11/24/2019 2:07 PM EST CHEST MIN 3 VIEWS LEFT Name Type Priority Associated Diagnoses Order Schedule XR RIBS UNILAT WITH PA Imaging Routine Rib pain Expected: 11/24/2019, CHEST MIN 3 VIEWS LEFT Expires: 11/23/2020 Health Maintenance Due Date Last Done Comments MEDICARE ANNUAL WELLNESS 05/17/2017 05/17/2016 (Postponed), VISIT 03/31/2015 (Previously completed), 05/27/2012 ZOSTER IMMUNIZATION SERIES 09/04/2019 07/10/2019 (2 of 2) DEPRESSION SCREENING 05/04/2020 05/04/2019, 05/04/2019 FALL RISK ASSESSMENT 07/07/2020 07/07/2019, 07/07/2019 DIABETES SCREENING 11/16/2020 11/16/2019, 11/16/2019, 12/29/2018, Additional history exists LIPID DISORDER SCREENING 11/16/2020 11/16/2019, 01/08/2018, 05/17/2016, Additional history exists Colonoscopy 05/18/2024 05/18/2019, 05/18/2019, 03/20/2016, Additional history [...] Type Problems Progress Blood Pressure Blood Pressure 120/68 No Miles, < 140/90 (11/24/2019 MD Arcadio 1:32 PM EST) Note: This is an individualized treatment (blood pressure) goal for Fredis Unger: Displayed above (on the left) is your goal for blood pressure control. Your most recent blood pressure is also shown above, on the right. You should try to achieve blood pressures that are lower than your goal listed above (on the left). Weight increase vs. 18 mo min CHF 3 (11/24/2019 1:32 PM EST) Arcadio Lawson MD (lbs) < [...] with some symptoms of depression. Consume a bu-[id number] diet Lifestyle Arcadio Lawson MD Note: This is [...] individualized self-management goal for Fredis Unger: Please check your weight daily. Refer to the accompanying CHF treatment goal and call your doctor immediately for further instructions on how to respond to unexpected weight gain. documented as of this encounter Implants Implanted Type Area Instructional Design Consultant Device Shelf Model / Serial Identifier Expiration / Lot Date Icd, Promote - [id number] Left: [facility] 03/20/2009 [id number] / Implanted: Qty: 1 on 04/15/2008 at [facility]/ [place] [id number] / ER Lead Tendril # [id number]-52 - [id number] Left: [facility] 01/18/2011 [id number] / Implanted: Qty: 1 on 04/15/2008 at [facility]/ [place] [id number] / ER 7121/65 Riata Lead - [id number] Left: [facility] 03/20/2011 71/65 / Implanted: Qty: 1 on 04/15/2008 at [facility], [facility]. [id number] / 1158t Quickflex Lead - [id number] Left: [facility] 03/20/2011 [id number] / Implanted: Qty: 1 on 04/15/2008 at [facility], [facility]. [id number] / Lead, Quick Flex 1258t/86 - [id number] Chest [facility] 08/20/2013 1258/86 / Implanted: Qty: 1 on 10/16/2010 at [facility], [facility]. [id number] / Unify Awa-[id number] - [id number] Left: [facility] 06/20/2013 [id number] / Implanted: Qty: 1 on 07/03/2012 at [facility], [facility]. [id number] / Optisense Lead - [id number] Left: [facility] 02/17/2015 / Implanted: Qty: 1 on 07/03/2012 at [facility], [facility]. [id number] / Lens, Envista 14.5 Acrylic - [id number] Right: [employer] [employer] LOM[facility] [id number] / Implanted: Qty: 1 on 06/22/2015 by Lydia Perez MD at [facility] [id number] / Lens, Envista 14.5 Acrylic - [id number] Left: Eye BAUSCH & LOMB [id number] / Implanted: Qty: 1 on 01/04/2016 by Lydia Perez MD at [facility] [id number] / Zaria Kilpatrick [id number] - [id number] Left: [facility] [id number] / Implanted: Qty: 1 on 12/19/2018 by Lv Obrien MD at [facility] BeDo, [employer]. [id number] / documented as of this encounter Results Not on filedocumented in this encounter Visit Diagnoses Diagnosis Rib pain Chest pain, unspecified Ventricular fibrillation (HCC) Ventricular fibrillation documented in this encounter Insurance Payer Benefit Plan / Subscriber ID Effective Dates Phone Address Type Group MEDICARE MEDICARE PART A & xxxxxxxxxxx Effective for all Medicare B dates [facility] PLAN xxxxxxxxx 2016-Present [address] ([address] [phone] [place], [place] (Work) [id number] documented as of this encounter Advance Directives Type Date Recorded Patient Warp Bleaching 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
[2019-12-12 00:18] LABS: ABS Eosinophils 0.1 10^3/ul (0-0.6); ABS Lymphocytes 0.9 10^3/ul (1.0-4.8); ABS Monocytes 0.3 10^3/ul (0-0.8); ABS Neutrophils 3.1 10^3/ul (1.5-7.7); Eosinophil % 2.9 %; Hematocrit 35 % (42-52); Hemoglobin 11.5 g/dL (14.0-18.0); Lymphocyte % 20.1 %; Mean Corpuscular HGB Conc 33 g/dL (31-36); Mean Corpuscular Hemoglobin 38 pg (27-31); Mean Corpuscular Volume 114 fL (80-94); Mean Platelet Volume 9.6 fL (7.4-10.4); Nucleated Red Blood Cells % 0.1; Platelet Count 139 10^3/uL (150-450); Red Blood Count 3.05 10^6 /uL (4.18-5.48); Red Cell Distribution Width 17 % (10-15); White Blood Count 4.6 10^3/uL (3.5-10.8)
[2019-12-12 00:27] LABS: Albumin 3.5 g/dL (3.2-5.2); Albumin/Globulin Ratio 1.2 (1-3); Calcium 8.6 mg/dL (8.6-10.3); EGFR African American 65.7 (>60); EGFR Non-African American 54.3 (>60); Total Bilirubin 0.5 mg/dL (0.2-1.0); Total Protein 6.5 g/dL (6.4-8.9)
[2019-12-12] MEDS ORDERED: Lidocaine 2% VISCOUS* 15 ML UDC PO ONE (03:36)
[2019-12-12] MEDS ORDERED: Al Hydrox/Mg Hydrox/Simet LIQ* 30 ML UDC PO ONE (03:36)
[2019-12-12 03:57] VITALS: BP 105/66
== END 2019-12-12 03:57 | disposition home or self-care (01) ==
LOC: ED 23:07
DX: R07.89 Other chest pain (principal); I10 Essential (primary) hypertension; M06.9 Rheumatoid arthritis, unspecified; Z95.810 Presence of automatic (implantable) cardiac defibrillator; Z79.01 Long term (current) use of anticoagulants; Z88.1 Allergy status to other antibiotic agents; Z88.8 Allergy status to other drugs, medicaments and biological substances
CPT/HCPCS: 36415; 71046; 80053; 83605; 84484; 85025; 85379; 93005; 99284; A9270-GY

== ENCOUNTER 2020-01-10 04:08 | Emergency (ER) | payer MEDICARE, BC ==
--- NOTE | 2020-01-10 04:53 | ED ---
Head Injury - HPI Summary HPI Summary: pt states he sustained a mechanical fall this morning, hitting his head on the floor, leading to a laceration above his left eye. No LOC or neck pain. Does take Eliquis. Also notes mild cough for past 6 days, occasional SOB. No CP/ pressure. No fever, but does note has had URI symptoms as well. - History Of Current Complaint Chief Complaint: EDFall Stated Complaint: LT EYEBROW LAC PER PT Time Seen by Provider: 01/10/20 04:15 Hx Obtained From: Patient Severity Currently: Moderate Pain Intensity: 4 Location of Head Injury: Frontal Location: Discrete At: - Laceration above his left eye. Associated Signs And Symptoms: Negative - No LOC or neck pain. - Allergies/Home Medications Allergies/Adverse Reactions: Allergies Allergy/AdvReac Type Severity Reaction Status Date / Time dofetilide Allergy Unknown Verified 01/10/20 04:29 Reaction Details erythromycin base Allergy GI Upset Verified 01/10/20 04:29 ramipril Allergy Coughing Verified 01/10/20 04:29 Home Medications: Home Medications Halobetasol Propionate [Ultravate] 0.05 % TOPICAL DAILY PRN 11/06/15 [History Confirmed 11/18/19] Potassium Chlor TAB* [Potassium Chlor TAB 20 MEQ*] 20 meq PO BID 11/06/15 [ History Confirmed 12/11/19] Spironolactone TAB* [Aldactone TAB 25 MG*] 25 mg PO DAILY 11/06/15 [History Confirmed 12/11/19] Beclomethasone Dipropionate [Qnasl] 80 mcg NASAL DAILY 12/31/16 [History Confirmed 12/11/19] Levalbuterol HFA INHALER* [Xopenex Hfa Inhaler*] 2 puff INH QID PRN 12/31/16 [ History Confirmed 11/18/19] Allopurinol TAB* [Zyloprim 100 MG TAB*] 100 mg PO DAILY 08/06/18 [History Confirmed 12/11/19] Apixaban* [Eliquis*] 5 mg PO BID 08/06/18 [History Confirmed 12/11/19] Calcium Citrate/Vitamin D3 [Calcium Citrate - Vit D3 Tab] 1 tab PO DAILY [History Confirmed 12/11/19] Cholecalciferol (Vitamin D3) [Vitamin D3] 2,000 unit PO BID 08/06/18 [History Confirmed 12/11/19] Fluticasone HFA 110 mcg(NF) [Flovent HFA 110 mcg(NF)] 2 puff INH BID 08/06/18 [ History Confirmed 11/18/19] Folic Acid TAB* [Folvite TAB*] 1 mg PO DAILY 08/06/18 [History Confirmed ] Magnesium Chloride EC TAB* [Slow Mag EC TAB*] 64 mg PO DAILY 08/06/18 [History Confirmed 12/11/19] Multivitamins/Minerals TAB* [Theragran/minerals TAB*] 1 tab PO DAILY 08/06/18 [ History Confirmed 11/18/19] OLANzapine TAB* [Zyprexa 10 MG TAB*] 20 mg PO BEDTIME 08/06/18 [History Confirmed 11/18/19] Topiramate TAB(*) [Topamax 100 mg tab] 100 mg PO BEDTIME 08/06/18 [History Confirmed 12/11/19] Topiramate TAB(*) [Topamax 25 MG tab] 50 mg PO QAM 08/06/18 [History Confirmed 12/11/19] Acetaminophen TAB* [Tylenol TAB*] 650 mg PO Q4H PRN tab 08/09/18 [Rx Confirmed 12/12/19] Tamsulosin CAP* [Flomax CAP*] 0.4 mg PO BEDTIME #30 cap 08/09/18 [Rx Confirmed 11/18/19] Loperamide CAP* [Imodium CAP*] 2 mg PO Q2H PRN #120 cap 10/27/18 [Rx Confirmed 12/12/19] Lactobacillus Acidophilus [Freeze Dried Acidophilus] 1 cap PO TID 02/03/19 [ History Confirmed 11/18/19] Quetiapine Fumarate [Seroquel 200 MG] 200 mg PO BEDTIME 02/03/19 [History Confirmed 11/18/19] Nadolol [Corgard] 10 mg PO BID 11/04/19 [History Confirmed 12/11/19] Beclomethasone 80 MCG MDI(NF) [Qvar 80 MCG MDI(NF)] 2 puff INH BID 12/11/19 [ History Confirmed 12/11/19] Beclomethasone Dipropionate [Qnasl] 12/11/19 [History] DULoxetine DR CAP* [Cymbalta CAP*] 30 mg PO DAILY 12/11/19 [History Confirmed ] Furosemide TAB* [Lasix TAB*] 1 tab PO DAILY 12/11/19 [History Confirmed 12/12/19 ] Hydrocodone/Acetaminophen [Hydrocodone-Acetamin 5-325 mg] 12/11/19 [History] Hydroxychloroquine Sulfate 200 mg PO 12/11/19 [History] LevoCETirizine TAB (NF) [Xyzal TAB (NF)] 5 mg PO DAILY 12/11/19 [History Confirmed 12/11/19] OLANZapine [Olanzapine] 12/11/19 [History] Pantoprazole TAB * [Protonix TAB*] 40 mg PO DAILY 12/11/19 [History Confirmed ] Quetiapine Fumarate 200 mg PO DAILY 12/11/19 [History Confirmed 12/11/19] Rifaximin(NF) [Xifaxan(NF)] 12/11/19 [History] Sertraline HCl [Zoloft] 50 mg PO 12/11/19 [History] PMH/Surg Hx/FS Hx/Imm Hx Endocrine/Hematology History: Reports: Hx Anticoagulant Therapy Denies: Hx Blood Disorders, Hx Diabetes, Hx Systemic Lupus Erythematosus Cardiovascular History: Reports: Hx Auto Implanted Cardiovert Defib, Hx Congestive Heart Failure, Hx Hypertension, Hx Pacemaker/ICD Denies: Hx Peripheral Vascular Disease Respiratory History: Reports: Hx Asthma, Hx Sleep Apnea History: Denies: Hx Dialysis, Hx Renal Disease Musculoskeletal History: Reports: Hx Rheumatoid Arthritis - ON ARTHRITIS MEDICATION SINCE 2011, Hx Gout, Other Musculoskeletal History - Psoriatic arthritis Denies: Hx Arthritis, Hx Osteoporosis Sensory History: Reports: Hx Contacts or Glasses, Hx Hearing Aid - hearing aides are home, Hx Hearing Problem Denies: Other Sensory Impairments Opthamlomology History: Reports: Hx Contacts or Glasses Denies: Other Sensory Impairments Neurological History: Reports: Hx Headaches Denies: Hx Seizures, Hx Transient Ischemic Attacks (TIA) Psychiatric History: Reports: Hx Anxiety, Hx Depression - Cancer History Hx Chemotherapy: No - Surgical History Surgery Procedure, Year, and Place: cardiac ablation x2-[facility]. cardiac cath- 2005. pacemaker and AICD placement. gastric bypass-2005. 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" Denies: Hx of Known/Suspected MRSA, Traveled Outside the [place] in Last 30 Days - Family History Known Family History: Positive: Cardiac Disease, Diabetes - Social History Alcohol Use: None Hx Substance Use: No Substance Use Type: Reports: None Hx Tobacco Use: No Smoking Status (MU): Never Smoked Tobacco Have You Smoked in the Last Year: No Review of Systems Negative: Fever, Chills Eyes: Negative Cardiovascular: Negative Negative: Palpitations, Chest Pain Positive: Cough Gastrointestinal: Negative Musculoskeletal: Negative Positive: Bruising Neurological/Mental Status: Negative Negative: Headache Psychological: Normal All Other Systems Reviewed And Are Negative: Yes Physical Exam - Summary Physical Exam Summary: Constitutional: Well-developed, Well-nourished, Alert. (-) Distressed Skin: Warm, Dry, Skin Color Reflects Adequate Perfusion. Laceration above left eye that is ~2 cm in length and second one lateral to eye ~1 cm in length. HENT: Normocephalic; Atraumatic Eyes: Conjunctiva normal Neck: Musculoskeletal ROM normal neck. (-) JVD, (-) Stridor, (-) Tracheal deviation. Supple and nontender. Cardio: Rhythm regular, rate normal, Heart sounds normal; Intact distal pulses; The pedal pulses are 2+ and symmetric. Radial pulses are 2+ and symmetric. (-) Murmur Pulmonary/Chest wall: Effort normal. (-) Respiratory distress, (-) Wheezes, (-) Rales Abd: Soft, (-) tenderness, (-) Distension, (-) Guarding, (-) Rebound Musculoskeletal: (-) Edema Lymph: (-) Cervical adenopathy Neuro: Alert, Oriented x3 Psych: Mood and affect Normal Triage Information Reviewed: Yes Vital Signs On Initial Exam: Initial Vitals Pulse BP Pulse Ox 66 107/63 99 01/10/20 04:22 01/10/20 04:22 01/10/20 04:22 Vital Signs Reviewed: Yes Appearance: Positive: No Pain Distress Skin: Positive: Warm, Skin Color Reflects Adequate Perfusion, Dry Head/Face: Positive: Other - laceration above left eye (~2cm in length) and second one lateral to eye (~1cm in length). Eyes: Positive: Normal, Other: - Laceration above left eye (~2cm in length) and lateral to eye (~1cm in length) ENT: Positive: Normal ENT inspection Neck: Positive: Supple, Nontender Respiratory/Lung Sounds: Positive: Clear to Auscultation Cardiovascular: Positive: Normal Abdomen Description: Positive: Nontender Musculoskeletal: Positive: Normal Neurological: Positive: Normal Psychiatric: Positive: Normal - Seema Coma Scale Best Eye Response: 4 - Spontaneous Best Motor Response: 6 - Obeys Commands Best Verbal Response: 5 - Oriented Coma Scale Total: 15 Glascow Coma Scale Comments: 15 Procedures - Sedation Patient Received Moderate/Deep Sedation with Procedure: No - Laceration/Wound Repair 2 Location: face Description: Linear Length, Depth and Shape: Laceration above left eye (~2cm in length) and lateral to eye (~1cm in length) Betadine Prep?: No - wound cleanser used Laceration/Wound Explored: clean Closure: Skin Adhesive Diagnostics - Vital Signs Vital Signs Temp Pulse Resp BP Pulse Ox 01/10/20 04:36 67 99 01/10/20 04:23 97.6 F 73 20 107/63 100 01/10/20 04:22 66 107/63 99 - Laboratory Lab Statement: Any lab studies that have been ordered have been reviewed, and results considered in the medical decision making process. - Radiology CXR Radiology Interpretation Completed By: ED Physician Summary of Radiographic Findings: NAD found in CXR pending official report. CXR findings are similar to [facility] CXR taken on 12/11/2019. Dr. Toro has reviewed and interpreted this CXR. - CT Brain CT Interpretation Completed By: Radiologist Summary of CT Findings: IMPRESSION: No acute intracranial pathology. Paranasal sinus disease. This CT was reviewed by Dr. Toro. Head Injury Course/Dx Course Of Treatment: 74 year old M presents to [facility] with a chief complaint of a laceration above his left eye. He also reports having a productive cough and sore throat since 01/04/2020. The patient denies having a fever and states that he has chronic occasional SOB. The patient's [place] Coma Scale is 15. His physical exam was positive for a laceration above his left eye that is ~2cm in length and a second laceration lateral to his eye ~1cm in length. His Brain CT shows no acute intracranial pathology and is positive for paranasal sinus disease. His CXR shows NAD and is similar to a prior CXR he took on 12/11/2019. The patient received dermabond for his lacerations. The patient was discharged to home to followup with his primary care physician within 3 days. - Diagnoses Provider Diagnoses: Fall, Head injury, Facial laceration, URI (upper respiratory infection) Discharge ED - Sign-Out/Discharge Documenting (check all that apply): Patient Departure - Discharged. - Discharge Plan Condition: Stable Disposition: HOME Patient Education Materials: Fall Prevention for Older Adults (ED), Head Injury (ED), Upper Respiratory Infection (ED), Facial Laceration (ED) Referrals: Arcadio Aquino MD [Primary Care Provider] - 3 Days Additional Instructions: Please return to ED with any new or worsening symptoms. Please followup with your primary care physician within 3 days. - Billing Disposition and Condition Condition: STABLE Disposition: Home - Attestation Statements Document Initiated by Scribe: Yes Documenting Scribe: Corry Nielsen Provider For Whom Scribe is Documenting (Include Credential): Chip Toro DO Scribe Attestation: Corry Maldonado, scribed for Chip Toro DO on at 1914. Scribe Documentation Reviewed: Yes Provider Attestation: The documentation as recorded by the Corry ryan accurately reflects the service I personally performed and the decisions made by Chip parmar DO Status of Scribe Document: Viewed
--- OUTSIDE RECORDS SUMMARY | 2020-01-10 05:38 | XMS REPORT | Continuity of Care Document ---
:1945 External Reference #:[id number] Author Name MARGARET Gamez (transmitted by agent of provider Misa De La Vega) Address [address] [place] [address] Problems Active Problems Provider Date Gout Rajiv [...] Unknown Never Smoked Cigarettes Smoking Status Reviewed: 12/29/19 Never Smoked Cigarettes ETOH Use Denies alcohol use Tobacco Use Start: Unknown Patient has never smoked Recreational Drug Use Denies Drug Use Exercise Type/Frequency Exercises rarely Allergies, Adverse Reactions, Alerts Active Allergies Reaction Severity Comments Date Altace cough 11/28/2015 Erythromycin nausea 11/28/2015 Medications Active Medications SIG Qnty Indications Ordering Provider Date Orencia 1000 mg IV q 4 4vials L40.50 Vini Stewart, 12/29/2019 250mg Solution weeks M.D. Rec Z79.899 Voltaren apply 1 gram to 100gm M25.549 Rio Gerardok, 09/08/2019 1% Gel hands twice a [employer] day Hydroxychloroquine Sulfate Take Two Tablets 60tabs L40.50 Vini Stewart, 03/18/2019 200mg By Mouth Every M.D. Tablets Day Ongoing Z79.899 Zoloft 1 1/2 by mouth every Vini Stewart, 12/30/2018 100mg Tablets day M.D. Shingrix 0.5 milliliters 2units Vini Stewart, 07/21/2018 50mcg Suspension intramuscular times 1, M.D. Rec followed by 0.5ml intramuscular 2-6 months after dose #1 Folic Acid Take One Tablet Daily. 90tabs Vini Stewart, 12/18/2017 1mg Tablets M.D. Enbrel Sureclick inject 50mg 11.76ml L40.50 Vini Stewart, 08/29/2017 50mg/ml subcutaneously every M.D. Solution Auto-Inject week Allopurinol take one tablet by 90tabs M10.9 Rio Sharp, 10/01/2016 100mg Tablets mouth every day *in [employer] addition to 300mg* Allopurinol take one tablet [...] needed Eliquis 1 by mouth twice a day Unknown 5mg Tablets Quetiapine Fumarate 2 tabs daily Unknown 100mg Tablets Topiramate take one tab in Unknown 100mg Tablets morning, 2 tabs at night Levalbuterol Tartrate inhale 2 puffs by Unknown mouth every 4 hours as 45mcg/Act Aerosol needed Solonpas Unknown 4%Lidocaine Loperamide HCL 1 cap by mouth every 6 Unknown 2mg Tablets hours after each stool as needed Duloxetine HCL 1 by mouth every day Unknown 30mg Caps DR Mehreen Samaniego Redihaler 2 puff twice a day Unknown 80mcg/Act Aerosol Vitamin D3 Complete 1,000units - 2 pills Unknown in the Am & 2 pills in Tablets the PM Albuterol Sulfate 1-2 puffs every 4 Unknown Powder hours as needed sob Atrovent HFA 1 unit, inhl, twice a Unknown 17mcg/Act day Aerosol Qnasl 2 inhalations in each Unknown 80mcg/Act Aerosol nostril once daily Ultravate Unknown 0.05% Cream Furosemide 1 by mouth every other Unknown 40mg Tablets day Hydrocodone-Acetaminoph 1 tab every 4 hours as Unknown en needed 5-325mg Tablets Acetaminophen ER 1 tab by mouth every 6 Unknown 650mg hours as needed Tablets ER Slow-Mag 1 by mouth every day Unknown 71.5-119mg Tablets DR Calcium Citrate +D 2 tabs by mouth every Unknown day [id number] Tablets Potassium Chloride ER 1 by mouth every day Unknown 20Meq Capsules ER Spironolactone 1 by mouth every day Unknown 25mg Tablets Pantoprazole Sodium 1 by mouth every day Unknown 40mg Tablets DR Nadolol 1/2 by mouth bid Unknown 20mg Tablets History Medications Prednisone 1 by mouth 90tabs L40.50 Vini Stewart, 10/27/2019 - 5mg every day M.D. 12/29/2019 Tablets Immunizations CPT Code Status Date Vaccine Lot # [id number] Given 08/27/2017 Influenza Virus Vaccine, Quadrivalent, Split, Preservative Free 12116 Given 08/13/2016 Pneumococcal Conjugate Vaccine 13 Valent For Intramuscular Use 65205 Given 04/08/2013 Pneumonia Vaccine Vital Signs Date Vital Result Comment 12/29/2019 12:47pm Height 70 inches 5'10" Weight 280.25 lb Heart Rate 82 /min BP Systolic Sitting 122 mmHg BP Diastolic Sitting 82 mmHg O2 % BldC Oximetry 98 % BMI (Body Mass Index) 40.2 kg/m2 10/27/2019 12:56pm Height 70 inches 5'10" Weight 277.50 lb Heart Rate 66 /min BP Systolic 122 mmHg BP Diastolic 72 mmHg Pain Level 5 O2 % BldC Oximetry 98 % BMI (Body Mass Index) 39.8 kg/m2 Results Test Acquired Date Facility Test Result H/L Range Note Laboratory test 11/18/2019 [facility] Potassium TNP mmol/L 3.5-5.0 1 finding [address] [place], [place] [id number] [phone] Ast Redraw TNP U/L 13-39 2 Comp Metabolic Panel 11/18/2019 [facility] Sodium 133 mmol/L Low 135-145 [address] [place], [place] [id number] [phone] Chloride 104 mmol/L Normal 101-111 Co2 Carbon Dioxide 24 mmol/L Normal 22-32 Glucose 89 mg/dL Normal 70-100 3 Blood Urea Nitrogen 19 mg/dL Normal 6-24 4 Creatinine 1.40 mg/dL High 0.67-1.17 5 BUN/Creatinine Ratio 13.6 Normal 8-20 Calcium 8.6 mg/dL Normal 8.6-10.3 6 Total Protein 7.4 g/dL Normal 6.4-8.9 7 Albumin 4.0 g/dL Normal 3.2-5.2 8 Globulin 3.4 g/dL Normal 2-4 Albumin/Globulin Ratio 1.2 Normal 1-3 Total Bilirubin 0.70 mg/dL Normal 0.2-1.0 9 Alkaline Phosphatase 180 U/L High 34-104 10 Alt 21 U/L Normal 7-52 11 Egfr Non- 49.8 >60 Egfr 60.3 >60 12 Potassium TNP mmol/L 3.5-5.0 13 Anion Gap 5 mmol/L Normal 2-11 Ast TNP U/L 13-39 14 Laboratory test 11/18/2019 [facility] C Reactive 5.32 Normal < 8.01 [address] Protein mg/[place] [address] [phone] CBC Auto Diff 11/18/2019 [facility] White Blood 6.3 Normal 3.5 -10.[address] Count 10^3/[place] [address] [phone] Red Blood Count 3.51 10^6/uL Low 4.18-5.48 Hemoglobin 13.0 g/dL Low 14.0-18.0 Hematocrit 39 % Low 42-52 Mean Corpuscular Volume 111 fL High 80-94 16 Mean Corpuscular Hemoglobin 37 pg High 27-31 Mean Corpuscular HGB Conc 33 g/dL Normal 31-36 Red Cell Distribution Width 16 % High 10-15 Platelet Count 127 10^3/uL Low 150-450 Mean Platelet Volume 10.3 fL Normal 7.4-10.4 Abs Neutrophils 3.4 10^3/uL Normal 1.5-7.7 Abs Lymphocytes 2.1 10^3/uL Normal 1.0-4.8 Abs Monocytes 0.6 10^3/uL Normal 0-0.8 Abs Eosinophils 0.2 10^3/uL Normal 0-0.6 Abs Basophils 0.0 10^3/uL Normal 0-0.2 Abs Nucleated RBC 0.0 10^3/uL Granulocyte % 53.7 % Lymphocyte % 32.4 % Monocyte % 9.9 % Eosinophil % 3.3 % Basophil % 0.7 % Nucleated Red Blood Cells % 0.1 Laboratory test 11/18/2019 [facility] Erythrocyte Sed 40 mm/Hr High 0-[address] [place] [address] [phone] Laboratory test 10/27/2019 [facility] Standing Orders Esr Sedimentation <pending> finding Rate CRP C-Reactive Protein <pending> CBC W/Auto Diff 10/27/2019 [facility] Standing Orders White Blood Count <pending> RBC [...] <pending> Absolute Neutrophils <pending> CMP Panel 10/27/2019 [facility] Standing Orders Albumin <pending> Alt - SGPT <pending> Calcium <pending> Carbon Dioxide <pending> Chloride <pending> Creatinine <pending> Glucose Serum <pending> Alkaline Phosphatase <pending> Potassium <pending> Total Protein <pending> Sodium <pending> Ast - Sgot <pending> BUN - Urea Nitrogen <pending> Laboratory test 09/23/2019 [facility] Erythrocyte Sed 39 mm/Hr High 0-[address] [place] [address] [phone] CBC Auto Diff 09/23/2019 [facility] White Blood 5.7 Normal 3.5 -10.[address] Count 10^3/uL [place], [place] [id number] [phone] Red Blood Count 3.50 10^6/uL Low 4.18-5.48 Hemoglobin 12.8 g/dL Low 14.0-18.0 Hematocrit 38 % Low 42-52 Mean Corpuscular Volume 109 fL High 80-94 17 Mean Corpuscular Hemoglobin 37 pg High 27-31 [...] Blood Cells % 0.1 Laboratory test 09/23/2019 [facility] C Reactive 2.41 mg/L Normal <8.[address] [place] [address] [phone] Comp Metabolic 09/23/2019 [facility] Sodium 138 Normal 135- [address] mmol/[place] [address] [phone] Chloride 108 mmol/L Normal 101-111 Co2 Carbon [...] Egfr Non- 47.8 >60 Egfr 57.9 >60 18 Potassium TNP mmol/L 3.5-5.0 19 Anion Gap 8 mmol/L Normal 2-11 Ast TNP U/L 13-39 20 Laboratory test 09/23/2019 [facility] Potassium TNP mmol/L 3.5-5.0 [address] [place] [address] [phone] Ast Redraw TNP U/L 13-39 22 Comp Metabolic 08/05/2019 [facility] Sodium 137 mmol/L Normal 135-[address] [place] [address] [phone] Potassium 3.9 mmol/L Normal 3.5-5.0 Chloride 108 [...] Egfr Non- 62.5 >60 Egfr 75.6 >60 23 Laboratory test 08/05/2019 [facility] C Reactive 4.06 mg/L Normal <8.[address] [place] [address] [phone] CBC Auto Diff 08/05/2019 [facility] White Blood 3.8 Normal 3.5 -10.[address] Count 10^3/uL [place], [place] [address] [phone] Red Blood Count 3.46 10^6/uL Low 4.18-5.48 Hemoglobin 12.5 g/dL Low 14.0-18.0 Hematocrit 37 % Low 42-52 Mean Corpuscular Volume 108 fL High 80-94 24 Mean Corpuscular Hemoglobin 36 pg High 27-31 [...] Blood Cells % 0.2 Laboratory test 08/05/2019 [facility] Erythrocyte Sed 52 mm/Hr High 0-[address] [place] [address] [phone] 1 Specimen Hemolyzed. Result may not be valid. Unable to report test result due to hemolysis. 2 Unable to report test result due to hemolysis. 3 Specimen hemolyzed. Result may not be valid. 4 Specimen hemolyzed. Result may not be valid. 5 Specimen hemolyzed. Result may not be valid. 6 Specimen hemolyzed. Result may not be valid. 7 Specimen hemolyzed. Result may not be valid. 8 Specimen hemolyzed. Result may not be valid. 9 Specimen hemolyzed. Result may not be valid. 10 Specimen hemolyzed. Result may not be valid. 11 Specimen hemolyzed. Result may not be valid. 12 Because ethnic data is not always readily [...] 15-29 5 Kidney failure <15 (or dialysis) 13 Specimen Hemolyzed. Result may not be valid. Unable to report test result due to hemolysis. 14 Unable to report test result due to hemolysis. 15 Specimen hemolyzed. Result may not be valid. 16 Consistent with Previous Results Reported on 10/10/19 17 Consistent with Previous Results Reported on 08/05/19 18 Because ethnic data is not always readily [...] 15-29 5 Kidney failure <15 (or dialysis) 19 Specimen Hemolyzed. Result may not be valid. Unable to report test result due to hemolysis. 20 Unable to report test result due to hemolysis. 21 Specimen Hemolyzed. Result may not be valid. Unable to report test result due to hemolysis. 22 Unable to report test result due to hemolysis. 23 Because ethnic data is not always readily [...] 15-29 5 Kidney failure <15 (or dialysis) 24 Consistent with Previous Results Reported on 06/24/19 Procedures Description No Information Available Medical Devices Description No Information Available Encounters Type Date Location Provider Dx Diagnosis Office Visit 12/29/2019 Rheumatology Rio Sharp, L40.50 Arthropathic 1:[facility] [employer] psoriasis, unspecified M35.3 Polymyalgia rheumatica M10.9 Gout, unspecified Z79.899 Other keno terminal operator (current) drug therapy Office Visit 10/27/2019 Rheumatology Vini L40.50 Arthropathic 1:[facility] Stewart M.D. psoriasis, unspecified M35.3 Polymyalgia rheumatica M10.9 Gout, unspecified Z79.899 Other alf (current) drug therapy Office Visit 09/08/2019 Rheumatology Rio L40.50 [facility]ropathic 1:[facility] psoriasis, unspecified M35.3 Polymyalgia rheumatica M10.9 Gout, unspecified M25.519 Pain in unspecified shoulder Z79.899 Other alf (current) drug therapy I95.2 Hypotension due to drugs D64.9 Anemia, unspecified M25.549 Pain in joints of unspecified hand Assessments Date Code Description Provider 12/29/2019 L40.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, unspecified Zsofia Aron, [facility] 12/29/2019 M35.3 Polymyalgia rheumatica Zsofia Aron, [facility] 12/29/2019 M10.9 Gout, unspecified Zsofia Aron, [facility] 12/29/2019 Z79.899 Other alf (current) drug therapy Zsofia Aron, [employer] 10/27/2019 L40.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, unspecified Vini Stewart M.D. 10/27/2019 M35.3 Polymyalgia rheumatica Vini Stewart M.D. 10/27/2019 M10.9 Gout, unspecified Vini Stewart M.D. 10/27/2019 Z79.899 Other keno terminal operator (current) drug therapy Vini Stewart M.D. 09/08/2019 L40.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, unspecified Zsofia Aron, [facility] 09/08/2019 M35.3 Polymyalgia rheumatica Zsofia Aron, [facility] 09/08/2019 M10.9 Gout, unspecified Zsofia Aron, [facility] 09/08/2019 M25.519 Pain in unspecified shoulder Zsofia Aron, [facility] 09/08/2019 Z79.899 Other alf (current) drug therapy Zsofia Aron, [facility] 09/08/2019 I95.2 Hypotension due to drugs Zsofia Aron, [facility] 09/08/2019 D64.9 Anemia, unspecified Zsofia Aron, [employer] 09/08/2019 M25.549 Pain in joints of unspecified hand MARGARET Gamez Plan of Treatment Future Appointment(s):03/15/2020 1:00 pm - MARGARET Gamez at [facility]12/29/2019 - Rio Sharp, FNPL40.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, unspecifiedNew Medication:Orencia 250 mg - 1000 mg IV q 4 weeksNew Labs:CBC Auto Diff, Ordered: 12/29/19Comp Metabolic Panel, Ordered: 12/29/19C Reactive Protein, Ordered: 12/29/19Erythrocyte Sed Rate, Ordered: 12/29/19Comments:We will restart on the Orencia with every 4 weeks infusion and will to stop the prednisone.Please continue on hydroxychloroquinePlease call if you stat feeling very achy.No other med change for nowFollow up:3 qtrvgJ74.3 Polymyalgia qxqyuffhhlV58.9 Gout, vjxkflpuatrL59.899 Other keno terminal operator (current) drug therapyNew Medication:Orencia 250 mg - 1000 mg IV q 4 weeks Functional Status Description No Information Available Mental Status Description No Information Available Referrals Description No Information Available
--- OUTSIDE RECORDS SUMMARY | 2020-01-10 05:38 | XMS REPORT | Summary of Care ---
:1945 Author Organization [facility] Address [address] [place] [address] Care Team Providers Name Role Phone Miles Arcadio Primary Care Provider Priyanka Hooper Research Career Technical Education Instructor Dusty Mccall OD Primary Visual Display Manager/Crisis Counselor Reason for Visit Reason Comments Sick Sore throat, cough, achey, chest hurts, started 01/01/2020 Encounter Details Date Type Department Care Team Description 01/07/2020 Office Visit [place] [facility] Antoine Hughes, RUPALI, acute ( Primary Medicine PA Dx) [address] [facility] [address] [place] [address] [place] [address] [phone] Allergies Active Allergy Reactions Severity Noted Date Comments Ramipril Respiratory Reaction 12/12/2007 COUGH Erythromycin GI Reaction 12/12/2007 nausea Lyrica Swelling 02/24/2018 Mirtazapine Other 12/01/2014 ineffective Dofetilide Cardiac Reaction 12/05/2015 Ventricular tachycardia documented as of this encounter (statuses as of 01/07/2020) Medications Medication Sig Dispensed Refills Start Date End Date Status daily vitamin PO TABS Take 1 Tab by 0 Active mouth EVERY MORNING. Cyanocobalamin (B-12) Place 1 Tab 30 Tab 11 07/04/2011 Active 1000 MCG Sublingual SL under tongue TabIndications: Status DAILY. following surgery for weight loss Levocetirizine Take 5 mg by 0 Active Dihydrochloride 5 MG mouth DAILY. Oral Tab levalbuterol HFA Take 2 Puffs by 0 Active (XOPENEX HFA) 45 MCG/ACT inhalation EVERY Inhalation Aerosol FOUR HOURS NEEDED. allopurinol (ZYLOPRIM) Take 100 mg by 0 10/05/2016 Active 100 MG Oral Tab mouth DAILY. Beclomethasone [place] in 0 Active Dipropionate (QNASL) 80 nose DAILY. MCG/ACT Nasal Aero Indications: SolnIndications: each each nostril nostril olanzapine 20 MG Oral Take by mouth 30 Tab 0 08/19/2017 Active Tab EVERY BEDTIME. Magnesium Cl-Calcium Take by mouth. 0 Active Carbonate (SLOW-MAG) 71.5-119 MG Oral Tab EC Cholecalciferol (VITAMIN Take 2,000 Units 0 Active D3) 1000 units Oral Tab by mouth TWICE DAILY. Calcium Citrate-Vitamin Take by mouth 0 Active D3 1000-400 Oral Liquid DAILY. hydroxychloroquine Take 400 mg by 0 Active (PLAQUENIL) 200 MG Oral mouth DAILY. Tab duloxetine (CYMBALTA) 30 Take 30 mg by 0 Active MG Oral CAPSULE ENTERIC mouth DAILY. COATED PARTICLES Beclomethasone Take 2 Puffs by 0 Active Dipropionate INHALATION inhalation TWICE MDI 80 mcg/act, QVAR, DAILY. (QVAR) 80 MCG/ACT Inhalation Aero Soln spironolactone TAKE ONE TABLET 90 Tab 3 12/22/2018 Active (ALDACTONE) 25 MG Oral BY MOUTH EVERY Tab DAY quetiapine (SEROQUEL) Take 200 mg by 0 Active 200 MG Oral Tab mouth DAILY. nystatin (MYCOSTATIN) Apply to 30 g 0 03/12/2019 Active 339109 UNIT/GM Apply affected areas externally Cream daily as needed sertraline (ZOLOFT) 50 TAKE ONE TABLET 1 06/13/2019 Active MG Oral Tab BY MOUTH EVERY DAY ELIQUIS 5 MG Oral TAKE ONE TABLET 180 Tab 3 09/04/2019 Active TabIndications: BY MOUTH TWICE A Paroxysmal atrial DAY fibrillation (HCC) Topiramate 50 MG Oral TAKE 1 TABLET BY 270 Tab 3 09/09/2019 Active Tab MOUTH IN THE MORNING AND 2 TABLETS AT BEDTIME pantoprazole (PROTONIX) TAKE ONE TABLET 90 Tab 3 11/03/2019 Active 40 MG Oral Tab EC BY MOUTH EVERY DAY loperamide (IMODIUM) 2 Take 1 Cap by 50 Cap 3 11/16/2019 Active MG Oral CapIndications: mouth NEEDED Diarrhea, unspecified for diarrhea type (loose BM). halobetasol (ULTRAVATE) Apply to 50 g 5 11/16/2019 Active 0.05 % Apply externally affected area CreamIndications: Other daily as needed psoriasis potassium chloride TAKE TWO TABLETS 180 Tab 3 12/16/2019 Active (K-DUR) 20 MEQ Oral Tab BY MOUTH EVERY CR DAY furosemide (LASIX) 40 MG Take 1 Tab by 0 12/29/2019 Active Oral Tab mouth EVERY OTHER DAY. nadolol (CORGARD) 20 MG Take 0.5 Tabs by 0 12/29/2019 Active Oral Tab mouth TWICE DAILY. HYDROcodone-acetaminophe Take 1 Tab by 100 Tab 0 01/06/2020 Active n (NORCO) 5-325 MG Oral mouth EVERY FOUR Tab HOURS NEEDED (for pain). Max Daily Amount: 5 Tabs. dextromethorphan-guaifen Take 5 mL by 560 mL 0 01/07/2020 Active esin (ROBITUSSIN DM) mouth EVERY FOUR 10-100 MG/5ML Oral HOURS NEEDED SyrupIndications: URI, (For cough and acute congestion). documented as of this encounter (statuses as of 01/07/2020) Active Problems Problem Noted Date Class 3 [...] 07/05/2014 CLAS - participant in clinical trial- [id number] 12/08/2013 Overview: CLAS is a lead assessment trial conducted by 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 10/29/2007 Overview: Managed by: [facility] Referring Provider: Ben Indication: afib Target Range: 2.0-3.0 Duration: Indefinite Additional factors influencing anticoagulation: CHADS2 score of 2 for hypertension and congestive heart failure [id number] score of 3 for age > 65, hypertension, congestive heart failure Allopurinol increases warfarin effect Duloxetine increases warfarin level Spironolactone decreases warfarin effect Updated referral 01/2013, 01/2014, 02/2015, 03/2016, 06/18/17 Anticoagulation Orders 01/30/13, 01/26/14, 02/21/15, 04/05/16, 07/02/17 Positive TB test Overview: Completed 9 months treatment documented as of this encounter (statuses as of 01/07/2020) Resolved Problems Problem Noted Date Resolved Date [...] IMPLANTED: Promote RF, model 3207, serial number [id number]. ATRIAL LEAD: Model 1888, serial number [id number]. RIGHT VENTRICULAR LEAD: Model 7121, serial number [id number]. LEFT VENTRICULAR LEAD: Model 1158T, serial number [id number] Atrial fibrillation 12/12/2007 07/20/2019 Obesity 12/12/2007 03/14/2011 Psoriasis 12/12/2007 09/30/2012 Rheumatoid arthritis(714.0) 12/02/2014 documented as of this encounter (statuses as of 01/07/2020) Immunizations Name Administration Dates Next Due Influenza [...] Assigned at Date Recorded Not on file documented as of this encounter Last Filed Vital Signs Vital Sign Reading Time Taken Comments Blood Pressure 116/72 01/07/2020 10:14 AM EDT Pulse 85 01/07/2020 10:14 AM EDT Temperature 36.9 01/07/2020 10:14 AM EDT C (98.5 F) Respiratory Rate - - Oxygen Saturation 98% 01/07/2020 10:14 AM EDT Inhaled Oxygen Concentration - - Weight 122.9 kg (271 lb) 01/07/2020 10:14 AM EDT Height 170.2 cm (5' 7") 01/07/2020 10:14 AM EDT Body Mass Index 42.44 01/07/2020 10:14 AM EDT documented in this encounter Patient Instructions Patient InstructionsAntoine Hughes PA - 01/07/2020 10:20 AM EDTMake sure you are getting plenty of rest and are staying away from others until your symptoms resolve. Drink plenty of fluids, keep up with your electrolytes with gatorade or pedialyte. If you continue to feel worse or do not improve, schedule a follow up appointment. documented in this encounter Progress Notes Antoine Hughes PA - 01/07/2020 10:20 AM EDT PATIENT: Fredis Unger : 1945 DATE OF SERVICE: 01/07/2020 Subjective SUBJECTIVE: Fredis Unger is a 74-y.o. male here for evaluation myalgias, nasal congestion and nonproductivecough. Onset of symptoms was 6 days ago, gradually worsening since that time. The cough is non-productive, without wheezing, dyspnea or hemoptysis and is aggravated by unkown. Associated symptoms include postnasal drip. Patient does not have a history of asthma. Patient does not have a history of environmental allergens. Patient has not recent travel. Patient does not have a history of smoking. Patient does have a history of reflux. Patient has not previous chest x-ray. Patient has not had a PPD done. Past Medical History: Diagnosis Date ? Hypertension 12/12/2007 ? AICD discharge 09/02/2015 ? Asthma 12/12/2007 ? Atrial fibrillation ([facility]) 12/12/2007 ? Atrial fibrillation, unspecified type ([facility]) 03/28/2016 ? BMI 40.0-44.9, adult ([facility]) 07/05/2014 ? Cardiac dysrhythmia ? Cardiomyopathy ? CHF (congestive heart failure) ([facility]) ? Colon polyps tubular adenomata, 2008, due in 2011 ? Depressive Disorder 12/12/2007 ? Erectile dysfunction ? GERD (gastroesophageal reflux disease) ? Headache disorder ? Hearing problem ? Heart disease, unspecified ? Hypercholesterolemia 12/12/2007 ? Hypertension ? Idiopathic peripheral neuropathy 11/27/2017 ? Insomnia ? Left Bundle Branch Block 12/12/2007 ? Lower extremity pain 07/26/2015 ? Mobitz (type) II atrioventricular block 10/18/2008 ? Obesity, morbid (more than 100 lbs over ideal weight or BMI > 40) ( [facility]) 03/14/2011 ? Old NC (myocardial infarction) 03/14/2011 ? MOSES (obstructive sleep apnea) ? Paroxysmal atrial fibrillation ([facility]) 09/05/2015 ? Paroxysmal SVT (supraventricular tachycardia) ([facility]) 07/05/2014 ? Positive TB test ? Psoriasis 12/12/2007 ? Rheumatoid arthritis(714.0) ? Sepsis ([facility]) 07/07/2019 ? Shingles 04/2017 ? TB lung, latent ? Unspecified hyperplasia of prostate without urinary obstruction and other lower urinary tract symptoms (LUTS) ? Urinary frequency Family History Problem Relation Age of Onset ? Arthritis Mother rheumatoid ? Heart Father CONGESTIVE HEART FAILURE, [place] ? Diabetes Father ? Heart Sister ? Heart Sister ? Heart Brother ? Heart Brother ? Heart Other GRANDFATHER - [place] AGE - 49 ? Diabetes Sister one ? Heart Sister ? Anesth Problems No family history ? Cancer No family history ? Clotting Disorder No family history ? Heart Disease No family history ? Kidney Disease No family history ? Thyroid Disease No family history ? Hypertension No family history Current Outpatient Medications Medication Sig ? allopurinol (ZYLOPRIM) 100 MG Oral Tab Take 100 mg by mouth DAILY. ? Beclomethasone Dipropionate (QNASL) 80 MCG/ACT Nasal Aero Soln [place] 1 [place] in nose DAILY. Indications: each nostril ? Beclomethasone Dipropionate INHALATION MDI 80 mcg/act, QVAR, (QVAR) 80 MCG/ACT Inhalation Aero Soln Take 2 Puffs by inhalation TWICE DAILY. ? Calcium Citrate-Vitamin D3 1000-400 Oral Liquid Take by mouth DAILY. ? Cholecalciferol (VITAMIN D3) 1000 units Oral Tab Take 2,000 Units by mouth TWICE DAILY. ? Cyanocobalamin (B-12) 1000 MCG Sublingual SL Tab Place 1 Tab under tongue DAILY. ? daily vitamin PO TABS Take 1 Tab by mouth EVERY MORNING. ? duloxetine (CYMBALTA) 30 MG Oral CAPSULE ENTERIC COATED PARTICLES Take 30 mg by mouth DAILY. ? ELIQUIS 5 MG Oral Tab TAKE ONE TABLET BY MOUTH TWICE A DAY ? furosemide (LASIX) 40 MG Oral Tab Take 1 Tab by mouth EVERY OTHER DAY. ? halobetasol (ULTRAVATE) 0.05 % Apply externally Cream Apply to affected area daily as needed ? HYDROcodone-acetaminophen (NORCO) 5-325 MG Oral Tab Take 1 Tab by mouth EVERY FOUR HOURS ASNEEDED (for pain). Max Daily Amount: 5 Tabs. ? hydroxychloroquine (PLAQUENIL) 200 MG Oral Tab Take 400 mg by mouth DAILY. ? levalbuterol HFA (XOPENEX HFA) 45 MCG/ACT Inhalation Aerosol Take 2 Puffs by inhalation EVERY FOUR HOURS NEEDED. ? Levocetirizine Dihydrochloride 5 MG Oral Tab Take 5 mg by mouth DAILY. ? loperamide (IMODIUM) 2 MG Oral Cap Take 1 Cap by mouth NEEDED for diarrhea (loose BM). ? Magnesium Cl-Calcium Carbonate (SLOW-MAG) 71.5-119 MG Oral Tab EC Take by mouth. ? nadolol (CORGARD) 20 MG Oral Tab Take 0.5 Tabs by mouth TWICE DAILY. ? nystatin (MYCOSTATIN) 803831 UNIT/GM Apply externally Cream Apply to affected areas daily asneeded ? olanzapine 20 MG Oral Tab Take by mouth EVERY BEDTIME. ? pantoprazole (PROTONIX) 40 MG Oral Tab EC TAKE ONE TABLET BY MOUTH EVERY DAY ? potassium chloride (K-DUR) 20 MEQ Oral Tab CR TAKE TWO TABLETS BY MOUTH EVERY DAY ? quetiapine (SEROQUEL) 200 MG Oral Tab Take 200 mg by mouth DAILY. ? sertraline (ZOLOFT) 50 MG Oral Tab TAKE ONE TABLET BY MOUTH EVERY DAY ? spironolactone (ALDACTONE) 25 MG Oral Tab TAKE ONE TABLET BY MOUTH EVERY DAY ? Topiramate 50 MG Oral Tab TAKE 1 TABLET BY MOUTH IN THE MORNING AND 2 TABLETS AT BEDTIME No current facility-administered medications for this visit. Allergies Allergen Reactions ? Altace [Ramipril] Respiratory Reaction COUGH ? Erythromycin GI Reaction nausea ? Lyrica Swelling ? Mirtazapine Other ineffective ? Tikosyn [Dofetilide] Cardiac Reaction Ventricular tachycardia Social History Socioeconomic History ? Marital status: Spouse name: Not on file ? Number of children: Not on file ? Years of education: Not on file ? Highest education level: Not on file Occupational History ? Not on file Social Needs ? Financial resource strain: Not on file ? Food insecurity Worry: Not on file Inability: Not on file ? Transportation needs Medical: Not on file Non-medical: Not on file Tobacco Use ? Smoking status: Never Smoker ? Smokeless tobacco: Never Used Substance and Sexual Activity ? Alcohol use: No Alcohol/week: 0.0 standard drinks ? Drug use: No ? Sexual activity: Yes Partners: Female Lifestyle ? Physical activity Days per week: Not on file Minutes per session: Not on file ? Stress: Not on file Relationships ? Social connections Talks on phone: Not on file Gets together: Not on file Attends nondenominational service: Not on file Active member of club or organization: Not on file Attends meetings of clubs or organizations: Not on file Relationship status: Not on file ? Intimate partner violence Fear of current or ex partner: Not on file Emotionally abused: Not on file Physically abused: Not on file Forced sexual activity: Not on file Other Topics Concern ? Not on file Social History Narrative Patient is retired from [employer]. REVIEW OF SYSTEMS: Review of Systems Constitutional: Positive for malaise/fatigue. Negative for chills and fever. HENT: Positive for congestion. Negative for ear pain, sinus pain, sore throat and tinnitus. Eyes: Negative for blurred vision and double vision. Respiratory: Positive for cough. Negative for sputum production, shortness of breath, wheezing and stridor. Cardiovascular: Negative for chest pain, palpitations and leg swelling. Gastrointestinal: Negative for diarrhea, nausea and vomiting. Genitourinary: Negative for dysuria and urgency. Musculoskeletal: Negative for myalgias and neck pain. Skin: Negative for itching and rash. Neurological: Negative for dizziness and headaches. Objective OBJECTIVE: BP 116/72 (BP Location: Left arm, Patient Position: Sitting) | Pulse 85 | Temp 98.5 F (36.9 C) (Tympanic) | Ht 5' 7" (1.702 m) | Wt 271 lb ( 122.9 kg) | SpO2 98% | BMI 42.44 kg/m GENERAL: alert, cooperative, no distress. CYANOSIS: absent. HEENT: ears, nose, throat exam normal, no neck nodes or sinus tenderness. LUNGS: clear to auscultation bilaterally. HEART: regular rate and rhythm, S1, S2 normal, no murmur, click, rub or gallop. ABDOMEN: soft, non-tender. Bowel sounds normal. No masses, no organomegaly. EXTREMITIES: extremities normal, atraumatic, no cyanosis or edema. NEUROLOGICAL: alert, oriented times three, no defects noted in general exam. ASSESSMENT: ICD-9-CM ICD-10-CM 1. URI, acute 465.9 J06.9 FLU A/FLU B/RSV PCR ASSAY (TESTED AT [facility] ONLY) STREP A ANTIGEN (AMB POCT) THROAT STREP SCREEN CULTURE dextromethorphan-guaifenesin (ROBITUSSIN DM) 10-100 MG/5ML Oral Syrup THROAT STREP SCREEN CULTURE FLU A/FLU B/RSV PCR ASSAY (TESTED AT [facility] ONLY) Plan PLAN: 1. Medications per orders. 2. Call if shortness of breath worsens, blood in sputum, change in character of cough, development of fever or chills, inability to maintain nutrition and hydration. Avoid exposure to tobacco smoke, fumes. 3. Follow-up visit as needed. Author: TOSHIA Nunez 01/07/2020 10:26 documented in this encounter Plan of Treatment Date Type Specialty Care Team Description 02/03/2020 Office Visit Internal Medicine Arcadio Aquino MD [address] [place] [address] 02/15/2020 Office Visit Cardiology Roman Daigle MD [facility] [place] [address] 03/01/2020 Office Visit Gastroenterology Stella Lal, [address] [place] [address] 03/10/2020 [facility] 04/06/2020 Office Visit Audiology Williams Ponce, AuD [address] [place] [address] 07/12/2020 [facility] 11/08/2020 [facility] Name Type Priority Associated Diagnoses Date/Time FLU A/FLU B/RSV PCR ASSAY Lab Routine URI, acute 01/07/2020 10:26 AM EDT (TESTED AT [facility] ONLY) THROAT STREP SCREEN Lab Routine URI, acute 01/07/2020 10:25 AM EDT CULTURE Name Type Priority Associated Diagnoses Order Schedule FLU A/FLU B/RSV PCR Lab Routine URI, acute 1 Occurrences starting ASSAY (TESTED AT [facility] 01/07/2020 until 07/05/2020 LAB ONLY) THROAT STREP SCREEN Lab Routine URI, acute 1 Occurrences starting CULTURE 01/07/2020 until 07/05/2020 Health Maintenance Due Date Last Done Comments CT Colonography 1945 Cologuard 1945 FIT/FOBT 1945 Sigmoidoscopy 1945 ZOSTER IMMUNIZATION SERIES 09/04/2019 07/10/2019 (2 of 2) DEPRESSION SCREENING 05/04/2020 05/04/2019, 05/04/2019 FALL RISK ASSESSMENT 07/07/2020 07/07/2019, 07/07/2019 LIPID DISORDER SCREENING 11/16/2020 11/16/2019, 01/08/2018, 05/17/2016, Additional history exists MEDICARE ANNUAL WELLNESS 12/17/2020 05/17/2016 (Postponed), Postponed from VISIT 03/31/2015 (Previously 05/17/2017 (Other) completed), 05/27/2012 DIABETES SCREENING 12/28/2020 12/29/2019, 11/16/2019, 11/16/2019, Additional history exists Colonoscopy 05/18/2029 05/18/2019, 05/18/2019, 03/20/2016, Additional history exists Colorectal Cancer Screening 05/18/2029 HEPATITIS C SCREENING Completed 04/29/2012 PNEUMOCOCCAL 65+YRS [...] Type Problems Progress Blood Pressure Blood Pressure 116/72 No Miles, < 140/90 (01/07/2020 MD Arcadio 10:14 AM EDT) Note: This is an individualized treatment (blood pressure) goal for Fredis Scruggs Unger: Displayed above (on the left) is your goal for blood pressure control. Your most recent blood pressure is also shown above, on the right. You should try to achieve blood pressures that are lower than your goal listed above (on the left). Weight increase vs. 18 mo min CHF 0 (01/07/2020 10:14 AM EDT) No Arcadio Aquino MD (lbs) < 5 Note: This is an individualized treatment (congestive heart failure, CHF) goal for Fredis Scruggs Unger: Displayed above (on the right) is [...] screen (PHQ-9) Depression 13 (05/04/2019 11:44 AM No Arcadio Aquino MD total score < 5 EDT) Note: [...] with some symptoms of depression. Consume a [id number] diet Lifestyle No Arcadio Aquino MD Note: [...] of this encounter Implants Implanted Type Area Bevel Gear Generator Operator Device Shelf Model / Serial Identifier Expiration / Lot Date Icd, Promote - [id number] Left: [facility] 03/20/2009 [id number] / Implanted: Qty: 1 on 04/15/2008 at [facility] Chest [facility]/ [place] [id number] / ER Lead Tendril # [id number] - [id number] Left: [facility] 01/18/2011 [id number] / Implanted: Qty: 1 on 04/15/2008 at [facility]/ [place] [id number] / ER Riata Lead - [id number] Left: [facility] 03/20/201165 / Implanted: Qty: 1 on 04/15/2008 at [facility] [id number] / 1158t Quickflex Lead - [id number] Left: [facility] 03/20/2011 [id number] / Implanted: Qty: 1 on 04/15/2008 at [facility], [facility]. [id number] / Lead, Quick Flex 1258t/86 - [id number] Chest [facility] 08/20/2013 1258/86 / Implanted: Qty: 1 on 10/16/2010 at [facility], [facility]. [id number] / Unify [id number] - [id number] Left: [facility] 06/20/2013 [id number] / Implanted: Qty: 1 on 07/03/2012 at [facility], [facility]. [id number] / Optisense Lead - [id number] Left: [facility] 02/17/201552 / Implanted: Qty: 1 on 07/03/2012 at [facility], [facility]. [id number] / Lens, Envista 14.5 Acrylic - [id number] Right: [facility] [id number] / Implanted: Qty: 1 on 06/22/2015 by Lydia Perez MD at [facility] Eye [id number] / Lens, Envista 14.5 Acrylic - [id number] Left: Eye [employer] [id number] / Implanted: Qty: 1 on 01/04/2016 by Lydia Perez MD at [facility] [id number] / Unify Assura [id number] - [id number] Left: [facility] [id number] / Implanted: Qty: 1 on 12/19/2018 by Lv Obrien MD at [facility], [facility]. [id number] / documented as of this encounter Procedures Procedure Name Priority Date/Time Associated Diagnosis Comments STREP A ANTIGEN Routine 01/07/2020 10:25 AM URI, acute Results for this (AMB POCT) EDT procedure are in the results section. documented in this encounter Results STREP A ANTIGEN (AMB POCT) (01/07/2020 10:25 AM EDT) Strep A Antigen Negative Negative [facility] (POCT) POCT Control Line Present Present [facility] POCT Strep A Antigen Yes, Sent for [facility] Confirm (POCT) Confirmation POCT Lot Number [id number] [facility] POCT Expiration Date 12.19.2020 [facility] POCT Specimen Performing Organization Address City/State/Zipcode Phone Number [facility] POCT [address] [place] [address] documented in this encounter Visit Diagnoses Diagnosis URI, acute Acute upper respiratory infections of unspecified site documented in this encounter Insurance Payer Benefit Plan / Subscriber ID Effective Dates Phone Address Type Group MEDICARE MEDICARE PART A & [id number] Effective for all Medicare B dates [facility] [employer] [id number] 2016-Present [place] [address] [phone] [place], [place] (Work) [id number] documented as of this encounter Advance Directives Type Date Recorded Patient Ortho Rn Explanation Advance Directives 12/22/2018 10:37 AM
--- OUTSIDE RECORDS SUMMARY | 2020-01-10 05:39 | XMS REPORT | Summary of Care ---
:1945 Author Organization [facility] Address [address] [facility] [place] [address] Care Team Providers Name Role Phone Iggybeverly Arcadio Primary Care Provider Pryianka Hooper Research Locker Room Supervisor Dusty Mccall OD Primary Dipper Operator/Oven Operator Automatic Reason for Visit Reason Comments Hearing Aid Check Encounter Details Date Type Department Care Team Description 12/31/2019 Office Visit [facility] Ponce, Sensorineural hearing Alpha AuD loss, bilateral (Primary [address]) [place] [address] [place] [address] [phone] Allergies Active Allergy Reactions Severity Noted Date Comments Ramipril Respiratory Reaction 12/12/2007 COUGH Erythromycin GI Reaction 12/12/2007 nausea Lyrica Swelling 02/24/2018 Mirtazapine Other 12/01/2014 ineffective Dofetilide Cardiac Reaction 12/05/2015 Ventricular tachycardia documented as of this encounter (statuses as of 12/31/2019) Medications Medication Sig Dispensed Refills Start Date [...] 100 MG Oral Tab mouth DAILY. Beclomethasone [place] 1 [place] in 0 Active Dipropionate (QNASL) 80 nose [...] Apply to 30 g 0 03/12/2019 Active [id number] UNIT/GM Apply affected areas externally Cream daily [...] area CreamIndications: Other daily as needed psoriasis HYDROcodone-acetaminophe Take 1 Tab by 100 Tab 0 12/16/2019 Active n (NORCO) 5-325 MG Oral mouth EVERY FOUR Tab HOURS NEEDED (for pain). Max Daily Amount: 5 Tabs. potassium chloride TAKE TWO TABLETS 180 Tab 3 12/16/2019 Active (K-DUR) 20 MEQ Oral Tab BY MOUTH EVERY CR DAY furosemide (LASIX) 40 MG Take 1 Tab by 0 12/29/2019 Active Oral Tab mouth EVERY OTHER DAY. nadolol (CORGARD) 20 MG Take 0.5 Tabs by 0 12/29/2019 Active Oral Tab mouth TWICE DAILY. documented as of this encounter (statuses as of 12/31/2019) Active Problems Problem Noted Date Class 3 [...] 07/05/2014 CLAS - participant in clinical trial- [id number] 12/08/2013 Overview: CLAS is a lead assessment [...] following surgery for weight loss 05/31/[address] (myocardial infarction) 03/14/2011 Chronic systolic heart failure [...] hypertension 12/12/2007 Left Bundle Branch Block 12/12/2007 intermediate frame tender current use of anticoagulant therapy 10/29/2007 Overview: Managed by: [facility] Referring Provider: Ben Indication: afib Target Range: 2.0-3.0 Duration: Indefinite Additional factors influencing anticoagulation: CHADS2 score of 2 for hypertension and congestive heart failure [id number] score of 3 for age > 65, hypertension, congestive heart failure Allopurinol increases warfarin effect Duloxetine increases warfarin level Spironolactone decreases warfarin effect Updated referral 01/2013, 01/2014, 02/2015, 03/2016, 06/18/17 Anticoagulation Orders 01/30/13, 01/26/14, 02/21/15, 04/05/16, 07/02/17 Positive TB test Overview: Completed 9 months treatment documented as of this encounter (statuses as of 12/31/2019) Resolved Problems Problem Noted Date Resolved Date [...] IMPLANTED: Promote RF, model 3207, serial number [id number]. ATRIAL LEAD: Model 1888, serial number [id number]. RIGHT VENTRICULAR LEAD: Model 7121, serial number [id number]. LEFT VENTRICULAR LEAD: Model 1158T, serial number [id number] Atrial fibrillation 12/12/2007 07/20/2019 Obesity 12/12/2007 03/14/2011 Psoriasis 12/12/2007 09/30/2012 Rheumatoid arthritis(714.0) 12/02/2014 documented as of this encounter (statuses as of 12/31/2019) Immunizations Name Administration Dates Next Due Influenza [...] of this encounter Last Filed Vital Signs Not on filedocumented in this encounter Progress Notes Williams Ponce AuD - 12/31/2019 10:30 AM EDTThe patient was accompanied to today' s hearing aid check by his . The patient's reports that the patient has gradually reduced his daily wear schedule and as a result she has to repeat herselfnumerous times a day. The patient confirmed his 's statement. He stated the reduced wear schedule is not due to poor sound quality or fit but due to lack of remembering. I suggested that the patient integrate the insertion of his devices into his morning routine. By integrating insertion into his morning routine the patient will be afforded better speech understanding over time which will then reduce the number of times he has to ask his for repetition. Said benefit is limited to his ratherpoor speech understanding and is also dependent on a number of associated factors such as backgroundnoise, distance, and multiple speakers. After counseling the patient on the importance of adopting a consistent wear schedule I removed the devices from his canals and performed a visual inspection. Visual inspection revealed debris in the cshell wax guards and vents. No debris was noted in the microphone ports. Debris was removed by replacing the wax guards and suctioning the vents clear. Listening check was good. Following cleaning the devices were connected to [employer] software. Once connected the newest firmware settings were downloadedinto the devices. No additional programming had occurred as the patient does not report any complications with sound quality. He is to remain with his current settings and attempt to increase his dailyusage. He was instructed to return in 3 months time for his annual audio and 3 month hearing aid check. documented in this encounter Plan of Treatment Date Type Specialty Care Team Description 02/03/2020 Office Visit Internal Medicine Arcadio Aquino MD [address] [place] [address] 02/15/2020 Office Visit Cardiology Roman Daigle MD [address] [place] [address] 03/01/2020 Office Visit Gastroenterology Stella Lal, [address] [place] [address] 03/10/2020 [facility] 04/06/2020 Office Visit Audiology Williams Ponce, AuD [address] [place] [address] 07/12/2020 [facility] 11/08/2020 [facility] Name Type Priority Associated Diagnoses Order Schedule HEARING AID RECHECK Procedures Routine Sensorineural hearing Ordered: 12/30 loss, bilateral Health Maintenance Due Date Last Done Comments CT Colonography 1945 FIT-DNA 1945 FIT/FOBT 1945 Sigmoidoscopy 1945 ZOSTER IMMUNIZATION SERIES 09/04/2019 07/10/2019 (2 of 2) DEPRESSION SCREENING 05/04/2020 05/04/2019, 05/04/2019 FALL RISK ASSESSMENT 07/07/2020 07/07/2019, 07/07/2019 LIPID DISORDER SCREENING 11/16/2020 11/16/2019, 01/08/2018, 05/17/2016, Additional history exists MEDICARE ANNUAL WELLNESS 12/17/2020 05/17/2016 (Postponed), Postponed from VISIT 03/31/2015 (Previously 05/17/2017 (Other) completed), 05/27/2012 DIABETES SCREENING 12/28/2020 12/29/2019, 11/16/2019, 11/16/2019, Additional history exists Colonoscopy 05/18/2024 05/18/2019, 05/18/2019, 03/20/2016, Additional history exists Colonoscopy 05/18/2029 05/18/2019, 05/18/2019, [...] Type Problems Progress Blood Pressure Blood Pressure 118/58 No Miles, < 140/90 (12/29/2019 MD Arcadio 9:09 AM EDT) Note: This is an individualized treatment (blood pressure) goal for Fredis Ugner: Displayed above (on the left) is your goal for blood pressure control. Your most recent blood pressure is also shown above, on the right. You should try to achieve blood pressures that are lower than your goal listed above (on the left). Weight increase vs. 18 mo min CHF 4 (12/29/2019 9:09 AM EDT) No Arcadio Aquino MD (lbs) [...] is an individualized lifestyle goal for Fredis Sheba Unger: Please maintain a regular sleep schedule. This may help with some symptoms of depression. Consume a [id number] diet Lifestyle No Arcadio Aquino MD Note: [...] ongoing basis. Check your weight daily Self-management No Arcadio Aquino MD Note: This is an individualized self-management goal for Fredis Unger: Please check your weight daily. Refer to the accompanying CHF treatment goal and call your doctor immediately for further instructions on how to respond to unexpected weight gain. documented as of this encounter Implants Implanted Type Area Structural Shop Helper Device Shelf Model / Serial Identifier Expiration / Lot Date Icd, Promote - [id number] Left: [facility] [place] 03/20/2009 [id number] / Implanted: Qty: 1 on 04/15/2008 at [facility]/ [place] [id number] / ER Lead Tendril # [id number] - [id number] Left: [facility] [place] 01/18/2011 [id number] / Implanted: Qty: 1 on 04/15/2008 at [facility]/ [employer] [id number] / ER 7121/65 Riata Lead - [id number] Left: [facility] [place] 03/20/2011 71/65 / Implanted: Qty: 1 on 04/15/2008 at [facility] [id number] / 1158t Quickflex Lead - [id number] Left: [facility] 03/20/2011 [id number] / Implanted: Qty: 1 on 04/15/2008 at [facility] [id number] / Lead, Quick Flex 1258t/86 - [id number] Chest [facility] 08/20/2013 1258/86 / Implanted: Qty: 1 on 10/16/2010 at [facility], [facility]. [id number] / Unify [id number] - [id number] Left: [facility] 06/20/2013 [id number] / Implanted: Qty: 1 on 07/03/2012 at [facility], [facility]. [id number] / Optisense Lead - [id number] Left: [facility] 02/17/201552 / Implanted: Qty: 1 on 07/03/2012 at [facility], [facility]. [id number] / Lens, Envista 14.5 Acrylic - [id number] Right: [facility]CH [facility] LOMB [id number] / Implanted: Qty: 1 on 06/22/2015 by Lydia Perez MD at [facility] Eye [id number] / Lens, Envista 14.5 Acrylic - [id number] Left: Eye BAUSCH & LOMB [id number] / Implanted: Qty: 1 on 01/04/2016 by Lydia Perez MD at [facility] [id number] / Unify Assura [id number] - [id number] Left: [facility] [id number] / Implanted: Qty: 1 on 12/19/2018 by Lv Obrien MD at [facility], [facility]. [id number] / documented as of this encounter Results Not on filedocumented in this encounter Visit Diagnoses Diagnosis Sensorineural hearing loss, bilateral documented in this encounter Insurance Payer Benefit Plan / Subscriber ID Effective Dates Phone Address Type Group MEDICARE MEDICARE PART A & [id number] Effective for all Medicare B dates [facility] [id number] 2016-Present [place] Guarantor Name Account Type Relation to Date of Phone Billing Patient Address Fredis Unger Personal/Family 1945 [address] [phone] [place], [place] (Work) [address] documented as of this encounter Advance Directives Type Date Recorded 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
--- OUTSIDE RECORDS SUMMARY | 2020-01-10 05:39 | XMS REPORT | Summary of Care ---
:1945 Author Organization [facility] Address [address] [address] Care Team Providers Name Role Phone Miles Arcadio Primary Care Provider Priyanka Hooper Research Paint Formulator Dusty Mccall OD Primary Chief Meteorologist/As400 Developer Reason for Visit Reason Comments Follow Up ER visit at [facility] [place] [place] 12/11/2019 Encounter Details Date Type Department Care Team Description 12/17/2019 Office Visit [facility] Antoine Hughes, Chest pain, Medicine PA unspecified type [address] (Primary Dx) [place] [address] [place] [address] [phone] Allergies Active Allergy Reactions Severity Noted Date Comments Ramipril Respiratory Reaction 12/12/2007 COUGH Erythromycin GI Reaction 12/12/2007 nausea Lyrica Swelling 02/24/2018 Mirtazapine Other 12/01/2014 ineffective Dofetilide Cardiac Reaction 12/05/2015 Ventricular tachycardia documented as of this encounter (statuses as of 12/17/2019) Medications Medication Sig Dispensed Refills Start Date [...] 100 MG Oral Tab mouth DAILY. Beclomethasone [place] 1 [place] in 0 Active Dipropionate (QNASL) 80 nose [...] Apply to 30 g 0 03/12/2019 Active 364935 UNIT/GM Apply affected areas externally Cream daily [...] area CreamIndications: Other daily as needed psoriasis nadolol (CORGARD) 20 MG Take 0.5 Tabs by 0 11/16/2019 Active Oral Tab mouth TWICE DAILY. 1/2 in AM, 1 in PM rifaximin (XIFAXAN) 200 Take 1 Tab by 42 Tab 1 11/30/2019 Active MG Oral Tab mouth THREE TIMES DAILY. HYDROcodone-acetaminophe Take 1 Tab by 100 Tab 0 12/16/2019 Active n (NORCO) 5-325 MG Oral mouth EVERY FOUR Tab HOURS NEEDED (for pain). Max Daily Amount: 5 Tabs. potassium chloride TAKE TWO TABLETS 180 Tab 3 12/16/2019 Active (K-DUR) 20 MEQ Oral Tab BY MOUTH EVERY CR DAY documented as of this encounter (statuses as of 12/17/2019) Active Problems Problem Noted Date Class 3 [...] arteritis) 10/11/2014 Paroxysmal SVT (supraventricular tachycardia) 07/05/2014 MARITA - participant in clinical trial- [id number] 12/08/2013 Overview: CLAS is a lead assessment trial conducted by [facility] to determine the prevalence of visible wires [...] following surgery for weight loss 05/31/2011 Old UT (myocardial infarction) 03/14/2011 Chronic systolic heart failure [...] hypertension 12/12/2007 Left Bundle Branch Block 12/12/2007 [facility] current use of anticoagulant therapy 10/29/2007 Overview: Managed by: [facility] Referring Provider: Ben Indication: afib Target Range: 2.0-3.0 Duration: Indefinite Additional factors influencing anticoagulation: CHADS2 score of 2 for hypertension and congestive heart failure [id number] score of 3 for age > 65, hypertension, congestive heart failure Allopurinol increases warfarin effect Duloxetine increases warfarin level Spironolactone decreases warfarin effect Updated referral 01/2013, 01/2014, 02/2015, 03/2016, 06/18/17 Anticoagulation Orders 01/30/13, 01/26/14, 02/21/15, 04/05/16, 07/02/17 Positive TB test Overview: Completed 9 months treatment documented as of this encounter (statuses as of 12/17/2019) Resolved Problems Problem Noted Date Resolved Date [...] IMPLANTED: Promote RF, model 3207, serial number [id number]. ATRIAL LEAD: Model 1888, serial number [id number]. RIGHT VENTRICULAR LEAD: Model 7121, serial number [id number]. LEFT VENTRICULAR LEAD: Model 1158T, serial number [id number] Atrial fibrillation 12/12/2007 07/20/2019 Obesity 12/12/2007 03/14/2011 Psoriasis 12/12/2007 09/30/2012 Rheumatoid arthritis(714.0) 12/02/2014 documented as of this encounter (statuses as of 12/17/2019) Immunizations Name Administration Dates Next Due Influenza [...] Sign Reading Time Taken Comments Blood Pressure 122/70 12/17/2019 2:17 PM EST Pulse 69 12/17/2019 2:17 PM EST Temperature 37 12/17/2019 2:17 PM EST C (98.6 F) Respiratory Rate - - Oxygen Saturation 96% 12/17/2019 2:17 PM EST Inhaled Oxygen Concentration - - Weight 127 kg (280 lb) 12/17/2019 2:17 PM EST Height 170.2 cm (5' 7") 12/17/2019 2:17 PM EST Body Mass Index 43.85 12/17/2019 2:17 PM EST documented in this encounter Progress Notes Antoine Hughes, TOSHIA - 12/17/2019 2:20 PM EST PATIENT: Fredis Unger : 1945 DATE OF SERVICE: 12/17/2019 CHIEF COMPLAINT: Chief Complaint Patient presents with ? Follow Up ER visit at [facility] [place] [place] 12/11/2019 Subjective HISTORY OF PRESENT ILLNESS: Fredis Unger is a 74-y.o. male. Fredis presents with a complicated cardiac history to the office today for follow up in the emergency room after being seen in the emergency room for acute onset chest pain that persisted for approximately fifteen minutes and resolved spontaneously. Emergency room visit Dated 12/11/2019. EKG demonstrated tachycardia without any ST changes, troponin negative. Today he states he is feeling well and has not developed any chest pain since discharge from [facility]. New changes to medications include an e[facility] encounter with Dr. Aquino, reducing Lasix to twice a week to reduce dizziness and light headedness. Has not complained of such symptoms since discussion. See ROS for pertinent negatives. Past Medical History: Diagnosis Date ? Hypertension 12/12/2007 ? AICD discharge 09/02/2015 ? Asthma 12/12/2007 ? Atrial fibrillation (HCC) 12/12/2007 ? Atrial fibrillation, unspecified type ([facility]) 03/28/2016 ? BMI 40.0-44.9, adult ([facility]) 07/05/2014 ? Cardiac dysrhythmia ? Cardiomyopathy ? CHF (congestive heart failure) ([facility]) ? Colon polyps tubular adenomata, 2008, due [...] ideal weight or BMI > 40) ( [facility]) 03/14/2011 ? Old UT (myocardial infarction) 03/14/2011 ? MOSES (obstructive sleep apnea) ? Paroxysmal atrial fibrillation ([facility]) 09/05/2015 ? Paroxysmal SVT (supraventricular tachycardia) ([facility]) 07/05/2014 ? Positive TB test ? Psoriasis 12/12/2007 ? Rheumatoid arthritis(714.0) ? Sepsis ([facility]) 07/07/2019 ? Shingles 04/2017 ? TB lung, latent ? Unspecified hyperplasia of prostate without urinary obstruction and other lower urinary tract symptoms (LUTS) ? Urinary frequency Family History Problem Relation Age of Onset ? Arthritis Mother rheumatoid ? Heart Father CONGESTIVE HEART FAILURE, [place] ? Diabetes Father ? Heart Sister ? Heart Sister ? Heart Brother ? Heart Brother ? Heart Other GRANDFATHER - [place] AGE - 49 ? Diabetes Sister one [...] Dipropionate (QNASL) 80 MCG/ACT Nasal Aero Soln Houlton 1 [place] in nose DAILY. Indications: each nostril ? [...] TABLET BY MOUTH TWICE A DAY ? halobetasol (ULTRAVATE) 0.05 % Apply externally [...] Take 0.5 Tabs by mouth TWICE DAILY. 1/ 2 in AM, 1 in PM ? nystatin (MYCOSTATIN) 008846 UNIT/GM Apply externally Cream Apply to affected [...] Take 200 mg by mouth DAILY. ? rifaximin (XIFAXAN) 200 MG Oral Tab Take 1 Tab by mouth THREE TIMES DAILY. ? sertraline (ZOLOFT) 50 MG Oral [...] file Gets together: Not on file Attends protestant service: Not on file Active member of [...] Social History Narrative Patient is retired from [employer]. REVIEW OF SYSTEMS: Review of Systems Constitutional: Negative for chills, fever and weight loss. HENT: Negative for tinnitus. Eyes: Negative for blurred vision and double vision. Respiratory: Negative for cough, shortness of breath and wheezing. Cardiovascular: Negative for chest pain, palpitations, orthopnea and leg swelling. Gastrointestinal: Negative for diarrhea, heartburn, nausea and vomiting. Genitourinary: Negative for flank pain and hematuria. Musculoskeletal: Negative for joint pain and myalgias. Neurological: Negative for dizziness, speech change, seizures, loss of consciousness and headaches. Objective PHYSICAL EXAM: VITALS: BP 122/70 (BP Location: Left arm, Patient Position: Sitting) | Pulse 69 | Temp 98.6 F(37 C) (Tympanic) | Ht 5' 7" (1.702 m) | Wt 280 lb ( 127 kg) | SpO2 96% | BMI 43.85 kg/mBody mass index is 43.85 kg/m. Physical Exam Vitals signs and nursing note reviewed. Constitutional: General: He is not in acute distress. HENT: Head: Normocephalic and atraumatic. Mouth/Throat: Mouth: Mucous membranes are moist. Eyes: Pupils: Pupils are equal, round, and reactive to light. Cardiovascular: Rate and Rhythm: Normal rate and regular rhythm. Heart sounds: No murmur. No friction rub. No gallop. Pulmonary: Effort: Pulmonary effort is normal. No respiratory distress. Breath sounds: No wheezing, rhonchi or rales. Abdominal: General: Abdomen is flat. Palpations: Abdomen is soft. Tenderness: There is no abdominal tenderness. There is no right CVA tenderness, left CVA tenderness or guarding. Musculoskeletal: General: No swelling or tenderness. Right lower leg: No edema. Left lower leg: No edema. Skin: General: Skin is warm and dry. Neurological: General: No focal deficit present. Mental Status: He is alert and oriented to person, place, and time. Sensory: No sensory deficit. Motor: No weakness. Deep Tendon Reflexes: Reflexes normal. ASSESSMENT / IMPRESSION: ICD-9-CM ICD-10-CM 1. Chest pain, unspecified type 786.50 R07.9 Fredis is a 74 years old male seen in the emergency room for chest pain, rule out any acute cardiacpathology. Since discharge, he has not had any new onset chest pain, reduced his dose of lasix and has no other questions or concerns for today. I advised the patient that if he experiences chest pain to return to the emergency room. At this point, his level of acuity does not indicate further evaluation and treatment. In the case that he develops exertion intolerance or returns to the emergency room for chest pain, a cardiology follow up should be considered. Author: TOSHIA Nunez 12/17/2019 16:27 documented in this encounter Plan of Treatment Date Type Specialty Care Team Description 12/31/2019 Office Visit Audiology KrisWilliams lovett, AuD [address] [address] 02/15/2020 Office Visit Internal Medicine Arcadio Aquino MD [address] [place] [address] 02/15/2020 Office Visit Cardiology Roman Daigle MD [address] [place] [address] 03/10/2020 [facility] 07/12/2020 [facility] 11/08/2020 [facility] Health Maintenance Due Date Last Done Comments ZOSTER IMMUNIZATION SERIES 09/04/2019 07/10/2019 (2 of 2) DEPRESSION SCREENING 05/04/2020 05/04/2019, 05/04/2019 FALL RISK ASSESSMENT 07/07/2020 07/07/2019, 07/07/2019 DIABETES SCREENING 11/16/2020 11/16/2019, 11/16/2019, 12/29/2018, Additional history exists LIPID DISORDER SCREENING 11/16/2020 11/16/2019, 01/08/2018, 05/17/2016, Additional history exists MEDICARE ANNUAL WELLNESS 12/17/2020 05/17/2016 (Postponed), Postponed from VISIT 03/31/2015 (Previously 05/17/2017 (Other) completed), 05/27/2012 Colonoscopy 05/18/2024 05/18/2019, 05/18/2019, 03/20/2016, Additional history [...] Type Problems Progress Blood Pressure Blood Pressure 122/70 No Miles, < 140/90 (12/17/2019 MD Arcadio 2:17 PM EST) Note: This is an individualized treatment (blood pressure) goal for Fredis Unger: Displayed above (on the left) is your goal for blood pressure control. Your most recent blood pressure is also shown above, on the right. You should try to achieve blood pressures that are lower than your goal listed above (on the left). Weight increase vs. 18 mo min CHF 5 (12/17/2019 2:17 PM EST) Arcadio Lawson MD (lbs) < [...] with some symptoms of depression. Consume a [id number] diet Lifestyle No Arcadio Aquino MD Note: [...] of this encounter Implants Implanted Type Area Operations And Maintenance Manager Device Shelf Model / Serial Identifier Expiration / Lot Date Icd, Promote - [id number] Left: [facility] 03/20/2009 [id number] / Implanted: Qty: 1 on 04/15/2008 at [facility]/ [place] [id number] / ER Lead Tendril # [id number]-52 - [id number] Left: [facility] 01/18/2011 1888T-52 / Implanted: Qty: 1 on 04/15/2008 at [facility]/ [place] [id number] / ER 7121/65 Riata Lead - [id number] Left: [facility] 03/20/2011 7121/65 / Implanted: Qty: 1 on 04/15/2008 at [facility] [id number] / 1158t Quickflex Lead - [id number] Left: [facility] 03/20/2011 1158T / Implanted: Qty: 1 on 04/15/2008 at [facility] [id number] / Lead, Quick Flex 1258t/86 - [id number] Chest [facility] 08/20/2013 1258/86 / Implanted: Qty: 1 on 10/16/2010 at [facility] [id number] / Unify [id number] - [id number] Left: [facility] 06/20/2013 [id number] / Implanted: Qty: 1 on 07/03/2012 at [facility] [id number] / Optisense Lead - [id number] Left: [facility] 02/17/2015 / Implanted: Qty: 1 on 07/03/2012 at [facility] [id number] / Lens, Envista 14.5 Acrylic - [id number] Right: [facility] [employer] [facility] [id number] / Implanted: Qty: 1 on 06/22/2015 by Lydia Perez MD at [facility] Eye [id number] / Lens, Envista 14.5 Acrylic - [id number] Left: Eye BAUSCH & LOMB [id number] / Implanted: Qty: 1 on 01/04/2016 by Lydia Perez MD at [facility] [id number] / Unify Assura [id number] - [id number] Left: [facility] [id number] / Implanted: Qty: 1 on 12/19/2018 by Lv Obrien MD at [facility] [id number] / documented as of this encounter Results Not on filedocumented in this encounter Visit Diagnoses Diagnosis Chest pain, unspecified type documented in this encounter Insurance Payer Benefit Plan / Subscriber ID Effective Dates Phone Address Type Group MEDICARE MEDICARE PART A & [id number] Effective for all Medicare B dates 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
[2020-01-10 05:46] VITALS: BP 111/77
== END 2020-01-10 05:46 | disposition home or self-care (01) ==
LOC: ED 04:08
DX: S01.112A Laceration without foreign body of left eyelid and periocular area, initial encounter (principal); W19.XXXA Unspecified fall, initial encounter; Y92.9 Unspecified place or not applicable; Z79.01 Long term (current) use of anticoagulants; Z88.8 Allergy status to other drugs, medicaments and biological substances; Z79.899 Other long term (current) drug therapy; Z95.810 Presence of automatic (implantable) cardiac defibrillator; I11.0 Hypertensive heart disease with heart failure; I50.9 Heart failure, unspecified; F41.9 Anxiety disorder, unspecified; F32.9 Major depressive disorder, single episode, unspecified; Z98.84 Bariatric surgery status
CPT/HCPCS: 70450; 71045; 99282

== ENCOUNTER 2020-11-10 17:30 | Observation (INO) ==
[2020-11-10 19:00] LABS: ABS Eosinophils 0.3 10^3/ul (0-0.6); ABS Lymphocytes 1.3 10^3/ul (1.0-4.8); ABS Monocytes 0.5 10^3/ul (0-0.8); ABS Neutrophils 3.4 10^3/ul (1.5-7.7); Hematocrit 34 % (42-52); Hemoglobin 11.2 g/dL (14.0-18.0); Lymphocyte % 23.2 %; Mean Corpuscular HGB Conc 33 g/dL (31-36); Mean Corpuscular Hemoglobin 36 pg (27-31); Mean Corpuscular Volume 109 fL (80-94); Mean Platelet Volume 9.7 fL (7.4-10.4); Nucleated Red Blood Cells % 0.3; Platelet Count 155 10^3/uL (150-450); Red Blood Count 3.12 10^6 /uL (4.18-5.48); Red Cell Distribution Width 18 % (10-15); White Blood Count 5.6 10^3/uL (3.5-10.8)
[2020-11-10 19:15] LABS: INR 1.39 (0.82-1.09)
[2020-11-10 19:16] LABS: Albumin 3.8 g/dL (3.2-5.2); Albumin/Globulin Ratio 1.3 (1-3); BUN/Creatinine Ratio 15.2 (8-20); Calcium 8.8 mg/dL (8.6-10.3); EGFR African American 64.3 (>60); EGFR Non-African American 53.2 (>60); Globulin 2.9 g/dL (2-4); Potassium 3.8 mmol/L (3.5-5.0); Total Bilirubin 0.5 mg/dL (0.2-1.0); Total Protein 6.7 g/dL (6.4-8.9)
[2020-11-10] MEDS ORDERED: Al Hydrox/Mg Hydrox/Simet LIQ 30 ML UDC PO PRN (21:06)
[2020-11-10] MEDS ORDERED: HYDROcodone/ACETAMIN 5/325 mg TAB PO PRN (21:09)
[2020-11-10] MEDS ORDERED: Albuterol HFA INHALER 8 gm MDI INH PRN (22:42)
[2020-11-11 03:21] LABS: BUN/Creatinine Ratio 15.8 (8-20); Calcium 8.7 mg/dL (8.6-10.3); EGFR African American 71.8 (>60); EGFR Non-African American 59.3 (>60); HDL Cholesterol 48.3 mg/dL; Potassium 3.6 mmol/L (3.5-5.0)
[2020-11-11 03:22] LABS: Troponin I 0.01 ng/mL (<0.03)
[2020-11-11] MEDS: Potassium Chlor 20 meq TAB.ER PO SCH ×2 (07:40→10:48)
[2020-11-11] MEDS ORDERED: Regadenoson 0.4 MG/5 ML SYRINGE ONE (09:36)
[2020-11-11] MEDS ORDERED: Aminophylline 25 MG/ML VIAL ONE (09:36)
[2020-11-11] MEDS ORDERED: Magnesium Chloride EC 64 mgTAB PO SCH (12:00)
[2020-11-11 15:31] VITALS: BP 117/64
[2020-11-11] MEDS ORDERED: Mometasone 220 MCG MDI INH SCH (21:00)
== END 2020-11-11 15:55 | disposition home or self-care (01) ==
LOC: MEDTELE 17:30 → ED 17:30
PROVIDERS: ADMIT Student in an Organized Health Care Education/Training Program; ATTEND Internal Medicine

== ENCOUNTER 2021-12-31 20:45 | Inpatient (IN) ==
[2021-12-31 22:25] LABS: ABS Eosinophils 0.1 10^3/ul (0-0.6); ABS Lymphocytes 0.8 10^3/ul (1.0-4.8); ABS Monocytes 0.2 10^3/ul (0-0.8); ABS Neutrophils 5.3 10^3/ul (1.5-7.7); Eosinophil % 1.3 %; Hematocrit 32 % (42-52); Hemoglobin 10.8 g/dL (14.0-18.0); Lymphocyte % 12.3 %; Mean Corpuscular HGB Conc 34 g/dL (31-36); Mean Corpuscular Hemoglobin 37 pg (27-31); Mean Corpuscular Volume 111 fL (80-94); Mean Platelet Volume 9.5 fL (7.4-10.4); Nucleated Red Blood Cells % 0.3; Platelet Count 129 10^3/uL (150-450); Red Blood Count 2.91 10^6 /uL (4.18-5.48); Red Cell Distribution Width 17 % (10-15); White Blood Count 6.4 10^3/uL (3.5-10.8)
[2021-12-31 22:28] LABS: INR 1.75 (0.86-1.15)
[2021-12-31 22:57] LABS: Albumin 3.8 g/dL (3.2-5.2); Albumin/Globulin Ratio 1.2 (1-3); Calcium 9.5 mg/dL (8.6-10.3); Globulin 3.3 g/dL (2-4); Potassium 3.7 mmol/L (3.5-5.0); Total Protein 7.1 g/dL (6.4-8.9); eGFR CKD-EPI 42.1 (>60)
[2021-12-31 23:41] LABS: High Sensitivity Troponin 1 Hr 9 pg/mL (<20)
[2022-01-01] MEDS ORDERED: Al Hydrox/Mg Hydrox/Simet LIQ 30 ML UDC PO PRN (01:26)
[2022-01-01] MEDS ORDERED: Levalbuterol HFA INHALER MDI INH PRN (01:28)
[2022-01-01 01:38] LABS: Urine Appearance Clear; Urine Bilirubin Negative (Negative); Urine Blood Negative (Negative); Urine Color Yellow; Urine Glucose Negative (Negative); Urine Ketones Negative (Negative); Urine Nitrite Negative (Negative); Urine Protein Negative (Negative); Urine Urobilinogen Negative (Negative)
[2022-01-01] MEDS: Heparin 5000 UNITS/ML 1 mL VIAL SUBCUT SCH ×3 (05:56→20:31)
[2022-01-01 06:48] LABS: Calcium 8.7 mg/dL (8.6-10.3); Potassium 3.5 mmol/L (3.5-5.0); eGFR CKD-EPI 46.3 (>60)
[2022-01-01] MEDS: DULoxetine DR 30 mg CAP PO SCH (08:59)
[2022-01-01 16:33] LABS: Uric Acid 5.8 mg/dL (4.4-7.6)
[2022-01-01 16:47] LABS: TSH Ultra Thyroid Stim Horm 0.95 mcIU/mL (0.34-5.60)
[2022-01-01] MEDS: Mometasone 220 MCG MDI INH SCH (19:33)
[2022-01-02] MEDS: Heparin 5000 UNITS/ML 1 mL VIAL SUBCUT SCH ×3 (05:37→21:05)
[2022-01-02 06:09] LABS: Hematocrit 26 % (42-52); Hemoglobin 8.8 g/dL (14.0-18.0); Mean Corpuscular HGB Conc 34 g/dL (31-36); Mean Corpuscular Hemoglobin 37 pg (27-31); Mean Corpuscular Volume 110 fL (80-94); Red Blood Count 2.39 10^6 /uL (4.18-5.48); Red Cell Distribution Width 17 % (10-15); White Blood Count 4.1 10^3/uL (3.5-10.8)
[2022-01-02 06:52] LABS: Calcium 8.7 mg/dL (8.6-10.3); Potassium 3.5 mmol/L (3.5-5.0); eGFR CKD-EPI 51.9 (>60)
[2022-01-02] MEDS ORDERED: Potassium Chlor 20 meq TAB.ER PO ONE (06:54)
[2022-01-02 07:39] LABS: ABS Eosinophils 0.1 10^3/ul (0-0.6); ABS Lymphocytes 1.3 10^3/ul (1.0-4.8); ABS Monocytes 0.3 10^3/ul (0-0.8); ABS Neutrophils 2.4 10^3/ul (1.5-7.7); Eosinophil % 3.4 %; Lymphocyte % 31.8 %; Mean Platelet Volume 9.5 fL (7.4-10.4); Nucleated Red Blood Cells % 0.4; Platelet Count 98 10^3/uL (150-450)
[2022-01-02 09:46] LABS: Ferritin 266.7 ng/mL (24-336)
[2022-01-02] MEDS: DULoxetine DR 30 mg CAP PO SCH (10:16)
[2022-01-02 10:46] LABS: Erythrocyte Sed Rate 79 mm/Hr (0-19)
[2022-01-02] MEDS: Mometasone 220 MCG MDI INH SCH (19:31)
[2022-01-03] MEDS: Heparin 5000 UNITS/ML 1 mL VIAL SUBCUT SCH (05:08)
[2022-01-03 05:48] LABS: ABS Eosinophils 0.1 10^3/ul (0-0.6); ABS Lymphocytes 1.4 10^3/ul (1.0-4.8); ABS Monocytes 0.3 10^3/ul (0-0.8); ABS Neutrophils 2.7 10^3/ul (1.5-7.7); Eosinophil % 3.2 %; Hematocrit 27 % (42-52); Hemoglobin 9.3 g/dL (14.0-18.0); Lymphocyte % 31.2 %; Mean Corpuscular HGB Conc 34 g/dL (31-36); Mean Corpuscular Hemoglobin 38 pg (27-31); Mean Corpuscular Volume 111 fL (80-94); Mean Platelet Volume 9.6 fL (7.4-10.4); Nucleated Red Blood Cells % 0.5; Platelet Count 93 10^3/uL (150-450); Red Blood Count 2.48 10^6 /uL (4.18-5.48); Red Cell Distribution Width 17 % (10-15); White Blood Count 4.6 10^3/uL (3.5-10.8)
[2022-01-03 05:50] LABS: Urine Appearance Clear; Urine Bilirubin Negative (Negative); Urine Blood 1+ (Negative); Urine Color Straw; Urine Glucose Negative (Negative); Urine Ketones Negative (Negative); Urine Nitrite Negative (Negative); Urine Protein Negative (Negative); Urine Specific Gravity 1.004 (1.002-1.030); Urine Urobilinogen Negative (Negative)
[2022-01-03 05:53] LABS: Urine Bacteria 1+ (Absent); Urine Red Blood Cell Absent (Absent); Urine Squamous Epithelial Cell Present (Absent); Urine White Blood Cell Trace(0-5/hpf) (Absent)
[2022-01-03 06:08] LABS: Calcium 8.8 mg/dL (8.6-10.3); Magnesium 2.1 mg/dL (1.9-2.7); Potassium 3.9 mmol/L (3.5-5.0)
[2022-01-03 06:14] LABS: eGFR CKD-EPI 46.7 (>60)
[2022-01-03] MEDS: Magnesium Hydroxide LIQ 30 ML UDC PO PRN (09:24)
[2022-01-03] MEDS: DULoxetine DR 30 mg CAP PO SCH (09:25)
[2022-01-03] MEDS ORDERED: Enoxaparin 100 MG/ML SYR SUBCUT SCH (10:00)
[2022-01-03] MEDS: Nystatin TOP POWDER 15 GM BTL TOPICAL SCH ×2 (13:00→20:16)
[2022-01-03 15:20] LABS: Hematocrit 28 % (42-52); Hemoglobin 9.4 g/dL (14.0-18.0)
[2022-01-03] MEDS ORDERED: Lactated Ringers 500 ml BAG 500 ML IV SCH (17:00)
[2022-01-03] MEDS ORDERED: Lactated Ringers 1000 ml BAG 1,000 ML IV ONE (18:59)
[2022-01-03] MEDS: Mometasone 220 MCG MDI INH SCH (19:16)
[2022-01-04] MEDS ORDERED: LACTATED RINGERS 500 ML BAG IV ONE (04:00)
[2022-01-04 04:55] LABS: Hematocrit 26 % (42-52); Hemoglobin 8.8 g/dL (14.0-18.0); Mean Corpuscular HGB Conc 34 g/dL (31-36); Mean Corpuscular Hemoglobin 38 pg (27-31); Mean Corpuscular Volume 111 fL (80-94); Mean Platelet Volume 9.2 fL (7.4-10.4); Platelet Count 89 10^3/uL (150-450); Red Blood Count 2.33 10^6 /uL (4.18-5.48); Red Cell Distribution Width 16 % (10-15); White Blood Count 4.3 10^3/uL (3.5-10.8)
[2022-01-04 05:15] LABS: Calcium 8.7 mg/dL (8.6-10.3); eGFR CKD-EPI 53.2 (>60)
[2022-01-04] MEDS: Enoxaparin 40 MG/0.4 ML SYR SUBCUT SCH (09:24)
[2022-01-04] MEDS: Nystatin TOP POWDER 15 GM BTL TOPICAL SCH ×2 (09:27→21:55)
[2022-01-04] MEDS: DULoxetine DR 30 mg CAP PO SCH (09:27)
[2022-01-04] MEDS ORDERED: Lactated Ringers 1000 ml BAG 1,000 ML IV SCH (11:00)
[2022-01-04 11:31] LABS: Hepatitis C Antibody Negative (Negative)
[2022-01-04] MEDS: Mometasone 220 MCG MDI INH SCH (19:51)
[2022-01-04] MEDS: Pantoprazole VIAL 40 MG VIAL IV SCH (21:50)
[2022-01-05 05:40] LABS: ABS Eosinophils 0.2 10^3/ul (0-0.6); ABS Lymphocytes 1.2 10^3/ul (1.0-4.8); ABS Monocytes 0.4 10^3/ul (0-0.8); ABS Neutrophils 2.1 10^3/ul (1.5-7.7); Eosinophil % 5.4 %; Hematocrit 26 % (42-52); Lymphocyte % 30.8 %; Mean Corpuscular HGB Conc 34 g/dL (31-36); Mean Corpuscular Hemoglobin 38 pg (27-31); Mean Corpuscular Volume 112 fL (80-94); Mean Platelet Volume 9.7 fL (7.4-10.4); Nucleated Red Blood Cells % 0.3; Platelet Count 89 10^3/uL (150-450); Red Blood Count 2.37 10^6 /uL (4.18-5.48); Red Cell Distribution Width 17 % (10-15)
[2022-01-05 05:48] LABS: Calcium 8.8 mg/dL (8.6-10.3); Potassium 3.9 mmol/L (3.5-5.0); eGFR CKD-EPI 68.9 (>60)
[2022-01-05] MEDS: Pantoprazole VIAL 40 MG VIAL IV SCH ×2 (09:00→21:17)
[2022-01-05] MEDS: Enoxaparin 40 MG/0.4 ML SYR SUBCUT SCH (09:00)
[2022-01-05] MEDS: DULoxetine DR 30 mg CAP PO SCH (09:01)
[2022-01-05] MEDS: Nystatin TOP POWDER 15 GM BTL TOPICAL SCH ×2 (09:01→21:18)
[2022-01-05 10:28] LABS: HIV 4th Generation Nonreactive (Nonreactive)
[2022-01-05] MEDS ORDERED: Lactated Ringers 500 ml BAG 500 ML IV SCH (19:00)
[2022-01-05] MEDS: Mometasone 220 MCG MDI INH SCH (19:31)
[2022-01-06 05:36] LABS: ABS Eosinophils 0.2 10^3/ul (0-0.6); ABS Lymphocytes 1.2 10^3/ul (1.0-4.8); ABS Monocytes 0.5 10^3/ul (0-0.8); ABS Neutrophils 3.8 10^3/ul (1.5-7.7); Eosinophil % 3.1 %; Hematocrit 26 % (42-52); Lymphocyte % 20.8 %; Mean Corpuscular HGB Conc 34 g/dL (31-36); Mean Corpuscular Hemoglobin 38 pg (27-31); Mean Corpuscular Volume 112 fL (80-94); Mean Platelet Volume 9.5 fL (7.4-10.4); Platelet Count 86 10^3/uL (150-450); Red Blood Count 2.36 10^6 /uL (4.18-5.48); Red Cell Distribution Width 17 % (10-15); White Blood Count 5.7 10^3/uL (3.5-10.8)
[2022-01-06 06:04] LABS: Calcium 8.9 mg/dL (8.6-10.3); Magnesium 2.1 mg/dL (1.9-2.7); Potassium 3.8 mmol/L (3.5-5.0); eGFR CKD-EPI 75.3 (>60)
[2022-01-06] MEDS: DULoxetine DR 30 mg CAP PO SCH (08:54)
[2022-01-06] MEDS: Enoxaparin 40 MG/0.4 ML SYR SUBCUT SCH (08:55)
[2022-01-06] MEDS: Pantoprazole VIAL 40 MG VIAL IV SCH ×2 (08:55→21:11)
[2022-01-06] MEDS: Nystatin TOP POWDER 15 GM BTL TOPICAL SCH ×2 (11:36→22:09)
[2022-01-06] MEDS: Mometasone 220 MCG MDI INH SCH (20:39)
[2022-01-07 06:05] LABS: Hematocrit 27 % (42-52); Mean Corpuscular HGB Conc 34 g/dL (31-36); Mean Corpuscular Hemoglobin 38 pg (27-31); Mean Corpuscular Volume 112 fL (80-94); Mean Platelet Volume 9.9 fL (7.4-10.4); Platelet Count 99 10^3/uL (150-450); Red Blood Count 2.39 10^6 /uL (4.18-5.48); Red Cell Distribution Width 18 % (10-15); White Blood Count 6.2 10^3/uL (3.5-10.8)
[2022-01-07 06:24] LABS: Calcium 8.8 mg/dL (8.6-10.3); Magnesium 2.1 mg/dL (1.9-2.7); Potassium 3.9 mmol/L (3.5-5.0); eGFR CKD-EPI 73.6 (>60)
[2022-01-07] MEDS: DULoxetine DR 30 mg CAP PO SCH (10:27)
[2022-01-07] MEDS: Enoxaparin 40 MG/0.4 ML SYR SUBCUT SCH (10:34)
[2022-01-07] MEDS: Pantoprazole VIAL 40 MG VIAL IV SCH ×2 (10:35→20:01)
[2022-01-07] MEDS: Nystatin TOP POWDER 15 GM BTL TOPICAL SCH ×2 (10:37→20:02)
[2022-01-07] MEDS: Magnesium Hydroxide LIQ 30 ML UDC PO PRN (18:32)
[2022-01-07] MEDS: Mometasone 220 MCG MDI INH SCH (19:50)
[2022-01-08 04:53] LABS: ABS Eosinophils 0.2 10^3/ul (0-0.6); ABS Lymphocytes 1.2 10^3/ul (1.0-4.8); ABS Monocytes 0.6 10^3/ul (0-0.8); ABS Neutrophils 2.8 10^3/ul (1.5-7.7); Eosinophil % 4.2 %; Hematocrit 30 % (42-52); Hemoglobin 10.2 g/dL (14.0-18.0); Lymphocyte % 24.7 %; Mean Corpuscular HGB Conc 34 g/dL (31-36); Mean Corpuscular Hemoglobin 38 pg (27-31); Mean Corpuscular Volume 113 fL (80-94); Mean Platelet Volume 9.8 fL (7.4-10.4); Nucleated Red Blood Cells % 0.1; Platelet Count 117 10^3/uL (150-450); Red Blood Count 2.68 10^6 /uL (4.18-5.48); Red Cell Distribution Width 18 % (10-15); White Blood Count 4.8 10^3/uL (3.5-10.8)
[2022-01-08 05:07] LABS: Magnesium 2.3 mg/dL (1.9-2.7); Potassium 4.3 mmol/L (3.5-5.0); eGFR CKD-EPI 68.2 (>60)
[2022-01-08] MEDS: Enoxaparin 40 MG/0.4 ML SYR SUBCUT SCH (11:22)
[2022-01-08 12:25] LABS: Folate 13.94 ng/mL (5.90-24.80)
[2022-01-08] MEDS ORDERED: fentaNYL 100 mcg/2 ml 50 MCG/ML VIAL ONE (12:34)
[2022-01-08] MEDS ORDERED: Midazolam 10 mg/10 ml VIAL 1 mg/ml 10 ml VIAL (10 mg) ONE (12:34)
[2022-01-08] MEDS: Nystatin TOP POWDER 15 GM BTL TOPICAL SCH ×2 (13:21→20:14)
[2022-01-08] MEDS: DULoxetine DR 30 mg CAP PO SCH (13:21)
[2022-01-08] MEDS: Pantoprazole VIAL 40 MG VIAL IV SCH ×2 (13:21→20:13)
[2022-01-08] MEDS: Mometasone 220 MCG MDI INH SCH (20:04)
[2022-01-09 06:16] LABS: ABS Eosinophils 0.2 10^3/ul (0-0.6); ABS Lymphocytes 1.2 10^3/ul (1.0-4.8); ABS Monocytes 0.7 10^3/ul (0-0.8); ABS Neutrophils 2.2 10^3/ul (1.5-7.7); Eosinophil % 4.2 %; Hematocrit 28 % (42-52); Hemoglobin 9.3 g/dL (14.0-18.0); Lymphocyte % 27.6 %; Mean Corpuscular HGB Conc 34 g/dL (31-36); Mean Corpuscular Hemoglobin 38 pg (27-31); Mean Corpuscular Volume 112 fL (80-94); Mean Platelet Volume 9.7 fL (7.4-10.4); Nucleated Red Blood Cells % 0.2; Platelet Count 135 10^3/uL (150-450); Red Blood Count 2.47 10^6 /uL (4.18-5.48); Red Cell Distribution Width 18 % (10-15); White Blood Count 4.3 10^3/uL (3.5-10.8)
[2022-01-09] MEDS: DULoxetine DR 30 mg CAP PO SCH (09:54)
[2022-01-09] MEDS: Enoxaparin 40 MG/0.4 ML SYR SUBCUT SCH (09:59)
[2022-01-09] MEDS: Nystatin TOP POWDER 15 GM BTL TOPICAL SCH ×2 (10:00→21:09)
[2022-01-09] MEDS: Pantoprazole VIAL 40 MG VIAL IV SCH (10:00)
[2022-01-09 11:50] LABS: Corrected Retic Count 2.2 % (0.5-1.5); Hematocrit for Retic CNT 29 % (42-52); Immature Retic Fraction 0.54; RBC Retic Count 2.57 10^6/uL (4.18-5.48)
[2022-01-09] MEDS ORDERED: Al Hydrox/Mg Hydrox/Simet LIQ 30 ML UDC PO ONE (15:23)
[2022-01-09] MEDS: Mometasone 220 MCG MDI INH SCH (20:56)
[2022-01-10 03:39] LABS: Hematocrit 26 % (42-52); Hemoglobin 8.8 g/dL (14.0-18.0)
[2022-01-10] MEDS: DULoxetine DR 30 mg CAP PO SCH (10:11)
[2022-01-10] MEDS: Nystatin TOP POWDER 15 GM BTL TOPICAL SCH (10:16)
[2022-01-10 10:30] LABS: Rapid COVID-19 Molecular Undetected (Undetected)
[2022-01-10 11:19] LABS: ABS Eosinophils 0.1 10^3/ul (0-0.6); ABS Lymphocytes 1.4 10^3/ul (1.0-4.8); ABS Monocytes 0.6 10^3/ul (0-0.8); ABS Neutrophils 2.1 10^3/ul (1.5-7.7); Hematocrit 27 % (42-52); Hemoglobin 8.8 g/dL (14.0-18.0); Mean Corpuscular HGB Conc 33 g/dL (31-36); Mean Corpuscular Hemoglobin 37 pg (27-31); Mean Corpuscular Volume 114 fL (80-94); Mean Platelet Volume 10.5 fL (7.4-10.4); Platelet Count 152 10^3/uL (150-450); Red Blood Count 2.35 10^6 /uL (4.18-5.48); Red Cell Distribution Width 18 % (10-15); White Blood Count 4.2 10^3/uL (3.5-10.8)
[2022-01-10 11:20] LABS: Eosinophil % 2.7 %; Nucleated Red Blood Cells % 0.1
[2022-01-10 11:36] VITALS: BP 102/78
[2022-01-10 11:51] LABS: Anisocytosis 1+; Macrocytosis 1+; Polychromasia 1+
[2022-01-10 12:08] LABS: ABS Eosinophils 0.1 10^3/ul (0-0.6); ABS Lymphocytes 0.8 10^3/ul (1.0-4.8); ABS Monocytes 0.6 10^3/ul (0-0.8); ABS Neutrophils 3.1 10^3/ul (1.5-7.7); Eosinophil % 1.7 %; Hematocrit 29 % (42-52); Hemoglobin 9.7 g/dL (14.0-18.0); Lymphocyte % 18.2 %; Mean Corpuscular HGB Conc 33 g/dL (31-36); Mean Corpuscular Hemoglobin 37 pg (27-31); Mean Corpuscular Volume 113 fL (80-94); Mean Platelet Volume 9.6 fL (7.4-10.4); Nucleated Red Blood Cells % 0.1; Platelet Count 173 10^3/uL (150-450); Red Cell Distribution Width 19 % (10-15); White Blood Count 4.6 10^3/uL (3.5-10.8)
[2022-01-10 16:18] LABS: Kappa Free Light Chain 3.87 mg/dL
[2022-01-10 23:46] LABS: Albumin 2.6 g/dL (3.4-4.7); Gamma Globulin 1.3 g/dL (0.6-1.6); Total Protein(PEP) 6.3 g/dL (6.3 - 7.9)
== END 2022-01-10 13:20 | DRG 884 ==
LOC: ED 20:45 → EDHOLD 20:45 → SUATTDRO 01-01 01:26 → MEDTELE 01-01 05:28 → SUATTDRO 01-02 14:00
PROVIDERS: ADMIT Hospitalist; ATTEND Internal Medicine

== ENCOUNTER 2022-02-02 21:37 | Observation (INO) ==
[2022-02-02 22:10] LABS: Hematocrit 26 % (42-52); Hemoglobin 8.8 g/dL (14.0-18.0); Mean Corpuscular HGB Conc 33 g/dL (31-36); Mean Corpuscular Hemoglobin 38 pg (27-31); Mean Corpuscular Volume 114 fL (80-94); Red Blood Count 2.32 10^6 /uL (4.18-5.48); Red Cell Distribution Width 18 % (10-15); White Blood Count 4.9 10^3/uL (3.5-10.8)
[2022-02-02 22:18] LABS: INR 1.77 (0.86-1.15)
[2022-02-02 22:19] LABS: Activated Partial Thrombo Time 39.8 seconds (26.0-38.0)
[2022-02-02 22:23] LABS: ABS Eosinophils 0.1 10^3/ul (0-0.6); ABS Lymphocytes 0.6 10^3/ul (1.0-4.8); ABS Monocytes 0.3 10^3/ul (0-0.8); ABS Neutrophils 3.9 10^3/ul (1.5-7.7); Lymphocyte % 13.2 %; Nucleated Red Blood Cells % 0.3
[2022-02-02 22:29] LABS: Mean Platelet Volume 10.1 fL (7.4-10.4); Platelet Count 75 10^3/uL (150-450)
[2022-02-02 22:48] LABS: Albumin 3.5 g/dL (3.2-5.2); Albumin/Globulin Ratio 1.3 (1-3); C Reactive Protein 17.48 mg/L (<8.01); Calcium 8.8 mg/dL (8.6-10.3); Globulin 2.7 g/dL (2-4); Total Bilirubin 0.6 mg/dL (0.2-1.0); Total Protein 6.2 g/dL (6.4-8.9); eGFR CKD-EPI 47.4 (>60)
[2022-02-02 23:25] LABS: High Sensitivity Troponin 1 Hr 7 pg/mL (<20)
[2022-02-02] MEDS ORDERED: NS 0.9% 1000 ml BAG 1,000 ML IV ONE (23:43)
[2022-02-02] MEDS ORDERED: Iodixanol (CONTRAST) 320 MG/ML 100 ML SDV IV ONE (23:50)
[2022-02-03 00:31] LABS: Urine Appearance Clear; Urine Bilirubin Negative (Negative); Urine Blood Negative (Negative); Urine Color Yellow; Urine Glucose Negative (Negative); Urine Ketones Negative (Negative); Urine Nitrite Negative (Negative); Urine Protein Negative (Negative); Urine Urobilinogen Negative (Negative)
[2022-02-03 03:06] LABS: Urine Benzodiazepine Screen None Detected (None Detect); Urine Cannabinoids Screen None Detected (None Detect); Urine Opiates Screen None Detected (None Detect)
[2022-02-03 05:12] LABS: PCO2 Arterial 36 mmHg (35-45); PO2 Arterial 102 mmHg (80-100)
[2022-02-03] MEDS ORDERED: Levalbuterol HFA INHALER MDI INH PRN (05:39)
[2022-02-03 06:48] LABS: TSH Ultra Thyroid Stim Horm 1.73 mcIU/mL (0.34-5.60)
[2022-02-03 08:03] LABS: ABS Eosinophils 0.1 10^3/ul (0-0.6); ABS Lymphocytes 0.7 10^3/ul (1.0-4.8); ABS Monocytes 0.4 10^3/ul (0-0.8); ABS Neutrophils 4.1 10^3/ul (1.5-7.7); Eosinophil % 2.6 %; Hematocrit 26 % (42-52); Hemoglobin 8.5 g/dL (14.0-18.0); Lymphocyte % 13.7 %; Mean Corpuscular HGB Conc 33 g/dL (31-36); Mean Corpuscular Hemoglobin 38 pg (27-31); Mean Corpuscular Volume 114 fL (80-94); Mean Platelet Volume 10.1 fL (7.4-10.4); Nucleated Red Blood Cells % 0.2; Platelet Count 76 10^3/uL (150-450); Red Blood Count 2.25 10^6 /uL (4.18-5.48); Red Cell Distribution Width 18 % (10-15); White Blood Count 5.4 10^3/uL (3.5-10.8)
[2022-02-03 08:32] LABS: Albumin/Globulin Ratio 1.2 (1-3); Calcium 8.4 mg/dL (8.6-10.3); Globulin 2.6 g/dL (2-4); Magnesium 2.1 mg/dL (1.9-2.7); Potassium 4.1 mmol/L (3.5-5.0); Total Bilirubin 0.8 mg/dL (0.2-1.0); Total Protein 5.6 g/dL (6.4-8.9); eGFR CKD-EPI 61.6 (>60)
[2022-02-03] MEDS ORDERED: BECLOMETHASONE INTRANASAL SCH (09:00)
[2022-02-03] MEDS: DULoxetine DR 30 mg CAP PO SCH (10:06)
[2022-02-03] MEDS ORDERED: NS 0.9% 500 ml BAG 500 ML IV ONE (11:32)
[2022-02-03] MEDS: Mometasone 220 MCG MDI INH SCH ×2 (15:28→20:27)
[2022-02-03] MEDS ORDERED: D5LR 1000 ml BAG 1,000 ML IV SCH (16:00)
[2022-02-04 06:23] LABS: Calcium 8.5 mg/dL (8.6-10.3); eGFR CKD-EPI 89.6 (>60)
[2022-02-04] MEDS: Mometasone 220 MCG MDI INH SCH ×2 (08:28→20:02)
[2022-02-04] MEDS: DULoxetine DR 30 mg CAP PO SCH (09:03)
[2022-02-04] MEDS ORDERED: Furosemide 20 mg/2 ml IV VIAL IV ONE (10:15)
[2022-02-04 23:08] LABS: Rapid COVID-19 Molecular Undetected (Undetected)
[2022-02-05 06:40] LABS: Calcium 8.3 mg/dL (8.6-10.3); Potassium 3.9 mmol/L (3.5-5.0); eGFR CKD-EPI 76.2 (>60)
[2022-02-05] MEDS: Mometasone 220 MCG MDI INH SCH (07:55)
[2022-02-05 08:17] VITALS: BP 111/77
[2022-02-05] MEDS ORDERED: Furosemide 20 mg/2 ml IV VIAL IV ONE (08:27)
[2022-02-05] MEDS: DULoxetine DR 30 mg CAP PO SCH (09:40)
[2022-02-05] MEDS ORDERED: Cyanocobalamin INJ 1,000 MCG/ML VIAL 1 ML VIAL IM SCH (13:00)
== END 2022-02-05 15:00 ==
LOC: ED 21:37 → INTOOBSV 02-03 05:41 → EDHOLD 02-03 05:41 → SUATTDRO 02-03 14:52 → SSU 02-03 14:53
PROVIDERS: ADMIT Internal Medicine; ATTEND Internal Medicine